=== PATIENT | female | born 1955 | race Caucasian/White ===

== ENCOUNTER 2016-12-08 02:45 | Inpatient (IN) | payer MEDICARE, OTHER ==
[~2016-12-08] VITALS: Ht 167.6 cm; Wt 82.1 kg
[~2016-12-08 02:45] MED LIST: BUSP15TA PO; DICL75TA PO; FLUO20CA16 PO; FOLI1TAB16 PO; HYDR-2679 PO; LORA1TAB PO; METF-620 PO; METO50TA2 PO; NITR0.3T SL; SIMV40TA3 PO; TRIA1CAP PO
[2016-12-08 03:13] LABS: BASO # 0.1 x10^3/uL (0.0-0.2); BASO % 1 % (0-3); EOS % 1 % (0-3); HEMATOCRIT 41.4 % (36.0-47.0); HEMOGLOBIN 13.4 g/dL (12.0-15.5); LYMPH # 3.4 x10^3/uL (1.0-4.8); LYMPH % 20 % (24-48); MEAN CORPUSCULAR HEMOGLOBIN 30 pg (25-35); MEAN CORPUSCULAR HGB CONC 32 g/dL (31-37); MEAN CORPUSCULAR VOLUME 92 fL (79-100); MONO % 6 % (0-9); NEUT % 72 % (31-73); PLATELET COUNT 371 x10^3/uL (140-400); RED BLOOD COUNT 4.49 x10^6/uL (3.50-5.40); RED CELL DISTRIBUTION WIDTH 14.5 % (11.5-14.5); WHITE BLOOD COUNT 16.6 x10^3/uL (4.0-11.0)
[2016-12-08 03:21] LABS: BILIRUBIN,URINE NEGATIVE (NEG); GLUCOSE,URINE NEGATIVE (NEG); NITRITE,URINE NEGATIVE (NEG); PROTEIN,URINE NEGATIVE (NEG-TRACE); UROBILINOGEN,URINE 0.2 mg/dL (0.2 mg/dL)
[2016-12-08 03:22] LABS: BACTERIA,URINE MODERATE /HPF (0-FEW); RBC,URINE OCC /HPF (0-2); SQUAMOUS EPITHELIAL CELL,UR MANY /LPF
[2016-12-08 03:27] LABS: CALCIUM 11.4 mg/dL (8.5-10.1); CREATININE 1.8 mg/dL (0.6-1.0); GFR 28.5; POTASSIUM 4.5 mmol/L (3.5-5.1)
[2016-12-08 03:31] LABS: ALBUMIN 4.2 g/dL (3.4-5.0); ALBUMIN/GLOBULIN RATIO 1.1 (1.0-1.7); TOTAL BILIRUBIN 0.2 mg/dL (0.2-1.0)
--- NOTE | 2016-12-08 03:57 | PHYS DOC ---
Past Medical History Past Medical History: Angina, Anxiety, Diabetes-Type II Additional Past Medical Histor: back pain, [place]IN[place] Past Surgical History: Cholecystectomy, Hysterectomy Alcohol Use: None Drug Use: None Adult General Chief Complaint Chief Complaint: ABDOMINAL PAIN HPI HPI Patient is a 61 year old female with history of CAD, anxiety presents with intermittent daily epigastric pain with nausea vomiting and episodes of watery stools for the past 3 days. Abdominal pain is described as sharp and radiates to back and worsened this evening. Patient has been vomiting stomach contents and is unable to keep fluids or food down. She reports watery diarrhea 2 days ago which improved with Pepto-Bismol. Pain is described as sharp rated moderate to severe and is worse with palpation and movement. Patient is unable to find position of comfort. Previous surgical history of cholecystectomy and hysterectomy. Patient eyes fever, chills, sweats, flank pain, urinary frequency and urgency. No fever chills or sweats. No other acute symptoms or complaints. Patient's accompanied at bedside by her spouse. Review of Systems Review of Systems Review symptoms as per history of present illness. All other review symptoms are negative. Current Medications Current Medications Current Medications Medications (Trade) Dose Ordered Sig/Adrianne Start Time Stop Time Status Last Admin Dose Admin Ceftriaxone Sodium 1 gm/ Sodium Chloride 50 ml @ 100 mls/hr Q24H 12/09/16 05:00 Ceftriaxone Sodium 50 ml @ 100 mls/hr 1X ONCE 12/08/16 04:30 12/08/16 04:59 DC 12/08/16 04:39 100 MLS/HR Famotidine (Pepcid) 20 mg QHS 12/08/16 21:00 Fentanyl Citrate (Fentanyl 2ml Vial) 50 mcg 1X ONCE 12/08/16 04:00 12/08/16 04:01 DC 12/08/16 03:38 50 MCG Morphine Sulfate 4 mg 1X ONCE 12/08/16 04:30 12/08/16 04:31 DC 12/08/16 04:26 4 MG Ondansetron HCl (Zofran) 4 mg PRN Q8HRS PRN 12/08/16 05:15 12/09/16 05:14 Sodium Chloride 1,000 ml @ 125 mls/hr Q8H 12/08/16 05:30 12/09/16 05:29 Allergies Allergies Allergies Coded Allergies Type Severity Reaction Last Updated Verified buprenorphine Allergy Intermediate Rash 10/09/13 Yes naproxen Allergy Intermediate RASH 09/26/13 Yes Physical Exam Physical Exam Constitutional: Anxious, moderate distress secondary to pain. [] HENT: Normocephalic, atraumatic, bilateral external ears normal, oropharynx moist, no oral exudates, nose normal. [] Eyes: PERRLA, EOMI, conjunctiva normal, no discharge. [] Neck: Normal range of motion, no tenderness, supple, no stridor. [] Cardiovascular: Regular rate and rhythm. [] Lungs & Thorax: Bilateral breath sounds clear to auscultation [] Abdomen: Bowel sounds normal, soft, umbilical pain, tenderness, no rebound rigidity or guarding. [] Skin: Warm, dry, no erythema, no rash. [] Back: No tenderness, no CVA tenderness. [] Extremities: No tenderness, no cyanosis, no clubbing, ROM intact, no edema. [] Neurologic: Alert and oriented X 3, normal motor function, normal sensory function, no focal deficits noted. [] Current Patient Data Vital Signs Vital Signs Date Time Temp Pulse Resp B/P (MAP) Pulse Ox O2 Delivery O2 Flow Rate FiO2 12/08/16 04:26 18 Room Air 12/08/16 02:52 98.1 70 179/85 (116) 98 98.1 Lab Values Laboratory Tests Test 12/08/16 02:59 12/08/16 03:00 12/08/16 03:29 Urine Collection Type Unknown Urine Color Yellow Urine Clarity Cloudy Urine pH 5.0 Urine Specific [place] 1.020 Urine Protein Negative mg/dL (NEG-TRACE) Urine Glucose (UA) Negative mg/dL (NEG) Urine Ketones (Stick) Negative mg/dL (NEG) Urine Blood Negative (NEG) Urine Nitrite Negative (NEG) Urine Bilirubin Negative (NEG) Urine Urobilinogen Dipstick 0.2 mg/dL (0.2 mg/dL) Urine Leukocyte Esterase Small (NEG) Urine RBC Occ /HPF (0-2) Urine WBC 11-20 /HPF (0-4) Urine Squamous Epithelial Cells Many /LPF Urine Bacteria Moderate /HPF (0-FEW) Urine Mucus Mod /LPF White Blood Count 16.6 x10^3/uL (4.0-11.0) H Red Blood Count 4.49 x10^6/uL (3.50-5.40) Hemoglobin 13.4 g/dL (12.0-15.5) Hematocrit 41.4 % (36.0-47.0) Mean Corpuscular Volume 92 fL (79-100) Mean Corpuscular Hemoglobin 30 pg (25-35) Mean Corpuscular Hemoglobin Concent 32 g/dL (31-37) Red Cell Distribution Width 14.5 % (11.5-14.5) Platelet Count 371 x10^3/uL (140-400) Neutrophils (%) (Auto) 72 % (31-73) Lymphocytes (%) (Auto) 20 % (24-48) L Monocytes (%) (Auto) 6 % (0-9) Eosinophils (%) (Auto) 1 % (0-3) Basophils (%) (Auto) 1 % (0-3) Neutrophils # (Auto) 12.0 x10^3uL (1.8-7.7) H Lymphocytes # (Auto) 3.4 x10^3/uL (1.0-4.8) Monocytes # (Auto) 1.0 x10^3/uL (0.0-1.1) Eosinophils # (Auto) 0.1 x10^3/uL (0.0-0.7) Basophils # (Auto) 0.1 x10^3/uL (0.0-0.2) Sodium Level 141 mmol/L (136-145) Potassium Level 4.5 mmol/L (3.5-5.1) Chloride Level 101 mmol/L (98-107) Carbon Dioxide Level 24 mmol/L (21-32) Anion Gap 16 (6-14) H Blood Urea Nitrogen 34 mg/dL (7-20) H Creatinine 1.8 mg/dL (0.6-1.0) H Estimated GFR (Cockcroft-Gault) 28.5 BUN/Creatinine Ratio 19 (6-20) Glucose Level 178 mg/dL (70-99) H Calcium Level 11.4 mg/dL (8.5-10.1) H Total Bilirubin 0.2 mg/dL (0.2-1.0) Aspartate Amino Transferase (AST) 50 U/L (15-37) H Alanine Aminotransferase (ALT) 80 U/L (14-59) H Alkaline Phosphatase 84 U/L (46-116) Troponin I Quantitative < 0.017 ng/mL (0.000-0.055) Total Protein 8.0 g/dL (6.4-8.2) Albumin 4.2 g/dL (3.4-5.0) Albumin/Globulin Ratio 1.1 (1.0-1.7) Lipase 462 U/L (73-393) H Glucose (Fingerstick) 155 mg/dL (70-99) H Laboratory Tests 12/08/16 03:00 Laboratory Tests 12/08/16 03:00 EKG EKG [EKG: Normal sinus rhythm, no acute ST-T wave changes.] Radiology/Procedures Radiology/Procedures [Chest x-ray: No acute cardiopulmonary disease per ED result. CT abdomen/pelvis: Bowel thickening involving the descending and distal small bowel loops.] Course & Med Decision Making Course & Med Decision Making Pertinent Labs and Imaging studies reviewed. (See chart for details) [Diffuse periumbilical abdominal pain, flank with intractable nausea and vomiting. UA +, hypercalcemia. IV fluids, pain medications as medication given. Dr. Moya to admit. ] Dragon Disclaimer Dragon Disclaimer This electronic medical record was generated, in whole or in part, using a voice recognition dictation system. Departure Departure Disposition: ADMITTED INPATIENT Admitting Physician: Lv Moya Condition: IMPROVED Referrals: MUNIR CUEVAS MD (PCP) GAURAV ANGEL DO Dec 08, 2016 03:57
[2016-12-08] MEDS ORDERED: FAMOTIDINE 20 MG/2 ML VIAL IVP ONE (04:00)
[2016-12-08] MEDS ORDERED: ONDANSETRON PF 4 MG/2 ML VIAL. IV ONE (04:00)
[2016-12-08] MEDS ORDERED: IV NORMAL SALINE 1000ML BAG 1,000 ML IV ONE ×2 (04:00→04:30)
[2016-12-08] MEDS ORDERED: fentaNYL PF VIAL 100 MCG/2 ML VIAL IV ONE (04:00)
--- NOTE | 2016-12-08 04:19 | RAD ---
EXAM: Abdomen and pelvis CT without intravenous contrast. HISTORY: 61-year-old female with right flank pain. TECHNIQUE: Computed tomographic images of the abdomen and pelvis were obtained without contrast. Multiplanar reformatting was performed. PQRS compliance statement: One or more of the following individualized dose reduction techniques were utilized for this examination: 1. Automated exposure control 2. Adjustment of the mA and/or kV according to patient size 3. Use of iterative reconstruction technique COMPARISON: None available. FINDINGS: The lung bases demonstrate no acute finding. Detailed evaluation of the intra-abdominal and pelvic organs and vascular structures is limited secondary to lack of IV contrast. Within these limitations, the liver, spleen, pancreas, adrenal glands and right kidney demonstrate no focal abnormality. The gallbladder is surgically absent. There is evidence of a duplicated left renal collecting system with 2 proximal ureters visualized. Several hypodense structures are seen within the left renal pelvis, which likely represent parapelvic cysts, hydronephrosis felt less likely. The GI tract demonstrates no dilated bowel loops to suggest obstruction. There is evidence of bowel wall thickening involving the ascending colon as well as distal small bowel loops within the pelvis and right abdomen. Otherwise, the distal colon is decompressed. Proximal small bowel loops appear within normal limits. The urinary bladder is grossly unremarkable. No intra-abdominal or pelvic free fluid, free air or significant lymphadenopathy is seen. 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 Overlying soft tissues and visualized osseous structures demonstrate no acute or suspicious finding. Degenerative changes are present at the L5-S1 level. There is mild anterolisthesis of L4 on L5. IMPRESSION: 1. Bowel wall thickening involving the ascending colon and distal small bowel loops. Possible etiologies include inflammatory bowel disease and enteritis. No evidence of obstruction. 2. Duplicated left renal collecting system, with probable parapelvic cysts present. Electronically signed by: Tania Kilgore MD (12/08/2016 4:16 AM) [id number]
[2016-12-08] MEDS ORDERED: MORPHINE SULFATE 4 MG/ML DISP.SYRIN. IV ONE (04:30)
[2016-12-08] MEDS ORDERED: ONDANSETRON PF 4 MG/2 ML VIAL. IV PRN (05:15)
--- NOTE | 2016-12-08 06:49 | EKG ---
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
[2016-12-08 07:00] VITALS: BP 165/66
[2016-12-08] MEDS ORDERED: MORPHINE SULFATE 4 MG/ML DISP.SYRIN. IV PRN ×2 (07:30→09:45)
--- NOTE | 2016-12-08 07:30 | RAD ---
Exam performed: One view chest. Indication: chest pain today Date of Service: 12/08/2016 5:06 AM Comparison: None available. Single AP upright portable view chest findings: Cardiomediastinal silhouette is within limits of normal. No acute infiltrates, effusion or pneumothorax is detected. The bony structures are normal. Impression: No acute cardiopulmonary process is detected.
[2016-12-08] MEDS: ONDANSETRON PF 4 MG/2 ML VIAL. IV PRN ×4 (07:43→20:54)
[2016-12-08] MEDS: MORPHINE SULFATE 4 MG/ML DISP.SYRIN. IV PRN ×7 (07:47→23:46)
[2016-12-08] MEDS: IV NORMAL SALINE 1000ML BAG 1,000 ML IV SCH ×4 (07:54→23:40)
[2016-12-08] MEDS ORDERED: LISI-338 PO (08:51)
[2016-12-08] MEDS ORDERED: GABA-585 PO (08:51)
[2016-12-08] MEDS ORDERED: EXEN2VIA SQ (08:51)
[2016-12-08] MEDS ORDERED: TRAM50TA PO (08:51)
[2016-12-08] MEDS ORDERED: GLIP5TAB10 PO (08:51)
[2016-12-08] MEDS ORDERED: traMADol 50 MG TABLET PO PRN ×2 (09:45)
[2016-12-08] MEDS ORDERED: ACETAMINOPHEN 325 MG TABLET. PO PRN (09:45)
[2016-12-08] MEDS ORDERED: DOCUSATE SODIUM 100 MG CAPSULE. PO PRN (09:45)
[2016-12-08] MEDS ORDERED: DEXTROSE 50% 25 GM / 50ML DISP.SYRIN. IV PRN (09:45)
[2016-12-08] MEDS ORDERED: hydrALAZINE 20 MG/ML VIAL. IVP PRN (09:45)
[2016-12-08] MEDS: FLUoxetine HCL 20 MG CAPSULE PO SCH ×2 (10:00→21:00)
[2016-12-08] MEDS: LORazepam 1 MG TABLET PO SCH ×3 (10:00→21:00)
[2016-12-08] MEDS: LISINOPRIL 5 MG TABLET. PO SCH (10:02)
[2016-12-08 11:00] VITALS: BP 147/57
[2016-12-08] MEDS: PROCHLORPERAZINE 10 MG/2 ML VIAL. IV PRN ×2 (11:19→16:50)
--- NOTE | 2016-12-08 11:28 | PDOC2 ---
GI CONSULT Reason For Consult: N/v, abd pain HPI: HPI: 61 y/o female admitted through the ER. Ill since 12/04, thought salmon for dinner tasted funny, then began vomiting and having diarrhea w/ diffuse abdominal pain radiating to right flank. Had a red stool once, attributed to drinking tomato juice. Tried Pepto, last stool and emesis yesterday. Just tried ice chips that "tore her up" (more pain). Labs significant for WBC 16.5, BUN 34, Cr 1.8, Ca 11.4, AST 50, ALT 80, lipase 462. UA c/w UTI. CT w/o contrast showed bowel wall thickening involving the ascending colon and distal small bowel loops. Started on Rocephin w/ clear liquid diet ordered, along w/ C Diff and stool culture. Occasional nocturnal reflux treated w/ Tums PRN. H/o PUD at age 11, last EGD ~ 8 years ago showed "scar tissue." Has been taking Advil regularly to "wean off " Tramadol. H/o hemorrhoids w/ occasional streaks of blood on the toilet tissue , last colonoscopy reportedly normal ~8 years ago. Fatty liver on previous US. S/p cholecystectomy. Denies pancreas issues. PMH: PMH: PUD, GERD, fatty liver, DM, HTN, HLD, tremors, anxiety, OA, neuropathy, cholecystectomy, cardiac cath, partial hysterectomy FH: Family History: No pertinent hx (deneis GI cancers, IBD) Social History: Smoke: <1 pack per day ALCOHOL: none Drugs: None ROS: GEN: Denies fevers, chills, sweats HEENT: Denies blurred vision, sore throat CV: Denies chest pain RESP: Denies shortness of air, cough GI: Per HPI : Denies hematuria, dysuria ENDO: Denies weight changes NEURO: Denies confusion, dizziness MSK: Denies weakness, joint pain/swelling SKIN: Denies jaundice, pruritus Vitals: Vitals: Vital Signs Date Time Temp Pulse Resp B/P (MAP) Pulse Ox O2 Delivery O2 Flow Rate FiO2 12/08/16 10:01 Room Air 12/08/16 07:00 97.7 66 20 165/66 (99) 97 97.7 Labs: Labs: Laboratory Tests Test 12/08/16 02:59 12/08/16 03:00 8/22/17 03:29 12/08/16 07:33 Urine Collection Type Unknown Urine Color Yellow Urine Clarity Cloudy Urine pH 5.0 Urine Specific [place] 1.020 Urine Protein Negative mg/dL (NEG-TRACE) Urine Glucose (UA) Negative mg/dL (NEG) Urine Ketones (Stick) Negative mg/dL (NEG) Urine Blood Negative (NEG) Urine Nitrite Negative (NEG) Urine Bilirubin Negative (NEG) Urine Urobilinogen Dipstick 0.2 mg/dL (0.2 mg/dL) Urine Leukocyte Esterase Small (NEG) Urine RBC Occ /HPF (0-2) Urine WBC 11-20 /HPF (0-4) Urine Squamous Epithelial Cells Many /LPF Urine Bacteria Moderate /HPF (0-FEW) Urine Mucus Mod /LPF White Blood Count 16.6 x10^3/uL (4.0-11.0) Red Blood Count 4.49 x10^6/uL (3.50-5.40) Hemoglobin 13.4 g/dL (12.0-15.5) Hematocrit 41.4 % (36.0-47.0) Mean Corpuscular Volume 92 fL (79-100) Mean Corpuscular Hemoglobin 30 pg (25-35) Mean Corpuscular Hemoglobin Concent 32 g/dL (31-37) Red Cell Distribution Width 14.5 % (11.5-14.5) Platelet Count 371 x10^3/uL (140-400) Neutrophils (%) (Auto) 72 % (31-73) Lymphocytes (%) (Auto) 20 % (24-48) Monocytes (%) (Auto) 6 % (0-9) Eosinophils (%) (Auto) 1 % (0-3) Basophils (%) (Auto) 1 % (0-3) Neutrophils # (Auto) 12.0 x10^3uL (1.8-7.7) Lymphocytes # (Auto) 3.4 x10^3/uL (1.0-4.8) Monocytes # (Auto) 1.0 x10^3/uL (0.0-1.1) Eosinophils # (Auto) 0.1 x10^3/uL (0.0-0.7) Basophils # (Auto) 0.1 x10^3/uL (0.0-0.2) Sodium Level 141 mmol/L (136-145) Potassium Level 4.5 mmol/L (3.5-5.1) Chloride Level 101 mmol/L (98-107) Carbon Dioxide Level 24 mmol/L (21-32) Anion Gap 16 (6-14) Blood Urea Nitrogen 34 mg/dL (7-20) Creatinine 1.8 mg/dL (0.6-1.0) Estimated GFR (Cockcroft-Gault) 28.5 BUN/Creatinine Ratio 19 (6-20) Glucose Level 178 mg/dL (70-99) Calcium Level 11.4 mg/dL (8.5-10.1) Total Bilirubin 0.2 mg/dL (0.2-1.0) Aspartate Amino Transf (AST/SGOT) 50 U/L (15-37) Alanine Aminotransferase (ALT/SGPT) 80 U/L (14-59) Alkaline Phosphatase 84 U/L (46-116) Troponin I Quantitative < 0.017 ng/mL (0.000-0.055) Total Protein 8.0 g/dL (6.4-8.2) Albumin 4.2 g/dL (3.4-5.0) Albumin/Globulin Ratio 1.1 (1.0-1.7) Lipase 462 U/L (73-393) Glucose (Fingerstick) 155 mg/dL (70-99) 156 mg/dL (70-99) Allergies: Coded Allergies: buprenorphine (Verified Allergy, Intermediate, Rash, 10/09/13) naproxen (Verified Allergy, Intermediate, RASH, 09/26/13) Medications: Current Medications Medications (Trade) Dose Ordered Sig/Adrianne Route PRN Reason Start Time Stop Time Status Last Admin Dose Admin Famotidine (Pepcid) 20 mg 1X ONCE IVP 12/08/16 04:00 12/08/16 04:01 DC 12/08/16 03:38 Fentanyl Citrate (Fentanyl 2ml Vial) 50 mcg 1X ONCE IV 12/08/16 04:00 12/08/16 04:01 DC 12/08/16 03:38 Ondansetron HCl (Zofran) 4 mg 1X ONCE IV 12/08/16 04:00 12/08/16 04:01 DC 12/08/16 03:37 Sodium Chloride 1,000 ml @ 1,000 mls/hr 1X ONCE IV 12/08/16 04:00 12/08/16 04:59 DC 12/08/16 03:38 Ceftriaxone Sodium 50 ml @ 100 mls/hr 1X ONCE IV 12/08/16 04:30 12/08/16 04:59 DC 12/08/16 04:39 Morphine Sulfate 4 mg 1X ONCE IV 12/08/16 04:30 12/08/16 04:31 DC 12/08/16 04:26 Sodium Chloride 1,000 ml @ 125 mls/hr Q8H IV 12/08/16 05:30 12/09/16 05:29 12/08/16 07:54 Ondansetron HCl (Zofran) 4 mg PRN Q4HRS PRN IV NAUSEA/VOMITING 12/08/16 07:20 12/09/16 07:19 12/08/16 07:43 Morphine Sulfate 4 mg PRN Q2HR PRN IV PAIN 12/08/16 07:30 12/08/16 10:01 Imaging: Imaging: CXR 12/08/16 Impression: No acute cardiopulmonary process is detected. CT A/P w/o contrast 12/08/16 IMPRESSION: 1. Bowel wall thickening involving the ascending colon and distal small bowel loops. Possible etiologies include inflammatory bowel disease and enteritis. No evidence of obstruction. 2. Duplicated left renal collecting system, with probable parapelvic cysts present. PE: GEN: NAD HEENT: Atraumatic, PERRL LUNGS: CTAB anteriorly HEART: RRR ABD: BS+, some distention but soft, diffusely tender to light palpation EXTREMITY: No edema SKIN: No rashes, no jaundice NEURO/PSYCH: A & O 3 A/P: A/P: Abd/flank pain, n/v diarrhea -onset 12/04, last emesis/stool yesterday -stool tests ordered UTI, leukocytosis, OSWALD, hypercalcemia -started on Rocephin, per primary Mildly elevated LFTs and lipase -h/o transaminitis on previous labs -normal pancreas and liver on CT -h/o fatty liver on previous US -s/p cholecystectomy Abnormal CT A/P -bowel wall thickening involving the ascending colon and distal small bowel loops Acid reflux, h/o PUD, NSAID use -takes Tums PRN for nocturnal reflux, last EGD ~8 years ago Occasional rectal bleeding, CRC screen -attributed to hemorrhoids -last colonoscopy ~8 years ago -- Possible enteritis. Supportive care, agree w/ trial of clears. Treat UTI, await stool tests. Would benefit from PPI trial, continue IV H2 sheri until taking PO well. Avoidance of NSAIDs would be ideal, particularly considering PUD history. Mild elevation in LFTs possible related to fatty liver. Trend these along w/ lipase. JOE BRIGGS Dec 08, 2016 11:28
[2016-12-08] MEDS: INSULIN ASPART 300 UNITS/3 ML INSULN.PEN SQ SCH ×2 (11:37→17:00)
--- NOTE | 2016-12-08 12:44 | PDOC1 ---
History and Physical Date of Admission Date of Admission 12/08/16 Identification/Chief Complaint Chief Complaint N/V, abd pain, diarrhea Problems: Source Source: Chart review, Patient History of Present Illness History of Present Illness HPI HPI Patient is a 61 year old female with history of CAD, anxiety, htn, dm2, came to ER for N/V, abd pain, diarrhea x3days. Pt said she had h/o gastric ulcer. She started to have above symptoms on Wednesday, vomiting wo blood or greenish liquid, + right upper abd pain, cramping, intermittent, radiating to right flank , 11/26. She also had 2 days of loose and watery diarrhea, some are bloody, and resolved on Wednesday after taking pepto bismol. denies eating wrong food, ate salad tho. subjective fever, chills, denies cough, sob. + frequent and urgent urination, no dysuria. CT showed possible enteritis Past Medical History Cardiovascular: HTN, Hyperlipidemia, Other CENTRAL NERVOUS SYSTEM: Periperal neuropathy, Other Psych: Anxiety Endocrine: Diabetes Past Surgical History Past Surgical History: Cholecystectomy Family History Family History: Coronary Artery Disease Social History Smoke: <1 pack per day ALCOHOL: none Drugs: None Current Problem List Problem List Problems Medical Problems: (1) Nausea & vomiting Status: Acute Current Medications Current Medications Current Medications Medications (Trade) Dose Ordered Sig/Adrianne Start Time Stop Time Status Last Admin Dose Admin Acetaminophen (Tylenol) 650 mg PRN Q6HRS PRN 12/08/16 09:45 Acetaminophen/ Hydrocodone Bitart (Lortab 7.5/325) 1 tab PRN Q6HRS PRN 12/08/16 09:45 Ceftriaxone Sodium 1 gm/ Sodium Chloride 50 ml @ 100 mls/hr Q24H 12/09/16 05:00 Ceftriaxone Sodium 50 ml @ 100 mls/hr 1X ONCE 12/08/16 04:30 12/08/16 04:59 DC 12/08/16 04:39 100 MLS/HR Dextrose (Dextrose 50%-Water Syringe) 12.5 gm PRN Q15MIN PRN 12/08/16 09:45 Docusate Sodium (Colace) 100 mg PRN DAILY PRN 12/08/16 09:45 Famotidine (Pepcid) 20 mg QHS 12/08/16 21:00 Fentanyl Citrate (Fentanyl 2ml Vial) 50 mcg 1X ONCE 12/08/16 04:00 12/08/16 04:01 DC 12/08/16 03:38 50 MCG Fluoxetine HCl (PROzac) 20 mg BID 12/08/16 10:00 Gabapentin (Neurontin) 100 mg TID 12/08/16 14:00 Heparin Sodium (Porcine) (Heparin Sq) 5,000 unit Q8HRS 12/08/16 14:00 Hydralazine HCl (Apresoline) 10 mg PRN Q4HRS PRN 12/08/16 09:45 Insulin Aspart (NovoLOG) 0-9 UNITS TIDWMEALS 12/08/16 12:00 Lisinopril (Prinivil) 5 mg DAILY 12/08/16 10:00 Lorazepam (Ativan) 0.25 mg PRN Q4HRS PRN 12/08/16 10:45 12/08/16 11:19 0.25 MG Metoprolol Tartrate (Lopressor) 50 mg DAILY 12/09/16 09:00 Morphine Sulfate 2 mg PRN Q2HR PRN 12/08/16 09:45 Ondansetron HCl (Zofran) 4 mg PRN Q6HRS PRN 12/08/16 09:45 Prochlorperazine Edisylate (Compazine) 10 mg PRN Q6HRS PRN 12/08/16 10:45 12/08/16 11:19 10 MG Simvastatin (Zocor) 40 mg HS 12/08/16 21:00 Sodium Chloride 1,000 ml @ 100 mls/hr Q10H 12/09/16 05:30 Tramadol HCl (Ultram) 50 mg PRN Q6HRS PRN 12/08/16 09:45 UNV Allergies Allergies Allergies Coded Allergies Type Severity Reaction Last Updated Verified buprenorphine Allergy Intermediate Rash 10/09/13 Yes naproxen Allergy Intermediate RASH 09/26/13 Yes ROS Review of System CONSTITUTIONAL: No fever or chills EYES: No recent changes SKIN: No rash or itching CARDIOVASCULAR: No chest pain, syncope, palpitations, or edema RESPIRATORY: No SOB or cough GASTROINTESTINAL: + nausea, vomiting or abdominal pain NEUROLOGICAL: No headaches or weakness ENDOCRINE: No cold or heat intolerance GENITOURINARY: No urgency or frequency of urination MUSCULOSKELETAL: No back pain or joint pain LYMPHATICS: No enlarged lymph nodes PSYCHIATRIC: No anxiety or depression Physical Exam Physical Exam GEN.: No apparent distress. Alert and oriented. HEENT: Head is normocephalic, atraumatic NECK: Supple. LUNGS: Clear to auscultation. HEART: RRR, S1, S2 present. Peripheral pulses intact ABDOMEN: Soft, Positive bowel sounds. RUQ moderate tenderness, no guarding or rebound EXTREMITIES: Without any cyanosis. NEUROLOGIC: Normal speech, normal tone PSYCHIATRIC: Normal affect, normal mood. SKIN: No ulcerations Vitals Vitals Vital Signs Date Time Temp Pulse Resp B/P (MAP) Pulse Ox O2 Delivery O2 Flow Rate FiO2 12/08/16 11:21 Room Air 12/08/16 11:00 98.1 64 20 147/57 (87) 94 98.1 Labs Labs Laboratory Tests Test 12/08/16 02:59 12/08/16 03:00 12/08/16 03:29 12/08/16 07:33 Urine Collection Type Unknown Urine Color Yellow Urine Clarity Cloudy Urine pH 5.0 Urine Specific Ramona 1.020 Urine Protein Negative mg/dL (NEG-TRACE) Urine Glucose (UA) Negative mg/dL (NEG) Urine Ketones (Stick) Negative mg/dL (NEG) Urine Blood Negative (NEG) Urine Nitrite Negative (NEG) Urine Bilirubin Negative (NEG) Urine Urobilinogen Dipstick 0.2 mg/dL (0.2 mg/dL) Urine Leukocyte Esterase Small (NEG) Urine RBC Occ /HPF (0-2) Urine WBC 11-20 /HPF (0-4) Urine Squamous Epithelial Cells Many /LPF Urine Bacteria Moderate /HPF (0-FEW) Urine Mucus Mod /LPF White Blood Count 16.6 x10^3/uL (4.0-11.0) Red Blood Count 4.49 x10^6/uL (3.50-5.40) Hemoglobin 13.4 g/dL (12.0-15.5) Hematocrit 41.4 % (36.0-47.0) Mean Corpuscular Volume 92 fL (79-100) Mean Corpuscular Hemoglobin 30 pg (25-35) Mean Corpuscular Hemoglobin Concent 32 g/dL (31-37) Red Cell Distribution Width 14.5 % (11.5-14.5) Platelet Count 371 x10^3/uL (140-400) Neutrophils (%) (Auto) 72 % (31-73) Lymphocytes (%) (Auto) 20 % (24-48) Monocytes (%) (Auto) 6 % (0-9) Eosinophils (%) (Auto) 1 % (0-3) Basophils (%) (Auto) 1 % (0-3) Neutrophils # (Auto) 12.0 x10^3uL (1.8-7.7) Lymphocytes # (Auto) 3.4 x10^3/uL (1.0-4.8) Monocytes # (Auto) 1.0 x10^3/uL (0.0-1.1) Eosinophils # (Auto) 0.1 x10^3/uL (0.0-0.7) Basophils # (Auto) 0.1 x10^3/uL (0.0-0.2) Sodium Level 141 mmol/L (136-145) Potassium Level 4.5 mmol/L (3.5-5.1) Chloride Level 101 mmol/L (98-107) Carbon Dioxide Level 24 mmol/L (21-32) Anion Gap 16 (6-14) Blood Urea Nitrogen 34 mg/dL (7-20) Creatinine 1.8 mg/dL (0.6-1.0) Estimated GFR (Cockcroft-Gault) 28.5 BUN/Creatinine Ratio 19 (6-20) Glucose Level 178 mg/dL (70-99) Calcium Level 11.4 mg/dL (8.5-10.1) Total Bilirubin 0.2 mg/dL (0.2-1.0) Aspartate Amino Transf (AST/SGOT) 50 U/L (15-37) Alanine Aminotransferase (ALT/SGPT) 80 U/L (14-59) Alkaline Phosphatase 84 U/L (46-116) Troponin I Quantitative < 0.017 ng/mL (0.000-0.055) Total Protein 8.0 g/dL (6.4-8.2) Albumin 4.2 g/dL (3.4-5.0) Albumin/Globulin Ratio 1.1 (1.0-1.7) Lipase 462 U/L (73-393) Glucose (Fingerstick) 155 mg/dL (70-99) 156 mg/dL (70-99) Test 8/22/17 11:29 Glucose (Fingerstick) 153 mg/dL (70-99) Laboratory Tests Test 12/08/16 02:59 12/08/16 03:00 12/08/16 03:29 12/08/16 07:33 Urine Collection Type Unknown Urine Color Yellow Urine Clarity Cloudy Urine pH 5.0 Urine Specific Ramona 1.020 Urine Protein Negative mg/dL (NEG-TRACE) Urine Glucose (UA) Negative mg/dL (NEG) Urine Ketones (Stick) Negative mg/dL (NEG) Urine Blood Negative (NEG) Urine Nitrite Negative (NEG) Urine Bilirubin Negative (NEG) Urine Urobilinogen Dipstick 0.2 mg/dL (0.2 mg/dL) Urine Leukocyte Esterase Small (NEG) Urine RBC Occ /HPF (0-2) Urine WBC 11-20 /HPF (0-4) Urine Squamous Epithelial Cells Many /LPF Urine Bacteria Moderate /HPF (0-FEW) Urine Mucus Mod /LPF White Blood Count 16.6 x10^3/uL (4.0-11.0) Red Blood Count 4.49 x10^6/uL (3.50-5.40) Hemoglobin 13.4 g/dL (12.0-15.5) Hematocrit 41.4 % (36.0-47.0) Mean Corpuscular Volume 92 fL (79-100) Mean Corpuscular Hemoglobin 30 pg (25-35) Mean Corpuscular Hemoglobin Concent 32 g/dL (31-37) Red Cell Distribution Width 14.5 % (11.5-14.5) Platelet Count 371 x10^3/uL (140-400) Neutrophils (%) (Auto) 72 % (31-73) Lymphocytes (%) (Auto) 20 % (24-48) Monocytes (%) (Auto) 6 % (0-9) Eosinophils (%) (Auto) 1 % (0-3) Basophils (%) (Auto) 1 % (0-3) Neutrophils # (Auto) 12.0 x10^3uL (1.8-7.7) Lymphocytes # (Auto) 3.4 x10^3/uL (1.0-4.8) Monocytes # (Auto) 1.0 x10^3/uL (0.0-1.1) Eosinophils # (Auto) 0.1 x10^3/uL (0.0-0.7) Basophils # (Auto) 0.1 x10^3/uL (0.0-0.2) Sodium Level 141 mmol/L (136-145) Potassium Level 4.5 mmol/L (3.5-5.1) Chloride Level 101 mmol/L (98-107) Carbon Dioxide Level 24 mmol/L (21-32) Anion Gap 16 (6-14) Blood Urea Nitrogen 34 mg/dL (7-20) Creatinine 1.8 mg/dL (0.6-1.0) Estimated GFR (Cockcroft-Gault) 28.5 BUN/Creatinine Ratio 19 (6-20) Glucose Level 178 mg/dL (70-99) Calcium Level 11.4 mg/dL (8.5-10.1) Total Bilirubin 0.2 mg/dL (0.2-1.0) Aspartate Amino Transf (AST/SGOT) 50 U/L (15-37) Alanine Aminotransferase (ALT/SGPT) 80 U/L (14-59) Alkaline Phosphatase 84 U/L (46-116) Troponin I Quantitative < 0.017 ng/mL (0.000-0.055) Total Protein 8.0 g/dL (6.4-8.2) Albumin 4.2 g/dL (3.4-5.0) Albumin/Globulin Ratio 1.1 (1.0-1.7) Lipase 462 U/L (73-393) Glucose (Fingerstick) 155 mg/dL (70-99) 156 mg/dL (70-99) Test 12/08/16 11:29 Glucose (Fingerstick) 153 mg/dL (70-99) VTE Prophylaxis Ordered VTE Prophylaxis Devices: Yes VTE Pharmacological Prophylaxi: Yes Assessment/Plan Assessment/Plan N/V, abd pain, diarrhea, 2/[address] showed possible enteritis SIRS wo sepsis OSWALD, dehydration, vasomotor mild elevated transaminitis, JOHNSON likely elevated lipase, mild , with n/v htn dm2 h/o CAD wo pci anxiety UTI tobaccoism hypercalcemia OA right hip and knee plan: gi consult ivf labs tmr ceftriaxone for now, fu ucx hold po HTN, dm meds dvt, gi ppx stool cx, cdiff check vitamin d, pth HARDY CHAN MD Dec 08, 2016 12:44
[2016-12-08] MEDS: HEPARIN PF for SUB-Q USE 5,000 UNIT/0.5 ML VIAL. SQ SCH ×2 (13:34→21:05)
[2016-12-08] MEDS: GABAPENTIN 100 MG CAPSULE. PO SCH ×2 (13:47→21:00)
[2016-12-08 19:00] VITALS: BP 138/65
[2016-12-08] MEDS: FAMOTIDINE 20 MG/2 ML VIAL IVP SCH (20:54)
[2016-12-08] MEDS: SIMVASTATIN 40 MG TABLET. PO SCH (21:00)
[2016-12-08 23:00] VITALS: BP 164/74
--- NOTE | 2016-12-09 01:11 | ACF ---
Admission Forms Criteria GASTROENTERITIS Clinical Indications for Admission to Inpatient Care ( [place]/check or initial the applicable condition/criteria) Admission is indicated for ANY ONE of the following (1)(2)(3)(4)(5)(6): I. Inpatient admission required[A] rather than observation care (Also use Gastroenteritis: Observation Care as appropriate) because of ANY ONE of the following(8)(9): a) Vomiting that is severe or persistent b) Dehydration that is severe or persistent c) Hemodynamic instability that is severe or persistent d) Signs of intestinal obstruction or peritonitis [B] e) Hemolytic uremic syndrome is diagnosed. f) Absent bowel sounds with complete ileus g) Parenteral nutrition regimen that must be implemented on inpatient basis h) Other condition, treatment or monitoring requiring inpatient admission [X] II. Suspected severe infection (e.g, presence of high fever, severe or bloody diarrhea)(7) III. Severe abdominal tenderness IV. Toxic megacolon Extended stay beyond goal length of stay may be needed for(4)(5)(23) a) Persistent vital sign changes, severe electrolyte imbalance, or ongoing fluid losses that require continued hospitalization (29) b) Other diagnosed cause for gastrointestinal symptoms (eg, intestinal obstruction,inflammatory bowel disease) that requires continued hospitalization c) Clostridium difficile infection(16)(17)(26)(27)(28) d) Hemolytic uremic syndrome (24)(25) e) Bacterial dysentery(7) f) Radiation gastroenteritis g) Endoscopy with lesion h) Clinically significant medical comorbidities that require inpatient care ( eg, acute renal failure) i) Older patients (65 years or older) j) Toxic megacolon The original [facility] content created by [employer] has been revised. The portions of the content which have been revised are identified through the use of italic text or in bold, and [facility] has neither reviewed nor approved the modified material. All other unmodified content is copyright [facility]. Please see references footnoted in the original [facility] edition 2017 Admission Criteria Met?: Yes DEISY CORTEZ Dec 09, 2016 01:11
[2016-12-09 03:00] VITALS: BP 133/69
[2016-12-09] MEDS: ONDANSETRON PF 4 MG/2 ML VIAL. IV PRN ×2 (03:30→09:20)
[2016-12-09] MEDS: MORPHINE SULFATE 4 MG/ML DISP.SYRIN. IV PRN ×5 (03:34→21:00)
[2016-12-09 05:56] LABS: BASO # 0.1 x10^3/uL (0.0-0.2); BASO % 1 % (0-3); EOS % 2 % (0-3); HEMATOCRIT 33.7 % (36.0-47.0); HEMOGLOBIN 11.4 g/dL (12.0-15.5); LYMPH % 37 % (24-48); MEAN CORPUSCULAR HEMOGLOBIN 30 pg (25-35); MEAN CORPUSCULAR HGB CONC 34 g/dL (31-37); MEAN CORPUSCULAR VOLUME 89 fL (79-100); MONO % 9 % (0-9); NEUT % 52 % (31-73); PLATELET COUNT 253 x10^3/uL (140-400); RED BLOOD COUNT 3.77 x10^6/uL (3.50-5.40); RED CELL DISTRIBUTION WIDTH 14.4 % (11.5-14.5); WHITE BLOOD COUNT 8.1 x10^3/uL (4.0-11.0)
[2016-12-09] MEDS: HEPARIN PF for SUB-Q USE 5,000 UNIT/0.5 ML VIAL. SQ SCH ×3 (06:16→21:00)
[2016-12-09 06:27] LABS: ALBUMIN 3.3 g/dL (3.4-5.0); CALCIUM 8.4 mg/dL (8.5-10.1); CREATININE 0.9 mg/dL (0.6-1.0); GFR 63.4; TOTAL BILIRUBIN 0.2 mg/dL (0.2-1.0); TOTAL PROTEIN 6.6 g/dL (6.4-8.2)
[2016-12-09 07:00] VITALS: BP 142/70
[2016-12-09] MEDS: LORazepam 1 MG TABLET PO SCH ×3 (09:00→20:55)
--- NOTE | 2016-12-09 09:51 | PDOC ---
Subjective: Subjective: Vomiting, abd pain to back. Anxious. Objective: Vital Signs: Vital Signs Date Time Temp Pulse Resp B/P (MAP) Pulse Ox O2 Delivery O2 Flow Rate FiO2 12/09/16 09:19 16 98 Room Air 12/09/16 07:00 97.9 82 142/70 (94) 97.9 Labs: Laboratory Tests Test 12/08/16 11:29 12/08/16 16:48 12/08/16 21:14 12/09/16 04:55 Glucose (Fingerstick) 153 mg/dL 153 mg/dL 192 mg/dL White Blood Count 8.1 x10^3/uL Red Blood Count 3.77 x10^6/uL Hemoglobin 11.4 g/dL Hematocrit 33.7 % Mean Corpuscular Volume 89 fL Mean Corpuscular Hemoglobin 30 pg Mean Corpuscular Hemoglobin Concent 34 g/dL Red Cell Distribution Width 14.4 % Platelet Count 253 x10^3/uL Neutrophils (%) (Auto) 52 % Lymphocytes (%) (Auto) 37 % Monocytes (%) (Auto) 9 % Eosinophils (%) (Auto) 2 % Basophils (%) (Auto) 1 % Neutrophils # (Auto) 4.2 x10^3uL Lymphocytes # (Auto) 3.0 x10^3/uL Monocytes # (Auto) 0.7 x10^3/uL Eosinophils # (Auto) 0.1 x10^3/uL Basophils # (Auto) 0.1 x10^3/uL Sodium Level 140 mmol/L Potassium Level 4.0 mmol/L Chloride Level 104 mmol/L Carbon Dioxide Level 25 mmol/L Anion Gap 11 Blood Urea Nitrogen 17 mg/dL Creatinine 0.9 mg/dL Estimated GFR (Cockcroft-Gault) 63.4 BUN/Creatinine Ratio 19 Glucose Level 142 mg/dL Calcium Level 8.4 mg/dL Total Bilirubin 0.2 mg/dL Aspartate Amino Transf (AST/SGOT) 58 U/L Alanine Aminotransferase (ALT/SGPT) 76 U/L Alkaline Phosphatase 62 U/L Total Protein 6.6 g/dL Albumin 3.3 g/dL Albumin/Globulin Ratio 1.0 Lipase 608 U/L Test 12/09/16 07:26 Glucose (Fingerstick) 174 mg/dL PE: GEN: NAD LUNGS: clear HEART: RRR ABD: epigastric tenderness NEURO/PSYCH: tearful A/P: Epigastric pain, vomiting, abnormal CT -stool tests ordered, bowel wall thickening involving ascending colon and distal SB loops -last EGD and colon ~8 years ago Elevated lipase, transaminitis -s/p luis f, normal panc and liver on CT -stool tests ordered/uncollected -h/o fatty liver Leukocytosis (resolved), hypercalcemia (resolved) -- Careful w/ PO intake w/ rising lipase and pain. Continue IV H2 sheri. Supportive care. JOE BRIGGS Dec 09, 2016 09:51
[2016-12-09] MEDS: INSULIN ASPART 300 UNITS/3 ML INSULN.PEN SQ SCH ×3 (10:02→18:11)
[2016-12-09] MEDS: IV NORMAL SALINE 1000ML BAG 1,000 ML IV SCH ×2 (10:42→21:00)
[2016-12-09 11:00] VITALS: BP 134/52
[2016-12-09 11:20] LABS: PTH INTACT 44 pg/mL (15-65)
--- NOTE | 2016-12-09 12:55 | PDOC ---
PROGRESS NOTES Chief Complaint Chief Complaint N/V, abd pain, diarrhea, 2/[address] showed enteritis SIRS wo sepsis OSWALD, dehydration, vasomotor mild elevated transaminitis, JOHNSON likely elevated lipase, mild , with n/v htn dm2 h/o CAD wo pci anxiety UTI tobaccoism hypercalcemia OA right hip and knee plan: gi consult, cont clear liquid diet ivf labs tmr ceftriaxone for now, fu ucx hold po HTN, dm meds dvt, gi ppx stool cx, cdiff check vitamin d, pth normal ativan iv prn History of Present Illness History of Present Illness no fever, chills, sob or chest pain cont nausea yesterday, N/V today, with clear liquid crying, saying nobody give her pain meds x2h in the am + abd pain, upper abd no BM lipase higher Vitals Vitals Vital Signs Date Time Temp Pulse Resp B/P (MAP) Pulse Ox O2 Delivery O2 Flow Rate FiO2 12/09/16 11:00 97.9 69 18 134/52 (79) 94 Room Air 97.9 Physical Exam General: Alert, Oriented X3, Cooperative Heart: Regular rate, Normal S1, Normal S2 Lungs: Clear Abdomen: Normal bowel sounds, Soft, Other (epigastric area + tenderness) Extremities: No clubbing, No cyanosis Skin: No rashes Labs LABS Laboratory Tests Test 12/08/16 16:48 12/08/16 21:14 12/09/16 04:55 12/09/16 07:26 Glucose (Fingerstick) 153 mg/dL (70-99) 192 mg/dL (70-99) 174 mg/dL (70-99) White Blood Count 8.1 x10^3/uL (4.0-11.0) Red Blood Count 3.77 x10^6/uL (3.50-5.40) Hemoglobin 11.4 g/dL (12.0-15.5) Hematocrit 33.7 % (36.0-47.0) Mean Corpuscular Volume 89 fL (79-100) Mean Corpuscular Hemoglobin 30 pg (25-35) Mean Corpuscular Hemoglobin Concent 34 g/dL (31-37) Red Cell Distribution Width 14.4 % (11.5-14.5) Platelet Count 253 x10^3/uL (140-400) Neutrophils (%) (Auto) 52 % (31-73) Lymphocytes (%) (Auto) 37 % (24-48) Monocytes (%) (Auto) 9 % (0-9) Eosinophils (%) (Auto) 2 % (0-3) Basophils (%) (Auto) 1 % (0-3) Neutrophils # (Auto) 4.2 x10^3uL (1.8-7.7) Lymphocytes # (Auto) 3.0 x10^3/uL (1.0-4.8) Monocytes # (Auto) 0.7 x10^3/uL (0.0-1.1) Eosinophils # (Auto) 0.1 x10^3/uL (0.0-0.7) Basophils # (Auto) 0.1 x10^3/uL (0.0-0.2) Sodium Level 140 mmol/L (136-145) Potassium Level 4.0 mmol/L (3.5-5.1) Chloride Level 104 mmol/L (98-107) Carbon Dioxide Level 25 mmol/L (21-32) Anion Gap 11 (6-14) Blood Urea Nitrogen 17 mg/dL (7-20) Creatinine 0.9 mg/dL (0.6-1.0) Estimated GFR (Non- 67 (>59) Estimated GFR (Cockcroft-Gault) 63.4 BUN/Creatinine Ratio 19 (6-20) Glucose Level 142 mg/dL (70-99) Calcium Level 8.4 mg/dL (8.5-10.1) Total Bilirubin 0.2 mg/dL (0.2-1.0) Aspartate Amino Transf (AST/SGOT) 58 U/L (15-37) Alanine Aminotransferase (ALT/SGPT) 76 U/L (14-59) Alkaline Phosphatase 62 U/L (46-116) Total Protein 6.6 g/dL (6.4-8.2) Albumin 3.3 g/dL (3.4-5.0) Albumin/Globulin Ratio 1.0 (1.0-1.7) Lipase 608 U/L (73-393) EGFR 77 (>59) PTH (Intact) Specimen Description Comment (.) Parathyroid Hormone (Intact) 44 pg/mL (15-65) Calcium (PTH Intact) 8.7 mg/dL (8.7-10.3) Creatinine (PTH Intact) 0.92 mg/dL (0.57-1.00) Phosphorus (PTH Intact) 2.6 mg/dL (2.5-4.5) Test 12/09/16 10:51 Glucose (Fingerstick) 161 mg/dL (70-99) Assessment and Plan Assessmemt and Plan Problems Medical Problems: (1) Nausea & vomiting Status: Acute Problems: Comment Review of Relevant I have reviewed the following items bernie (where applicable) has been applied. Labs Laboratory Tests Test 12/08/16 02:59 12/08/16 03:00 12/08/16 03:29 12/08/16 07:33 Urine Collection Type Unknown Urine Color Yellow Urine Clarity Cloudy Urine pH 5.0 Urine Specific [place] 1.020 Urine Protein Negative mg/dL (NEG-TRACE) Urine Glucose (UA) Negative mg/dL (NEG) Urine Ketones (Stick) Negative mg/dL (NEG) Urine Blood Negative (NEG) Urine Nitrite Negative (NEG) Urine Bilirubin Negative (NEG) Urine Urobilinogen Dipstick 0.2 mg/dL (0.2 mg/dL) Urine Leukocyte Esterase Small (NEG) Urine RBC Occ /HPF (0-2) Urine WBC 11-20 /HPF (0-4) Urine Squamous Epithelial Cells Many /LPF Urine Bacteria Moderate /HPF (0-FEW) Urine Mucus Mod /LPF White Blood Count 16.6 x10^3/uL (4.0-11.0) Red Blood Count 4.49 x10^6/uL (3.50-5.40) Hemoglobin 13.4 g/dL (12.0-15.5) Hematocrit 41.4 % (36.0-47.0) Mean Corpuscular Volume 92 fL (79-100) Mean Corpuscular Hemoglobin 30 pg (25-35) Mean Corpuscular Hemoglobin Concent 32 g/dL (31-37) Red Cell Distribution Width 14.5 % (11.5-14.5) Platelet Count 371 x10^3/uL (140-400) Neutrophils (%) (Auto) 72 % (31-73) Lymphocytes (%) (Auto) 20 % (24-48) Monocytes (%) (Auto) 6 % (0-9) Eosinophils (%) (Auto) 1 % (0-3) Basophils (%) (Auto) 1 % (0-3) Neutrophils # (Auto) 12.0 x10^3uL (1.8-7.7) Lymphocytes # (Auto) 3.4 x10^3/uL (1.0-4.8) Monocytes # (Auto) 1.0 x10^3/uL (0.0-1.1) Eosinophils # (Auto) 0.1 x10^3/uL (0.0-0.7) Basophils # (Auto) 0.1 x10^3/uL (0.0-0.2) Sodium Level 141 mmol/L (136-145) Potassium Level 4.5 mmol/L (3.5-5.1) Chloride Level 101 mmol/L (98-107) Carbon Dioxide Level 24 mmol/L (21-32) Anion Gap 16 (6-14) Blood Urea Nitrogen 34 mg/dL (7-20) Creatinine 1.8 mg/dL (0.6-1.0) Estimated GFR (Cockcroft-Gault) 28.5 BUN/Creatinine Ratio 19 (6-20) Glucose Level 178 mg/dL (70-99) Calcium Level 11.4 mg/dL (8.5-10.1) Total Bilirubin 0.2 mg/dL (0.2-1.0) Aspartate Amino Transf (AST/SGOT) 50 U/L (15-37) Alanine Aminotransferase (ALT/SGPT) 80 U/L (14-59) Alkaline Phosphatase 84 U/L (46-116) Troponin I Quantitative < 0.017 ng/mL (0.000-0.055) Total Protein 8.0 g/dL (6.4-8.2) Albumin 4.2 g/dL (3.4-5.0) Albumin/Globulin Ratio 1.1 (1.0-1.7) Lipase 462 U/L (73-393) Glucose (Fingerstick) 155 mg/dL (70-99) 156 mg/dL (70-99) Test 12/08/16 11:29 12/08/16 16:48 12/08/16 21:14 12/09/16 04:55 Glucose (Fingerstick) 153 mg/dL (70-99) 153 mg/dL (70-99) 192 mg/dL (70-99) White Blood Count 8.1 x10^3/uL (4.0-11.0) Red Blood Count 3.77 x10^6/uL (3.50-5.40) Hemoglobin 11.4 g/dL (12.0-15.5) Hematocrit 33.7 % (36.0-47.0) Mean Corpuscular Volume 89 fL (79-100) Mean Corpuscular Hemoglobin 30 pg (25-35) Mean Corpuscular Hemoglobin Concent 34 g/dL (31-37) Red Cell Distribution Width 14.4 % (11.5-14.5) Platelet Count 253 x10^3/uL (140-400) Neutrophils (%) (Auto) 52 % (31-73) Lymphocytes (%) (Auto) 37 % (24-48) Monocytes (%) (Auto) 9 % (0-9) Eosinophils (%) (Auto) 2 % (0-3) Basophils (%) (Auto) 1 % (0-3) Neutrophils # (Auto) 4.2 x10^3uL (1.8-7.7) Lymphocytes # (Auto) 3.0 x10^3/uL (1.0-4.8) Monocytes # (Auto) 0.7 x10^3/uL (0.0-1.1) Eosinophils # (Auto) 0.1 x10^3/uL (0.0-0.7) Basophils # (Auto) 0.1 x10^3/uL (0.0-0.2) Sodium Level 140 mmol/L (136-145) Potassium Level 4.0 mmol/L (3.5-5.1) Chloride Level 104 mmol/L (98-107) Carbon Dioxide Level 25 mmol/L (21-32) Anion Gap 11 (6-14) Blood Urea Nitrogen 17 mg/dL (7-20) Creatinine 0.9 mg/dL (0.6-1.0) Estimated GFR (Non- 67 (>59) Estimated GFR (Cockcroft-Gault) 63.4 BUN/Creatinine Ratio 19 (6-20) Glucose Level 142 mg/dL (70-99) Calcium Level 8.4 mg/dL (8.5-10.1) Total Bilirubin 0.2 mg/dL (0.2-1.0) Aspartate Amino Transf (AST/SGOT) 58 U/L (15-37) Alanine Aminotransferase (ALT/SGPT) 76 U/L (14-59) Alkaline Phosphatase 62 U/L (46-116) Total Protein 6.6 g/dL (6.4-8.2) Albumin 3.3 g/dL (3.4-5.0) Albumin/Globulin Ratio 1.0 (1.0-1.7) Lipase 608 U/L (73-393) EGFR 77 (>59) PTH (Intact) Specimen Description Comment (.) Parathyroid Hormone (Intact) 44 pg/mL (15-65) Calcium (PTH Intact) 8.7 mg/dL (8.7-10.3) Creatinine (PTH Intact) 0.92 mg/dL (0.57-1.00) Phosphorus (PTH Intact) 2.6 mg/dL (2.5-4.5) Test 12/09/16 07:26 12/09/16 10:51 Glucose (Fingerstick) 174 mg/dL (70-99) 161 mg/dL (70-99) Laboratory Tests Test 12/08/16 16:48 12/08/16 21:14 12/09/16 04:55 12/09/16 07:26 Glucose (Fingerstick) 153 mg/dL (70-99) 192 mg/dL (70-99) 174 mg/dL (70-99) White Blood Count 8.1 x10^3/uL (4.0-11.0) Red Blood Count 3.77 x10^6/uL (3.50-5.40) Hemoglobin 11.4 g/dL (12.0-15.5) Hematocrit 33.7 % (36.0-47.0) Mean Corpuscular Volume 89 fL (79-100) Mean Corpuscular Hemoglobin 30 pg (25-35) Mean Corpuscular Hemoglobin Concent 34 g/dL (31-37) Red Cell Distribution Width 14.4 % (11.5-14.5) Platelet Count 253 x10^3/uL (140-400) Neutrophils (%) (Auto) 52 % (31-73) Lymphocytes (%) (Auto) 37 % (24-48) Monocytes (%) (Auto) 9 % (0-9) Eosinophils (%) (Auto) 2 % (0-3) Basophils (%) (Auto) 1 % (0-3) Neutrophils # (Auto) 4.2 x10^3uL (1.8-7.7) Lymphocytes # (Auto) 3.0 x10^3/uL (1.0-4.8) Monocytes # (Auto) 0.7 x10^3/uL (0.0-1.1) Eosinophils # (Auto) 0.1 x10^3/uL (0.0-0.7) Basophils # (Auto) 0.1 x10^3/uL (0.0-0.2) Sodium Level 140 mmol/L (136-145) Potassium Level 4.0 mmol/L (3.5-5.1) Chloride Level 104 mmol/L (98-107) Carbon Dioxide Level 25 mmol/L (21-32) Anion Gap 11 (6-14) Blood Urea Nitrogen 17 mg/dL (7-20) Creatinine 0.9 mg/dL (0.6-1.0) Estimated GFR (Non- 67 (>59) Estimated GFR (Cockcroft-Gault) 63.4 BUN/Creatinine Ratio 19 (6-20) Glucose Level 142 mg/dL (70-99) Calcium Level 8.4 mg/dL (8.5-10.1) Total Bilirubin 0.2 mg/dL (0.2-1.0) Aspartate Amino Transf (AST/SGOT) 58 U/L (15-37) Alanine Aminotransferase (ALT/SGPT) 76 U/L (14-59) Alkaline Phosphatase 62 U/L (46-116) Total Protein 6.6 g/dL (6.4-8.2) Albumin 3.3 g/dL (3.4-5.0) Albumin/Globulin Ratio 1.0 (1.0-1.7) Lipase 608 U/L (73-393) EGFR 77 (>59) PTH (Intact) Specimen Description Comment (.) Parathyroid Hormone (Intact) 44 pg/mL (15-65) Calcium (PTH Intact) 8.7 mg/dL (8.7-10.3) Creatinine (PTH Intact) 0.92 mg/dL (0.57-1.00) Phosphorus (PTH Intact) 2.6 mg/dL (2.5-4.5) Test 12/09/16 10:51 Glucose (Fingerstick) 161 mg/dL (70-99) Microbiology 12/08/16 Blood Culture - Preliminary, Resulted NO GROWTH AFTER 1 DAY 12/08/16 Urine Culture - Preliminary, Resulted 12/08/16 Urine Culture Result 1 (RUBINA) - Preliminary, Resulted Medications Current Medications Famotidine (Pepcid) 20 mg 1X ONCE IVP Last administered on 12/08/16 03:38; Start 12/08/16 at 04:00; Stop 12/08/16 at 04:01; Status DC Fentanyl Citrate (Fentanyl 2ml Vial) 50 mcg 1X ONCE IV Last administered on 03:38; Start 12/08/16 at 04:00; Stop 12/08/16 at 04:01; Status DC Ondansetron HCl (Zofran) 4 mg 1X ONCE IV Last administered on 12/08/16 03:37 ; Start 12/08/16 at 04:00; Stop 12/08/16 at 04:01; Status DC Sodium Chloride 1,000 ml @ 1,000 mls/hr 1X ONCE IV Last administered on 03:38; Start 12/08/16 at 04:00; Stop 12/08/16 at 04:59; Status DC Ceftriaxone Sodium 1 gm/ Sodium Chloride 50 ml @ 100 mls/hr Q24H IV Last administered on 12/09/16 06:09; Start 12/09/16 at 05:00 Ceftriaxone Sodium 50 ml @ 100 mls/hr 1X ONCE IV Last administered on 04:39; Start 12/08/16 at 04:30; Stop 12/08/16 at 04:59; Status DC Sodium Chloride 1,000 ml @ 1,000 mls/hr 1X ONCE IV ; Start 12/08/16 at 04:30; Stop 12/08/16 at 05:29; Status DC Morphine Sulfate 4 mg 1X ONCE IV Last administered on 12/08/16 04:26; Start 12/08/16 at 04:30; Stop 12/08/16 at 04:31; Status DC Ondansetron HCl (Zofran) 4 mg PRN Q8HRS PRN IV NAUSEA/VOMITING; Start 12/08/16 at 05:15; Stop 12/08/16 at 07:22; Status DC Sodium Chloride 1,000 ml @ 125 mls/hr Q8H IV Last administered on 12/08/16 23 :40; Start 12/08/16 at 05:30; Stop 12/09/16 at 05:29; Status DC Famotidine (Pepcid) 20 mg QHS IVP Last administered on 12/08/16 20:54; Start 12/08/16 at 21:00 Ondansetron HCl (Zofran) 4 mg PRN Q4HRS PRN IV NAUSEA/VOMITING Last administered on 12/08/16 18:49; Start 12/08/16 at 07:20; Stop 12/08/16 at 19:35 ; Status DC Morphine Sulfate 2 mg PRN Q2HR PRN IV PAIN; Start 12/08/16 at 07:30; Stop 12/08 at 09:43; Status DC Morphine Sulfate 4 mg PRN Q2HR PRN IV PAIN Last administered on 12/09/16 09:19 ; Start 12/08/16 at 07:30 Fluoxetine HCl (PROzac) 20 mg BID PO ; Start 12/08/16 at 10:00 Gabapentin (Neurontin) 100 mg TID PO ; Start 12/08/16 at 14:00 Acetaminophen/ Hydrocodone Bitart (Lortab 7.5/325) 1 tab PRN Q6HRS PRN PO PAIN ; Start 12/08/16 at 09:45 Lisinopril (Prinivil) 5 mg DAILY PO ; Start 12/08/16 at 10:00 Lorazepam (Ativan) 1 mg TID PO ; Start 12/08/16 at 10:00 Metoprolol Tartrate (Lopressor) 50 mg DAILY PO ; Start 12/09/16 at 09:00 Simvastatin (Zocor) 40 mg HS PO ; Start 12/08/16 at 21:00 Tramadol HCl (Ultram) 50 mg PRN Q6HRS PRN PO PAIN MILD; Start 12/08/16 at 09:45 Acetaminophen (Tylenol) 650 mg PRN Q6HRS PRN PO FEVER; Start 12/08/16 at 09:45 Ondansetron HCl (Zofran) 4 mg PRN Q6HRS PRN IV NAUSEA/VOMITING Last administered on 12/09/16 09:20; Start 12/08/16 at 09:45 Morphine Sulfate 2 mg PRN Q2HR PRN IV PAIN; Start 12/08/16 at 09:45 Tramadol HCl (Ultram) 50 mg PRN Q6HRS PRN PO PAIN; Start 12/08/16 at 09:45; Status UNV Hydralazine HCl (Apresoline) 10 mg PRN Q4HRS PRN IVP ELEVATED BP, SEE COMMENTS ; Start 12/08/16 at 09:45 Docusate Sodium (Colace) 100 mg PRN DAILY PRN PO CONSTIPATION; Start 12/08/16 at 09:45 Heparin Sodium (Porcine) (Heparin Sq) 5,000 unit Q8HRS SQ Last administered on 12/09/16 06:16; Start 12/08/16 at 14:00 Insulin Aspart (NovoLOG) 0-9 UNITS TIDWMEALS SQ Last administered on 12/09/16 10:02; Start 12/08/16 at 12:00 Dextrose (Dextrose 50%-Water Syringe) 12.5 gm PRN Q15MIN PRN IV SEE COMMENTS; Start 12/08/16 at 09:45 Sodium Chloride 1,000 ml @ 100 mls/hr Q10H IV Last administered on 12/09/16 10:42; Start 12/09/16 at 05:30 Lorazepam (Ativan) 0.25 mg PRN Q4HRS PRN IV ANXIETY / AGITATION Last administered on 12/09/16 03:30; Start 12/08/16 at 10:45; Stop 12/09/16 at 09:48 ; Status DC Prochlorperazine Edisylate (Compazine) 10 mg PRN Q6HRS PRN IV NAUSEA/VOMITING Last administered on 12/08/16 16:50; Start 12/08/16 at 10:45 Lorazepam (Ativan) 4.1 mg 1X ONCE IV ; Start 12/09/16 at 09:45; Stop 12/09/16 at 09:52; Status DC Lorazepam (Ativan) 0.5 mg PRN Q4HRS PRN IV ANXIETY / AGITATION; Start 12/09/16 at 10:00 Lorazepam (Ativan) 0.5 mg DAILY08 IV Last administered on 12/09/16 09:59; Start 12/10/16 at 08:00 Active Scripts Active Reported Shanna (Exenatide Microspheres) 2 Mg Vial 2 Mg SQ WEEKLY Gabapentin 100 Mg Capsule Unknown Dose PO TID Lisinopril 5 Mg Tablet 1 Tab PO DAILY Glipizide 5 Mg Tablet 1 Tab PO BID Tramadol Hcl 50 Mg Tablet 1 Tab PO PRN Q6HRS Dyazide 37.5-25 Capsule (Triamterene/Hydrochlorothiazid) 1 Each Capsule 1 Cap PO DAILY Lortab 7.5-325 mg Tablet (Hydrocodone/Acetaminophen) 1 Each Tablet 1 Tab PO PRN Q6HRS PRN Nitrostat (Nitroglycerin) 0.3 Mg Tab.subl 0.3 Mg SL PRN Q5MIN PRN Metoprolol Tartrate 50 Mg Tablet 50 Mg PO DAILY Simvastatin 40 Mg Tablet 40 Mg PO HS Lorazepam 1 Mg Tablet 1 Mg PO TID Metformin Hcl 1,000 Mg Tablet 1,000 Mg PO BID Prozac (Fluoxetine Hcl) 20 Mg Capsule 20 Mg PO BID Vitals/I & O Vital Sign - Last 24 Hours 12/08/16 12/08/16 12/08/16 12/08/16 13:31 16:51 18:49 19:00 Temp 98.6 98.6 Pulse 62 Resp 18 B/P (MAP) 138/65 (89) Pulse Ox 92 O2 Delivery Room Air Room Air Room Air Room Air 12/08/16 12/08/16 12/08/16 12/08/16 20:00 20:54 23:00 23:46 Temp 99.5 99.5 Pulse 66 Resp 16 18 20 B/P (MAP) 164/74 (104) Pulse Ox 92 93 92 O2 Delivery Room Air Room Air Room Air Room Air 12/09/16 12/09/16 12/09/16 12/09/16 03:00 03:34 07:00 09:19 Temp 98.3 97.9 98.3 97.9 Pulse 76 82 Resp 18 16 18 16 B/P (MAP) 133/69 (90) 142/70 (94) Pulse Ox 95 92 96 98 O2 Delivery Room Air Room Air Room Air Room Air 12/09/16 12/09/16 09:49 11:00 Temp 97.9 97.9 Pulse 69 Resp 16 18 B/P (MAP) 134/52 (79) Pulse Ox 96 94 O2 Delivery Room Air Room Air Intake and Output 12/08/16 12/08/16 12/09/16 15:00 23:00 07:00 Intake Total 299 ml 659 ml 120 ml Balance 299 ml 659 ml 120 ml HARDY CHAN MD Dec 09, 2016 12:54
[2016-12-09] MEDS: PROCHLORPERAZINE 10 MG/2 ML VIAL. IV PRN (13:02)
[2016-12-09] MEDS: GABAPENTIN 100 MG CAPSULE. PO SCH ×3 (14:00→20:54)
[2016-12-09] MEDS: METOPROLOL TART IMMED RELEASE 50 MG TABLET. PO SCH (14:41)
[2016-12-09] MEDS: FLUoxetine HCL 20 MG CAPSULE PO SCH ×2 (14:41→20:54)
[2016-12-09] MEDS: HYDROcodone/APAP 7.5/325MG 1 TAB TABLET PO PRN (14:42)
[2016-12-09] MEDS: LISINOPRIL 5 MG TABLET. PO SCH (14:43)
[2016-12-09 15:00] VITALS: BP 175/68
[2016-12-09 15:25] LABS: HEP A IGM ABDY Negative (Negative)
[2016-12-09 19:00] VITALS: BP 129/55
[2016-12-09] MEDS: FAMOTIDINE 20 MG/2 ML VIAL IVP SCH (20:54)
[2016-12-09] MEDS: SIMVASTATIN 40 MG TABLET. PO SCH (20:55)
[2016-12-09 23:33] VITALS: BP 133/51
[2016-12-10 03:32] VITALS: BP 129/62
[2016-12-10] MEDS: IV NORMAL SALINE 1000ML BAG 1,000 ML IV SCH ×2 (05:41→21:22)
[2016-12-10] MEDS: HYDROcodone/APAP 7.5/325MG 1 TAB TABLET PO PRN ×3 (05:42→21:17)
[2016-12-10] MEDS: HEPARIN PF for SUB-Q USE 5,000 UNIT/0.5 ML VIAL. SQ SCH ×3 (05:47→21:21)
[2016-12-10 07:20] VITALS: BP 112/44
[2016-12-10] MEDS: INSULIN ASPART 300 UNITS/3 ML INSULN.PEN SQ SCH ×3 (08:00→16:56)
[2016-12-10] MEDS: LISINOPRIL 5 MG TABLET. PO SCH (08:57)
[2016-12-10] MEDS: FLUoxetine HCL 20 MG CAPSULE PO SCH ×2 (08:57→21:16)
[2016-12-10] MEDS: LORazepam 1 MG TABLET PO SCH ×3 (08:57→21:16)
[2016-12-10] MEDS: GABAPENTIN 100 MG CAPSULE. PO SCH ×3 (08:58→21:16)
[2016-12-10] MEDS: METOPROLOL TART IMMED RELEASE 50 MG TABLET. PO SCH (08:58)
[2016-12-10] MEDS: CHOLECALCIFEROL (VITAMIN D3) 1,000 UNIT TABLET PO SCH (09:03)
[2016-12-10 10:14] LABS: BASO # 0.1 x10^3/uL (0.0-0.2); BASO % 1 % (0-3); EOS % 2 % (0-3); HEMATOCRIT 32.5 % (36.0-47.0); HEMOGLOBIN 11.2 g/dL (12.0-15.5); LYMPH # 2.5 x10^3/uL (1.0-4.8); LYMPH % 30 % (24-48); MEAN CORPUSCULAR HEMOGLOBIN 31 pg (25-35); MEAN CORPUSCULAR HGB CONC 34 g/dL (31-37); MEAN CORPUSCULAR VOLUME 89 fL (79-100); MONO % 7 % (0-9); NEUT % 61 % (31-73); PLATELET COUNT 244 x10^3/uL (140-400); RED BLOOD COUNT 3.64 x10^6/uL (3.50-5.40); WHITE BLOOD COUNT 8.3 x10^3/uL (4.0-11.0)
[2016-12-10 10:42] VITALS: BP_SYST 110; BP_SYST 127; BP_DIAS 48; BP_DIAS 67
[2016-12-10 10:46] LABS: ALBUMIN/GLOBULIN RATIO 0.9 (1.0-1.7); CALCIUM 8.3 mg/dL (8.5-10.1); CREATININE 0.9 mg/dL (0.6-1.0); GFR 63.4; TOTAL BILIRUBIN 0.3 mg/dL (0.2-1.0); TOTAL PROTEIN 6.3 g/dL (6.4-8.2)
--- NOTE | 2016-12-10 12:40 | PDOC ---
PROGRESS NOTES Chief Complaint Chief Complaint N/V, abd pain, diarrhea, 2/[address] showed enteritis SIRS wo sepsis OSWALD, dehydration, vasomotor mild elevated transaminitis, JOHNSON likely elevated lipase, mild , with n/v htn dm2 h/o CAD wo pci anxiety UTI tobaccoism hypercalcemia OA right hip and knee vitD deficiency plan: gi consult,advance to full liquid ivf labs tmr ceftriaxone for now, fu ucx, dc abx tmr hold po HTN, dm meds dvt, gi ppx stool cx, cdiff add po vitamin d, pth normal ativan iv prn hope dc tmr History of Present Illness History of Present Illness no fever, chills, sob or chest pain N/V much better crying, saying nobody give her pain meds x2h in the am of 12/09. 12/10 better with less abd pain, upper abd no BM since admit lipase normal 12/10 Vitals Vitals Vital Signs Date Time Temp Pulse Resp B/P (MAP) Pulse Ox O2 Delivery O2 Flow Rate FiO2 12/10/16 11:42 94 Room Air 12/10/16 10:42 97.9 58 18 110/48 (68) 97.9 Physical Exam General: Alert, Oriented X3, Cooperative Heart: Regular rate, Normal S1, Normal S2 Lungs: Clear Abdomen: Normal bowel sounds, Soft, Other (epigastric area + tenderness) Extremities: No clubbing, No cyanosis Skin: No rashes Labs LABS Laboratory Tests Test 12/09/16 16:21 12/09/16 20:43 12/10/16 07:23 12/10/16 10:01 Glucose (Fingerstick) 163 mg/dL (70-99) 112 mg/dL (70-99) 149 mg/dL (70-99) White Blood Count 8.3 x10^3/uL (4.0-11.0) Red Blood Count 3.64 x10^6/uL (3.50-5.40) Hemoglobin 11.2 g/dL (12.0-15.5) Hematocrit 32.5 % (36.0-47.0) Mean Corpuscular Volume 89 fL (79-100) Mean Corpuscular Hemoglobin 31 pg (25-35) Mean Corpuscular Hemoglobin Concent 34 g/dL (31-37) Red Cell Distribution Width 14.0 % (11.5-14.5) Platelet Count 244 x10^3/uL (140-400) Neutrophils (%) (Auto) 61 % (31-73) Lymphocytes (%) (Auto) 30 % (24-48) Monocytes (%) (Auto) 7 % (0-9) Eosinophils (%) (Auto) 2 % (0-3) Basophils (%) (Auto) 1 % (0-3) Neutrophils # (Auto) 5.0 x10^3uL (1.8-7.7) Lymphocytes # (Auto) 2.5 x10^3/uL (1.0-4.8) Monocytes # (Auto) 0.5 x10^3/uL (0.0-1.1) Eosinophils # (Auto) 0.1 x10^3/uL (0.0-0.7) Basophils # (Auto) 0.1 x10^3/uL (0.0-0.2) Sodium Level 139 mmol/L (136-145) Potassium Level 4.0 mmol/L (3.5-5.1) Chloride Level 105 mmol/L (98-107) Carbon Dioxide Level 25 mmol/L (21-32) Anion Gap 9 (6-14) Blood Urea Nitrogen 12 mg/dL (7-20) Creatinine 0.9 mg/dL (0.6-1.0) Estimated GFR (Cockcroft-Gault) 63.4 BUN/Creatinine Ratio 13 (6-20) Glucose Level 141 mg/dL (70-99) Calcium Level 8.3 mg/dL (8.5-10.1) Total Bilirubin 0.3 mg/dL (0.2-1.0) Aspartate Amino Transf (AST/SGOT) 35 U/L (15-37) Alanine Aminotransferase (ALT/SGPT) 63 U/L (14-59) Alkaline Phosphatase 57 U/L (46-116) Total Protein 6.3 g/dL (6.4-8.2) Albumin 3.0 g/dL (3.4-5.0) Albumin/Globulin Ratio 0.9 (1.0-1.7) Lipase 241 U/L (73-393) Test 12/10/16 11:18 Glucose (Fingerstick) 122 mg/dL (70-99) Assessment and Plan Assessmemt and Plan Problems Medical Problems: (1) Nausea & vomiting Status: Acute Problems: Comment Review of Relevant I have reviewed the following items bernie (where applicable) has been applied. Labs Laboratory Tests Test 12/08/16 16:48 12/08/16 21:14 12/09/16 04:55 12/09/16 07:26 Glucose (Fingerstick) 153 mg/dL (70-99) 192 mg/dL (70-99) 174 mg/dL (70-99) White Blood Count 8.1 x10^3/uL (4.0-11.0) Red Blood Count 3.77 x10^6/uL (3.50-5.40) Hemoglobin 11.4 g/dL (12.0-15.5) Hematocrit 33.7 % (36.0-47.0) Mean Corpuscular Volume 89 fL (79-100) Mean Corpuscular Hemoglobin 30 pg (25-35) Mean Corpuscular Hemoglobin Concent 34 g/dL (31-37) Red Cell Distribution Width 14.4 % (11.5-14.5) Platelet Count 253 x10^3/uL (140-400) Neutrophils (%) (Auto) 52 % (31-73) Lymphocytes (%) (Auto) 37 % (24-48) Monocytes (%) (Auto) 9 % (0-9) Eosinophils (%) (Auto) 2 % (0-3) Basophils (%) (Auto) 1 % (0-3) Neutrophils # (Auto) 4.2 x10^3uL (1.8-7.7) Lymphocytes # (Auto) 3.0 x10^3/uL (1.0-4.8) Monocytes # (Auto) 0.7 x10^3/uL (0.0-1.1) Eosinophils # (Auto) 0.1 x10^3/uL (0.0-0.7) Basophils # (Auto) 0.1 x10^3/uL (0.0-0.2) Sodium Level 140 mmol/L (136-145) Potassium Level 4.0 mmol/L (3.5-5.1) Chloride Level 104 mmol/L (98-107) Carbon Dioxide Level 25 mmol/L (21-32) Anion Gap 11 (6-14) Blood Urea Nitrogen 17 mg/dL (7-20) Creatinine 0.9 mg/dL (0.6-1.0) Estimated GFR (Non- 67 (>59) Estimated GFR (Cockcroft-Gault) 63.4 BUN/Creatinine Ratio 19 (6-20) Glucose Level 142 mg/dL (70-99) Calcium Level 8.4 mg/dL (8.5-10.1) Total Bilirubin 0.2 mg/dL (0.2-1.0) Aspartate Amino Transf (AST/SGOT) 58 U/L (15-37) Alanine Aminotransferase (ALT/SGPT) 76 U/L (14-59) Alkaline Phosphatase 62 U/L (46-116) Total Protein 6.6 g/dL (6.4-8.2) Albumin 3.3 g/dL (3.4-5.0) Albumin/Globulin Ratio 1.0 (1.0-1.7) Lipase 608 U/L (73-393) EGFR 77 (>59) 25-Hydroxy Vitamin D Total 7.1 ng/mL (30.0-100.0) PTH (Intact) Specimen Description Comment (.) Parathyroid Hormone (Intact) 44 pg/mL (15-65) Calcium (PTH Intact) 8.7 mg/dL (8.7-10.3) Creatinine (PTH Intact) 0.92 mg/dL (0.57-1.00) Phosphorus (PTH Intact) 2.6 mg/dL (2.5-4.5) Hepatitis A IgM Antibody Negative (Negative) Hepatitis B Surface Antigen Negative (Negative) Hepatitis B Core IgM Antibody Negative (Negative) Hepatitis C Antibody <0.1 s/co ratio Test 12/09/16 10:51 12/09/16 16:21 12/09/16 20:43 12/10/16 07:23 Glucose (Fingerstick) 161 mg/dL (70-99) 163 mg/dL (70-99) 112 mg/dL (70-99) 149 mg/dL (70-99) Test 12/10/16 10:01 12/10/16 11:18 White Blood Count 8.3 x10^3/uL (4.0-11.0) Red Blood Count 3.64 x10^6/uL (3.50-5.40) Hemoglobin 11.2 g/dL (12.0-15.5) Hematocrit 32.5 % (36.0-47.0) Mean Corpuscular Volume 89 fL (79-100) Mean Corpuscular Hemoglobin 31 pg (25-35) Mean Corpuscular Hemoglobin Concent 34 g/dL (31-37) Red Cell Distribution Width 14.0 % (11.5-14.5) Platelet Count 244 x10^3/uL (140-400) Neutrophils (%) (Auto) 61 % (31-73) Lymphocytes (%) (Auto) 30 % (24-48) Monocytes (%) (Auto) 7 % (0-9) Eosinophils (%) (Auto) 2 % (0-3) Basophils (%) (Auto) 1 % (0-3) Neutrophils # (Auto) 5.0 x10^3uL (1.8-7.7) Lymphocytes # (Auto) 2.5 x10^3/uL (1.0-4.8) Monocytes # (Auto) 0.5 x10^3/uL (0.0-1.1) Eosinophils # (Auto) 0.1 x10^3/uL (0.0-0.7) Basophils # (Auto) 0.1 x10^3/uL (0.0-0.2) Sodium Level 139 mmol/L (136-145) Potassium Level 4.0 mmol/L (3.5-5.1) Chloride Level 105 mmol/L (98-107) Carbon Dioxide Level 25 mmol/L (21-32) Anion Gap 9 (6-14) Blood Urea Nitrogen 12 mg/dL (7-20) Creatinine 0.9 mg/dL (0.6-1.0) Estimated GFR (Cockcroft-Gault) 63.4 BUN/Creatinine Ratio 13 (6-20) Glucose Level 141 mg/dL (70-99) Calcium Level 8.3 mg/dL (8.5-10.1) Total Bilirubin 0.3 mg/dL (0.2-1.0) Aspartate Amino Transf (AST/SGOT) 35 U/L (15-37) Alanine Aminotransferase (ALT/SGPT) 63 U/L (14-59) Alkaline Phosphatase 57 U/L (46-116) Total Protein 6.3 g/dL (6.4-8.2) Albumin 3.0 g/dL (3.4-5.0) Albumin/Globulin Ratio 0.9 (1.0-1.7) Lipase 241 U/L (73-393) Glucose (Fingerstick) 122 mg/dL (70-99) Laboratory Tests Test 12/09/16 16:21 12/09/16 20:43 12/10/16 07:23 12/10/16 10:01 Glucose (Fingerstick) 163 mg/dL (70-99) 112 mg/dL (70-99) 149 mg/dL (70-99) White Blood Count 8.3 x10^3/uL (4.0-11.0) Red Blood Count 3.64 x10^6/uL (3.50-5.40) Hemoglobin 11.2 g/dL (12.0-15.5) Hematocrit 32.5 % (36.0-47.0) Mean Corpuscular Volume 89 fL (79-100) Mean Corpuscular Hemoglobin 31 pg (25-35) Mean Corpuscular Hemoglobin Concent 34 g/dL (31-37) Red Cell Distribution Width 14.0 % (11.5-14.5) Platelet Count 244 x10^3/uL (140-400) Neutrophils (%) (Auto) 61 % (31-73) Lymphocytes (%) (Auto) 30 % (24-48) Monocytes (%) (Auto) 7 % (0-9) Eosinophils (%) (Auto) 2 % (0-3) Basophils (%) (Auto) 1 % (0-3) Neutrophils # (Auto) 5.0 x10^3uL (1.8-7.7) Lymphocytes # (Auto) 2.5 x10^3/uL (1.0-4.8) Monocytes # (Auto) 0.5 x10^3/uL (0.0-1.1) Eosinophils # (Auto) 0.1 x10^3/uL (0.0-0.7) Basophils # (Auto) 0.1 x10^3/uL (0.0-0.2) Sodium Level 139 mmol/L (136-145) Potassium Level 4.0 mmol/L (3.5-5.1) Chloride Level 105 mmol/L (98-107) Carbon Dioxide Level 25 mmol/L (21-32) Anion Gap 9 (6-14) Blood Urea Nitrogen 12 mg/dL (7-20) Creatinine 0.9 mg/dL (0.6-1.0) Estimated GFR (Cockcroft-Gault) 63.4 BUN/Creatinine Ratio 13 (6-20) Glucose Level 141 mg/dL (70-99) Calcium Level 8.3 mg/dL (8.5-10.1) Total Bilirubin 0.3 mg/dL (0.2-1.0) Aspartate Amino Transf (AST/SGOT) 35 U/L (15-37) Alanine Aminotransferase (ALT/SGPT) 63 U/L (14-59) Alkaline Phosphatase 57 U/L (46-116) Total Protein 6.3 g/dL (6.4-8.2) Albumin 3.0 g/dL (3.4-5.0) Albumin/Globulin Ratio 0.9 (1.0-1.7) Lipase 241 U/L (73-393) Test 12/10/16 11:18 Glucose (Fingerstick) 122 mg/dL (70-99) Microbiology 12/08/16 Blood Culture - Preliminary, Resulted NO GROWTH AFTER 2 DAYS 12/08/16 Urine Culture - Final, Complete 12/08/16 Urine Culture Result 1 (RUBINA) - Final, Complete 12/08/16 Antimicrobic Susceptibility - Final, Complete Medications Current Medications Famotidine (Pepcid) 20 mg 1X ONCE IVP Last administered on 12/08/16 03:38; Start 12/08/16 at 04:00; Stop 12/08/16 at 04:01; Status DC Fentanyl Citrate (Fentanyl 2ml Vial) 50 mcg 1X ONCE IV Last administered on 03:38; Start 12/08/16 at 04:00; Stop 12/08/16 at 04:01; Status DC Ondansetron HCl (Zofran) 4 mg 1X ONCE IV Last administered on 12/08/16 03:37 ; Start 12/08/16 at 04:00; Stop 12/08/16 at 04:01; Status DC Sodium Chloride 1,000 ml @ 1,000 mls/hr 1X ONCE IV Last administered on 03:38; Start 12/08/16 at 04:00; Stop 12/08/16 at 04:59; Status DC Ceftriaxone Sodium 1 gm/ Sodium Chloride 50 ml @ 100 mls/hr Q24H IV Last administered on 12/10/16 05:41; Start 12/09/16 at 05:00 Ceftriaxone Sodium 50 ml @ 100 mls/hr 1X ONCE IV Last administered on 04:39; Start 12/08/16 at 04:30; Stop 12/08/16 at 04:59; Status DC Sodium Chloride 1,000 ml @ 1,000 mls/hr 1X ONCE IV ; Start 12/08/16 at 04:30; Stop 12/08/16 at 05:29; Status DC Morphine Sulfate 4 mg 1X ONCE IV Last administered on 12/08/16 04:26; Start 12/08/16 at 04:30; Stop 12/08/16 at 04:31; Status DC Ondansetron HCl (Zofran) 4 mg PRN Q8HRS PRN IV NAUSEA/VOMITING; Start 12/08/16 at 05:15; Stop 12/08/16 at 07:22; Status DC Sodium Chloride 1,000 ml @ 125 mls/hr Q8H IV Last administered on 12/08/16 23 :40; Start 12/08/16 at 05:30; Stop 12/09/16 at 05:29; Status DC Famotidine (Pepcid) 20 mg QHS IVP Last administered on 12/09/16 20:54; Start 12/08/16 at 21:00; Stop 12/10/16 at 09:12; Status DC Ondansetron HCl (Zofran) 4 mg PRN Q4HRS PRN IV NAUSEA/VOMITING Last administered on 12/08/16 18:49; Start 12/08/16 at 07:20; Stop 12/08/16 at 19:35 ; Status DC Morphine Sulfate 2 mg PRN Q2HR PRN IV PAIN; Start 12/08/16 at 07:30; Stop 12/08 at 09:43; Status DC Morphine Sulfate 4 mg PRN Q2HR PRN IV PAIN Last administered on 12/09/16 21:00 ; Start 12/08/16 at 07:30 Fluoxetine HCl (PROzac) 20 mg BID PO Last administered on 12/10/16 08:57; Start 12/08/16 at 10:00 Gabapentin (Neurontin) 100 mg TID PO Last administered on 12/10/16 08:58; Start 12/08/16 at 14:00 Acetaminophen/ Hydrocodone Bitart (Lortab 7.5/325) 1 tab PRN Q6HRS PRN PO PAIN Last administered on 12/10/16 05:42; Start 12/08/16 at 09:45 Lisinopril (Prinivil) 5 mg DAILY PO Last administered on 12/10/16 08:57; Start 12/08/16 at 10:00 Lorazepam (Ativan) 1 mg TID PO Last administered on 12/10/16 08:57; Start at 10:00 Metoprolol Tartrate (Lopressor) 50 mg DAILY PO Last administered on 12/10/16 08:58; Start 12/09/16 at 09:00 Simvastatin (Zocor) 40 mg HS PO Last administered on 12/09/16 20:55; Start at 21:00 Tramadol HCl (Ultram) 50 mg PRN Q6HRS PRN PO PAIN MILD Last administered on 11:42; Start 12/08/16 at 09:45 Acetaminophen (Tylenol) 650 mg PRN Q6HRS PRN PO FEVER; Start 12/08/16 at 09:45 Ondansetron HCl (Zofran) 4 mg PRN Q6HRS PRN IV NAUSEA/VOMITING Last administered on 12/09/16 09:20; Start 12/08/16 at 09:45 Morphine Sulfate 2 mg PRN Q2HR PRN IV PAIN; Start 12/08/16 at 09:45 Tramadol HCl (Ultram) 50 mg PRN Q6HRS PRN PO PAIN; Start 12/08/16 at 09:45; Status UNV Hydralazine HCl (Apresoline) 10 mg PRN Q4HRS PRN IVP ELEVATED BP, SEE COMMENTS ; Start 12/08/16 at 09:45 Docusate Sodium (Colace) 100 mg PRN DAILY PRN PO CONSTIPATION; Start 12/08/16 at 09:45 Heparin Sodium (Porcine) (Heparin Sq) 5,000 unit Q8HRS SQ Last administered on 12/10/16 05:47; Start 12/08/16 at 14:00 Insulin Aspart (NovoLOG) 0-9 UNITS TIDWMEALS SQ Last administered on 12/10/16 11:53; Start 12/08/16 at 12:00 Dextrose (Dextrose 50%-Water Syringe) 12.5 gm PRN Q15MIN PRN IV SEE COMMENTS; Start 12/08/16 at 09:45 Sodium Chloride 1,000 ml @ 100 mls/hr Q10H IV Last administered on 12/10/16 05:41; Start 12/09/16 at 05:30 Lorazepam (Ativan) 0.25 mg PRN Q4HRS PRN IV ANXIETY / AGITATION Last administered on 12/09/16 03:30; Start 12/08/16 at 10:45; Stop 12/09/16 at 09:48 ; Status DC Prochlorperazine Edisylate (Compazine) 10 mg PRN Q6HRS PRN IV NAUSEA/VOMITING Last administered on 12/09/16 13:02; Start 12/08/16 at 10:45 Lorazepam (Ativan) 4.1 mg 1X ONCE IV ; Start 12/09/16 at 09:45; Stop 12/09/16 at 09:52; Status DC Lorazepam (Ativan) 0.5 mg PRN Q4HRS PRN IV ANXIETY / AGITATION Last administered on 12/09/16 20:54; Start 12/09/16 at 10:00 Lorazepam (Ativan) 0.5 mg DAILY08 IV Last administered on 12/09/16 09:59; Start 12/10/16 at 08:00; Stop 12/10/16 at 08:00; Status DC Vitamin D (Vitamin D3) 1,000 unit DAILY PO Last administered on 12/10/16 09:03 ; Start 12/10/16 at 09:00 Active Scripts Active Reported Bydureon (Exenatide Microspheres) 2 Mg Vial 2 Mg SQ WEEKLY Gabapentin 100 Mg Capsule Unknown Dose PO TID Lisinopril 5 Mg Tablet 1 Tab PO DAILY Glipizide 5 Mg Tablet 1 Tab PO BID Tramadol Hcl 50 Mg Tablet 1 Tab PO PRN Q6HRS Dyazide 37.5-25 Capsule (Triamterene/Hydrochlorothiazid) 1 Each Capsule 1 Cap PO DAILY Lortab 7.5-325 mg Tablet (Hydrocodone/Acetaminophen) 1 Each Tablet 1 Tab PO PRN Q6HRS PRN Nitrostat (Nitroglycerin) 0.3 Mg Tab.subl 0.3 Mg SL PRN Q5MIN PRN Metoprolol Tartrate 50 Mg Tablet 50 Mg PO DAILY Simvastatin 40 Mg Tablet 40 Mg PO HS Lorazepam 1 Mg Tablet 1 Mg PO TID Metformin Hcl 1,000 Mg Tablet 1,000 Mg PO BID Prozac (Fluoxetine Hcl) 20 Mg Capsule 20 Mg PO BID Vitals/I & O Vital Sign - Last 24 Hours 12/09/16 12/09/16 12/09/16 12/09/16 13:01 14:41 14:42 14:43 Pulse 69 69 Resp 16 12 B/P (MAP) 134/52 134/52 Pulse Ox 96 96 O2 Delivery Room Air Room Air 12/09/16 12/09/16 12/09/16 12/09/16 15:00 18:20 19:00 20:00 Temp 97.5 99.1 97.5 99.1 Pulse 81 61 Resp 20 12 18 B/P (MAP) 175/68 (103) 129/55 (79) Pulse Ox 95 95 93 O2 Delivery Room Air Room Air Room Air Room Air 12/09/16 12/09/16 12/09/16 12/10/16 21:00 21:30 23:33 03:32 Temp 98.1 98.1 98.1 98.1 Pulse 63 64 Resp 16 16 18 18 B/P (MAP) 133/51 (78) 129/62 (84) Pulse Ox 93 93 93 94 O2 Delivery Room Air Room Air Room Air Room Air 12/10/16 12/10/16 12/10/16 12/10/16 05:42 06:42 07:20 08:10 Temp 98.6 98.6 Pulse 63 Resp 16 16 17 B/P (MAP) 112/44 (66) Pulse Ox 94 94 92 O2 Delivery Room Air Room Air Room Air Room Air 12/10/16 12/10/16 12/10/16 12/10/16 08:57 08:58 10:42 11:42 Temp 97.9 97.9 Pulse 63 63 58 Resp 18 B/P (MAP) 112/44 112/44 110/48 (68) Pulse Ox 94 94 O2 Delivery Room Air Room Air Intake and Output 12/09/16 12/09/16 12/10/16 14:59 22:59 06:59 Intake Total 1250 ml Balance 1250 ml HARDY CHAN MD Dec 10, 2016 12:40
[2016-12-10] MEDS: MORPHINE SULFATE 4 MG/ML DISP.SYRIN. IV PRN (13:39)
--- NOTE | 2016-12-10 14:00 | PDOC ---
Subjective: Subjective: Crying. Doesn't feel well. Now lower abd pain, nausea. Had BM. Back pain. Objective: Vital Signs: Vital Signs Date Time Temp Pulse Resp B/P (MAP) Pulse Ox O2 Delivery O2 Flow Rate FiO2 12/10/16 13:45 94 Room Air 12/10/16 10:42 97.9 58 18 110/48 (68) 97.9 Labs: Laboratory Tests Test 12/09/16 16:21 12/09/16 20:43 12/10/16 07:23 12/10/16 10:01 Glucose (Fingerstick) 163 mg/dL 112 mg/dL 149 mg/dL White Blood Count 8.3 x10^3/uL Red Blood Count 3.64 x10^6/uL Hemoglobin 11.2 g/dL Hematocrit 32.5 % Mean Corpuscular Volume 89 fL Mean Corpuscular Hemoglobin 31 pg Mean Corpuscular Hemoglobin Concent 34 g/dL Red Cell Distribution Width 14.0 % Platelet Count 244 x10^3/uL Neutrophils (%) (Auto) 61 % Lymphocytes (%) (Auto) 30 % Monocytes (%) (Auto) 7 % Eosinophils (%) (Auto) 2 % Basophils (%) (Auto) 1 % Neutrophils # (Auto) 5.0 x10^3uL Lymphocytes # (Auto) 2.5 x10^3/uL Monocytes # (Auto) 0.5 x10^3/uL Eosinophils # (Auto) 0.1 x10^3/uL Basophils # (Auto) 0.1 x10^3/uL Sodium Level 139 mmol/L Potassium Level 4.0 mmol/L Chloride Level 105 mmol/L Carbon Dioxide Level 25 mmol/L Anion Gap 9 Blood Urea Nitrogen 12 mg/dL Creatinine 0.9 mg/dL Estimated GFR (Cockcroft-Gault) 63.4 BUN/Creatinine Ratio 13 Glucose Level 141 mg/dL Calcium Level 8.3 mg/dL Total Bilirubin 0.3 mg/dL Aspartate Amino Transf (AST/SGOT) 35 U/L Alanine Aminotransferase (ALT/SGPT) 63 U/L Alkaline Phosphatase 57 U/L Total Protein 6.3 g/dL Albumin 3.0 g/dL Albumin/Globulin Ratio 0.9 Lipase 241 U/L Test 12/10/16 11:18 Glucose (Fingerstick) 122 mg/dL PE: GEN: NAD LUNGS: clear HEART: RRR ABD: RLQ to right flank discomfort, BS+ NEURO/PSYCH: A & O 3, tearful A/P: Epigastric pain, vomiting, abnormal CT -stool tests ordered, bowel wall thickening involving ascending colon and distal SB loops -last EGD and colon ~8 years ago Elevated lipase (resolved), transaminitis (improved) -s/p luis f, normal panc and liver on CT -stool tests ordered -h/o fatty liver Leukocytosis (resolved), hypercalcemia (resolved) -- ADAT, otherwise continue same for now GI-portillo. JOE BRIGGS Dec 10, 2016 14:00
[2016-12-10 14:49] VITALS: BP 113/52
[2016-12-10 19:00] VITALS: BP_SYST 103; BP_SYST 99; BP_DIAS 42; BP_DIAS 45
[2016-12-10] MEDS: SIMVASTATIN 40 MG TABLET. PO SCH (21:16)
[2016-12-10 23:00] VITALS: BP 103/49
[2016-12-11 02:51] VITALS: BP 107/46
[2016-12-11 04:59] LABS: BASO # 0.1 x10^3/uL (0.0-0.2); BASO % 1 % (0-3); EOS % 2 % (0-3); HEMATOCRIT 32.3 % (36.0-47.0); HEMOGLOBIN 10.7 g/dL (12.0-15.5); LYMPH # 2.7 x10^3/uL (1.0-4.8); LYMPH % 41 % (24-48); MEAN CORPUSCULAR HEMOGLOBIN 31 pg (25-35); MEAN CORPUSCULAR HGB CONC 33 g/dL (31-37); MEAN CORPUSCULAR VOLUME 92 fL (79-100); MONO % 8 % (0-9); NEUT % 48 % (31-73); PLATELET COUNT 217 x10^3/uL (140-400); RED BLOOD COUNT 3.52 x10^6/uL (3.50-5.40); RED CELL DISTRIBUTION WIDTH 14.6 % (11.5-14.5); WHITE BLOOD COUNT 6.6 x10^3/uL (4.0-11.0)
[2016-12-11 05:11] LABS: CALCIUM 8.5 mg/dL (8.5-10.1); CREATININE 0.9 mg/dL (0.6-1.0); GFR 63.4; POTASSIUM 3.9 mmol/L (3.5-5.1)
[2016-12-11] MEDS: HEPARIN PF for SUB-Q USE 5,000 UNIT/0.5 ML VIAL. SQ SCH (06:14)
[2016-12-11] MEDS: IV NORMAL SALINE 1000ML BAG 1,000 ML IV SCH (06:18)
[2016-12-11 07:15] VITALS: BP 112/52
[2016-12-11] MEDS: LORazepam 1 MG TABLET PO SCH (08:30)
[2016-12-11] MEDS: FLUoxetine HCL 20 MG CAPSULE PO SCH (08:30)
[2016-12-11] MEDS: LISINOPRIL 5 MG TABLET. PO SCH (08:30)
[2016-12-11] MEDS: CHOLECALCIFEROL (VITAMIN D3) 1,000 UNIT TABLET PO SCH (08:30)
[2016-12-11] MEDS: GABAPENTIN 100 MG CAPSULE. PO SCH (08:30)
[2016-12-11] MEDS: METOPROLOL TART IMMED RELEASE 50 MG TABLET. PO SCH (08:30)
[2016-12-11] MEDS: INSULIN ASPART 300 UNITS/3 ML INSULN.PEN SQ SCH ×2 (08:38→12:44)
[2016-12-11] MEDS ORDERED: HYDR-2762 PO (09:29)
[2016-12-11] MEDS ORDERED: CHOL10002 PO (09:29)
[2016-12-11] MEDS ORDERED: FAMO20TA5 PO (09:29)
--- NOTE | 2016-12-11 10:18 | PDOC ---
Subjective: Subjective: Feeling much better, tolerating PO, abd pain improved, stooling normally. Anxious to get home, misses her cats, showed me pictures. Objective: Objective: Per RN - pt started asking for chicken fingers last night. Vital Signs: Vital Signs Date Time Temp Pulse Resp B/P (MAP) Pulse Ox O2 Delivery O2 Flow Rate FiO2 12/11/16 08:30 63 112/52 12/11/16 07:15 97.8 18 96 Room Air 97.8 Labs: Laboratory Tests Test 12/10/16 11:18 12/10/16 16:44 12/10/16 20:56 12/11/16 07:26 Glucose (Fingerstick) 122 mg/dL (70-99) 109 mg/dL (70-99) 110 mg/dL (70-99) 156 mg/dL (70-99) PE: GEN: NAD LUNGS: CTAB HEART: RRR ABD: NABS, S/ND/NT NEURO/PSYCH: A & O 3, calm today A/P: Epigastric pain, vomiting, diarrhea - resolved -CT: bowel wall thickening involving ascending colon and distal SB loops, C Diff neg, culture pending -last EGD and colon ~8 years ago Elevated lipase (resolved), transaminitis (improved), hypercalcemia (resolved), leukocytosis (resolved) -s/p luis f, normal panc and liver on CT -h/o fatty liver -- Improved, stable for release from GI. JOE BRIGGS Dec 11, 2016 10:18
[2016-12-11 11:13] VITALS: BP 111/55
--- NOTE | 2016-12-11 12:46 | PDOC3 ---
Discharge Summary [facility] Date of Admission: Dec 08, 2016 Discharge Date: Dec 11, 2016 Admitting Diagnosis N/V, abd pain, diarrhea, 2/[address] showed enteritis SIRS wo sepsis OSWALD, dehydration, vasomotor mild elevated transaminitis, JOHNSON likely elevated lipase, mild , with n/v htn dm2 h/o CAD wo pci anxiety UTI tobaccoism hypercalcemia OA right hip and knee vitD deficiency Problems: Final Diagnosis CONSULTS gi Brief Hospital Course Patient is a 61 year old female with history of CAD, anxiety, htn, dm2, came to ER for N/V, abd pain, diarrhea x3days. Pt said she had h/o gastric ulcer. She started to have above symptoms on Wednesday, vomiting wo blood or greenish liquid, + right upper abd pain, cramping, intermittent, radiating to right flank , 11/26. She also had 2 days of loose and watery diarrhea, some are bloody, and resolved on Wednesday after taking pepto bismol. denies eating wrong food, ate salad tho. subjective fever, chills, denies cough, sob. + frequent and urgent urination, no dysuria. CT showed possible enteritis cdiff neg. pt has 1 time BM, no diarrhea , yesterday. N/V better, still upper abd pain, better. OSWALD, hIGH Talha all resolved. on abx x3ds for UTI dc home with protonix. dc time 35min General: Alert, Oriented X3, Cooperative Heart: Regular rate, Normal S1, Normal S2 Lungs: Clear Abdomen: Normal bowel sounds, Soft, Other (epigastric area + tenderness) Extremities: No clubbing, No cyanosis Skin: No rashes Patient History: FH: renal failure 32 MOTHER FHx: diabetes mellitus 31 MOTHER Unknown Problems: Disposition home CONDITION AT DISCHARGE: Improved Diet regular Scheduled Cholecalciferol (Vitamin D3) (Vitamin D), 1,000 UNIT PO DAILY Exenatide Microspheres (Bydureon), 2 MG SQ WEEKLY, (Reported) Famotidine (Famotidine), 20 MG PO QHS Fluoxetine Hcl (Prozac), 20 MG PO BID, (Reported) Gabapentin (Gabapentin), Unknown Dose PO TID, (Reported) Glipizide (Glipizide), 1 TAB PO BID, (Reported) Lisinopril (Lisinopril), 1 TAB PO DAILY, (Reported) Lorazepam (Lorazepam), 1 MG PO TID, (Reported) Metformin Hcl (Metformin Hcl), 1,000 MG PO BID, (Reported) Metoprolol Tartrate (Metoprolol Tartrate), 50 MG PO DAILY, (Reported) Simvastatin (Simvastatin), 40 MG PO HS, (Reported) Tramadol Hcl (Tramadol Hcl), 1 TAB PO PRN Q6HRS, (Reported) Scheduled PRN Hydrocodone Bit/Acetaminophen (Hydrocodone-Apap 7.5-325 ), 1 TAB PO PRN Q6HRS PRN for PAIN Nitroglycerin (Nitrostat), 0.3 MG SL PRN Q5MIN PRN for CHEST PAIN, (Reported) Discontinued Medications Folic Acid (Folic Acid), 1 MG PO DAILY, (Reported) Hydrocodone/Acetaminophen (Lortab 7.5-325 mg Tablet), 1 TAB PO PRN Q6HRS PRN for PAIN, (Reported) Triamterene/Hydrochlorothiazid (Dyazide 37.5-25 Capsule), 1 CAP PO DAILY, ( Reported) Follow Up pcp in 2 weeks HARDY CHAN MD Dec 11, 2016 12:46
[2016-12-11] MEDS ORDERED: FAMOTIDINE 20 MG TABLET. PO SCH (21:00)
== END 2016-12-11 13:55 | disposition home or self-care (01) | DRG 682 ==
LOC: ER 02:45 → 2 SOUTH 05:00 → 4 NORTH 06:41
PROVIDERS: ADMIT Internal Medicine; ATTEND Internal Medicine
DX: N17.0 Acute kidney failure with tubular necrosis (principal); K85.90 Acute pancreatitis without necrosis or infection, unspecified; E11.42 Type 2 diabetes mellitus with diabetic polyneuropathy; R65.10 Systemic inflammatory response syndrome (SIRS) of non-infectious origin without acute organ dysfunction; E83.52 Hypercalcemia; E86.0 Dehydration; A09 Infectious gastroenteritis and colitis, unspecified; N39.0 Urinary tract infection, site not specified; E78.5 Hyperlipidemia, unspecified; F17.210 Nicotine dependence, cigarettes, uncomplicated; F41.9 Anxiety disorder, unspecified; I10 Essential (primary) hypertension; I25.10 Atherosclerotic heart disease of native coronary artery without angina pectoris; K21.9 Gastro-esophageal reflux disease without esophagitis; R74.0 Nonspecific elevation of levels of transaminase and lactic acid dehydrogenase [LDH]; M17.11 Unilateral primary osteoarthritis, right knee; K58.0 Irritable bowel syndrome with diarrhea; M16.11 Unilateral primary osteoarthritis, right hip; Z79.1 Long term (current) use of non-steroidal anti-inflammatories (NSAID); Z82.49 Family history of ischemic heart disease and other diseases of the circulatory system; Z87.11 Personal history of peptic ulcer disease; Z83.3 Family history of diabetes mellitus; Z90.49 Acquired absence of other specified parts of digestive tract; Z79.4 Long term (current) use of insulin; Z79.84 Long term (current) use of oral hypoglycemic drugs; Z90.710 Acquired absence of both cervix and uterus; Z88.6 Allergy status to analgesic agent; Z88.8 Allergy status to other drugs, medicaments and biological substances
CPT/HCPCS: 36415; 71010; 74176; 80048; 80053; 80074; 81001; 82306; 82962; 83690; 83970; 84484; 85025; 87040; 87045; 87086; 87186; 87324; 93005; 96361; 96365; 96366; 96375; J0690; J0696; J0780; J1815; J2060; J2270; J2405; J3010; J7030; S0028; 99285-25

== ENCOUNTER 2018-07-16 04:56 | Emergency (ER) | payer MEDICARE ==
[~2018-07-16] VITALS: Ht 170.2 cm; Wt 81.6 kg
[~2018-07-16 04:56] MED LIST changes: +CHOL10002 PO; +EXEN2VIA SQ; +FAMO20TA5 PO; +GABA-585 PO; +GLIP5TAB10 PO; +HYDR-2765 PO; +LISI-338 PO; -METF-620 PO; +METF10007 PO; -METO50TA2 PO; +METO50TA6 PO; +Pantoprazole PO; +TRAM50TA PO
[2018-07-16] MEDS ORDERED: IV NORMAL SALINE 1000ML BAG 1,000 ML IV ONE ×2 (05:30→07:15)
[2018-07-16] MEDS ORDERED: ONDANSETRON PF 4 MG/2 ML VIAL. IV ONE (05:30)
[2018-07-16] MEDS ORDERED: FAMOTIDINE 20 MG/2 ML VIAL IVP ONE (05:30)
--- NOTE | 2018-07-16 05:44 | PHYS DOC ---
Past Medical History Past Medical History: Angina, Anxiety, Diabetes-Type II, High Cholesterol Additional Past Medical Histor: back pain, PARKINSON (JORGE BROWN DO) Past Surgical History: Cholecystectomy, Hysterectomy (JORGE BROWN DO) Alcohol Use: None Drug Use: None (JORGE BROWN DO) Adult General Chief Complaint Chief Complaint: NAUSEA/VOMITING/DIARRHA HPI HPI 63-year-old female presents with report of diffuse abdominal pain with associated nausea, vomiting, and diarrhea. Patient also reports some associated cough and subjective fever/chills. Patient reports she has had these symptoms for the last 3-4 days. Denies known sick contacts. Denies trauma. Denies rash. Denies dysuria or hematuria. (JORGE BROWN DO) Review of Systems Review of Systems Constitutional: Reports subjective fever and chills [] Eyes: Denies change in visual acuity, redness, or eye pain [] HENT: Reports nasal congestion; denies sore throat [] Respiratory: Reports cough; denies shortness of breath [] Cardiovascular: Denies chest pain or palpitations GI: Reports abdominal pain, nausea, vomiting, and diarrhea [] : Denies dysuria or hematuria [] Musculoskeletal: Denies back pain or joint pain [] Integument: Denies rash or skin lesions [] Neurologic: Denies headache, focal weakness or sensory changes [] Complete systems were reviewed and found to be within normal limits, except as documented in this note. (JORGE BROWN DO) Current Medications Current Medications Current Medications Medications (Trade) Dose Ordered Sig/Adrianne Start Time Stop Time Status Last Admin Dose Admin Acetaminophen/ Hydrocodone Bitart (Lortab 5/325) 1 tab 1X ONCE 07/16/18 08:15 07/16/18 08:16 DC 07/16/18 08:17 1 TAB Famotidine (Pepcid Vial) 20 mg 1X ONCE 07/16/18 05:30 07/16/18 05:31 DC 07/16/18 05:38 20 MG Fentanyl Citrate (Fentanyl 2ml Vial) 50 mcg 1X ONCE 07/16/18 06:00 07/16/18 06:01 DC 07/16/18 05:38 50 MCG Info (CONTRAST GIVEN -- Rx MONITORING) 1 each PRN DAILY PRN 07/16/18 06:15 07/18/18 06:14 Iohexol (Omnipaque 300 Mg/ml) 75 ml 1X ONCE 07/16/18 06:30 07/16/18 06:31 DC 07/16/18 06:17 75 ML Ondansetron HCl (Zofran) 4 mg 1X ONCE 07/16/18 05:30 07/16/18 05:31 DC 07/16/18 05:38 4 MG Sodium Chloride 1,000 ml @ 1,000 mls/hr 1X ONCE 07/16/18 07:15 07/16/18 08:14 DC 07/16/18 07:15 1,000 MLS[facility]HR [facility] Allergies Allergies Allergies Coded Allergies Type Severity Reaction Last Updated Verified atorvastatin Allergy Intermediate Rash 04/07/18 Yes buprenorphine Allergy Intermediate Rash 10/09/13 Yes cyclobenzaprine Allergy Intermediate Rash 10/21/17 Yes naproxen Allergy Intermediate RASH 09/26/13 Yes ([facility] Physical Exam Physical Exam Constitutional: Well developed, well nourished, uncomfortable, non-toxic appearance. [] HENT: Normocephalic, atraumatic, oropharynx moist, nasal congestion noted, edentulous Eyes: Conjunctiva normal, no discharge. [] Neck: Normal range of motion, no tenderness, supple, no meningismus Cardiovascular: Heart rate regular rhythm, no murmur [] Lungs & Thorax: Bilateral equal breath sounds, diminished at bases, no wheezing appreciated Abdomen: Soft, mild periumbilical tenderness and RLQ pain; voluntary guarding noted Skin: Warm, dry, no erythema, no rash. [] Back: No tenderness, no CVA tenderness. [] Extremities: No tenderness, ROM intact, no edema. [] Neurologic: Alert and oriented X 3, normal motor function, normal sensory function, no focal deficits noted. [] Psychologic: Affect normal, judgement normal, mood normal. [] (BROWN,JORGE Swanson DO) Current Patient Data Vital Signs Vital Signs Date Time Temp Pulse Resp B/P (MAP) Pulse Ox O2 Delivery O2 Flow Rate FiO2 07/16/18 05:38 18 96 Room Air 07/16/18 05:08 99.9 89 156/94 (114) 99.9 ([facility]) Lab Values Laboratory Tests Test 07/16/18 05:21 07/16/18 05:25 07/16/18 05:35 07/16/18 07:10 Influenza Type A Antigen Negative (NEGATIVE) Influenza Type B Antigen Negative (NEGATIVE) Prothrombin Time 12.8 SEC (11.7-14.0) Prothrombin Time INR 1.0 (0.8-1.1) PTT 30 SEC (24-38) Sodium Level 136 mmol/L (136-145) Potassium Level 3.9 mmol/L (3.5-5.1) Chloride Level 98 mmol/L (98-107) Carbon Dioxide Level 24 mmol/L (21-32) Anion Gap 14 (6-14) Blood Urea Nitrogen 14 mg/dL (7-20) Creatinine 0.9 mg/dL (0.6-1.0) Estimated GFR (Cockcroft-Gault) 63.0 BUN/Creatinine Ratio 16 (6-20) Glucose Level 193 mg/dL (70-99) H Calcium Level 9.1 mg/dL (8.5-10.1) Magnesium Level 1.4 mg/dL (1.8-2.4) L Total Bilirubin 0.4 mg/dL (0.2-1.0) Aspartate Amino Transferase (AST) 29 U/L (15-37) Alanine Aminotransferase (ALT) 51 U/L (14-59) Alkaline Phosphatase 76 U/L (46-116) Total Protein 7.4 g/dL (6.4-8.2) Albumin 3.4 g/dL (3.4-5.0) Albumin/Globulin Ratio 0.9 (1.0-1.7) L Lipase 154 U/L (73-393) White Blood Count 7.5 x10^3/uL (4.0-11.0) Red Blood Count 4.11 x10^6/uL (3.50-5.40) Hemoglobin 12.0 g/dL (12.0-15.5) Hematocrit 36.9 % (36.0-47.0) Mean Corpuscular Volume 90 fL (79-100) Mean Corpuscular Hemoglobin 29 pg (25-35) Mean Corpuscular Hemoglobin Concent 33 g/dL (31-37) Red Cell Distribution Width 15.1 % (11.5-14.5) H Platelet Count 356 x10^3/uL (140-400) Neutrophils (%) (Auto) 62 % (31-73) Lymphocytes (%) (Auto) 28 % (24-48) Monocytes (%) (Auto) 8 % (0-9) Eosinophils (%) (Auto) 1 % (0-3) Basophils (%) (Auto) 1 % (0-3) Neutrophils # (Auto) 4.6 x10^3uL (1.8-7.7) Lymphocytes # (Auto) 2.1 x10^3/uL (1.0-4.8) Monocytes # (Auto) 0.6 x10^3/uL (0.0-1.1) Eosinophils # (Auto) 0.1 x10^3/uL (0.0-0.7) Basophils # (Auto) 0.1 x10^3/uL (0.0-0.2) Lactic Acid Level 2.6 mmol/L (0.4-2.0) H Urine Collection Type Unknown Urine Color Yellow Urine Clarity Clear Urine pH 5.0 Urine Specific [place] >=1.030 Urine Protein Negative mg/dL (NEG-TRACE) Urine Glucose (UA) 250 mg/dL (NEG) Urine Ketones (Stick) Trace mg/dL (NEG) Urine Blood Negative (NEG) Urine Nitrite Negative (NEG) Urine Bilirubin Negative (NEG) Urine Urobilinogen Dipstick 0.2 mg/dL (0.2 mg/dL) Urine Leukocyte Esterase Negative (NEG) Urine RBC 0 /HPF (0-2) Urine WBC 0 /HPF (0-4) Urine Squamous Epithelial Cells Few /LPF Urine Bacteria 0 /HPF (0-FEW) Test 07/16/18 08:45 Lactic Acid Level 1.2 mmol/L (0.4-2.0) Laboratory Tests 07/16/18 05:35 Laboratory Tests 07/16/18 05:25 (PASCUAL ROYAL DO) EKG EKG [] (JORGE BROWN DO) Radiology/Procedures Radiology/Procedures [] (JORGE BROWN DO) Course & Med Decision Making Course & Med Decision Making Patient presents with report of abdominal pain with associated nausea/vomiting/ diarrhea. Patient also reporting some cough and nasal congestion with subjective fever. Afebrile upon arrival. Voluntary guarding noted on palpation of abdomen. Symptomatic treatment provided. IV fluid hydration given. Labs obtained and pending. CT chest/abdomen/pelvis also pending. Sign out given to Dr. Royal for further evaluation and final disposition. Discussed current findings and plan with patient, who acknowledges understanding and agreement. (JORGE BROWN DO) Course & Med Decision Making Dr. Royal's note Received patient at 6 AM, agree with previous H&P. Patient was transported to and from CT without any complications CT scan of the chest, abdomen and pelvis with contrast 07/16/2018 CLINICAL HISTORY: Cough with chest and abdominal pain. Nausea, vomiting and diarrhea. TECHNIQUE: After the intravenous administration of 75 cc of Omnipaque 300, contiguous, 5 mm axial sections were obtained through the chest, abdomen and pelvis. One or more of the following individualized dose reduction techniques were utilized for this study: 1. Automated exposure control. 2. Adjustment of the mA and/or kV according to patient size. 3. Use of iterative reconstruction technique. FINDINGS: Comparison study is dated 10/16/2017. Atherosclerotic calcification of the thoracic aorta and its branches is seen. The thoracic aorta is tortuous but tapers normally. The heart is normal in size. Minimal dependent subsegmental atelectasis is seen involving both lungs. No area of consolidation is seen. No pneumothorax or pleural effusion is noted. A 1.4 cm nodule is seen involving the left breast which could represent a fibroadenoma. It is not well evaluated on this study. The liver parenchyma has a decreased attenuation consistent with fatty infiltration. The spleen, pancreas, adrenal glands and right kidney are within normal limits. Small parapelvic cysts are seen involving the left kidney. Atherosclerotic calcification of the abdominal aorta is seen. The abdominal aorta tapers normally. Surgical clips are seen within the gallbladder fossa cystectomy. No free fluid or free air is seen within the abdomen. There is no evidence of bowel obstruction. The appendix is not visualized. No inflammatory changes are seen surrounding the cecum. Images through the pelvis demonstrate the urinary bladder distended with urine. Moderate amount stool seen involving the rectum and sigmoid colon. No free fluid is seen. Degenerative changes are seen involving the thoracic and throughout the lumbar spine. IMPRESSION: No acute abnormality is seen. Patient was given additional IV fluids and had a repeat of her lactate level which improved to the normal range. Patient was feeling much better. Patient was discharged in improved condition without evidence of influenza. No evidence of intractable nausea or vomiting (PASCUAL ROYAL DO) Dragon Disclaimer Dragon Disclaimer This electronic medical record was generated, in whole or in part, using a voice recognition dictation system. (JORGE BROWN DO) Departure Departure Impression: Primary Impression: Nausea vomiting and diarrhea Additional Impressions: Abdominal pain URI (upper respiratory infection) Referrals: MUNIR CUEVAS MD (PCP) Patient Instructions: Abdominal Pain, Nausea and Vomiting Additional Instructions: Drink plenty of fluids, frequent small sips. No fatty foods, no milk, and no pepper for the next 48 hours. For the next 48 hours eat a diet rich in carbohydrates with foods such as bananas, rice, applesauce, and toast. Follow- up with your regular doctor in 2 days. He do not have a regular doctor list of local clinics will be provided for you. Return to the ER if unable to tolerate liquids or any other concerns. Scripts Ondansetron Hcl (ZOFRAN) 4 Mg Tablet 4 MG PO PRN TID PRN for NAUSEA/VOMITING, #15 nausea/vomiting Prov: PASCUAL ROYAL DO 07/16/18 Hyoscyamine Sulfate (LEVSIN) 0.125 Mg Tablet 0.125 MG PO QID, #30 TAB Prov: PASCUAL ROYAL DO 07/16/18 Problem Qualifiers Additional Impressions: Abdominal pain Abdominal location: periumbilical Qualified Codes: R10.33 - Periumbilical pain URI (upper respiratory infection) URI type: unspecified URI Qualified Codes: J06.9 - Acute upper respiratory infection, unspecified JORGE BROWN DO Jul 16, 2018 05:44 PASCUAL ROYAL DO Jul 16, 2018 09:21
[2018-07-16 05:55] LABS: INFLUENZA A PATIENT NEGATIVE (NEGATIVE); INFLUENZA B PATIENT NEGATIVE (NEGATIVE)
[2018-07-16 05:56] LABS: BASO # 0.1 x10^3/uL (0.0-0.2); BASO % 1 % (0-3); EOS # 0.1 x10^3/uL (0.0-0.7); EOS % 1 % (0-3); HEMATOCRIT 36.9 % (36.0-47.0); LYMPH # 2.1 x10^3/uL (1.0-4.8); LYMPH % 28 % (24-48); MEAN CORPUSCULAR HEMOGLOBIN 29 pg (25-35); MEAN CORPUSCULAR HGB CONC 33 g/dL (31-37); MEAN CORPUSCULAR VOLUME 90 fL (79-100); MONO # 0.6 x10^3/uL (0.0-1.1); MONO % 8 % (0-9); NEUT # 4.6 x10^3uL (1.8-7.7); NEUT % 62 % (31-73); PLATELET COUNT 356 x10^3/uL (140-400); RED BLOOD COUNT 4.11 x10^6/uL (3.50-5.40); RED CELL DISTRIBUTION WIDTH 15.1 % (11.5-14.5); WHITE BLOOD COUNT 7.5 x10^3/uL (4.0-11.0)
[2018-07-16 05:57] LABS: CALCIUM 9.1 mg/dL (8.5-10.1); CREATININE 0.9 mg/dL (0.6-1.0); POTASSIUM 3.9 mmol/L (3.5-5.1)
[2018-07-16] MEDS ORDERED: fentaNYL PF VIAL 100 MCG/2 ML VIAL IV ONE (06:00)
[2018-07-16 06:12] LABS: ALBUMIN 3.4 g/dL (3.4-5.0); ALBUMIN/GLOBULIN RATIO 0.9 (1.0-1.7); MAGNESIUM 1.4 mg/dL (1.8-2.4); TOTAL BILIRUBIN 0.4 mg/dL (0.2-1.0); TOTAL PROTEIN 7.4 g/dL (6.4-8.2)
[2018-07-16] MEDS ORDERED: CONTRAST GIVEN. MC PRN (06:15)
[2018-07-16] MEDS ORDERED: IOHEXOL 300 MG/ML 100ML VIAL. IV ONE (06:30)
--- NOTE | 2018-07-16 06:47 | RAD ---
CT scan of the chest, abdomen and pelvis with contrast 07/16/2018 CLINICAL HISTORY: Cough with chest and abdominal pain. Nausea, vomiting and diarrhea. TECHNIQUE: After the intravenous administration of 75 cc of Omnipaque 300, contiguous, 5 mm axial sections were obtained through the chest, abdomen and pelvis. One or more of the following individualized dose reduction techniques were utilized for this study: 1. Automated exposure control. 2. Adjustment of the mA and/or kV according to patient size. 3. Use of iterative reconstruction technique. FINDINGS: Comparison study is dated 10/16/2017. Atherosclerotic calcification of the thoracic aorta and its branches is seen. The thoracic aorta is tortuous but tapers normally. The heart is normal in size. Minimal dependent subsegmental atelectasis is seen involving both lungs. No area of consolidation is seen. No pneumothorax or pleural effusion is noted. A 1.4 cm nodule is seen involving the left breast which could represent a fibroadenoma. It is not well evaluated on this study. The liver parenchyma has a decreased attenuation consistent with fatty infiltration. The spleen, pancreas, adrenal glands and right kidney are within normal limits. Small parapelvic cysts are seen involving the left kidney. Atherosclerotic calcification of the abdominal aorta is seen. The abdominal aorta tapers normally. Surgical clips are seen within the gallbladder fossa cystectomy. No free fluid or free air is seen within the abdomen. There is no evidence of bowel obstruction. The appendix is not visualized. No inflammatory changes are seen surrounding the cecum. Images through the pelvis demonstrate the urinary bladder distended with urine. Moderate amount stool seen involving the rectum and sigmoid colon. No free fluid is seen. Degenerative changes are seen involving the thoracic and throughout the lumbar spine. IMPRESSION: No acute abnormality is seen. Electronically signed by: Harrison Hatfield MD (07/16/2018 6:42 AM) [facility]
[2018-07-16 06:58] LABS: PROTHROMBIN TIME PATIENT 12.8 SEC (11.7-14.0)
[2018-07-16 07:23] LABS: BILIRUBIN,URINE NEGATIVE (NEG); CLARITY,URINE CLEAR; COLOR,URINE YELLOW; NITRITE,URINE NEGATIVE (NEG); PROTEIN,URINE NEGATIVE (NEG-TRACE); UROBILINOGEN,URINE 0.2 mg/dL (0.2 mg/dL)
[2018-07-16 07:53] LABS: BACTERIA,URINE 0 /HPF (0-FEW); RBC,URINE 0 /HPF (0-2); SQUAMOUS EPITHELIAL CELL,UR FEW /LPF; WBC,URINE 0 /HPF (0-4)
[2018-07-16] MEDS ORDERED: HYDROcodone/APAP 5/325MG 1 TAB TABLET PO ONE (08:15)
[2018-07-16 08:30] VITALS: BP 132/55
[2018-07-16] MEDS ORDERED: ONDA4TAB7 PO (09:21)
[2018-07-16] MEDS ORDERED: HYOS0.1264 PO (09:21)
== END 2018-07-16 09:47 | disposition home or self-care (01) ==
LOC: ER 04:56
DX: R11.2 Nausea with vomiting, unspecified (principal); R19.7 Diarrhea, unspecified; R10.84 Generalized abdominal pain; J06.9 Acute upper respiratory infection, unspecified; E11.9 Type 2 diabetes mellitus without complications; E78.00 Pure hypercholesterolemia, unspecified; G20 Parkinson's disease; Z90.49 Acquired absence of other specified parts of digestive tract; Z90.710 Acquired absence of both cervix and uterus; Z88.5 Allergy status to narcotic agent; Z88.8 Allergy status to other drugs, medicaments and biological substances
CPT/HCPCS: 36415; 71260; 74177; 80053; 81001; 83605; 83690; 83735; 85025; 85610; 85730; 87804; 96361; 96374; 96375; 99284; J2405; J3010; J3490; J7030; Q9967

== ENCOUNTER 2018-08-10 21:36 | Inpatient (IN) | payer MEDICARE ==
[~2018-08-10] VITALS: Ht 167.6 cm; Wt 79.4 kg
[~2018-08-10 21:36] MED LIST changes: +HYOS0.1264 PO; +ONDA4TAB7 PO
--- NOTE | 2018-08-10 22:23 | PHYS DOC ---
Past Medical History Past Medical History: Angina, Anxiety, Diabetes-Type II, High Cholesterol Additional Past Medical Histor: back pain, PARKINSON (GUME CRAVEN) Past Surgical History: Cholecystectomy, Hysterectomy (GUME CRAVEN) Alcohol Use: None Drug Use: None (GUME CRAVEN) Adult General Chief Complaint Chief Complaint: ALTERED MENTAL STATUS HPI HPI Patient is a 63 year old F who arrives to [facility] by private vehicle brought in by her brother. Pt reports 3 days of N/V/D and that she has been feeling disoriented. Her brother noticed her confusion starting yesterday and feels it is worse today. Pt does report a headache and L sided abd pain. She has had a prior cholecystectomy and prior hysterectomy. (GUME CRAVEN) Review of Systems Review of Systems Constitutional: Denies fever or chills Respiratory: Denies cough or shortness of breath Cardiovascular: Denies chest pain GI: Reports abdominal pain, vomiting, diarrhea and nausea. Musculoskeletal: Denies back pain or joint pain Integument: Denies rash or skin lesions Neurologic: Reports headache and mild confusion. All other systems were reviewed and found to be within normal limits, except as documented in this note. (GUME CRAVEN) Current Medications Current Medications Current Medications Medications (Trade) Dose Ordered Sig/Adrianne Start Time Stop Time Status Last Admin Dose Admin Ondansetron HCl (Zofran) 4 mg 1X ONCE 08/10/18 22:30 08/10/18 22:31 DC 08/10/18 23:25 4 MG Sodium Chloride 1,000 ml @ 1,000 mls/hr 1X ONCE 08/10/18 22:30 08/10/18 23:29 DC 08/10/18 23:25 1,000 MLS/HR (JORGE BROWN DO) Allergies Allergies Allergies Coded Allergies Type Severity Reaction Last Updated Verified atorvastatin Allergy Intermediate Rash 04/07/18 Yes buprenorphine Allergy Intermediate Rash 10/09/13 Yes cyclobenzaprine Allergy Intermediate Rash 10/21/17 Yes naproxen Allergy Intermediate RASH 09/26/13 Yes (JORGE BROWN DO) Physical Exam Physical Exam Constitutional: Well developed, well nourished, no acute distress, non-toxic appearance. Neck: Normal range of motion, no tenderness, supple, no stridor. Cardiovascular:Heart rate regular rhythm, no murmur Lungs & Thorax: Bilateral breath sounds clear to auscultation Abdomen: Bowel sounds normal, soft, Tenderness over LUQ and LLQ. Skin: Warm, dry, no erythema, no rash. Back: No tenderness, no CVA tenderness. Extremities: No tenderness, no cyanosis, no clubbing, ROM intact, no edema. Neurologic: Alert and oriented X 3, normal motor function, normal sensory function, no focal deficits noted. No obvious confusion noted on exam. Psychologic: Affect normal, judgement normal, mood normal. (GUME CRAVEN) Current Patient Data Vital Signs Vital Signs Date Time Temp Pulse Resp B/P (MAP) Pulse Ox O2 Delivery O2 Flow Rate FiO2 08/10/18 23:26 18 96 Room Air 08/10/18 23:23 80 08/10/18 22:06 97.7 151/64 (93) 97.7 (JORGE BROWN DO) Lab Values Laboratory Tests Test 08/10/18 22:25 White Blood Count 9.0 x10^3/uL (4.0-11.0) Red Blood Count 4.69 x10^6/uL (3.50-5.40) Hemoglobin 13.9 g/dL (12.0-15.5) Hematocrit 41.8 % (36.0-47.0) Mean Corpuscular Volume 89 fL (79-100) Mean Corpuscular Hemoglobin 30 pg (25-35) Mean Corpuscular Hemoglobin Concent 33 g/dL (31-37) Red Cell Distribution Width 14.7 % (11.5-14.5) H Platelet Count 369 x10^3/uL (140-400) Neutrophils (%) (Auto) 57 % (31-73) Lymphocytes (%) (Auto) 30 % (24-48) Monocytes (%) (Auto) 11 % (0-9) H Eosinophils (%) (Auto) 1 % (0-3) Basophils (%) (Auto) 1 % (0-3) Neutrophils # (Auto) 5.2 x10^3uL (1.8-7.7) Lymphocytes # (Auto) 2.7 x10^3/uL (1.0-4.8) Monocytes # (Auto) 1.0 x10^3/uL (0.0-1.1) Eosinophils # (Auto) 0.1 x10^3/uL (0.0-0.7) Basophils # (Auto) 0.1 x10^3/uL (0.0-0.2) Sodium Level 137 mmol/L (136-145) Potassium Level 3.5 mmol/L (3.5-5.1) Chloride Level 98 mmol/L (98-107) Carbon Dioxide Level 20 mmol/L (21-32) L Anion Gap 19 (6-14) H Blood Urea Nitrogen 40 mg/dL (7-20) H Creatinine 3.8 mg/dL (0.6-1.0) H Estimated GFR (Cockcroft-Gault) 12.0 BUN/Creatinine Ratio 11 (6-20) Glucose Level 164 mg/dL (70-99) H Calcium Level 10.0 mg/dL (8.5-10.1) Magnesium Level 1.8 mg/dL (1.8-2.4) Total Bilirubin 0.4 mg/dL (0.2-1.0) Aspartate Amino Transferase (AST) 43 U/L (15-37) H Alanine Aminotransferase (ALT) 58 U/L (14-59) Alkaline Phosphatase 71 U/L (46-116) Troponin I Quantitative < 0.017 ng/mL (0.000-0.055) Total Protein 8.4 g/dL (6.4-8.2) H Albumin 4.3 g/dL (3.4-5.0) Albumin/Globulin Ratio 1.0 (1.0-1.7) Lipase 252 U/L (73-393) Laboratory Tests 08/10/18 22:25 Laboratory Tests 08/10/18 22:25 (JORGE BROWN DO) Lab Values Laboratory Tests Test 08/10/18 22:25 White Blood Count 9.0 x10^3/uL (4.0-11.0) Red Blood Count 4.69 x10^6/uL (3.50-5.40) Hemoglobin 13.9 g/dL (12.0-15.5) Hematocrit 41.8 % (36.0-47.0) Mean Corpuscular Volume 89 fL (79-100) Mean Corpuscular Hemoglobin 30 pg (25-35) Mean Corpuscular Hemoglobin Concent 33 g/dL (31-37) Red Cell Distribution Width 14.7 % (11.5-14.5) H Platelet Count 369 x10^3/uL (140-400) Neutrophils (%) (Auto) 57 % (31-73) Lymphocytes (%) (Auto) 30 % (24-48) Monocytes (%) (Auto) 11 % (0-9) H Eosinophils (%) (Auto) 1 % (0-3) Basophils (%) (Auto) 1 % (0-3) Neutrophils # (Auto) 5.2 x10^3uL (1.8-7.7) Lymphocytes # (Auto) 2.7 x10^3/uL (1.0-4.8) Monocytes # (Auto) 1.0 x10^3/uL (0.0-1.1) Eosinophils # (Auto) 0.1 x10^3/uL (0.0-0.7) Basophils # (Auto) 0.1 x10^3/uL (0.0-0.2) Sodium Level 137 mmol/L (136-145) Potassium Level 3.5 mmol/L (3.5-5.1) Chloride Level 98 mmol/L (98-107) Carbon Dioxide Level 20 mmol/L (21-32) L Anion Gap 19 (6-14) H Blood Urea Nitrogen 40 mg/dL (7-20) H Creatinine 3.8 mg/dL (0.6-1.0) H Estimated GFR (Cockcroft-Gault) 12.0 BUN/Creatinine Ratio 11 (6-20) Glucose Level 164 mg/dL (70-99) H Calcium Level 10.0 mg/dL (8.5-10.1) Magnesium Level 1.8 mg/dL (1.8-2.4) Total Bilirubin 0.4 mg/dL (0.2-1.0) Aspartate Amino Transferase (AST) 43 U/L (15-37) H Alanine Aminotransferase (ALT) 58 U/L (14-59) Alkaline Phosphatase 71 U/L (46-116) Troponin I Quantitative < 0.017 ng/mL (0.000-0.055) Total Protein 8.4 g/dL (6.4-8.2) H Albumin 4.3 g/dL (3.4-5.0) Albumin/Globulin Ratio 1.0 (1.0-1.7) Lipase 252 U/L (73-393) Laboratory Tests 08/10/18 22:25 Laboratory Tests 08/10/18 22:25 (GUME CRAVEN) EKG EKG NSR, 88bpm, prolonged QT at 488, no STEMI (GUME CRAVEN) Radiology/Procedures Radiology/Procedures CT head: neg for acute finding CT Abd/pelvis: done without contrast due to renal function: neg for acute finding. (GUME CRAVEN) Course & Med Decision Making Course & Med Decision Making Pertinent Labs and Imaging studies reviewed. (See chart for details) Pt with significant renal insufficiency with prior Bun/Cr normal. Pt reports N/V/D for 3 days so suspect from dehydration. She has also not been able to urinate while in ER but reports urinating at home prior to arrival. Will admit to hydrate and test urine. She does not seem confused during ER visit, but will continue to evaluate. (GUME CRAVEN) Dragon Disclaimer Dragon Disclaimer This electronic medical record was generated, in whole or in part, using a voice recognition dictation system. (GUME CRAVEN) Departure Departure Impression: Primary Impression: Nausea vomiting and diarrhea Additional Impressions: Abdominal pain Dehydration Acute renal insufficiency Disposition: ADMITTED INPATIENT Admitting Physician: Other ([place]) (JORGE BROWN DO) Condition: STABLE Referrals: MUNIR CUEVAS MD (PCP) Attending Signature Attending Signature I have reviewed the PA/PUTTY REMOVER's note and plan of care. I was available for consultation as needed during the patient's visit in the emergency department. I agree with the clinical impression, plan, and disposition. (JORGE BROWN DO) Problem Qualifiers GUME CRAVEN Aug 10, 2018 22:23 JORGE BORWN DO Aug 11, 2018 05:46
[2018-08-10] MEDS ORDERED: IV NORMAL SALINE 1000ML BAG 1,000 ML IV ONE ×2 (22:30→23:30)
[2018-08-10] MEDS ORDERED: ONDANSETRON PF 4 MG/2 ML VIAL. IV ONE (22:30)
[2018-08-10 22:35] LABS: BASO # 0.1 x10^3/uL (0.0-0.2); BASO % 1 % (0-3); EOS # 0.1 x10^3/uL (0.0-0.7); EOS % 1 % (0-3); HEMATOCRIT 41.8 % (36.0-47.0); HEMOGLOBIN 13.9 g/dL (12.0-15.5); LYMPH # 2.7 x10^3/uL (1.0-4.8); LYMPH % 30 % (24-48); MEAN CORPUSCULAR HEMOGLOBIN 30 pg (25-35); MEAN CORPUSCULAR HGB CONC 33 g/dL (31-37); MEAN CORPUSCULAR VOLUME 89 fL (79-100); MONO % 11 % (0-9); NEUT # 5.2 x10^3uL (1.8-7.7); NEUT % 57 % (31-73); PLATELET COUNT 369 x10^3/uL (140-400); RED BLOOD COUNT 4.69 x10^6/uL (3.50-5.40); RED CELL DISTRIBUTION WIDTH 14.7 % (11.5-14.5)
[2018-08-10 22:43] LABS: CREATININE 3.8 mg/dL (0.6-1.0); POTASSIUM 3.5 mmol/L (3.5-5.1)
[2018-08-10 22:49] LABS: ALBUMIN 4.3 g/dL (3.4-5.0); MAGNESIUM 1.8 mg/dL (1.8-2.4); TOTAL BILIRUBIN 0.4 mg/dL (0.2-1.0); TOTAL PROTEIN 8.4 g/dL (6.4-8.2)
--- NOTE | 2018-08-10 23:09 | RAD ---
CT Head W/O Contrast: History: confusion, headache, no prior Comparison: none Axial images were obtained without contrast. The gregorio and white matter appears normal and symmetrical for the patients age. There is no mass effect, extraaxial fluid collections or hydrocephalus. There is no gross bleed. There is no focal loss of gregorio-white matter distinction to suggest acute ischemia, i.e. stroke. Impression: No acute findings. RS Compliance Statement: One or more of the following individualized dose reduction techniques were utilized for this examination: 1. Automated exposure control 2. Adjustment of the mA and/or kV according to patient size 3. Use of iterative reconstruction technique Electronically signed by: Kendall Sarabia III, MD (08/10/2018 11:07 PM) [facility]
--- NOTE | 2018-08-10 23:16 | RAD ---
Abdominal and Pelvis CT, Without Contrast: History: 3 days of nausea vomiting and diarrhea. Comparison: None. Procedure: Axial images are obtained of the abdomen and pelvis, without IV or oral contrast. CT Abdomen without Contrast: Findings: Evaluation of solid organs is limited without contrast. Evaluation of stomach and bowel is limited without oral contrast. Liver: Normal. Spleen: Normal. Pancreas: Normal. Adrenal Glands: Normal. Kidneys: There is small parapelvic cysts bilaterally. There is no free air or free fluid. There is no lymphadenopathy. There has been prior cholecystectomy. Impression: Please see CT Pelvis without Contrast. End Impression. CT Pelvis without Contrast: Findings: The urinary bladder appears normal. There is no free fluid. There is no lymphadenopathy. There is no pericolonic inflammation identified. The appendix is not well seen. Impression: No evidence of urolithiasis or obstructive uropathy. End impression PQRS Compliance Statement: One or more of the following individualized dose reduction techniques were utilized for this examination: 1. Automated exposure control 2. Adjustment of the mA and/or kV according to patient size 3. Use of iterative reconstruction technique Electronically signed by: Kendall Sarabia III, MD (08/10/2018 11:13 PM) [facility]
[2018-08-10] MEDS ORDERED: ONDANSETRON PF 4 MG/2 ML VIAL. IV PRN (23:30)
[2018-08-10] MEDS ORDERED: MORPHINE SULFATE 4 MG/ML VIAL. IV ONE (23:30)
[2018-08-11] VITALS (7 sets, daily range): BP systolic 107–138; BP diastolic 51–71
[2018-08-11] MEDS ORDERED: SIMV80TA17 PO (02:23)
[2018-08-11] MEDS: MORPHINE SULFATE 2 MG/ML VIAL. IV PRN ×7 (02:30→22:45)
--- NOTE | 2018-08-11 06:50 | EKG ---
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
[2018-08-11] MEDS ORDERED: METOCLOPRAMIDE HCL 10 MG/2 ML VIAL. IV ONE (08:00)
[2018-08-11] MEDS ORDERED: DEXTROSE 50% 25 GM / 50ML DISP.SYRIN. IV PRN (09:00)
[2018-08-11] MEDS ORDERED: GABAPENTIN 100 MG CAPSULE. PO SCH (09:00)
[2018-08-11] MEDS: METOPROLOL TART IMMED RELEASE 50 MG TABLET. PO SCH (09:30)
[2018-08-11] MEDS ORDERED: NITROGLYCERIN SUBLINGUAL 0.4 MG BOTTLE OF 25. SL PRN (09:30)
[2018-08-11] MEDS: LORazepam 1 MG TABLET PO SCH ×3 (09:30→20:40)
[2018-08-11] MEDS: glipiZIDE 5 MG TABLET PO SCH (09:30)
[2018-08-11] MEDS: IV NORMAL SALINE 1000ML BAG 1,000 ML IV SCH ×2 (10:07→19:35)
[2018-08-11] MEDS: FLUoxetine HCL 20 MG CAPSULE PO SCH ×2 (10:10→20:40)
[2018-08-11] MEDS: PANTOPRAZOLE 40 MG TABLET.DR. PO SCH (10:10)
--- NOTE | 2018-08-11 10:12 | RAD ---
Bilateral renal ultrasound without comparison for acute renal failure. TECHNIQUE AND FINDINGS: Real-time grayscale and color Doppler evaluation of the kidneys and urinary bladder is performed. The right kidney measures 9.9 x 3.6 x 4.9 cm and the left measures 10.6 x 3.7 x 5.5 cm. There is no hydronephrosis or perinephric fluid involving either kidney. At the inferior pole of the left kidney is a simple 1.2 cm cyst. No other parenchymal abnormalities are seen. The urinary bladder is fluid distended and grossly unremarkable. Ureteral jets are not identified. IMPRESSION: 1. 1.2 cm simple left renal cyst. 2. No other sonographically discernible abnormality of the kidneys or urinary bladder. Electronically signed by: Jackson Alfredo MD (08/11/2018 10:09 AM) [id number]
[2018-08-11 10:36] LABS: BILIRUBIN,URINE NEGATIVE (NEG); CLARITY,URINE CLEAR; COLOR,URINE YELLOW; NITRITE,URINE NEGATIVE (NEG); PROTEIN,URINE NEGATIVE (NEG-TRACE); UROBILINOGEN,URINE 0.2 mg/dL (0.2 mg/dL)
--- NOTE | 2018-08-11 10:57 | PDOC1 ---
History and Physical Date of Admission Date of Admission DATE: 08/11/18 TIME: 10:51 Source Source: Chart review, Patient History of Present Illness History of Present Illness Yola is a 63 year old F admit for f N/V/D and new confusion. Her brother in the ER said she was below her baseline, this AM, she is oriented 3/4, some good recall brought in a car by family, patient complains of three days of diarrhea, and some abd pain some po intake, Pt does report a headache and L sided abd pain. pain 5/10 and worse with palpation, some guarding Past Medical History Cardiovascular: HTN, Hyperlipidemia, Other CENTRAL NERVOUS SYSTEM: Periperal neuropathy, Other Psych: Anxiety Musculoskeletal: Osteoarthritis Endocrine: Diabetes Past Surgical History Past Surgical History: Cholecystectomy, Hysterectomy Family History Family History: Coronary Artery Disease Social History Smoke: No (RARE) ALCOHOL: none Drugs: None Current Problem List Problem List Problems Medical Problems: (1) Abdominal pain Status: Acute (2) Acute renal insufficiency Status: Acute (3) Dehydration Status: Acute (4) Nausea vomiting and diarrhea Status: Acute Current Medications Current Medications Current Medications Ondansetron HCl (Zofran) 4 mg 1X ONCE IV Last administered on 08/10/18at 23:25; Start 08/10/18 at 22:30; Stop 08/10/18 at 22:31; Status DC Sodium Chloride 1,000 ml @ 1,000 mls/hr 1X ONCE IV Last administered on 08/10/18at 23:25; Start 08/10/18 at 22:30; Stop 08/10/18 at 23:29; Status DC Sodium Chloride 1,000 ml @ 1,000 mls/hr 1X ONCE IV Last administered on 08/10/18at 23:25; Start 08/10/18 at 23:30; Stop 08/11/18 at 00:29; Status DC Morphine Sulfate (Morphine Sulfate) 4 mg 1X ONCE IV Last administered on 08/10/18at 23:26; Start 08/10/18 at 23:30; Stop 08/10/18 at 23:31; Status DC Ondansetron HCl (Zofran) 4 mg PRN Q8HRS PRN IV NAUSEA/VOMITING 1ST CHOICE Last administered on 08/11/18at 04:40; Start 08/10/18 at 23:30; Stop 08/11/18 at 07:58; Status DC Morphine Sulfate (Morphine Sulfate) 2 mg PRN Q2HR PRN IV SEVERE PAIN Last administered on 08/11/18at 10:15; Start 08/10/18 at 23:30; Stop 08/11/18 at 23:29 Ondansetron HCl (Zofran) 8 mg PRN Q8HRS PRN IV NAUSEA/VOMITING 1ST CHOICE; Start 08/11/18 at 08:00 Metoclopramide HCl (Reglan Vial) 10 mg 1X ONCE IV Last administered on 08/11/18at 08:09; Start 08/11/18 at 08:00; Stop 08/11/18 at 08:01; Status DC Fluoxetine HCl (PROzac) 20 mg BID PO Last administered on 08/11/18at 10:10; Start 08/11/18 at 09:00 Gabapentin (Neurontin) 300 mg TID PO ; Start 08/11/18 at 09:00; Status Cancel Glipizide (Glucotrol) 2.5 mg DAILY PO ; Start 08/11/18 at 09:30 Acetaminophen/ Hydrocodone Bitart (Lortab 7.5/325) 1 tab PRN Q6HRS PRN PO MODERATE PAIN; Start 08/11/18 at 09:00 Lorazepam (Ativan) 1 mg TID PO ; Start 08/11/18 at 09:30 Metoprolol Tartrate (Lopressor) 50 mg DAILY PO ; Start 08/11/18 at 09:30 Nitroglycerin (Nitrostat) 0.4 mg PRN Q5MIN PRN SL CHEST PAIN; Start 08/11/18 at 09:30 Pantoprazole Sodium (Protonix) 40 mg DAILYAC PO Last administered on 08/11/18at 10:10; Start 08/11/18 at 11:30 Insulin Human Lispro (HumaLOG) 0-7 UNITS TIDWMEALS SQ ; Start 08/11/18 at 12:00 Dextrose (Dextrose 50%-Water Syringe) 12.5 gm PRN Q15MIN PRN IV SEE COMMENTS; Start 08/11/18 at 09:00 Sodium Chloride 1,000 ml @ 100 mls/hr Q10H IV Last administered on 08/11/18at 10:07; Start 08/11/18 at 09:00 Gabapentin (Neurontin) 300 mg TID PO ; Start 08/11/18 at 09:30 Active Scripts Active [Pantoprazole] 40 MG Tablet.dr 40 Mg PO DAILYAC 15 Days Hydrocodone-Apap 7.5-325 (Hydrocodone Bit/Acetaminophen) 1 Each Tablet 1 Tab PO PRN Q6HRS PRN Vitamin D (Cholecalciferol (Vitamin D3)) 1,000 Unit Tablet 1,000 Unit PO DAILY 30 Days Reported Simvastatin 80 Mg Tablet 1 Tab PO QHS Bydureon (Exenatide Microspheres) 2 Mg Vial 2 Mg SQ WEEKLY Gabapentin (Gabapentin) 100 Mg Capsule 300 Mg PO TID Lisinopril 5 Mg Tablet 1 Tab PO DAILY Glipizide 5 Mg Tablet 1 Tab PO BID Tramadol Hcl 50 Mg Tablet 1 Tab PO PRN Q6HRS Nitrostat (Nitroglycerin) 0.3 Mg Tab.subl 0.3 Mg SL PRN Q5MIN PRN Metoprolol Tartrate 50 Mg Tablet 50 Mg PO DAILY Lorazepam 1 Mg Tablet 1 Mg PO TID Metformin Hcl 1,000 Mg Tablet 1,000 Mg PO BID Prozac (Fluoxetine Hcl) 20 Mg Capsule 20 Mg PO BID Allergies Allergies: Coded Allergies: atorvastatin (Verified Allergy, Intermediate, Rash, 04/07/18) buprenorphine (Verified Allergy, Intermediate, Rash, 10/09/13) cyclobenzaprine (Verified Allergy, Intermediate, Rash, 10/21/17) naproxen (Verified Allergy, Intermediate, RASH, 09/26/13) ROS General: YES: Chills, Fatigue, Malaise PSYCHOLOGICAL ROS: YES: Concentration difficultie, Disorientation, Sleep disturbances Eyes: No Blurry vision, No Decreased vision, No Double vision, No Dry eyes, No Excessive tearing, No Eye Pain, No Itchy Eyes, No Loss of vision, No Photophobia, No Scotomata, No Uses contacts, No Uses glasses, No Other HEENT: No: Heacaches, Visual Changes, Hearing change, Nasal congestion, Nasal discharge, Oral lesions, Sinus pain, Sore Throat, Epistaxis, Sneezing, Snoring, Tinnitus, Vertigo, Vocal changes, Other Respiratory: No: Cough, Hemoptysis, Orthopnea, Pleuritic Pain, Shortness of breath, SOB with excertion, Sputum Changes, Stridor, Tachypnea, Wheezing, Other Cardiovascular: No Chest Pain, No Palpitations, No Orthopnea, No Paroxysmal Noc. Dyspnea, No Edema, No Lt Headedness, No Other Gastrointestinal: Yes Nausea, Yes Vomiting, Yes Abdominal Pain, Yes Diarrhea Genitourinary: YES Pain, YES Flank Pain; No Dysuria, No Frequency, No Incontinence, No Hematuria, No Retention, No Discharge, No Urgency, No Other, No , No , No , No , No , No , No Musculoskeletal: Yes Joint Pain; No Gait Disturbance, No Joint Stiffness, No Joint Swelling, No Muscle Pain, No Muscular Weakness, No Pain In:, No Swelling In:, No Other Neurological: No Behavorial Changes, No Bowel/Bladder ControlChng, No Confusion, No Dizziness, No Gait Disturbance, No Headaches, No Impaired Coord/balance, No Memory Loss, No Numbness/Tingling, No Seizures, No Speech Problems, No Tremors, No Visual Changes, No Weakness, No Other Skin: No Dry Skin, No Eczema, No Hair Changes, No Lumps, No Mole Changes, No Mottling, No Nail Changes, No Pruritus, No Rash, No Skin Lesion Changes, No Other, No Acne Physical Exam General: Alert, Oriented X3, No acute distress Abdomen: Normal bowel sounds (tender left lower, near sigmoid, not much pain near bladder), Soft Rectal Exam: not examined Extremities: No edema, Normal pulses Skin: No rashes Neuro: Normal tone, Cranial nerves 3-12 NL Vitals Vitals Vital Signs Date Time Temp Pulse Resp B/P (MAP) Pulse Ox O2 Delivery O2 Flow Rate FiO2 08/11/18 10:15 90 Room Air 08/11/18 09:30 78 117/57 08/11/18 07:30 98.6 18 98.6 Labs Labs Laboratory Tests Test 08/10/18 22:25 08/11/18 01:10 White Blood Count 9.0 x10^3/uL (4.0-11.0) Red Blood Count 4.69 x10^6/uL (3.50-5.40) Hemoglobin 13.9 g/dL (12.0-15.5) Hematocrit 41.8 % (36.0-47.0) Mean Corpuscular Volume 89 fL (79-100) Mean Corpuscular Hemoglobin 30 pg (25-35) Mean Corpuscular Hemoglobin Concent 33 g/dL (31-37) Red Cell Distribution Width 14.7 % (11.5-14.5) Platelet Count 369 x10^3/uL (140-400) Neutrophils (%) (Auto) 57 % (31-73) Lymphocytes (%) (Auto) 30 % (24-48) Monocytes (%) (Auto) 11 % (0-9) Eosinophils (%) (Auto) 1 % (0-3) Basophils (%) (Auto) 1 % (0-3) Neutrophils # (Auto) 5.2 x10^3uL (1.8-7.7) Lymphocytes # (Auto) 2.7 x10^3/uL (1.0-4.8) Monocytes # (Auto) 1.0 x10^3/uL (0.0-1.1) Eosinophils # (Auto) 0.1 x10^3/uL (0.0-0.7) Basophils # (Auto) 0.1 x10^3/uL (0.0-0.2) Sodium Level 137 mmol/L (136-145) Potassium Level 3.5 mmol/L (3.5-5.1) Chloride Level 98 mmol/L (98-107) Carbon Dioxide Level 20 mmol/L (21-32) Anion Gap 19 (6-14) Blood Urea Nitrogen 40 mg/dL (7-20) Creatinine 3.8 mg/dL (0.6-1.0) Estimated GFR (Cockcroft-Gault) 12.0 BUN/Creatinine Ratio 11 (6-20) Glucose Level 164 mg/dL (70-99) Calcium Level 10.0 mg/dL (8.5-10.1) Magnesium Level 1.8 mg/dL (1.8-2.4) Total Bilirubin 0.4 mg/dL (0.2-1.0) Aspartate Amino Transf (AST/SGOT) 43 U/L (15-37) Alanine Aminotransferase (ALT/SGPT) 58 U/L (14-59) Alkaline Phosphatase 71 U/L (46-116) Troponin I Quantitative < 0.017 ng/mL (0.000-0.055) Total Protein 8.4 g/dL (6.4-8.2) Albumin 4.3 g/dL (3.4-5.0) Albumin/Globulin Ratio 1.0 (1.0-1.7) Lipase 252 U/L (73-393) Lactic Acid Level 1.0 mmol/L (0.4-2.0) Ammonia 20 mcmol/L (11-34) Laboratory Tests Test 08/10/18 22:25 08/11/18 01:10 White Blood Count 9.0 x10^3/uL (4.0-11.0) Red Blood Count 4.69 x10^6/uL (3.50-5.40) Hemoglobin 13.9 g/dL (12.0-15.5) Hematocrit 41.8 % (36.0-47.0) Mean Corpuscular Volume 89 fL (79-100) Mean Corpuscular Hemoglobin 30 pg (25-35) Mean Corpuscular Hemoglobin Concent 33 g/dL (31-37) Red Cell Distribution Width 14.7 % (11.5-14.5) Platelet Count 369 x10^3/uL (140-400) Neutrophils (%) (Auto) 57 % (31-73) Lymphocytes (%) (Auto) 30 % (24-48) Monocytes (%) (Auto) 11 % (0-9) Eosinophils (%) (Auto) 1 % (0-3) Basophils (%) (Auto) 1 % (0-3) Neutrophils # (Auto) 5.2 x10^3uL (1.8-7.7) Lymphocytes # (Auto) 2.7 x10^3/uL (1.0-4.8) Monocytes # (Auto) 1.0 x10^3/uL (0.0-1.1) Eosinophils # (Auto) 0.1 x10^3/uL (0.0-0.7) Basophils # (Auto) 0.1 x10^3/uL (0.0-0.2) Sodium Level 137 mmol/L (136-145) Potassium Level 3.5 mmol/L (3.5-5.1) Chloride Level 98 mmol/L (98-107) Carbon Dioxide Level 20 mmol/L (21-32) Anion Gap 19 (6-14) Blood Urea Nitrogen 40 mg/dL (7-20) Creatinine 3.8 mg/dL (0.6-1.0) Estimated GFR (Cockcroft-Gault) 12.0 BUN/Creatinine Ratio 11 (6-20) Glucose Level 164 mg/dL (70-99) Calcium Level 10.0 mg/dL (8.5-10.1) Magnesium Level 1.8 mg/dL (1.8-2.4) Total Bilirubin 0.4 mg/dL (0.2-1.0) Aspartate Amino Transf (AST/SGOT) 43 U/L (15-37) Alanine Aminotransferase (ALT/SGPT) 58 U/L (14-59) Alkaline Phosphatase 71 U/L (46-116) Troponin I Quantitative < 0.017 ng/mL (0.000-0.055) Total Protein 8.4 g/dL (6.4-8.2) Albumin 4.3 g/dL (3.4-5.0) Albumin/Globulin Ratio 1.0 (1.0-1.7) Lipase 252 U/L (73-393) Lactic Acid Level 1.0 mmol/L (0.4-2.0) Ammonia 20 mcmol/L (11-34) VTE Prophylaxis Ordered VTE Prophylaxis Devices: No VTE Pharmacological Prophylaxi: Yes Assessment/Plan Assessment/Plan nausea and vomiting and diarrhea, acute viral enteritis acute renal failure, poss vasomotor, but BUN is more in line with ATN, workup, foul urine, scant amt of urine, sent UA, consult renal, check renal US, no obs seen on CT metabolic encephalopathy form above, also probable UTI, sample pending dm2 htn lipids admit CHIDI OCHOA MD Aug 11, 2018 10:57
[2018-08-11 11:01] LABS: BACTERIA,URINE FEW /HPF (0-FEW); RBC,URINE 0 /HPF (0-2); SQUAMOUS EPITHELIAL CELL,UR MANY /LPF; WBC,URINE 0 /HPF (0-4)
[2018-08-11] MEDS: INSULIN LISPRO 300 UNITS/3 ML INSULN.PEN. SQ SCH ×2 (12:00→17:00)
--- NOTE | 2018-08-11 12:22 | PDOC2 ---
CONSULT Date of Consult Date of Consult DATE: 08/11/18 TIME: 12:14 Reason for Consult Reason for Consult: OSWALD Referring Physician Referring Physician: GABRIELA Identification/Chief Complaint Chief Complaint N/V/D Source Source: Chart review, Patient History of Present Illness Reason for Visit: THIS IS A 63 YR OLD WITH N/V/D FOR LAST SEVERAL DAYS. MOST C/W HER GASTROENTERITIS AND MOST LIKELY VIRAL. NO BLOOD IN HER STOOL NOTED. SHE IS NOTED TO HAVE A CR OF 3.8 AND HAS NOTED A DECREASE IN HER UO. STATES THAT HER BG HAS BEEN LABILE WELL. LONG HX OF DM II AND HTN BUT NO CKD HX NOTED. HAS BEEN TAKING SOME ADVIL DAILY FOR ACHES AND PAIN AND THIS SHE HAS DONE FOR MANY YEARS. NO OTHER HX NOTED. NO HX OF ANY KIDNEY OR BLADDER SURGERIES, NEPHROLITHIASIS, HEMATURIA DYSURIA OR FREQUENCY NOTED. IMAGING NEG EXCEPT FOR LEFT BENIGN RENAL CYST Past Medical History Cardiovascular: HTN, Hyperlipidemia, Other CENTRAL NERVOUS SYSTEM: Periperal neuropathy, Other Hepatobiliary: No pertinent hx Psych: Anxiety Musculoskeletal: Osteoarthritis Infectious disease: No pertinent hx ENT: No pertinent hx Renal/: No pertinent hx Endocrine: Diabetes Past Surgical History Past Surgical History: Cholecystectomy, Hysterectomy Family History Family History: Coronary Artery Disease Social History No (RARE) ALCOHOL: none Drugs: None Lives: Roommate Current Problem List Problem List Problems Medical Problems: (1) Abdominal pain Status: Acute (2) Acute renal insufficiency Status: Acute (3) Dehydration Status: Acute (4) Nausea vomiting and diarrhea Status: Acute Current Medications Current Medications Current Medications Ondansetron HCl (Zofran) 4 mg 1X ONCE IV Last administered on 08/10/18at 23:25; Start 08/10/18 at 22:30; Stop 08/10/18 at 22:31; Status DC Sodium Chloride 1,000 ml @ 1,000 mls/hr 1X ONCE IV Last administered on 08/10/18at 23:25; Start 08/10/18 at 22:30; Stop 08/10/18 at 23:29; Status DC Sodium Chloride 1,000 ml @ 1,000 mls/hr 1X ONCE IV Last administered on 08/10/18at 23:25; Start 08/10/18 at 23:30; Stop 08/11/18 at 00:29; Status DC Morphine Sulfate (Morphine Sulfate) 4 mg 1X ONCE IV Last administered on 08/10/18at 23:26; Start 08/10/18 at 23:30; Stop 08/10/18 at 23:31; Status DC Ondansetron HCl (Zofran) 4 mg PRN Q8HRS PRN IV NAUSEA/VOMITING 1ST CHOICE Last administered on 08/11/18at 04:40; Start 08/10/18 at 23:30; Stop 08/11/18 at 07:58; Status DC Morphine Sulfate (Morphine Sulfate) 2 mg PRN Q2HR PRN IV SEVERE PAIN Last adm inistered on 08/11/18at 10:15; Start 08/10/18 at 23:30; Stop 08/11/18 at 23:29 Ondansetron HCl (Zofran) 8 mg PRN Q8HRS PRN IV NAUSEA/VOMITING 1ST CHOICE; Start 08/11/18 at 08:00 Metoclopramide HCl (Reglan Vial) 10 mg 1X ONCE IV Last administered on at 08:09; Start 08/11/18 at 08:00; Stop 08/11/18 at 08:01; Status DC Fluoxetine HCl (PROzac) 20 mg BID PO Last administered on 08/11/18at 10:10; Start 08/11/18 at 09:00 Gabapentin (Neurontin) 300 mg TID PO ; Start 08/11/18 at 09:00; Status Cancel Glipizide (Glucotrol) 2.5 mg DAILY PO ; Start 08/11/18 at 09:30 Acetaminophen/ Hydrocodone Bitart (Lortab 7.5/325) 1 tab PRN Q6HRS PRN PO MODERATE PAIN; Start 08/11/18 at 09:00 Lorazepam (Ativan) 1 mg TID PO ; Start 08/11/18 at 09:30 Metoprolol Tartrate (Lopressor) 50 mg DAILY PO ; Start 08/11/18 at 09:30 Nitroglycerin (Nitrostat) 0.4 mg PRN Q5MIN PRN SL CHEST PAIN; Start 08/11/18 at 09:30 Pantoprazole Sodium (Protonix) 40 mg DAILYAC PO Last administered on 08/11/18at 10:10; Start 08/11/18 at 11:30 Insulin Human Lispro (HumaLOG) 0-7 UNITS TIDWMEALS SQ ; Start 08/11/18 at 12:00 Dextrose (Dextrose 50%-Water Syringe) 12.5 gm PRN Q15MIN PRN IV SEE COMMENTS; Start 08/11/18 at 09:00 Sodium Chloride 1,000 ml @ 100 mls/hr Q10H IV Last administered on 08/11/18at 10:07; Start 08/11/18 at 09:00 Gabapentin (Neurontin) 300 mg TID PO ; Start 08/11/18 at 09:30 Active Scripts Active [Pantoprazole] 40 MG Tablet.dr 40 Mg PO DAILYAC 15 Days Hydrocodone-Apap 7.5-325 (Hydrocodone Bit/Acetaminophen) 1 Each Tablet 1 Tab PO PRN Q6HRS PRN Vitamin D (Cholecalciferol (Vitamin D3)) 1,000 Unit Tablet 1,000 Unit PO DAILY 30 Days Reported Simvastatin 80 Mg Tablet 1 Tab PO QHS Bydureon (Exenatide Microspheres) 2 Mg Vial 2 Mg SQ WEEKLY Gabapentin (Gabapentin) 100 Mg Capsule 300 Mg PO TID Lisinopril 5 Mg Tablet 1 Tab PO DAILY Glipizide 5 Mg Tablet 1 Tab PO BID Tramadol Hcl 50 Mg Tablet 1 Tab PO PRN Q6HRS Nitrostat (Nitroglycerin) 0.3 Mg Tab.subl 0.3 Mg SL PRN Q5MIN PRN Metoprolol Tartrate 50 Mg Tablet 50 Mg PO DAILY Lorazepam 1 Mg Tablet 1 Mg PO TID Metformin Hcl 1,000 Mg Tablet 1,000 Mg PO BID Prozac (Fluoxetine Hcl) 20 Mg Capsule 20 Mg PO BID Allergies Allergies: Coded Allergies: atorvastatin (Verified Allergy, Intermediate, Rash, 04/07/18) buprenorphine (Verified Allergy, Intermediate, Rash, 10/09/13) cyclobenzaprine (Verified Allergy, Intermediate, Rash, 10/21/17) naproxen (Verified Allergy, Intermediate, RASH, 09/26/13) ROS General: YES: Fatigue, Malaise Eyes: Yes Decreased vision HEENT: YES: [place] ALLERGY AND IMMUNOLOGY: YES: Seasonal Allergies Respiratory: YES: Cough Cardiovascular: yes Lt Headedness Gastrointestinal: Yes Nausea, Yes Vomiting, Yes Diarrhea Genitourinary: YES Other (DECREASED UO) Musculoskeletal: Yes Muscular Weakness Neurological: Yes Weakness Skin: Yes Dry Skin Physical Exam General: Alert, Oriented X3, Cooperative, No acute distress HEENT: Atraumatic, PERRLA Lungs: Clear to auscultation Heart: Regular rate, Normal S1, Normal S2 Abdomen: Normal bowel sounds, Soft, No tenderness Extremities: No clubbing Skin: No breakdown Neuro: Normal speech, Sensation intact Psych/Mental Status: Mood NL MUSCULOSKELETAL: No joint tenderness, No deformity, No swelling Vitals VITALS Vital Signs Date Time Temp Pulse Resp B/P (MAP) Pulse Ox O2 Delivery O2 Flow Rate FiO2 08/11/18 11:30 98.1 77 18 113/56 (75) 92 Room Air 98.1 Labs Labs Laboratory Tests Test 08/10/18 22:25 08/11/18 01:10 08/11/18 10:20 08/11/18 11:37 White Blood Count 9.0 x10^3/uL (4.0-11.0) Red Blood Count 4.69 x10^6/uL (3.50-5.40) Hemoglobin 13.9 g/dL (12.0-15.5) Hematocrit 41.8 % (36.0-47.0) Mean Corpuscular Volume 89 fL (79-100) Mean Corpuscular Hemoglobin 30 pg (25-35) Mean Corpuscular Hemoglobin Concent 33 g/dL (31-37) Red Cell Distribution Width 14.7 % (11.5-14.5) Platelet Count 369 x10^3/uL (140-400) Neutrophils (%) (Auto) 57 % (31-73) Lymphocytes (%) (Auto) 30 % (24-48) Monocytes (%) (Auto) 11 % (0-9) Eosinophils (%) (Auto) 1 % (0-3) Basophils (%) (Auto) 1 % (0-3) Neutrophils # (Auto) 5.2 x10^3uL (1.8-7.7) Lymphocytes # (Auto) 2.7 x10^3/uL (1.0-4.8) Monocytes # (Auto) 1.0 x10^3/uL (0.0-1.1) Eosinophils # (Auto) 0.1 x10^3/uL (0.0-0.7) Basophils # (Auto) 0.1 x10^3/uL (0.0-0.2) Sodium Level 137 mmol/L (136-145) Potassium Level 3.5 mmol/L (3.5-5.1) Chloride Level 98 mmol/L (98-107) Carbon Dioxide Level 20 mmol/L (21-32) Anion Gap 19 (6-14) Blood Urea Nitrogen 40 mg/dL (7-20) Creatinine 3.8 mg/dL (0.6-1.0) Estimated GFR (Cockcroft-Gault) 12.0 BUN/Creatinine Ratio 11 (6-20) Glucose Level 164 mg/dL (70-99) Calcium Level 10.0 mg/dL (8.5-10.1) Magnesium Level 1.8 mg/dL (1.8-2.4) Total Bilirubin 0.4 mg/dL (0.2-1.0) Aspartate Amino Transf (AST/SGOT) 43 U/L (15-37) Alanine Aminotransferase (ALT/SGPT) 58 U/L (14-59) Alkaline Phosphatase 71 U/L (46-116) Troponin I Quantitative < 0.017 ng/mL (0.000-0.055) Total Protein 8.4 g/dL (6.4-8.2) Albumin 4.3 g/dL (3.4-5.0) Albumin/Globulin Ratio 1.0 (1.0-1.7) Lipase 252 U/L (73-393) Lactic Acid Level 1.0 mmol/L (0.4-2.0) Ammonia 20 mcmol/L (11-34) Urine Collection Type Unknown Urine Color Yellow Urine Clarity Clear Urine pH 5.0 Urine Specific [place] 1.015 Urine Protein Negative mg/dL (NEG-TRACE) Urine Glucose (UA) Negative mg/dL (NEG) Urine Ketones (Stick) Negative mg/dL (NEG) Urine Blood Negative (NEG) Urine Nitrite Negative (NEG) Urine Bilirubin Negative (NEG) Urine Urobilinogen Dipstick 0.2 mg/dL (0.2 mg/dL) Urine Leukocyte Esterase Negative (NEG) Urine RBC 0 /HPF (0-2) Urine WBC 0 /HPF (0-4) Urine Squamous Epithelial Cells Many /LPF Urine Bacteria Few /HPF (0-FEW) Glucose (Fingerstick) 135 mg/dL (70-99) Laboratory Tests Test 08/10/18 22:25 08/11/18 01:10 08/11/18 10:08/11/18 11:37 White Blood Count 9.0 x10^3/uL (4.0-11.0) Red Blood Count 4.69 x10^6/uL (3.50-5.40) Hemoglobin 13.9 g/dL (12.0-15.5) Hematocrit 41.8 % (36.0-47.0) Mean Corpuscular Volume 89 fL (79-100) Mean Corpuscular Hemoglobin 30 pg (25-35) Mean Corpuscular Hemoglobin Concent 33 g/dL (31-37) Red Cell Distribution Width 14.7 % (11.5-14.5) Platelet Count 369 x10^3/uL (140-400) Neutrophils (%) (Auto) 57 % (31-73) Lymphocytes (%) (Auto) 30 % (24-48) Monocytes (%) (Auto) 11 % (0-9) Eosinophils (%) (Auto) 1 % (0-3) Basophils (%) (Auto) 1 % (0-3) Neutrophils # (Auto) 5.2 x10^3uL (1.8-7.7) Lymphocytes # (Auto) 2.7 x10^3/uL (1.0-4.8) Monocytes # (Auto) 1.0 x10^3/uL (0.0-1.1) Eosinophils # (Auto) 0.1 x10^3/uL (0.0-0.7) Basophils # (Auto) 0.1 x10^3/uL (0.0-0.2) Sodium Level 137 mmol/L (136-145) Potassium Level 3.5 mmol/L (3.5-5.1) Chloride Level 98 mmol/L (98-107) Carbon Dioxide Level 20 mmol/L (21-32) Anion Gap 19 (6-14) Blood Urea Nitrogen 40 mg/dL (7-20) Creatinine 3.8 mg/dL (0.6-1.0) Estimated GFR (Cockcroft-Gault) 12.0 BUN/Creatinine Ratio 11 (6-20) Glucose Level 164 mg/dL (70-99) Calcium Level 10.0 mg/dL (8.5-10.1) Magnesium Level 1.8 mg/dL (1.8-2.4) Total Bilirubin 0.4 mg/dL (0.2-1.0) Aspartate Amino Transf (AST/SGOT) 43 U/L (15-37) Alanine Aminotransferase (ALT/SGPT) 58 U/L (14-59) Alkaline Phosphatase 71 U/L (46-116) Troponin I Quantitative < 0.017 ng/mL (0.000-0.055) Total Protein 8.4 g/dL (6.4-8.2) Albumin 4.3 g/dL (3.4-5.0) Albumin/Globulin Ratio 1.0 (1.0-1.7) Lipase 252 U/L (73-393) Lactic Acid Level 1.0 mmol/L (0.4-2.0) Ammonia 20 mcmol/L (11-34) Urine Collection Type Unknown Urine Color Yellow Urine Clarity Clear Urine pH 5.0 Urine Specific [place] 1.015 Urine Protein Negative mg/dL (NEG-TRACE) Urine Glucose (UA) Negative mg/dL (NEG) Urine Ketones (Stick) Negative mg/dL (NEG) Urine Blood Negative (NEG) Urine Nitrite Negative (NEG) Urine Bilirubin Negative (NEG) Urine Urobilinogen Dipstick 0.2 mg/dL (0.2 mg/dL) Urine Leukocyte Esterase Negative (NEG) Urine RBC 0 /HPF (0-2) Urine WBC 0 /HPF (0-4) Urine Squamous Epithelial Cells Many /LPF Urine Bacteria Few /HPF (0-FEW) Glucose (Fingerstick) 135 mg/dL (70-99) Images Images Abdominal and Pelvis CT, Without Contrast: History: 3 days of nausea vomiting and diarrhea. Comparison: None. Procedure: Axial images are obtained of the abdomen and pelvis, without IV or oral contrast. CT Abdomen without Contrast: Findings: Evaluation of solid organs is limited without contrast. Evaluation of stomach and bowel is limited without oral contrast. Liver: Normal. Spleen: Normal. Pancreas: Normal. Adrenal Glands: Normal. Kidneys: There is small parapelvic cysts bilaterally. There is no free air or free fluid. There is no lymphadenopathy. There has been prior cholecystectomy. Impression: Please see CT Pelvis without Contrast. End Impression. CT Pelvis without Contrast: Findings: The urinary bladder appears normal. There is no free fluid. There is no lymphadenopathy. There is no pericolonic inflammation identified. The appendix is not well seen. Impression: No evidence of urolithiasis or obstructive uropathy. Assessment/Plan Assessment/Plan IMP OSWALD WITH CR OF 3.8 AND NO CKD DEHYDRATION GASTROENTERITIS DM II HTN BENIGN LEFT RENAL CYST PLAN HYDRATION HOLD LISINOPRIL HOLD METFORMIN URINE LYTES LABS IN AM WILL FOLLOW SURESH DOMINGUEZ MD Aug 11, 2018 12:22
[2018-08-11] MEDS: GABAPENTIN 300 MG CAPSULE. PO SCH ×2 (14:00→20:41)
[2018-08-11] MEDS: ONDANSETRON PF 4 MG/2 ML VIAL. IV PRN (15:07)
[2018-08-11 22:08] LABS: UR POTASSIUM 13.5 mmol/L (Not Estab.)
[2018-08-12] MEDS: ONDANSETRON PF 4 MG/2 ML VIAL. IV PRN (01:22)
[2018-08-12] MEDS: HYDROcodone/APAP 7.5/325MG 1 TAB TABLET PO PRN ×3 (01:27→20:35)
[2018-08-12 03:30] VITALS: BP 137/67
[2018-08-12] MEDS: IV NORMAL SALINE 1000ML BAG 1,000 ML IV SCH ×2 (05:30→15:00)
[2018-08-12 07:00] VITALS: BP 123/42
[2018-08-12] MEDS: PANTOPRAZOLE 40 MG TABLET.DR. PO SCH (07:52)
[2018-08-12] MEDS: INSULIN LISPRO 300 UNITS/3 ML INSULN.PEN. SQ SCH ×3 (08:00→17:00)
[2018-08-12] MEDS: glipiZIDE 5 MG TABLET PO SCH (08:46)
[2018-08-12 08:51] LABS: BASO # 0.1 x10^3/uL (0.0-0.2); BASO % 1 % (0-3); EOS # 0.1 x10^3/uL (0.0-0.7); EOS % 2 % (0-3); HEMOGLOBIN 10.8 g/dL (12.0-15.5); LYMPH # 2.5 x10^3/uL (1.0-4.8); LYMPH % 42 % (24-48); MEAN CORPUSCULAR HEMOGLOBIN 30 pg (25-35); MEAN CORPUSCULAR HGB CONC 33 g/dL (31-37); MEAN CORPUSCULAR VOLUME 91 fL (79-100); MONO # 0.5 x10^3/uL (0.0-1.1); MONO % 8 % (0-9); NEUT # 2.8 x10^3uL (1.8-7.7); NEUT % 47 % (31-73); PLATELET COUNT 275 x10^3/uL (140-400); RED BLOOD COUNT 3.65 x10^6/uL (3.50-5.40); RED CELL DISTRIBUTION WIDTH 14.6 % (11.5-14.5)
[2018-08-12] MEDS: METOPROLOL TART IMMED RELEASE 50 MG TABLET. PO SCH (08:53)
[2018-08-12] MEDS: LORazepam 1 MG TABLET PO SCH ×3 (09:00→20:34)
[2018-08-12 09:11] LABS: ALBUMIN 3.1 g/dL (3.4-5.0); CALCIUM 8.1 mg/dL (8.5-10.1); CREATININE 1.1 mg/dL (0.6-1.0); POTASSIUM 3.6 mmol/L (3.5-5.1); TOTAL BILIRUBIN 0.4 mg/dL (0.2-1.0); TOTAL PROTEIN 6.3 g/dL (6.4-8.2)
[2018-08-12] MEDS: GABAPENTIN 300 MG CAPSULE. PO SCH ×3 (09:51→20:34)
[2018-08-12] MEDS: FLUoxetine HCL 20 MG CAPSULE PO SCH ×2 (09:51→20:34)
--- NOTE | 2018-08-12 10:00 | NUR ---
SW following pt for anticipated dc needs. Chart reviewed. Pt lives at home with significant other. Nephrology consulted. No dc recommendation/SW needs noted at this time.
[2018-08-12 11:00] VITALS: BP 125/50
--- NOTE | 2018-08-12 11:36 | PDOC ---
Renal-Progress Notes Subjective Notes Notes FEELING BETTER History of Present Illness Hx of present illness IMPROVED Vitals Vitals Vital Signs Date Time Temp Pulse Resp B/P (MAP) Pulse Ox O2 Delivery O2 Flow Rate FiO2 08/12/18 09:53 92 Room Air 08/12/18 08:53 79 123/42 08/12/18 07:00 99.0 18 99.0 Weight Weight [ ] I.O. Intake and Output Intake and Output 08/12/18 07:00 Intake Total 1350 ml Output Total 600 ml Balance 750 ml Intake Oral 350 ml IV Total 1000 ml Output Urine Total 600 ml # Voids 3 Labs Labs Laboratory Tests Test 08/11/18 11:37 08/11/18 17:04 08/11/18 20:07 08/12/18 07:30 Glucose (Fingerstick) 135 mg/dL (70-99) 123 mg/dL (70-99) 124 mg/dL (70-99) White Blood Count 6.0 x10^3/uL (4.0-11.0) Red Blood Count 3.65 x10^6/uL (3.50-5.40) Hemoglobin 10.8 g/dL (12.0-15.5) Hematocrit 33.0 % (36.0-47.0) Mean Corpuscular Volume 91 fL (79-100) Mean Corpuscular Hemoglobin 30 pg (25-35) Mean Corpuscular Hemoglobin Concent 33 g/dL (31-37) Red Cell Distribution Width 14.6 % (11.5-14.5) Platelet Count 275 x10^3/uL (140-400) Neutrophils (%) (Auto) 47 % (31-73) Lymphocytes (%) (Auto) 42 % (24-48) Monocytes (%) (Auto) 8 % (0-9) Eosinophils (%) (Auto) 2 % (0-3) Basophils (%) (Auto) 1 % (0-3) Neutrophils # (Auto) 2.8 x10^3uL (1.8-7.7) Lymphocytes # (Auto) 2.5 x10^3/uL (1.0-4.8) Monocytes # (Auto) 0.5 x10^3/uL (0.0-1.1) Eosinophils # (Auto) 0.1 x10^3/uL (0.0-0.7) Basophils # (Auto) 0.1 x10^3/uL (0.0-0.2) Sodium Level 138 mmol/L (136-145) Potassium Level 3.6 mmol/L (3.5-5.1) Chloride Level 104 mmol/L (98-107) Carbon Dioxide Level 22 mmol/L (21-32) Anion Gap 12 (6-14) Blood Urea Nitrogen 25 mg/dL (7-20) Creatinine 1.1 mg/dL (0.6-1.0) Estimated GFR (Cockcroft-Gault) 50.0 BUN/Creatinine Ratio 23 (6-20) Glucose Level 128 mg/dL (70-99) Calcium Level 8.1 mg/dL (8.5-10.1) Total Bilirubin 0.4 mg/dL (0.2-1.0) Aspartate Amino Transf (AST/SGOT) 40 U/L (15-37) Alanine Aminotransferase (ALT/SGPT) 50 U/L (14-59) Alkaline Phosphatase 50 U/L (46-116) Total Protein 6.3 g/dL (6.4-8.2) Albumin 3.1 g/dL (3.4-5.0) Albumin/Globulin Ratio 1.0 (1.0-1.7) Test 08/12/18 07:48 Glucose (Fingerstick) 125 mg/dL (70-99) Review of Systems Constitutional: yes: alert, oriented Ears/Nose/Throat: Yes: no symptom reported Eyes: Yes: no symptom reported Pulmonary: Yes no symptom reported Cardiovascular: Yes no symptom reported Gastrointestional: Yes: no symptom reported Genitourinary: Yes: no symptom reported Musculoskeletal: Yes: no symptom reported Skin: Yes no symptom reported Psychiatric/Neurological: Yes: no symptom reported Endocrine: Yes: no symptom reported Hematologic/Lymphatic: Yes: no symptom reported Physical Exam General Appearance: no apparent distress Skin: warm Respiratory: decreased breath sounds Abdomen: soft, bowel sounds present Genitourinary: bladder flat Extremities: pulses present Neurology: alert, oriented Musculoskeletal: Osteoarthritis Assessment Assessment Assessment/Plan IMP OSWALD RESOLVED DEHYDRATION GASTROENTERITIS DM II HTN BENIGN LEFT RENAL CYST PLAN RENAL FXN RESOLVED WILL SIGN OFF SURESH DOMINGUEZ MD Aug 12, 2018 11:36
--- NOTE | 2018-08-12 13:09 | PDOC ---
PROGRESS NOTES Chief Complaint Chief Complaint nausea and vomiting and diarrhea, acute viral enteritis acute renal failure, vasomotor with ATN, metabolic encephalopathy form above, suspect hypoglycemic event on admit due to glyburide and Acute renal failure dm2 htn lipids History of Present Illness History of Present Illness fatigued, but feels better no diarrhea poor po intake Vitals Vitals Vital Signs Date Time Temp Pulse Resp B/P (MAP) Pulse Ox O2 Delivery O2 Flow Rate FiO2 08/12/18 11:00 98.1 75 18 125/50 (75) 95 Room Air 98.1 Physical Exam General: Alert, Oriented X3, Cooperative, No acute distress Heart: Regular rate, Normal S1, Normal S2 Lungs: Clear Abdomen: Normal bowel sounds, Soft, No tenderness Extremities: No clubbing Skin: No breakdown Labs LABS Laboratory Tests Test 08/11/18 17:04 08/11/18 20:07 08/12/18 07:30 08/12/18 07:48 Glucose (Fingerstick) 123 mg/dL (70-99) 124 mg/dL (70-99) 125 mg/dL (70-99) White Blood Count 6.0 x10^3/uL (4.0-11.0) Red Blood Count 3.65 x10^6/uL (3.50-5.40) Hemoglobin 10.8 g/dL (12.0-15.5) Hematocrit 33.0 % (36.0-47.0) Mean Corpuscular Volume 91 fL (79-100) Mean Corpuscular Hemoglobin 30 pg (25-35) Mean Corpuscular Hemoglobin Concent 33 g/dL (31-37) Red Cell Distribution Width 14.6 % (11.5-14.5) Platelet Count 275 x10^3/uL (140-400) Neutrophils (%) (Auto) 47 % (31-73) Lymphocytes (%) (Auto) 42 % (24-48) Monocytes (%) (Auto) 8 % (0-9) Eosinophils (%) (Auto) 2 % (0-3) Basophils (%) (Auto) 1 % (0-3) Neutrophils # (Auto) 2.8 x10^3uL (1.8-7.7) Lymphocytes # (Auto) 2.5 x10^3/uL (1.0-4.8) Monocytes # (Auto) 0.5 x10^3/uL (0.0-1.1) Eosinophils # (Auto) 0.1 x10^3/uL (0.0-0.7) Basophils # (Auto) 0.1 x10^3/uL (0.0-0.2) Sodium Level 138 mmol/L (136-145) Potassium Level 3.6 mmol/L (3.5-5.1) Chloride Level 104 mmol/L (98-107) Carbon Dioxide Level 22 mmol/L (21-32) Anion Gap 12 (6-14) Blood Urea Nitrogen 25 mg/dL (7-20) Creatinine 1.1 mg/dL (0.6-1.0) Estimated GFR (Cockcroft-Gault) 50.0 BUN/Creatinine Ratio 23 (6-20) Glucose Level 128 mg/dL (70-99) Calcium Level 8.1 mg/dL (8.5-10.1) Total Bilirubin 0.4 mg/dL (0.2-1.0) Aspartate Amino Transf (AST/SGOT) 40 U/L (15-37) Alanine Aminotransferase (ALT/SGPT) 50 U/L (14-59) Alkaline Phosphatase 50 U/L (46-116) Total Protein 6.3 g/dL (6.4-8.2) Albumin 3.1 g/dL (3.4-5.0) Albumin/Globulin Ratio 1.0 (1.0-1.7) Test 08/12/18 12:09 Glucose (Fingerstick) 117 mg/dL (70-99) Assessment and Plan Assessmemt and Plan Problems Medical Problems: (1) Abdominal pain Status: Acute (2) Acute renal insufficiency Status: Acute (3) Dehydration Status: Acute (4) Nausea vomiting and diarrhea Status: Acute Comment Review of Relevant I have reviewed the following items bernie (where applicable) has been applied. Labs Laboratory Tests Test 08/10/18 22:25 08/11/18 01:10 08/11/18 10:20 08/11/18 11:37 White Blood Count 9.0 x10^3/uL (4.0-11.0) Red Blood Count 4.69 x10^6/uL (3.50-5.40) Hemoglobin 13.9 g/dL (12.0-15.5) Hematocrit 41.8 % (36.0-47.0) Mean Corpuscular Volume 89 fL (79-100) Mean Corpuscular Hemoglobin 30 pg (25-35) Mean Corpuscular Hemoglobin Concent 33 g/dL (31-37) Red Cell Distribution Width 14.7 % (11.5-14.5) Platelet Count 369 x10^3/uL (140-400) Neutrophils (%) (Auto) 57 % (31-73) Lymphocytes (%) (Auto) 30 % (24-48) Monocytes (%) (Auto) 11 % (0-9) Eosinophils (%) (Auto) 1 % (0-3) Basophils (%) (Auto) 1 % (0-3) Neutrophils # (Auto) 5.2 x10^3uL (1.8-7.7) Lymphocytes # (Auto) 2.7 x10^3/uL (1.0-4.8) Monocytes # (Auto) 1.0 x10^3/uL (0.0-1.1) Eosinophils # (Auto) 0.1 x10^3/uL (0.0-0.7) Basophils # (Auto) 0.1 x10^3/uL (0.0-0.2) Sodium Level 137 mmol/L (136-145) Potassium Level 3.5 mmol/L (3.5-5.1) Chloride Level 98 mmol/L (98-107) Carbon Dioxide Level 20 mmol/L (21-32) Anion Gap 19 (6-14) Blood Urea Nitrogen 40 mg/dL (7-20) Creatinine 3.8 mg/dL (0.6-1.0) Estimated GFR (Cockcroft-Gault) 12.0 BUN/Creatinine Ratio 11 (6-20) Glucose Level 164 mg/dL (70-99) Calcium Level 10.0 mg/dL (8.5-10.1) Magnesium Level 1.8 mg/dL (1.8-2.4) Total Bilirubin 0.4 mg/dL (0.2-1.0) Aspartate Amino Transf (AST/SGOT) 43 U/L (15-37) Alanine Aminotransferase (ALT/SGPT) 58 U/L (14-59) Alkaline Phosphatase 71 U/L (46-116) Troponin I Quantitative < 0.017 ng/mL (0.000-0.055) Total Protein 8.4 g/dL (6.4-8.2) Albumin 4.3 g/dL (3.4-5.0) Albumin/Globulin Ratio 1.0 (1.0-1.7) Lipase 252 U/L (73-393) Lactic Acid Level 1.0 mmol/L (0.4-2.0) Ammonia 20 mcmol/L (11-34) Urine Collection Type Unknown Urine Color Yellow Urine Clarity Clear Urine pH 5.0 Urine Specific Natalia 1.015 Urine Protein Negative mg/dL (NEG-TRACE) Urine Glucose (UA) Negative mg/dL (NEG) Urine Ketones (Stick) Negative mg/dL (NEG) Urine Blood Negative (NEG) Urine Nitrite Negative (NEG) Urine Bilirubin Negative (NEG) Urine Urobilinogen Dipstick 0.2 mg/dL (0.2 mg/dL) Urine Leukocyte Esterase Negative (NEG) Urine RBC 0 /HPF (0-2) Urine WBC 0 /HPF (0-4) Urine Squamous Epithelial Cells Many /LPF Urine Bacteria Few /HPF (0-FEW) Urine Sodium 128 mmol/L (Not Estab.) Urine Potassium 13.5 mmol/L (Not Estab.) Urine Chloride 116 mmol/L (Not Estab.) Glucose (Fingerstick) 135 mg/dL (70-99) Test 08/11/18 17:04 08/11/18 20:07 08/12/18 07:30 08/12/18 07:48 Glucose (Fingerstick) 123 mg/dL (70-99) 124 mg/dL (70-99) 125 mg/dL (70-99) White Blood Count 6.0 x10^3/uL (4.0-11.0) Red Blood Count 3.65 x10^6/uL (3.50-5.40) Hemoglobin 10.8 g/dL (12.0-15.5) Hematocrit 33.0 % (36.0-47.0) Mean Corpuscular Volume 91 fL (79-100) Mean Corpuscular Hemoglobin 30 pg (25-35) Mean Corpuscular Hemoglobin Concent 33 g/dL (31-37) Red Cell Distribution Width 14.6 % (11.5-14.5) Platelet Count 275 x10^3/uL (140-400) Neutrophils (%) (Auto) 47 % (31-73) Lymphocytes (%) (Auto) 42 % (24-48) Monocytes (%) (Auto) 8 % (0-9) Eosinophils (%) (Auto) 2 % (0-3) Basophils (%) (Auto) 1 % (0-3) Neutrophils # (Auto) 2.8 x10^3uL (1.8-7.7) Lymphocytes # (Auto) 2.5 x10^3/uL (1.0-4.8) Monocytes # (Auto) 0.5 x10^3/uL (0.0-1.1) Eosinophils # (Auto) 0.1 x10^3/uL (0.0-0.7) Basophils # (Auto) 0.1 x10^3/uL (0.0-0.2) Sodium Level 138 mmol/L (136-145) Potassium Level 3.6 mmol/L (3.5-5.1) Chloride Level 104 mmol/L (98-107) Carbon Dioxide Level 22 mmol/L (21-32) Anion Gap 12 (6-14) Blood Urea Nitrogen 25 mg/dL (7-20) Creatinine 1.1 mg/dL (0.6-1.0) Estimated GFR (Cockcroft-Gault) 50.0 BUN/Creatinine Ratio 23 (6-20) Glucose Level 128 mg/dL (70-99) Calcium Level 8.1 mg/dL (8.5-10.1) Total Bilirubin 0.4 mg/dL (0.2-1.0) Aspartate Amino Transf (AST/SGOT) 40 U/L (15-37) Alanine Aminotransferase (ALT/SGPT) 50 U/L (14-59) Alkaline Phosphatase 50 U/L (46-116) Total Protein 6.3 g/dL (6.4-8.2) Albumin 3.1 g/dL (3.4-5.0) Albumin/Globulin Ratio 1.0 (1.0-1.7) Test 08/12/18 12:09 Glucose (Fingerstick) 117 mg/dL (70-99) Laboratory Tests Test 08/11/18 17:04 08/11/18 20:07 08/12/18 07:30 08/12/18 07:48 Glucose (Fingerstick) 123 mg/dL (70-99) 124 mg/dL (70-99) 125 mg/dL (70-99) White Blood Count 6.0 x10^3/uL (4.0-11.0) Red Blood Count 3.65 x10^6/uL (3.50-5.40) Hemoglobin 10.8 g/dL (12.0-15.5) Hematocrit 33.0 % (36.0-47.0) Mean Corpuscular Volume 91 fL (79-100) Mean Corpuscular Hemoglobin 30 pg (25-35) Mean Corpuscular Hemoglobin Concent 33 g/dL (31-37) Red Cell Distribution Width 14.6 % (11.5-14.5) Platelet Count 275 x10^3/uL (140-400) Neutrophils (%) (Auto) 47 % (31-73) Lymphocytes (%) (Auto) 42 % (24-48) Monocytes (%) (Auto) 8 % (0-9) Eosinophils (%) (Auto) 2 % (0-3) Basophils (%) (Auto) 1 % (0-3) Neutrophils # (Auto) 2.8 x10^3uL (1.8-7.7) Lymphocytes # (Auto) 2.5 x10^3/uL (1.0-4.8) Monocytes # (Auto) 0.5 x10^3/uL (0.0-1.1) Eosinophils # (Auto) 0.1 x10^3/uL (0.0-0.7) Basophils # (Auto) 0.1 x10^3/uL (0.0-0.2) Sodium Level 138 mmol/L (136-145) Potassium Level 3.6 mmol/L (3.5-5.1) Chloride Level 104 mmol/L (98-107) Carbon Dioxide Level 22 mmol/L (21-32) Anion Gap 12 (6-14) Blood Urea Nitrogen 25 mg/dL (7-20) Creatinine 1.1 mg/dL (0.6-1.0) Estimated GFR (Cockcroft-Gault) 50.0 BUN/Creatinine Ratio 23 (6-20) Glucose Level 128 mg/dL (70-99) Calcium Level 8.1 mg/dL (8.5-10.1) Total Bilirubin 0.4 mg/dL (0.2-1.0) Aspartate Amino Transf (AST/SGOT) 40 U/L (15-37) Alanine Aminotransferase (ALT/SGPT) 50 U/L (14-59) Alkaline Phosphatase 50 U/L (46-116) Total Protein 6.3 g/dL (6.4-8.2) Albumin 3.1 g/dL (3.4-5.0) Albumin/Globulin Ratio 1.0 (1.0-1.7) Test 08/12/18 12:09 Glucose (Fingerstick) 117 mg/dL (70-99) Medications Current Medications Ondansetron HCl (Zofran) 4 mg 1X ONCE IV Last administered on 08/10/18 23:25; Start 08/10/18 at 22:30; Stop 08/10/18 at 22:31; Status DC Sodium Chloride 1,000 ml @ 1,000 mls/hr 1X ONCE IV Last administered on 08/10/18at 23:25; Start 08/10/18 at 22:30; Stop 08/10/18 at 23:29; Status DC Sodium Chloride 1,000 ml @ 1,000 mls/hr 1X ONCE IV Last administered on 08/10/18at 23:25; Start 08/10/18 at 23:30; Stop 08/11/18 at 00:29; Status DC Morphine Sulfate (Morphine Sulfate) 4 mg 1X ONCE IV Last administered on 08/10/18 23:26; Start 08/10/18 at 23:30; Stop 08/10/18 at 23:31; Status DC Ondansetron HCl (Zofran) 4 mg PRN Q8HRS PRN IV NAUSEA/VOMITING 1ST CHOICE Last administered on 08/11/18at 04:40; Start 08/10/18 at 23:30; Stop 08/11/18 at 07:58; Status DC Morphine Sulfate (Morphine Sulfate) 2 mg PRN Q2HR PRN IV SEVERE PAIN Last administered on 08/11/18at 22:45; Start 08/10/18 at 23:30; Stop 08/11/18 at 23:29; Status DC Ondansetron HCl (Zofran) 8 mg PRN Q8HRS PRN IV NAUSEA/VOMITING 1ST CHOICE Last administered on 08/12/18at 01:22; Start 08/11/18 at 08:00 Metoclopramide HCl (Reglan Vial) 10 mg 1X ONCE IV Last administered on 08/11/18at 08:09; Start 08/11/18 at 08:00; Stop 08/11/18 at 08:01; Status DC Fluoxetine HCl (PROzac) 20 mg BID PO Last administered on 08/12/18at 09:51; Start 08/11/18 at 09:00 Gabapentin (Neurontin) 300 mg TID PO ; Start 08/11/18 at 09:00; Status Cancel Glipizide (Glucotrol) 2.5 mg DAILY PO ; Start 08/11/18 at 09:30 Acetaminophen/ Hydrocodone Bitart (Lortab 7.5/325) 1 tab PRN Q6HRS PRN PO MODERATE PAIN Last administered on 08/12/18at 07:53; Start 08/11/18 at 09:00 Lorazepam (Ativan) 1 mg TID PO Last administered on 08/11/18at 20:40; Start 08/11/18 at 09:30 Metoprolol Tartrate (Lopressor) 50 mg DAILY PO ; Start 08/11/18 at 09:30 Nitroglycerin (Nitrostat) 0.4 mg PRN Q5MIN PRN SL CHEST PAIN; Start 08/11/18 at 09:30 Pantoprazole Sodium (Protonix) 40 mg DAILYAC PO Last administered on 08/12/18at 07:52; Start 08/11/18 at 11:30 Insulin Human Lispro (HumaLOG) 0-7 UNITS TIDWMEALS SQ ; Start 08/11/18 at 12:00 Dextrose (Dextrose 50%-Water Syringe) 12.5 gm PRN Q15MIN PRN IV SEE COMMENTS; Start 08/11/18 at 09:00 Sodium Chloride 1,000 ml @ 100 mls/hr Q10H IV Last administered on 08/12/18at 05:30; Start 08/11/18 at 09:00 Gabapentin (Neurontin) 300 mg TID PO Last administered on 08/12/18at 09:51; Start 08/11/18 at 09:30 Active Scripts Active [Pantoprazole] 40 MG Tablet.dr 40 Mg PO DAILYAC 15 Days Hydrocodone-Apap 7.5-325 (Hydrocodone Bit/Acetaminophen) 1 Each Tablet 1 Tab PO PRN Q6HRS PRN Vitamin D (Cholecalciferol (Vitamin D3)) 1,000 Unit Tablet 1,000 Unit PO DAILY 30 Days Reported Simvastatin 80 Mg Tablet 1 Tab PO QHS Bydureon (Exenatide Microspheres) 2 Mg Vial 2 Mg SQ WEEKLY Gabapentin (Gabapentin) 100 Mg Capsule 300 Mg PO TID Lisinopril 5 Mg Tablet 1 Tab PO DAILY Glipizide 5 Mg Tablet 1 Tab PO BID Tramadol Hcl 50 Mg Tablet 1 Tab PO PRN Q6HRS Nitrostat (Nitroglycerin) 0.3 Mg Tab.subl 0.3 Mg SL PRN Q5MIN PRN Metoprolol Tartrate 50 Mg Tablet 50 Mg PO DAILY Lorazepam 1 Mg Tablet 1 Mg PO TID Metformin Hcl 1,000 Mg Tablet 1,000 Mg PO BID Prozac (Fluoxetine Hcl) 20 Mg Capsule 20 Mg PO BID Vitals/I & O Vital Sign - Last 24 Hours 08/11/18 08/11/18 08/11/18 08/11/18 15:07 15:30 19:34 19:40 Temp 98.2 98.7 98.2 98.7 Pulse 74 78 Resp 18 18 18 B/P (MAP) 107/51 (69) 121/52 (75) Pulse Ox 92 94 94 95 O2 Delivery Room Air Room Air Room Air Room Air 08/11/18 08/11/18 08/11/18 08/11/18 20:00 20:04 22:45 23:38 Temp 97.8 97.8 Pulse 78 Resp 20 20 18 B/P (MAP) 138/71 (93) Pulse Ox 95 95 92 O2 Delivery Room Air Room Air Room Air Room Air 08/12/18 08/12/18 08/12/18 08/12/18 01:27 02:27 03:30 07:00 Temp 98.3 99.0 98.3 99.0 Pulse 75 79 Resp 20 18 18 18 B/P (MAP) 137/67 (90) 123/42 (69) Pulse Ox 92 92 95 O2 Delivery Room Air Room Air Room Air 08/12/18 08/12/18 08/12/18 08/12/18 07:53 08:00 08:53 09:53 Pulse 79 B/P (MAP) 123/42 Pulse Ox 92 92 O2 Delivery Room Air Room Air Room Air 08/12/18 11:00 Temp 98.1 98.1 Pulse 75 Resp 18 B/P (MAP) 125/50 (75) Pulse Ox 95 O2 Delivery Room Air Intake and Output 08/11/18 08/11/18 08/12/18 14:59 22:59 06:59 Intake Total 200 ml 1100 ml 50 ml Output Total 600 ml Balance 200 ml 1100 ml -550 ml CHIDI OCHOA MD Aug 12, 2018 13:09
[2018-08-12 15:00] VITALS: BP 134/54
[2018-08-12 19:47] VITALS: BP 153/89
[2018-08-12 23:22] VITALS: BP 119/54
[2018-08-13] MEDS: IV NORMAL SALINE 1000ML BAG 1,000 ML IV SCH ×3 (01:00→14:58)
[2018-08-13 03:43] VITALS: BP 156/77
[2018-08-13 07:40] VITALS: BP 147/67
[2018-08-13] MEDS: INSULIN LISPRO 300 UNITS/3 ML INSULN.PEN. SQ SCH ×3 (08:00→17:00)
[2018-08-13] MEDS: PANTOPRAZOLE 40 MG TABLET.DR. PO SCH (08:50)
[2018-08-13] MEDS: GABAPENTIN 300 MG CAPSULE. PO SCH ×3 (08:50→20:04)
[2018-08-13] MEDS: LORazepam 1 MG TABLET PO SCH ×3 (08:50→20:04)
[2018-08-13] MEDS: FLUoxetine HCL 20 MG CAPSULE PO SCH ×2 (08:50→20:04)
[2018-08-13] MEDS: glipiZIDE 5 MG TABLET PO SCH (08:51)
[2018-08-13] MEDS: METOPROLOL TART IMMED RELEASE 50 MG TABLET. PO SCH (08:52)
[2018-08-13 10:59] VITALS: BP 138/67
--- NOTE | 2018-08-13 11:13 | PDOC ---
PROGRESS NOTES Chief Complaint Chief Complaint nausea and vomiting and diarrhea, acute viral enteritis acute renal failure, vasomotor with ATN, metabolic encephalopathy form above, suspect hypoglycemic event on admit due to glyburide and Acute renal failure dm2 htn lipids History of Present Illness History of Present Illness fatigued, but feels better no diarrhea poor po intake Vitals Vitals Vital Signs Date Time Temp Pulse Resp B/P (MAP) Pulse Ox O2 Delivery O2 Flow Rate FiO2 08/13/18 10:59 98.3 89 17 138/67 (90) 95 Room Air 98.3 Physical Exam General: Alert, Oriented X3, Cooperative, No acute distress Heart: Regular rate, Normal S1, Normal S2 Lungs: Clear Abdomen: Normal bowel sounds, Soft, No tenderness Extremities: No clubbing, No cyanosis, Normal pulses Skin: No breakdown Labs LABS Liver: Normal. Spleen: Normal. Pancreas: Normal. Adrenal Glands: Normal. Kidneys: There is small parapelvic cysts bilaterally. There is no free air or free fluid. There is no lymphadenopathy. There has been prior cholecystectomy. Impression: Please see CT Pelvis without Contrast. End Impression. CT Pelvis without Contrast: Findings: The urinary bladder appears normal. There is no free fluid. There is no lymphadenopathy. There is no pericolonic inflammation identified. The appendix is not well seen. Impression: No evidence of urolithiasis or obstructive uropathy. End impression PQRS Compliance Statement: One or more of the following individualized dose reduction techniques were utilized for this examination: 1. Automated exposure control 2. Adjustment of the mA and/or kV according to patient size 3. Use of iterative reconstruction technique Electronically signed by: Kendall Sarabia III, MD (08/10/2018 11:13 PM) [facility] Laboratory Tests Test 08/12/18 12:09 08/12/18 17:04 08/12/18 20:00 08/13/18 04:50 Glucose (Fingerstick) 117 mg/dL (70-99) 119 mg/dL (70-99) 151 mg/dL (70-99) Thyroid Stimulating Hormone (TSH) 0.269 uIU/mL (0.358-3.74) Test 08/13/18 07:08 Glucose (Fingerstick) 114 mg/dL (70-99) Assessment and Plan Assessmemt and Plan Problems Medical Problems: (1) Abdominal pain Status: Acute (2) Acute renal insufficiency Status: Acute (3) Dehydration Status: Acute (4) Nausea vomiting and diarrhea Status: Acute Comment Review of Relevant I have reviewed the following items bernie (where applicable) has been applied. Labs Laboratory Tests Test 08/11/18 11:37 08/11/18 17:04 08/11/18 20:07 08/12/18 07:30 Glucose (Fingerstick) 135 mg/dL (70-99) 123 mg/dL (70-99) 124 mg/dL (70-99) White Blood Count 6.0 x10^3/uL (4.0-11.0) Red Blood Count 3.65 x10^6/uL (3.50-5.40) Hemoglobin 10.8 g/dL (12.0-15.5) Hematocrit 33.0 % (36.0-47.0) Mean Corpuscular Volume 91 fL (79-100) Mean Corpuscular Hemoglobin 30 pg (25-35) Mean Corpuscular Hemoglobin Concent 33 g/dL (31-37) Red Cell Distribution Width 14.6 % (11.5-14.5) Platelet Count 275 x10^3/uL (140-400) Neutrophils (%) (Auto) 47 % (31-73) Lymphocytes (%) (Auto) 42 % (24-48) Monocytes (%) (Auto) 8 % (0-9) Eosinophils (%) (Auto) 2 % (0-3) Basophils (%) (Auto) 1 % (0-3) Neutrophils # (Auto) 2.8 x10^3uL (1.8-7.7) Lymphocytes # (Auto) 2.5 x10^3/uL (1.0-4.8) Monocytes # (Auto) 0.5 x10^3/uL (0.0-1.1) Eosinophils # (Auto) 0.1 x10^3/uL (0.0-0.7) Basophils # (Auto) 0.1 x10^3/uL (0.0-0.2) Sodium Level 138 mmol/L (136-145) Potassium Level 3.6 mmol/L (3.5-5.1) Chloride Level 104 mmol/L (98-107) Carbon Dioxide Level 22 mmol/L (21-32) Anion Gap 12 (6-14) Blood Urea Nitrogen 25 mg/dL (7-20) Creatinine 1.1 mg/dL (0.6-1.0) Estimated GFR (Cockcroft-Gault) 50.0 BUN/Creatinine Ratio 23 (6-20) Glucose Level 128 mg/dL (70-99) Calcium Level 8.1 mg/dL (8.5-10.1) Total Bilirubin 0.4 mg/dL (0.2-1.0) Aspartate Amino Transf (AST/SGOT) 40 U/L (15-37) Alanine Aminotransferase (ALT/SGPT) 50 U/L (14-59) Alkaline Phosphatase 50 U/L (46-116) Total Protein 6.3 g/dL (6.4-8.2) Albumin 3.1 g/dL (3.4-5.0) Albumin/Globulin Ratio 1.0 (1.0-1.7) Test 08/12/18 07:48 08/12/18 12:09 08/12/18 17:04 08/12/18 20:00 Glucose (Fingerstick) 125 mg/dL (70-99) 117 mg/dL (70-99) 119 mg/dL (70-99) 151 mg/dL (70-99) Test 08/13/18 04:50 08/13/18 07:08 Thyroid Stimulating Hormone (TSH) 0.269 uIU/mL (0.358-3.74) Glucose (Fingerstick) 114 mg/dL (70-99) Laboratory Tests Test 08/12/18 12:09 08/12/18 17:04 08/12/18 20:00 08/13/18 04:50 Glucose (Fingerstick) 117 mg/dL (70-99) 119 mg/dL (70-99) 151 mg/dL (70-99) Thyroid Stimulating Hormone (TSH) 0.269 uIU/mL (0.358-3.74) Test 08/13/18 07:08 Glucose (Fingerstick) 114 mg/dL (70-99) Medications Current Medications Ondansetron HCl (Zofran) 4 mg 1X ONCE IV Last administered on 08/10/18at 23:25; Start 08/10/18 at 22:30; Stop 08/10/18 at 22:31; Status DC Sodium Chloride 1,000 ml @ 1,000 mls/hr 1X ONCE IV Last administered on 08/10/18 23:25; Start 08/10/18 at 22:30; Stop 08/10/18 at 23:29; Status DC Sodium Chloride 1,000 ml @ 1,000 mls/hr 1X ONCE IV Last administered on 08/10/18 23:25; Start 08/10/18 at 23:30; Stop 08/11/18 at 00:29; Status DC Morphine Sulfate (Morphine Sulfate) 4 mg 1X ONCE IV Last administered on 08/10/18at 23:26; Start 08/10/18 at 23:30; Stop 08/10/18 at 23:31; Status DC Ondansetron HCl (Zofran) 4 mg PRN Q8HRS PRN IV NAUSEA/VOMITING 1ST CHOICE Last administered on 08/11/18 04:40; Start 08/10/18 at 23:30; Stop 08/11/18 at 07:58; Status DC Morphine Sulfate (Morphine Sulfate) 2 mg PRN Q2HR PRN IV SEVERE PAIN Last administered on 08/11/18 22:45; Start 08/10/18 at 23:30; Stop 08/11/18 at 2 3:29; Status DC Ondansetron HCl (Zofran) 8 mg PRN Q8HRS PRN IV NAUSEA/VOMITING 1ST CHOICE Last administered on 08/12/18 01:22; Start 08/11/18 at 08:00 Metoclopramide HCl (Reglan Vial) 10 mg 1X ONCE IV Last administered on 08/11/18 08:09; Start 08/11/18 at 08:00; Stop 08/11/18 at 08:01; Status DC Fluoxetine HCl (PROzac) 20 mg BID PO Last administered on 08/13/18at 08:50; Sta rt 08/11/18 at 09:00 Gabapentin (Neurontin) 300 mg TID PO ; Start 08/11/18 at 09:00; Status Cancel Glipizide (Glucotrol) 2.5 mg DAILY PO Last administered on 08/13/18 08:51; Start 08/11/18 at 09:30 Acetaminophen/ Hydrocodone Bitart (Lortab 7.5/325) 1 tab PRN Q6HRS PRN PO MODERATE PAIN Last administered on 08/12/18 20:35; Start 08/11/18 at 09:00 Lorazepam (Ativan) 1 mg TID PO Last administered on 08/13/18 08:50; Start 08/11/18 at 09:30 Metoprolol Tartrate (Lopressor) 50 mg DAILY PO Last administered on 08/13/18 08:52; Start 08/11/18 at 09:30 Nitroglycerin (Nitrostat) 0.4 mg PRN Q5MIN PRN SL CHEST PAIN; Start 08/11/18 at 09:30 Pantoprazole Sodium (Protonix) 40 mg DAILYAC PO Last administered on 08/13/18 08:50; Start 08/11/18 at 11:30 Insulin Human Lispro (HumaLOG) 0-7 UNITS TIDWMEALS SQ ; Start 08/11/18 at 12:00 Dextrose (Dextrose 50%-Water Syringe) 12.5 gm PRN Q15MIN PRN IV SEE COMMENTS; Start 08/11/18 at 09:00 Sodium Chloride 1,000 ml @ 100 mls/hr Q10H IV Last administered on 08/13/18at 03:35; Start 08/11/18 at 09:00 Gabapentin (Neurontin) 300 mg TID PO Last administered on 08/13/18 08:50; Start 08/11/18 at 09:30 Active Scripts Active [Pantoprazole] 40 MG Tablet.dr 40 Mg PO DAILYAC 15 Days Hydrocodone-Apap 7.5-325 (Hydrocodone Bit/Acetaminophen) 1 Each Tablet 1 Tab PO PRN Q6HRS PRN Vitamin D (Cholecalciferol (Vitamin D3)) 1,000 Unit Tablet 1,000 Unit PO DAILY 30 Days Reported Simvastatin 80 Mg Tablet 1 Tab PO QHS Bydureon (Exenatide Microspheres) 2 Mg Vial 2 Mg SQ WEEKLY Gabapentin (Gabapentin) 100 Mg Capsule 300 Mg PO TID Lisinopril 5 Mg Tablet 1 Tab PO DAILY Glipizide 5 Mg Tablet 1 Tab PO BID Tramadol Hcl 50 Mg Tablet 1 Tab PO PRN Q6HRS Nitrostat (Nitroglycerin) 0.3 Mg Tab.subl 0.3 Mg SL PRN Q5MIN PRN Metoprolol Tartrate 50 Mg Tablet 50 Mg PO DAILY Lorazepam 1 Mg Tablet 1 Mg PO TID Metformin Hcl 1,000 Mg Tablet 1,000 Mg PO BID Prozac (Fluoxetine Hcl) 20 Mg Capsule 20 Mg PO BID Vitals/I & O Vital Sign - Last 24 Hours 08/12/18 08/12/18 08/12/18 08/12/18 15:00 19:47 20:00 20:35 Temp 98.4 97.7 98.4 97.7 Pulse 73 92 Resp 18 18 18 B/P (MAP) 134/54 (80) 153/89 (110) Pulse Ox 95 94 94 O2 Delivery Room Air Room Air Room Air Room Air 08/12/18 08/12/18 08/13/18 08/13/18 21:35 23:22 03:43 07:40 Temp 98.3 98.1 98.6 98.3 98.1 98.6 Pulse 78 76 93 Resp 18 18 18 16 B/P (MAP) 119/54 (75) 156/77 (103) 147/67 (93) Pulse Ox 94 93 93 94 O2 Delivery Room Air Room Air Room Air Room Air 08/13/18 08/13/18 08:52 10:59 Temp 98.3 98.3 Pulse 93 89 Resp 17 B/P (MAP) 147/67 138/67 (90) Pulse Ox 95 O2 Delivery Room Air Intake and Output 08/12/18 08/12/18 08/13/18 14:59 22:59 06:59 Intake Total 100 ml 150 ml 300 ml Balance 100 ml 150 ml 300 ml KYLAH LIAO MD Aug 13, 2018 11:13
[2018-08-13 15:27] VITALS: BP 126/57
[2018-08-13 19:35] VITALS: BP 143/63
[2018-08-13 22:21] VITALS: BP 125/62
[2018-08-13 23:06] LABS: HEMOGLOBIN A1C 6.5 % (4.8-5.6)
[2018-08-14] VITALS (19 sets, daily range): BP systolic 119–154; BP diastolic 55–79
[2018-08-14] MEDS: HALOPERIDOL LACTATE 5 MG/ML VIAL. IM PRN (04:48)
[2018-08-14] MEDS ORDERED: fentaNYL PF VIAL 100 MCG/2 ML VIAL IV ONE (05:30)
[2018-08-14] MEDS ORDERED: OLANZapine IM 10 MG VIAL. IM ONE (05:30)
[2018-08-14] MEDS ORDERED: ZIPRASIDONE IM 20 MG VIAL. IM ONE (05:30)
[2018-08-14] MEDS ORDERED: ZIPRASIDONE IM 20 MG VIAL. IM PRN (05:30)
--- NOTE | 2018-08-14 05:55 | NUR ---
Patient got out of bed confused at 2339. Patient was questioning where she was and stated that her daughter was just in the room and helped her to the restroom when it was the aid Shanique that had helped her to the bedside commode. When this nurse tried to explain this to the pt and reorient her to the fact that she was in the hospital, the pt became verbally aggressive and threatening to hit this nurse if did not get out of her way. This nurse stepped aside and activated a Code Tony at 2354 on 08/13/18. Once code activated nurse court assistant came into room and pt proceeded to push her to get to security who had also come and was entering the room. Pt was restrained by staff and security, nurse went to [facility] for new orders. Dr. Moya answered page and gave orders for IV and IM Ativan, restraints and 1:1 sitter. Orders were implemented and pt continued to be combative and verbally aggressive. Pt started to bang head against bed railings while in restraints, staff padded bed rails and administered more medication, decreased stimulation and allowed pt to rest with 1:1 sitter in room. After four hours of pt continuously still being verbally aggressive and making remarks such as she had been speaking to the devil and that the staff was going to , Dr. Moya was paged to come see the pt and give new orders. Dr. Moya arrived to the unit at 0500 and new medication regiment was started. Patient is now relaxing, stable and comfortable in bed, being monitored by 1:1 sitter and nursing staff. This nurse tried to contact pt brother Tucker to make aware of the condition changes of the pt and got no response. Will continue to monitor pt and trying to contact family.
[2018-08-14] MEDS: IV NORMAL SALINE 1000ML BAG 1,000 ML IV SCH ×2 (07:00→16:53)
[2018-08-14] MEDS: PANTOPRAZOLE 40 MG TABLET.DR. PO SCH (07:30)
[2018-08-14] MEDS: INSULIN LISPRO 300 UNITS/3 ML INSULN.PEN. SQ SCH ×3 (08:00→16:53)
[2018-08-14] MEDS: GABAPENTIN 300 MG CAPSULE. PO SCH ×3 (08:46→21:00)
[2018-08-14] MEDS: FLUoxetine HCL 20 MG CAPSULE PO SCH ×2 (09:00→21:00)
[2018-08-14] MEDS: METOPROLOL TART IMMED RELEASE 50 MG TABLET. PO SCH (09:00)
[2018-08-14] MEDS: LORazepam 1 MG TABLET PO SCH ×3 (09:00→21:00)
[2018-08-14] MEDS: glipiZIDE 5 MG TABLET PO SCH (09:00)
--- NOTE | 2018-08-14 11:17 | NUR ---
Pt has 1:1 sitter at bedside and had an episode of incontinence and needed to be changed. The other NA went in to assist in changing patient, patient then grabbed NA's collar on her shirt and was pulling her down on the bed, and attempted to swing her fist towards the NA. Patient was stopped before doing this, and almost immediately went back to sleep. Pt changed, and linen changed. Will continue to monitor.
[2018-08-14 12:34] LABS: BASO # 0.1 x10^3/uL (0.0-0.2); BASO % 1 % (0-3); EOS # 0.1 x10^3/uL (0.0-0.7); EOS % 2 % (0-3); HEMOGLOBIN 11.3 g/dL (12.0-15.5); LYMPH # 2.8 x10^3/uL (1.0-4.8); LYMPH % 43 % (24-48); MEAN CORPUSCULAR HEMOGLOBIN 29 pg (25-35); MEAN CORPUSCULAR HGB CONC 32 g/dL (31-37); MEAN CORPUSCULAR VOLUME 91 fL (79-100); MONO # 0.6 x10^3/uL (0.0-1.1); MONO % 9 % (0-9); NEUT % 45 % (31-73); PLATELET COUNT 255 x10^3/uL (140-400); RED BLOOD COUNT 3.86 x10^6/uL (3.50-5.40); RED CELL DISTRIBUTION WIDTH 14.3 % (11.5-14.5); WHITE BLOOD COUNT 6.6 x10^3/uL (4.0-11.0)
[2018-08-14 12:58] LABS: ALBUMIN 3.2 g/dL (3.4-5.0); CALCIUM 8.7 mg/dL (8.5-10.1); CREATININE 0.9 mg/dL (0.6-1.0); POTASSIUM 3.4 mmol/L (3.5-5.1); TOTAL BILIRUBIN 0.4 mg/dL (0.2-1.0); TOTAL PROTEIN 6.3 g/dL (6.4-8.2)
--- NOTE | 2018-08-14 13:40 | PDOC ---
PROGRESS NOTES Chief Complaint Chief Complaint nausea and vomiting and diarrhea, acute viral enteritis acute renal failure, vasomotor with ATN, metabolic encephalopathy form above, suspect hypoglycemic event on admit due to glyburide and Acute renal failure dm2 htn lipids History of Present Illness History of Present Illness combative last night, req. restraints Geodon given for ReferralMD, now very fatigued, sleepign hard diarrhea has stopped Vitals Vitals Vital Signs Date Time Temp Pulse Resp B/P (MAP) Pulse Ox O2 Delivery O2 Flow Rate FiO2 08/14/18 11:08 98.9 68 18 126/78 (94) 95 Room Air 98.9 Physical Exam General: Alert, Oriented X3, Cooperative, No acute distress Heart: Regular rate, Normal S1, Normal S2 Lungs: Clear Abdomen: Normal bowel sounds, Soft, No tenderness Extremities: No clubbing, No cyanosis, Normal pulses Skin: No breakdown Labs LABS Laboratory Tests Test 08/13/18 16:55 08/13/18 21:20 08/14/18 12:20 Glucose (Fingerstick) 139 mg/dL (70-99) 111 mg/dL (70-99) White Blood Count 6.6 x10^3/uL (4.0-11.0) Red Blood Count 3.86 x10^6/uL (3.50-5.40) Hemoglobin 11.3 g/dL (12.0-15.5) Hematocrit 35.0 % (36.0-47.0) Mean Corpuscular Volume 91 fL (79-100) Mean Corpuscular Hemoglobin 29 pg (25-35) Mean Corpuscular Hemoglobin Concent 32 g/dL (31-37) Red Cell Distribution Width 14.3 % (11.5-14.5) Platelet Count 255 x10^3/uL (140-400) Neutrophils (%) (Auto) 45 % (31-73) Lymphocytes (%) (Auto) 43 % (24-48) Monocytes (%) (Auto) 9 % (0-9) Eosinophils (%) (Auto) 2 % (0-3) Basophils (%) (Auto) 1 % (0-3) Neutrophils # (Auto) 3.0 x10^3uL (1.8-7.7) Lymphocytes # (Auto) 2.8 x10^3/uL (1.0-4.8) Monocytes # (Auto) 0.6 x10^3/uL (0.0-1.1) Eosinophils # (Auto) 0.1 x10^3/uL (0.0-0.7) Basophils # (Auto) 0.1 x10^3/uL (0.0-0.2) Sodium Level 142 mmol/L (136-145) Potassium Level 3.4 mmol/L (3.5-5.1) Chloride Level 107 mmol/L (98-107) Carbon Dioxide Level 23 mmol/L (21-32) Anion Gap 12 (6-14) Blood Urea Nitrogen 12 mg/dL (7-20) Creatinine 0.9 mg/dL (0.6-1.0) Estimated GFR (Cockcroft-Gault) 63.0 BUN/Creatinine Ratio 13 (6-20) Glucose Level 107 mg/dL (70-99) Calcium Level 8.7 mg/dL (8.5-10.1) Total Bilirubin 0.4 mg/dL (0.2-1.0) Aspartate Amino Transf (AST/SGOT) 33 U/L (15-37) Alanine Aminotransferase (ALT/SGPT) 36 U/L (14-59) Alkaline Phosphatase 56 U/L (46-116) Total Protein 6.3 g/dL (6.4-8.2) Albumin 3.2 g/dL (3.4-5.0) Albumin/Globulin Ratio 1.0 (1.0-1.7) Assessment and Plan Assessmemt and Plan Problems Medical Problems: (1) Abdominal pain Status: Acute (2) Acute renal insufficiency Status: Acute (3) Dehydration Status: Acute (4) Nausea vomiting and diarrhea Status: Acute Comment Review of Relevant I have reviewed the following items bernie (where applicable) has been applied. Labs Laboratory Tests Test 08/12/18 17:04 08/12/18 20:00 08/13/18 04:50 08/13/18 07:08 Glucose (Fingerstick) 119 mg/dL (70-99) 151 mg/dL (70-99) 114 mg/dL (70-99) Hemoglobin A1c 6.5 % (4.8-5.6) Thyroid Stimulating Hormone (TSH) 0.269 uIU/mL (0.358-3.74) Test 08/13/18 11:24 08/13/18 16:55 08/13/18 21:20 08/14/18 12:20 Glucose (Fingerstick) 114 mg/dL (70-99) 139 mg/dL (70-99) 111 mg/dL (70-99) White Blood Count 6.6 x10^3/uL (4.0-11.0) Red Blood Count 3.86 x10^6/uL (3.50-5.40) Hemoglobin 11.3 g/dL (12.0-15.5) Hematocrit 35.0 % (36.0-47.0) Mean Corpuscular Volume 91 fL (79-100) Mean Corpuscular Hemoglobin 29 pg (25-35) Mean Corpuscular Hemoglobin Concent 32 g/dL (31-37) Red Cell Distribution Width 14.3 % (11.5-14.5) Platelet Count 255 x10^3/uL (140-400) Neutrophils (%) (Auto) 45 % (31-73) Lymphocytes (%) (Auto) 43 % (24-48) Monocytes (%) (Auto) 9 % (0-9) Eosinophils (%) (Auto) 2 % (0-3) Basophils (%) (Auto) 1 % (0-3) Neutrophils # (Auto) 3.0 x10^3uL (1.8-7.7) Lymphocytes # (Auto) 2.8 x10^3/uL (1.0-4.8) Monocytes # (Auto) 0.6 x10^3/uL (0.0-1.1) Eosinophils # (Auto) 0.1 x10^3/uL (0.0-0.7) Basophils # (Auto) 0.1 x10^3/uL (0.0-0.2) Sodium Level 142 mmol/L (136-145) Potassium Level 3.4 mmol/L (3.5-5.1) Chloride Level 107 mmol/L (98-107) Carbon Dioxide Level 23 mmol/L (21-32) Anion Gap 12 (6-14) Blood Urea Nitrogen 12 mg/dL (7-20) Creatinine 0.9 mg/dL (0.6-1.0) Estimated GFR (Cockcroft-Gault) 63.0 BUN/Creatinine Ratio 13 (6-20) Glucose Level 107 mg/dL (70-99) Calcium Level 8.7 mg/dL (8.5-10.1) Total Bilirubin 0.4 mg/dL (0.2-1.0) Aspartate Amino Transf (AST/SGOT) 33 U/L (15-37) Alanine Aminotransferase (ALT/SGPT) 36 U/L (14-59) Alkaline Phosphatase 56 U/L (46-116) Total Protein 6.3 g/dL (6.4-8.2) Albumin 3.2 g/dL (3.4-5.0) Albumin/Globulin Ratio 1.0 (1.0-1.7) Laboratory Tests Test 08/13/18 16:55 08/13/18 21:20 08/14/18 12:20 Glucose (Fingerstick) 139 mg/dL (70-99) 111 mg/dL (70-99) White Blood Count 6.6 x10^3/uL (4.0-11.0) Red Blood Count 3.86 x10^6/uL (3.50-5.40) Hemoglobin 11.3 g/dL (12.0-15.5) Hematocrit 35.0 % (36.0-47.0) Mean Corpuscular Volume 91 fL (79-100) Mean Corpuscular Hemoglobin 29 pg (25-35) Mean Corpuscular Hemoglobin Concent 32 g/dL (31-37) Red Cell Distribution Width 14.3 % (11.5-14.5) Platelet Count 255 x10^3/uL (140-400) Neutrophils (%) (Auto) 45 % (31-73) Lymphocytes (%) (Auto) 43 % (24-48) Monocytes (%) (Auto) 9 % (0-9) Eosinophils (%) (Auto) 2 % (0-3) Basophils (%) (Auto) 1 % (0-3) Neutrophils # (Auto) 3.0 x10^3uL (1.8-7.7) Lymphocytes # (Auto) 2.8 x10^3/uL (1.0-4.8) Monocytes # (Auto) 0.6 x10^3/uL (0.0-1.1) Eosinophils # (Auto) 0.1 x10^3/uL (0.0-0.7) Basophils # (Auto) 0.1 x10^3/uL (0.0-0.2) Sodium Level 142 mmol/L (136-145) Potassium Level 3.4 mmol/L (3.5-5.1) Chloride Level 107 mmol/L (98-107) Carbon Dioxide Level 23 mmol/L (21-32) Anion Gap 12 (6-14) Blood Urea Nitrogen 12 mg/dL (7-20) Creatinine 0.9 mg/dL (0.6-1.0) Estimated GFR (Cockcroft-Gault) 63.0 BUN/Creatinine Ratio 13 (6-20) Glucose Level 107 mg/dL (70-99) Calcium Level 8.7 mg/dL (8.5-10.1) Total Bilirubin 0.4 mg/dL (0.2-1.0) Aspartate Amino Transf (AST/SGOT) 33 U/L (15-37) Alanine Aminotransferase (ALT/SGPT) 36 U/L (14-59) Alkaline Phosphatase 56 U/L (46-116) Total Protein 6.3 g/dL (6.4-8.2) Albumin 3.2 g/dL (3.4-5.0) Albumin/Globulin Ratio 1.0 (1.0-1.7) Medications Current Medications Ondansetron HCl (Zofran) 4 mg 1X ONCE IV Last administered on 08/10/18at 23:25; Start 08/10/18 at 22:30; Stop 08/10/18 at 22:31; Status DC Sodium Chloride 1,000 ml @ 1,000 mls/hr 1X ONCE IV Last administered on 08/10/18at 23:25; Start 08/10/18 at 22:30; Stop 08/10/18 at 23:29; Status DC Sodium Chloride 1,000 ml @ 1,000 mls/hr 1X ONCE IV Last administered on 08/10/18at 23:25; Start 08/10/18 at 23:30; Stop 08/11/18 at 00:29; Status DC Morphine Sulfate (Morphine Sulfate) 4 mg 1X ONCE IV Last administered on 08/10/18at 23:26; Start 08/10/18 at 23:30; Stop 08/10/18 at 23:31; Status DC Ondansetron HCl (Zofran) 4 mg PRN Q8HRS PRN IV NAUSEA/VOMITING 1ST CHOICE Last administered on 08/11/18 04:40; Start 08/10/18 at 23:30; Stop 08/11/18 at 07:58; Status DC Morphine Sulfate (Morphine Sulfate) 2 mg PRN Q2HR PRN IV SEVERE PAIN Last administered on 08/11/18 22:45; Start 08/10/18 at 23:30; Stop 08/11/18 at 23:29; Status DC Ondansetron HCl (Zofran) 8 mg PRN Q8HRS PRN IV NAUSEA/VOMITING 1ST CHOICE Last administered on 08/12/18 01:22; Start 08/11/18 at 08:00 Metoclopramide HCl (Reglan Vial) 10 mg 1X ONCE IV Last administered on 08/11/18 08:09; Start 08/11/18 at 08:00; Stop 08/11/18 at 08:01; Status DC Fluoxetine HCl (PROzac) 20 mg BID PO Last administered on 08/13/18 20:04; Start 08/11/18 at 09:00 Gabapentin (Neurontin) 300 mg TID PO ; Start 08/11/18 at 09:00; Status Cancel Glipizide (Glucotrol) 2.5 mg DAILY PO Last administered on 08/13/18 08:51; Start 08/11/18 at 09:30 Acetaminophen/ Hydrocodone Bitart (Lortab 7.5/325) 1 tab PRN Q6HRS PRN PO MODERATE PAIN Last administered on 08/12/18 20:35; Start 08/11/18 at 09:00 Lorazepam (Ativan) 1 mg TID PO Last administered on 08/13/18 20:04; Start 08/11/18 at 09:30 Metoprolol Tartrate (Lopressor) 50 mg DAILY PO Last administered on 08/13/18 08:52; Start 08/11/18 at 09:30 Nitroglycerin (Nitrostat) 0.4 mg PRN Q5MIN PRN SL CHEST PAIN; Start 08/11/18 at 09:30 Pantoprazole Sodium (Protonix) 40 mg DAILYAC PO Last administered on 08/13/18 08:50; Start 08/11/18 at 11:30 Insulin Human Lispro (HumaLOG) 0-7 UNITS TIDWMEALS SQ ; Start 08/11/18 at 12:00 Dextrose (Dextrose 50%-Water Syringe) 12.5 gm PRN Q15MIN PRN IV SEE COMMENTS; Start 08/11/18 at 09:00 Sodium Chloride 1,000 ml @ 100 mls/hr Q10H IV Last administered on 08/13/18at 14:58; Start 08/11/18 at 09:00 Gabapentin (Neurontin) 300 mg TID PO Last administered on 08/13/18at 20:04; Start 08/11/18 at 09:30 Lorazepam (Ativan) 2 mg PRN Q6HRS PRN IM/IV MODERATE ANXIETY / AGITATION Last administered on 08/14/18 00:53; Start 08/14/18 at 00:45 Lorazepam (Ativan) 1 mg PRN Q6HRS PRN IM/IV MILD ANXIETY / AGITATION Last administered on 08/14/18at 04:01; Start 08/14/18 at 00:45 Haloperidol Lactate (Haldol Inj) 5 mg PRN Q6HRS PRN IM agitation Last administered on 08/14/18at 04:48; Start 08/14/18 at 04:45 Lorazepam (Ativan) 4 mg PRN Q6HRS PRN IM SEVERE ANXIETY / AGITATION; Start 08/14/18 at 04:45 Olanzapine (ZyPREXA IM) 10 mg 1X ONCE IM Last administered on 08/14/18at 05:08; Start 08/14/18 at 05:30; Stop 08/14/18 at 05:31; Status DC Fentanyl Citrate (Fentanyl 2ml Vial) 75 mcg 1X ONCE IV Last administered on 08/14/18at 05:26; Start 08/14/18 at 05:30; Stop 08/14/18 at 05:31; Status DC Ziprasidone (Geodon Im) 20 mg 1X PRN PRN IM AGITATION Last administered on 08/14/18at 05:39; Start 08/14/18 at 05:30; Stop 08/15/18 at 05:29 Ziprasidone (Geodon Im) 10 mg 1X ONCE IM ; Start 08/14/18 at 05:30; Stop 08/14/18 at 05:31; Status UNV Active Scripts Active [Pantoprazole] 40 MG Tablet.dr 40 Mg PO DAILYAC 15 Days Hydrocodone-Apap 7.5-325 (Hydrocodone Bit/Acetaminophen) 1 Each Tablet 1 Tab PO PRN Q6HRS PRN Vitamin D (Cholecalciferol (Vitamin D3)) 1,000 Unit Tablet 1,000 Unit PO DAILY 30 Days Reported Simvastatin 80 Mg Tablet 1 Tab PO QHS Bydureon (Exenatide Microspheres) 2 Mg Vial 2 Mg SQ WEEKLY Gabapentin (Gabapentin) 100 Mg Capsule 300 Mg PO TID Lisinopril 5 Mg Tablet 1 Tab PO DAILY Glipizide 5 Mg Tablet 1 Tab PO BID Tramadol Hcl 50 Mg Tablet 1 Tab PO PRN Q6HRS Nitrostat (Nitroglycerin) 0.3 Mg Tab.subl 0.3 Mg SL PRN Q5MIN PRN Metoprolol Tartrate 50 Mg Tablet 50 Mg PO DAILY Lorazepam 1 Mg Tablet 1 Mg PO TID Metformin Hcl 1,000 Mg Tablet 1,000 Mg PO BID Prozac (Fluoxetine Hcl) 20 Mg Capsule 20 Mg PO BID Vitals/I & O Vital Sign - Last 24 Hours 08/13/18 08/13/18 08/13/18 08/13/18 15:27 19:35 20:00 22:21 Temp 98.3 97.6 98.9 98.3 97.6 98.9 Pulse 82 69 70 Resp 18 19 B/P (MAP) 126/57 (80) 143/63 (89) 125/62 (83) Pulse Ox 94 91 92 O2 Delivery Room Air Room Air Room Air Room Air 08/14/18 08/14/18 08/14/18 08/14/18 00:15 00:30 00:45 01:00 Pulse 83 77 77 78 Resp 22 20 20 19 B/P (MAP) 154/75 (101) 145/74 (97) 148/73 (98) 146/71 (96) Pulse Ox 96 95 95 96 O2 Delivery Room Air Room Air Room Air Room Air 08/14/18 08/14/18 08/14/18 08/14/18 01:15 01:30 01:45 02:00 Pulse 79 84 80 81 Resp 18 18 16 17 B/P (MAP) 141/79 (99) 144/71 (95) 141/69 (93) 140/59 (86) O2 Delivery Room Air Room Air Room Air Room Air 4/08/14/18 08/14/18 08/14/18 02:15 02:30 02:45 03:00 Temp 98.5 98.5 Pulse 83 79 71 80 Resp 18 17 17 17 B/P (MAP) 132/62 (85) 139/66 (90) 119/58 (78) 138/71 (93) Pulse Ox 94 O2 Delivery Room Air Room Air Room Air Room Air 08/14/18 08/14/18 08/14/18 08/14/18 03:15 03:30 05:26 07:52 Pulse 81 80 82 Resp 18 18 18 B/P (MAP) 144/55 (84) 144/60 (88) 135/60 (85) Pulse Ox 95 O2 Delivery Room Air Room Air Room Air Room Air 08/14/18 08/14/18 08:00 11:08 Temp 98.9 98.9 Pulse 68 Resp 18 B/P (MAP) 126/78 (94) Pulse Ox 95 O2 Delivery Room Air Room Air Intake and Output 08/13/18 08/13/18 08/14/18 15:00 23:00 07:00 Intake Total 200 ml 120 ml Output Total 300 ml Balance 200 ml -300 ml 120 ml CHIDI OCHOA MD Aug 14, 2018 13:40
--- NOTE | 2018-08-14 13:46 | RAD ---
CT HEAD WO CONTRAST History: Mental status change, confusion Comparison: August 10, 2018 Technique: Noncontrast CT imaging was performed of the head. Exposure: One or more of the following individualized dose reduction techniques were utilized for this examination: 1. Automated exposure control 2. Adjustment of the mA and/or kV according to patient size 3. Use of iterative reconstruction technique. Findings: No acute extra-axial or parenchymal hemorrhage is identified. There is no significant intra-axial mass effect, midline shift, or extra-axial fluid collection. The gregorio-white differentiation of the major vascular territories is preserved. The ventricles, sulci, and cisterns are within normal limits in size and configuration. The mastoid air cells and the visualized paranasal sinuses are aerated. No acute calvarial abnormality is identified. Impression: 1. No acute intracranial abnormality is identified. Electronically signed by: Jorden Estrada MD (08/14/2018 1:42 PM) [facility]
--- NOTE | 2018-08-14 15:55 | PDOC2 ---
CONSULT Date of Consult Date of Consult DATE: 08/14/18 TIME: 15:55 Reason for Consult Reason for Consult: AMS Identification/Chief Complaint Chief Complaint nausea or vomiting diarrhea History of Present Illness Reason for Visit: This patient is 63-year-old woman who presented with complaints of nausea or vomiting diarrhea. Patient was brought with complaints of diarrhea for the last few days with some abdominal discomfort. Patient was having some abdominal pain. Past Medical History Cardiovascular: HTN, Hyperlipidemia, Other CENTRAL NERVOUS SYSTEM: Periperal neuropathy, Other Hepatobiliary: No pertinent hx Psych: Anxiety Musculoskeletal: Osteoarthritis Infectious disease: No pertinent hx ENT: No pertinent hx Renal/: No pertinent hx Endocrine: Diabetes Past Surgical History Past Surgical History: Cholecystectomy, Hysterectomy Family History Family History: Coronary Artery Disease Social History No (RARE) ALCOHOL: none Drugs: None Lives: Roommate Current Problem List Problem List Problems Medical Problems: (1) Abdominal pain Status: Acute (2) Acute renal insufficiency Status: Acute (3) Dehydration Status: Acute (4) Nausea vomiting and diarrhea Status: Acute Current Medications Current Medications Current Medications Ondansetron HCl (Zofran) 4 mg 1X ONCE IV Last administered on 08/10/18at 23:25; Start 08/10/18 at 22:30; Stop 08/10/18 at 22:31; Status DC Sodium Chloride 1,000 ml @ 1,000 mls/hr 1X ONCE IV Last administered on 08/10/18at 23:25; Start 08/10/18 at 22:30; Stop 08/10/18 at 23:29; Status DC Sodium Chloride 1,000 ml @ 1,000 mls/hr 1X ONCE IV Last administered on 08/10/18at 23:25; Start 08/10/18 at 23:30; Stop 08/11/18 at 00:29; Status DC Morphine Sulfate (Morphine Sulfate) 4 mg 1X ONCE IV Last administered on at 23:26; Start 08/10/18 at 23:30; Stop 08/10/18 at 23:31; Status DC Ondansetron HCl (Zofran) 4 mg PRN Q8HRS PRN IV NAUSEA/VOMITING 1ST CHOICE Last administered on 08/11/18at 04:40; Start 08/10/18 at 23:30; Stop 08/11/18 at 07:58; Status DC Morphine Sulfate (Morphine Sulfate) 2 mg PRN Q2HR PRN IV SEVERE PAIN Last administered on 08/11/18 22:45; Start 08/10/18 at 23:30; Stop 08/11/18 at 23:29; Status DC Ondansetron HCl (Zofran) 8 mg PRN Q8HRS PRN IV NAUSEA/VOMITING 1ST CHOICE Last administered on 08/12/18 01:22; Start 08/11/18 at 08:00 Metoclopramide HCl (Reglan Vial) 10 mg 1X ONCE IV Last administered on 08/11/18 08:09; Start 08/11/18 at 08:00; Stop 08/11/18 at 08:01; Status DC Fluoxetine HCl (PROzac) 20 mg BID PO Last administered on 08/13/18 20:04; Start 08/11/18 at 09:00 Gabapentin (Neurontin) 300 mg TID PO ; Start 08/11/18 at 09:00; Status Cancel Glipizide (Glucotrol) 2.5 mg DAILY PO Last administered on 08/13/18 08:51; Start 08/11/18 at 09:30 Acetaminophen/ Hydrocodone Bitart (Lortab 7.5/325) 1 tab PRN Q6HRS PRN PO MODERATE PAIN Last administered on 08/12/18 20:35; Start 08/11/18 at 09:00 Lorazepam (Ativan) 1 mg TID PO Last administered on 08/13/18 20:04; Start 08/11/18 at 09:30 Metoprolol Tartrate (Lopressor) 50 mg DAILY PO Last administered on 08/13/18at 08:52; Start 08/11/18 at 09:30 Nitroglycerin (Nitrostat) 0.4 mg PRN Q5MIN PRN SL CHEST PAIN; Start 08/11/18 at 09:30 Pantoprazole Sodium (Protonix) 40 mg DAILYAC PO Last administered on 08/13/18at 08:50; Start 08/11/18 at 11:30 Insulin Human Lispro (HumaLOG) 0-7 UNITS TIDWMEALS SQ ; Start 08/11/18 at 12:00 Dextrose (Dextrose 50%-Water Syringe) 12.5 gm PRN Q15MIN PRN IV SEE COMMENTS; Start 08/11/18 at 09:00 Sodium Chloride 1,000 ml @ 100 mls/hr Q10H IV Last administered on 08/13/18 14:58; Start 08/11/18 at 09:00 Gabapentin (Neurontin) 300 mg TID PO Last administered on 08/13/18 20:04; Start 08/11/18 at 09:30 Lorazepam (Ativan) 2 mg PRN Q6HRS PRN IM/IV MODERATE ANXIETY / AGITATION Last administered on 08/14/18 00:53; Start 08/14/18 at 00:45 Lorazepam (Ativan) 1 mg PRN Q6HRS PRN IM/IV MILD ANXIETY / AGITATION Last administered on 08/14/18 04:01; Start 08/14/18 at 00:45 Haloperidol Lactate (Haldol Inj) 5 mg PRN Q6HRS PRN IM agitation Last administered on 08/14/18 04:48; Start 08/14/18 at 04:45 Lorazepam (Ativan) 4 mg PRN Q6HRS PRN IM SEVERE ANXIETY / AGITATION; Start 08/14/18 at 04:45 Olanzapine (ZyPREXA IM) 10 mg 1X ONCE IM Last administered on 08/14/18at 05:08; Start 08/14/18 at 05:30; Stop 08/14/18 at 05:31; Status DC Fentanyl Citrate (Fentanyl 2ml Vial) 75 mcg 1X ONCE IV Last administered on 08/14/18at 05:26; Start 08/14/18 at 05:30; Stop 08/14/18 at 05:31; Status DC Ziprasidone (Geodon Im) 20 mg 1X PRN PRN IM AGITATION Last administered on 08/14/18at 05:39; Start 08/14/18 at 05:30; Stop 08/15/18 at 05:29 Ziprasidone (Geodon Im) 10 mg 1X ONCE IM ; Start 08/14/18 at 05:30; Stop 08/14/18 at 05:31; Status UNV Active Scripts Active [Pantoprazole] 40 MG Tablet.dr 40 Mg PO DAILYAC 15 Days Hydrocodone-Apap 7.5-325 (Hydrocodone Bit/Acetaminophen) 1 Each Tablet 1 Tab PO PRN Q6HRS PRN Vitamin D (Cholecalciferol (Vitamin D3)) 1,000 Unit Tablet 1,000 Unit PO DAILY 30 Days Reported Simvastatin 80 Mg Tablet 1 Tab PO QHS Bydureon (Exenatide Microspheres) 2 Mg Vial 2 Mg SQ WEEKLY Gabapentin (Gabapentin) 100 Mg Capsule 300 Mg PO TID Lisinopril 5 Mg Tablet 1 Tab PO DAILY Glipizide 5 Mg Tablet 1 Tab PO BID Tramadol Hcl 50 Mg Tablet 1 Tab PO PRN Q6HRS Nitrostat (Nitroglycerin) 0.3 Mg Tab.subl 0.3 Mg SL PRN Q5MIN PRN Metoprolol Tartrate 50 Mg Tablet 50 Mg PO DAILY Lorazepam 1 Mg Tablet 1 Mg PO TID Metformin Hcl 1,000 Mg Tablet 1,000 Mg PO BID Prozac (Fluoxetine Hcl) 20 Mg Capsule 20 Mg PO BID Allergies Allergies: Coded Allergies: atorvastatin (Verified Allergy, Intermediate, Rash, 04/07/18) buprenorphine (Verified Allergy, Intermediate, Rash, 10/09/13) cyclobenzaprine (Verified Allergy, Intermediate, Rash, 10/21/17) naproxen (Verified Allergy, Intermediate, RASH, 09/26/13) Physical Exam Physical Exam General no acute distress. HEENT: Normocephalic and atraumatic. NECK: Supple without bruit No meningeal signs. Respiratory: Clear to auscultation bilaterally Heart: Regular rate and rhythm, S1S2 normal NEUROLOGIC: Mental status sleepy able to follow Simple commands Cranial nerve equally reactive pupils, and intact extraocular movements. No facial asymmetry. Palate elevates and tongue protrudes in midline. Reflexes are 1-2 with flexor plantar responses. Coordination not able Strength able to move all exts to pain stimuli. Sensory exam move all exts to pain stimuli. Gait in bed. Vitals VITALS Vital Signs Date Time Temp Pulse Resp B/P (MAP) Pulse Ox O2 Delivery O2 Flow Rate FiO2 08/14/18 15:00 70 18 135/77 (96) 90 Room Air 08/14/18 11:08 98.9 98.9 Labs Labs Laboratory Tests Test 08/12/18 17:04 08/12/18 20:00 08/13/18 04:50 08/13/18 07:08 Glucose (Fingerstick) 119 mg/dL (70-99) 151 mg/dL (70-99) 114 mg/dL (70-99) Hemoglobin A1c 6.5 % (4.8-5.6) Thyroid Stimulating Hormone (TSH) 0.269 uIU/mL (0.358-3.74) Test 08/13/18 11:24 08/13/18 16:55 08/13/18 21:20 08/14/18 12:20 Glucose (Fingerstick) 114 mg/dL (70-99) 139 mg/dL (70-99) 111 mg/dL (70-99) White Blood Count 6.6 x10^3/uL (4.0-11.0) Red Blood Count 3.86 x10^6/uL (3.50-5.40) Hemoglobin 11.3 g/dL (12.0-15.5) Hematocrit 35.0 % (36.0-47.0) Mean Corpuscular Volume 91 fL (79-100) Mean Corpuscular Hemoglobin 29 pg (25-35) Mean Corpuscular Hemoglobin Concent 32 g/dL (31-37) Red Cell Distribution Width 14.3 % (11.5-14.5) Platelet Count 255 x10^3/uL (140-400) Neutrophils (%) (Auto) 45 % (31-73) Lymphocytes (%) (Auto) 43 % (24-48) Monocytes (%) (Auto) 9 % (0-9) Eosinophils (%) (Auto) 2 % (0-3) Basophils (%) (Auto) 1 % (0-3) Neutrophils # (Auto) 3.0 x10^3uL (1.8-7.7) Lymphocytes # (Auto) 2.8 x10^3/uL (1.0-4.8) Monocytes # (Auto) 0.6 x10^3/uL (0.0-1.1) Eosinophils # (Auto) 0.1 x10^3/uL (0.0-0.7) Basophils # (Auto) 0.1 x10^3/uL (0.0-0.2) Sodium Level 142 mmol/L (136-145) Potassium Level 3.4 mmol/L (3.5-5.1) Chloride Level 107 mmol/L (98-107) Carbon Dioxide Level 23 mmol/L (21-32) Anion Gap 12 (6-14) Blood Urea Nitrogen 12 mg/dL (7-20) Creatinine 0.9 mg/dL (0.6-1.0) Estimated GFR (Cockcroft-Gault) 63.0 BUN/Creatinine Ratio 13 (6-20) Glucose Level 107 mg/dL (70-99) Calcium Level 8.7 mg/dL (8.5-10.1) Total Bilirubin 0.4 mg/dL (0.2-1.0) Aspartate Amino Transf (AST/SGOT) 33 U/L (15-37) Alanine Aminotransferase (ALT/SGPT) 36 U/L (14-59) Alkaline Phosphatase 56 U/L (46-116) Total Protein 6.3 g/dL (6.4-8.2) Albumin 3.2 g/dL (3.4-5.0) Albumin/Globulin Ratio 1.0 (1.0-1.7) Laboratory Tests Test 08/13/18 16:55 08/13/18 21:20 08/14/18 12:20 Glucose (Fingerstick) 139 mg/dL (70-99) 111 mg/dL (70-99) White Blood Count 6.6 x10^3/uL (4.0-11.0) Red Blood Count 3.86 x10^6/uL (3.50-5.40) Hemoglobin 11.3 g/dL (12.0-15.5) Hematocrit 35.0 % (36.0-47.0) Mean Corpuscular Volume 91 fL (79-100) Mean Corpuscular Hemoglobin 29 pg (25-35) Mean Corpuscular Hemoglobin Concent 32 g/dL (31-37) Red Cell Distribution Width 14.3 % (11.5-14.5) Platelet Count 255 x10^3/uL (140-400) Neutrophils (%) (Auto) 45 % (31-73) Lymphocytes (%) (Auto) 43 % (24-48) Monocytes (%) (Auto) 9 % (0-9) Eosinophils (%) (Auto) 2 % (0-3) Basophils (%) (Auto) 1 % (0-3) Neutrophils # (Auto) 3.0 x10^3uL (1.8-7.7) Lymphocytes # (Auto) 2.8 x10^3/uL (1.0-4.8) Monocytes # (Auto) 0.6 x10^3/uL (0.0-1.1) Eosinophils # (Auto) 0.1 x10^3/uL (0.0-0.7) Basophils # (Auto) 0.1 x10^3/uL (0.0-0.2) Sodium Level 142 mmol/L (136-145) Potassium Level 3.4 mmol/L (3.5-5.1) Chloride Level 107 mmol/L (98-107) Carbon Dioxide Level 23 mmol/L (21-32) Anion Gap 12 (6-14) Blood Urea Nitrogen 12 mg/dL (7-20) Creatinine 0.9 mg/dL (0.6-1.0) Estimated GFR (Cockcroft-Gault) 63.0 BUN/Creatinine Ratio 13 (6-20) Glucose Level 107 mg/dL (70-99) Calcium Level 8.7 mg/dL (8.5-10.1) Total Bilirubin 0.4 mg/dL (0.2-1.0) Aspartate Amino Transf (AST/SGOT) 33 U/L (15-37) Alanine Aminotransferase (ALT/SGPT) 36 U/L (14-59) Alkaline Phosphatase 56 U/L (46-116) Total Protein 6.3 g/dL (6.4-8.2) Albumin 3.2 g/dL (3.4-5.0) Albumin/Globulin Ratio 1.0 (1.0-1.7) Assessment/Plan Assessment/Plan This patient is 63-year-old woman who presented with complaints of nausea or vomiting diarrhea. Patient was brought with complaints of diarrhea for the last few days with some abdominal discomfort. Patient was having some abdominal pain. 63-year-old woman with past medical history of multiple medical problems history of diabetes anxiety hypertension hyperlipidemia peripheral neuropathy presented with complaints of diarrhea, encephalopathy , check for infectious or metabolic etiology. Patient is currently being treated for acute renal failure, and hypoglycemic event on presentation. We will treat and monitor. Hypertension continue treat and monitor Patient had a CT scan done on the brain which was n egative for any acute intracranial etiology negative for any acute hemorrhage mass. Changes noted for chronic small vessel ischemic disease. Will get MRI of brain to evaluate for any acute etiology. Continue medical management DARCY MARRERO MD Aug 14, 2018 15:55
[2018-08-14 22:19] LABS: BILIRUBIN,URINE SMALL (NEG); CLARITY,URINE CLEAR; COLOR,URINE YELLOW; NITRITE,URINE NEGATIVE (NEG); PROTEIN,URINE NEGATIVE (NEG-TRACE)
[2018-08-14 22:24] LABS: BACTERIA,URINE MANY /HPF (0-FEW); SQUAMOUS EPITHELIAL CELL,UR FEW /LPF
[2018-08-14 22:25] LABS: RBC,URINE 0 /HPF (0-2); WBC,URINE OCC /HPF (0-4)
[2018-08-15] MEDS: HYDROcodone/APAP 7.5/325MG 1 TAB TABLET PO PRN ×3 (01:03→19:21)
[2018-08-15] MEDS: IV NORMAL SALINE 1000ML BAG 1,000 ML IV SCH ×2 (01:05→12:10)
--- NOTE | 2018-08-15 01:53 | PN ---
DATE: 08/14/2018 CHIEF COMPLAINT: Severe metabolic encephalopathy with combativeness. HISTORY OF PRESENT ILLNESS: The patient is a pleasant middle-aged female who is being cared for by one of our fine nurses, Tania Godoy. Tania called me earlier this evening, explained, the patient was combative. I gave an order for IM Ativan and IM Haldol, that did not seem to work, so I came on up to see the patient with Tania and her team. Upon my arrival, the patient is cursing, but she has calmed down now. I ordered 10 mg IM shot of Zyprexa. She is currently in 4-point restraints, so we hope to discontinue those here in just a few minutes. If the Zyprexa does not work, we are going to try little IV or IM fentanyl and then we will need to repeat the above if that does not help until she is chemically restrained for her safety. PHYSICAL EXAMINATION: HEART: Heart tones were normal. LUNGS: Clear. ABDOMEN: Soft. EXTREMITIES: No edema. PSYCHIATRIC: She is combative, but she is coming down. 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 ____ stable, going to be using alternating drugs of Ativan, Haldol, Zyprexa, and fentanyl and we may be adding Geodon if we need to. FLY CARSON DO DR: MARY/jovany JOB#: [id number] / [id number]
[2018-08-15 03:00] VITALS: BP 130/82
[2018-08-15 05:27] LABS: BASO # 0.1 x10^3/uL (0.0-0.2); BASO % 1 % (0-3); EOS # 0.1 x10^3/uL (0.0-0.7); EOS % 2 % (0-3); HEMOGLOBIN 10.9 g/dL (12.0-15.5); LYMPH # 2.5 x10^3/uL (1.0-4.8); LYMPH % 39 % (24-48); MEAN CORPUSCULAR HEMOGLOBIN 30 pg (25-35); MEAN CORPUSCULAR HGB CONC 33 g/dL (31-37); MEAN CORPUSCULAR VOLUME 90 fL (79-100); MONO # 0.5 x10^3/uL (0.0-1.1); MONO % 8 % (0-9); NEUT # 3.2 x10^3uL (1.8-7.7); NEUT % 50 % (31-73); PLATELET COUNT 260 x10^3/uL (140-400); RED BLOOD COUNT 3.66 x10^6/uL (3.50-5.40); RED CELL DISTRIBUTION WIDTH 14.7 % (11.5-14.5); WHITE BLOOD COUNT 6.4 x10^3/uL (4.0-11.0)
[2018-08-15 05:57] LABS: CALCIUM 8.3 mg/dL (8.5-10.1); CREATININE 0.9 mg/dL (0.6-1.0); POTASSIUM 3.2 mmol/L (3.5-5.1); TOTAL BILIRUBIN 0.4 mg/dL (0.2-1.0)
[2018-08-15 07:00] VITALS: BP 141/69
[2018-08-15] MEDS: PANTOPRAZOLE 40 MG TABLET.DR. PO SCH (07:30)
[2018-08-15] MEDS: INSULIN LISPRO 300 UNITS/3 ML INSULN.PEN. SQ SCH ×3 (08:00→17:00)
[2018-08-15] MEDS: METOPROLOL TART IMMED RELEASE 50 MG TABLET. PO SCH (09:00)
[2018-08-15] MEDS: LORazepam 1 MG TABLET PO SCH ×4 (09:00→19:20)
[2018-08-15] MEDS: FLUoxetine HCL 20 MG CAPSULE PO SCH ×3 (09:00→19:20)
[2018-08-15] MEDS: glipiZIDE 5 MG TABLET PO SCH (09:00)
[2018-08-15] MEDS: GABAPENTIN 300 MG CAPSULE. PO SCH ×4 (09:00→19:20)
[2018-08-15 10:54] VITALS: BP 136/72
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
[2018-08-15] MEDS: cefTRIAXone IV Push 1 GM VIAL. IVP SCH (12:10)
--- NOTE | 2018-08-15 12:16 | NUR ---
JAGDISH consulted for [facility] psych evaluation. Chart reviewed and DW RN. Pt is currently 1:1 observation due to behaviors. RN also reported pt is being treated with abx for UTI. Spoke with pt's brother, Tucker, phone: [phone] who reported pt lives with a significant other at home and significant other is currently undergoing chemo/radiation tx. Tucker reported pt is not safe to return home due to her current mental state. He stated, pt 'was fine at home and normal'. Discussed about geripsych and SNU. Tucker stated pt does not have DPOA at this time and JAGDISH informed him pt will have to voluntary sign herself in or needs DPOA for geripsych. Other than this barrier, pt seems appropriate for geripsych evaluation. JAGDISH faxed referral to [facility]. Pt's brother agreeable with SW screening pt for SNU in various facilities as well. JAGDISH faxed SNU referral to , [facility], [facility], [facility], [facility] and [facility]. Pt acceptance and admission pending. After discussing with RN, JAGDISH also phoned the PAT team for assessment and evaluation for involuntary placement. JAGDISH will continue to follow.
--- NOTE | 2018-08-15 13:22 | NUR ---
pt appears to be paranoid this a.m. is refusing to eat and drink as she thinks we are poisoning her. pt was agreeable to taking several of her a.m. medications for pain and anxiety, as well as an IV antibiotic. pt also agreeable to having MRI done.
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
[2018-08-15 15:00] VITALS: BP 146/71
--- NOTE | 2018-08-15 16:59 | PDOC ---
PROGRESS NOTES Chief Complaint Chief Complaint nausea and vomiting and diarrhea, acute viral enteritis acute renal failure, vasomotor with ATN, metabolic encephalopathy form above, suspect hypoglycemic event on admit due to glyburide and Acute renal failure dm2 htn lipids History of Present Illness History of Present Illness has been combative, is much more calm today, still confused try to treat UTI, barely changed, discussed with family, neuro consult following, MRI head, consider other, diarrhea has stopped Vitals Vitals Vital Signs Date Time Temp Pulse Resp B/P (MAP) Pulse Ox O2 Delivery O2 Flow Rate FiO2 08/15/18 15:00 98.9 72 16 146/71 (96) Room Air 98.9 08/15/18 13:07 93 Physical Exam General: Alert, Oriented X3, Cooperative, No acute distress Heart: Regular rate, Normal S1, Normal S2 Lungs: Clear Abdomen: Normal bowel sounds, Soft, No tenderness Extremities: No clubbing, No cyanosis, Normal pulses Skin: No breakdown Labs LABS Laboratory Tests Test 08/14/18 22:00 08/15/18 04:10 08/15/18 16:07 Urine Collection Type Unknown Urine Color Yellow Urine Clarity Clear Urine pH 5.0 Urine Specific [place] 1.015 Urine Protein Negative mg/dL (NEG-TRACE) Urine Glucose (UA) Negative mg/dL (NEG) Urine Ketones (Stick) 15 mg/dL (NEG) Urine Blood Negative (NEG) Urine Nitrite Negative (NEG) Urine Bilirubin Small (NEG) Urine Urobilinogen Dipstick 1.0 mg/dL (0.2 mg/dL) Urine Leukocyte Esterase Negative (NEG) Urine RBC 0 /HPF (0-2) Urine WBC Occ /HPF (0-4) Urine Squamous Epithelial Cells Few /LPF Urine Bacteria Many /HPF (0-FEW) White Blood Count 6.4 x10^3/uL (4.0-11.0) Red Blood Count 3.66 x10^6/uL (3.50-5.40) Hemoglobin 10.9 g/dL (12.0-15.5) Hematocrit 33.0 % (36.0-47.0) Mean Corpuscular Volume 90 fL (79-100) Mean Corpuscular Hemoglobin 30 pg (25-35) Mean Corpuscular Hemoglobin Concent 33 g/dL (31-37) Red Cell Distribution Width 14.7 % (11.5-14.5) Platelet Count 260 x10^3/uL (140-400) Neutrophils (%) (Auto) 50 % (31-73) Lymphocytes (%) (Auto) 39 % (24-48) Monocytes (%) (Auto) 8 % (0-9) Eosinophils (%) (Auto) 2 % (0-3) Basophils (%) (Auto) 1 % (0-3) Neutrophils # (Auto) 3.2 x10^3uL (1.8-7.7) Lymphocytes # (Auto) 2.5 x10^3/uL (1.0-4.8) Monocytes # (Auto) 0.5 x10^3/uL (0.0-1.1) Eosinophils # (Auto) 0.1 x10^3/uL (0.0-0.7) Basophils # (Auto) 0.1 x10^3/uL (0.0-0.2) Sodium Level 146 mmol/L (136-145) Potassium Level 3.2 mmol/L (3.5-5.1) Chloride Level 110 mmol/L (98-107) Carbon Dioxide Level 24 mmol/L (21-32) Anion Gap 12 (6-14) Blood Urea Nitrogen 12 mg/dL (7-20) Creatinine 0.9 mg/dL (0.6-1.0) Estimated GFR (Cockcroft-Gault) 63.0 BUN/Creatinine Ratio 13 (6-20) Glucose Level 91 mg/dL (70-99) Calcium Level 8.3 mg/dL (8.5-10.1) Total Bilirubin 0.4 mg/dL (0.2-1.0) Aspartate Amino Transf (AST/SGOT) 33 U/L (15-37) Alanine Aminotransferase (ALT/SGPT) 39 U/L (14-59) Alkaline Phosphatase 56 U/L (46-116) Total Protein 6.0 g/dL (6.4-8.2) Albumin 3.0 g/dL (3.4-5.0) Albumin/Globulin Ratio 1.0 (1.0-1.7) Vitamin B12 Level 816 pg/mL (247-911) Glucose (Fingerstick) 132 mg/dL (70-99) Assessment and Plan Assessmemt and Plan Problems Medical Problems: (1) Abdominal pain Status: Acute (2) Acute renal insufficiency Status: Acute (3) Dehydration Status: Acute (4) Nausea vomiting and diarrhea Status: Acute Comment Review of Relevant I have reviewed the following items bernie (where applicable) has been applied. Labs Laboratory Tests Test 08/13/18 21:20 08/14/18 12:20 08/14/18 16:09 08/14/18 22:00 Glucose (Fingerstick) 111 mg/dL (70-99) 100 mg/dL (70-99) White Blood Count 6.6 x10^3/uL (4.0-11.0) Red Blood Count 3.86 x10^6/uL (3.50-5.40) Hemoglobin 11.3 g/dL (12.0-15.5) Hematocrit 35.0 % (36.0-47.0) Mean Corpuscular Volume 91 fL (79-100) Mean Corpuscular Hemoglobin 29 pg (25-35) Mean Corpuscular Hemoglobin Concent 32 g/dL (31-37) Red Cell Distribution Width 14.3 % (11.5-14.5) Platelet Count 255 x10^3/uL (140-400) Neutrophils (%) (Auto) 45 % (31-73) Lymphocytes (%) (Auto) 43 % (24-48) Monocytes (%) (Auto) 9 % (0-9) Eosinophils (%) (Auto) 2 % (0-3) Basophils (%) (Auto) 1 % (0-3) Neutrophils # (Auto) 3.0 x10^3uL (1.8-7.7) Lymphocytes # (Auto) 2.8 x10^3/uL (1.0-4.8) Monocytes # (Auto) 0.6 x10^3/uL (0.0-1.1) Eosinophils # (Auto) 0.1 x10^3/uL (0.0-0.7) Basophils # (Auto) 0.1 x10^3/uL (0.0-0.2) Sodium Level 142 mmol/L (136-145) Potassium Level 3.4 mmol/L (3.5-5.1) Chloride Level 107 mmol/L (98-107) Carbon Dioxide Level 23 mmol/L (21-32) Anion Gap 12 (6-14) Blood Urea Nitrogen 12 mg/dL (7-20) Creatinine 0.9 mg/dL (0.6-1.0) Estimated GFR (Cockcroft-Gault) 63.0 BUN/Creatinine Ratio 13 (6-20) Glucose Level 107 mg/dL (70-99) Calcium Level 8.7 mg/dL (8.5-10.1) Total Bilirubin 0.4 mg/dL (0.2-1.0) Aspartate Amino Transf (AST/SGOT) 33 U/L (15-37) Alanine Aminotransferase (ALT/SGPT) 36 U/L (14-59) Alkaline Phosphatase 56 U/L (46-116) Total Protein 6.3 g/dL (6.4-8.2) Albumin 3.2 g/dL (3.4-5.0) Albumin/Globulin Ratio 1.0 (1.0-1.7) Urine Collection Type Unknown Urine Color Yellow Urine Clarity Clear Urine pH 5.0 Urine Specific [place] 1.015 Urine Protein Negative mg/dL (NEG-TRACE) Urine Glucose (UA) Negative mg/dL (NEG) Urine Ketones (Stick) 15 mg/dL (NEG) Urine Blood Negative (NEG) Urine Nitrite Negative (NEG) Urine Bilirubin Small (NEG) Urine Urobilinogen Dipstick 1.0 mg/dL (0.2 mg/dL) Urine Leukocyte Esterase Negative (NEG) Urine RBC 0 /HPF (0-2) Urine WBC Occ /HPF (0-4) Urine Squamous Epithelial Cells Few /LPF Urine Bacteria Many /HPF (0-FEW) Test 08/15/18 04:10 08/15/18 16:07 White Blood Count 6.4 x10^3/uL (4.0-11.0) Red Blood Count 3.66 x10^6/uL (3.50-5.40) Hemoglobin 10.9 g/dL (12.0-15.5) Hematocrit 33.0 % (36.0-47.0) Mean Corpuscular Volume 90 fL (79-100) Mean Corpuscular Hemoglobin 30 pg (25-35) Mean Corpuscular Hemoglobin Concent 33 g/dL (31-37) Red Cell Distribution Width 14.7 % (11.5-14.5) Platelet Count 260 x10^3/uL (140-400) Neutrophils (%) (Auto) 50 % (31-73) Lymphocytes (%) (Auto) 39 % (24-48) Monocytes (%) (Auto) 8 % (0-9) Eosinophils (%) (Auto) 2 % (0-3) Basophils (%) (Auto) 1 % (0-3) Neutrophils # (Auto) 3.2 x10^3uL (1.8-7.7) Lymphocytes # (Auto) 2.5 x10^3/uL (1.0-4.8) Monocytes # (Auto) 0.5 x10^3/uL (0.0-1.1) Eosinophils # (Auto) 0.1 x10^3/uL (0.0-0.7) Basophils # (Auto) 0.1 x10^3/uL (0.0-0.2) Sodium Level 146 mmol/L (136-145) Potassium Level 3.2 mmol/L (3.5-5.1) Chloride Level 110 mmol/L (98-107) Carbon Dioxide Level 24 mmol/L (21-32) Anion Gap 12 (6-14) Blood Urea Nitrogen 12 mg/dL (7-20) Creatinine 0.9 mg/dL (0.6-1.0) Estimated GFR (Cockcroft-Gault) 63.0 BUN/Creatinine Ratio 13 (6-20) Glucose Level 91 mg/dL (70-99) Calcium Level 8.3 mg/dL (8.5-10.1) Total Bilirubin 0.4 mg/dL (0.2-1.0) Aspartate Amino Transf (AST/SGOT) 33 U/L (15-37) Alanine Aminotransferase (ALT/SGPT) 39 U/L (14-59) Alkaline Phosphatase 56 U/L (46-116) Total Protein 6.0 g/dL (6.4-8.2) Albumin 3.0 g/dL (3.4-5.0) Albumin/Globulin Ratio 1.0 (1.0-1.7) Vitamin B12 Level 816 pg/mL (247-911) Glucose (Fingerstick) 132 mg/dL (70-99) Laboratory Tests Test 08/14/18 22:00 08/15/18 04:10 08/15/18 16:07 Urine Collection Type Unknown Urine Color Yellow Urine Clarity Clear Urine pH 5.0 Urine Specific [place] 1.015 Urine Protein Negative mg/dL (NEG-TRACE) Urine Glucose (UA) Negative mg/dL (NEG) Urine Ketones (Stick) 15 mg/dL (NEG) Urine Blood Negative (NEG) Urine Nitrite Negative (NEG) Urine Bilirubin Small (NEG) Urine Urobilinogen Dipstick 1.0 mg/dL (0.2 mg/dL) Urine Leukocyte Esterase Negative (NEG) Urine RBC 0 /HPF (0-2) Urine WBC Occ /HPF (0-4) Urine Squamous Epithelial Cells Few /LPF Urine Bacteria Many /HPF (0-FEW) White Blood Count 6.4 x10^3/uL (4.0-11.0) Red Blood Count 3.66 x10^6/uL (3.50-5.40) Hemoglobin 10.9 g/dL (12.0-15.5) Hematocrit 33.0 % (36.0-47.0) Mean Corpuscular Volume 90 fL (79-100) Mean Corpuscular Hemoglobin 30 pg (25-35) Mean Corpuscular Hemoglobin Concent 33 g/dL (31-37) Red Cell Distribution Width 14.7 % (11.5-14.5) Platelet Count 260 x10^3/uL (140-400) Neutrophils (%) (Auto) 50 % (31-73) Lymphocytes (%) (Auto) 39 % (24-48) Monocytes (%) (Auto) 8 % (0-9) Eosinophils (%) (Auto) 2 % (0-3) Basophils (%) (Auto) 1 % (0-3) Neutrophils # (Auto) 3.2 x10^3uL (1.8-7.7) Lymphocytes # (Auto) 2.5 x10^3/uL (1.0-4.8) Monocytes # (Auto) 0.5 x10^3/uL (0.0-1.1) Eosinophils # (Auto) 0.1 x10^3/uL (0.0-0.7) Basophils # (Auto) 0.1 x10^3/uL (0.0-0.2) Sodium Level 146 mmol/L (136-145) Potassium Level 3.2 mmol/L (3.5-5.1) Chloride Level 110 mmol/L (98-107) Carbon Dioxide Level 24 mmol/L (21-32) Anion Gap 12 (6-14) Blood Urea Nitrogen 12 mg/dL (7-20) Creatinine 0.9 mg/dL (0.6-1.0) Estimated GFR (Cockcroft-Gault) 63.0 BUN/Creatinine Ratio 13 (6-20) Glucose Level 91 mg/dL (70-99) Calcium Level 8.3 mg/dL (8.5-10.1) Total Bilirubin 0.4 mg/dL (0.2-1.0) Aspartate Amino Transf (AST/SGOT) 33 U/L (15-37) Alanine Aminotransferase (ALT/SGPT) 39 U/L (14-59) Alkaline Phosphatase 56 U/L (46-116) Total Protein 6.0 g/dL (6.4-8.2) Albumin 3.0 g/dL (3.4-5.0) Albumin/Globulin Ratio 1.0 (1.0-1.7) Vitamin B12 Level 816 pg/mL (247-911) Glucose (Fingerstick) 132 mg/dL (70-99) Medications Current Medications Ondansetron HCl (Zofran) 4 mg 1X ONCE IV Last administered on 08/10/18at 23:25; Start 08/10/18 at 22:30; Stop 08/10/18 at 22:31; Status DC Sodium Chloride 1,000 ml @ 1,000 mls/hr 1X ONCE IV Last administered on 08/10/18at 23:25; Start 08/10/18 at 22:30; Stop 08/10/18 at 23:29; Status DC Sodium Chloride 1,000 ml @ 1,000 mls/hr 1X ONCE IV Last administered on 08/10/18at 23:25; Start 08/10/18 at 23:30; Stop 08/11/18 at 00:29; Status DC Morphine Sulfate (Morphine Sulfate) 4 mg 1X ONCE IV Last administered on 08/10/18at 23:26; Start 08/10/18 at 23:30; Stop 08/10/18 at 23:31; Status DC Ondansetron HCl (Zofran) 4 mg PRN Q8HRS PRN IV NAUSEA/VOMITING 1ST CHOICE Last administered on 08/11/18at 04:40; Start 08/10/18 at 23:30; Stop 08/11/18 at 07:58; Status DC Morphine Sulfate (Morphine Sulfate) 2 mg PRN Q2HR PRN IV SEVERE PAIN Last administered on 08/11/18 22:45; Start 08/10/18 at 23:30; Stop 08/11/18 at 23:29; Status DC Ondansetron HCl (Zofran) 8 mg PRN Q8HRS PRN IV NAUSEA/VOMITING 1ST CHOICE Last administered on 08/12/18 01:22; Start 08/11/18 at 08:00 Metoclopramide HCl (Reglan Vial) 10 mg 1X ONCE IV Last administered on 08/11/18 08:09; Start 08/11/18 at 08:00; Stop 08/11/18 at 08:01; Status DC Fluoxetine HCl (PROzac) 20 mg BID PO Last administered on 08/15/18 13:06; Start 08/11/18 at 09:00 Gabapentin (Neurontin) 300 mg TID PO ; Start 08/11/18 at 09:00; Status Cancel Glipizide (Glucotrol) 2.5 mg DAILY PO Last administered on 08/13/18 08:51; Start 08/11/18 at 09:30 Acetaminophen/ Hydrocodone Bitart (Lortab 7.5/325) 1 tab PRN Q6HRS PRN PO MODERATE PAIN Last administered on 08/15/18 13:07; Start 08/11/18 at 09:00 Lorazepam (Ativan) 1 mg TID PO Last administered on 08/15/18 13:07; Start 08/11/18 at 09:30 Metoprolol Tartrate (Lopressor) 50 mg DAILY PO Last administered on 08/13/18 08:52; Start 08/11/18 at 09:30 Nitroglycerin (Nitrostat) 0.4 mg PRN Q5MIN PRN SL CHEST PAIN; Start 08/11/18 at 09:30 Pantoprazole Sodium (Protonix) 40 mg DAILYAC PO Last administered on 08/13/18 08:50; Start 08/11/18 at 11:30 Insulin Human Lispro (HumaLOG) 0-7 UNITS TIDWMEALS SQ ; Start 08/11/18 at 12:00 Dextrose (Dextrose 50%-Water Syringe) 12.5 gm PRN Q15MIN PRN IV SEE COMMENTS; Start 08/11/18 at 09:00 Sodium Chloride 1,000 ml @ 100 mls/hr Q10H IV Last administered on 08/15/18 12:10; Start 08/11/18 at 09:00 Gabapentin (Neurontin) 300 mg TID PO Last administered on 08/15/18 13:07; Start 08/11/18 at 09:30 Lorazepam (Ativan) 2 mg PRN Q6HRS PRN IM/IV MODERATE ANXIETY / AGITATION Last administered on 08/15/18 14:35; Start 08/14/18 at 00:45 Lorazepam (Ativan) 1 mg PRN Q6HRS PRN IM/IV MILD ANXIETY / AGITATION Last administered on 08/14/18 04:01; Start 08/14/18 at 00:45 Haloperidol Lactate (Haldol Inj) 5 mg PRN Q6HRS PRN IM agitation Last administered on 08/14/18 04:48; Start 08/14/18 at 04:45 Lorazepam (Ativan) 4 mg PRN Q6HRS PRN IM SEVERE ANXIETY / AGITATION Last administered on 08/15/18 16:02; Start 08/14/18 at 04:45 Olanzapine (ZyPREXA IM) 10 mg 1X ONCE IM Last administered on 08/14/18 05:08; Start 08/14/18 at 05:30; Stop 08/14/18 at 05:31; Status DC Fentanyl Citrate (Fentanyl 2ml Vial) 75 mcg 1X ONCE IV Last administered on 08/14/18 05:26; Start 08/14/18 at 05:30; Stop 08/14/18 at 05:31; Status DC Ziprasidone (Geodon Im) 20 mg 1X PRN PRN IM AGITATION Last administered on 08/14/18 05:39; Start 08/14/18 at 05:30; Stop 08/15/18 at 05:29; Status DC Ziprasidone (Geodon Im) 10 mg 1X ONCE IM ; Start 08/14/18 at 05:30; Stop 08/14/18 at 05:31; Status UNV Ceftriaxone Sodium (Rocephin) 1 gm Q24H IVP Last administered on 08/15/18at 12:10; Start 08/15/18 at 10:30 Active Scripts Active [Pantoprazole] 40 MG Tablet.dr 40 Mg PO DAILYAC 15 Days Hydrocodone-Apap 7.5-325 (Hydrocodone Bit/Acetaminophen) 1 Each Tablet 1 Tab PO PRN Q6HRS PRN Vitamin D (Cholecalciferol (Vitamin D3)) 1,000 Unit Tablet 1,000 Unit PO DAILY 30 Days Reported Simvastatin 80 Mg Tablet 1 Tab PO QHS Bydureon (Exenatide Microspheres) 2 Mg Vial 2 Mg SQ WEEKLY Gabapentin (Gabapentin) 100 Mg Capsule 300 Mg PO TID Lisinopril 5 Mg Tablet 1 Tab PO DAILY Glipizide 5 Mg Tablet 1 Tab PO BID Tramadol Hcl 50 Mg Tablet 1 Tab PO PRN Q6HRS Nitrostat (Nitroglycerin) 0.3 Mg Tab.subl 0.3 Mg SL PRN Q5MIN PRN Metoprolol Tartrate 50 Mg Tablet 50 Mg PO DAILY Lorazepam 1 Mg Tablet 1 Mg PO TID Metformin Hcl 1,000 Mg Tablet 1,000 Mg PO BID Prozac (Fluoxetine Hcl) 20 Mg Capsule 20 Mg PO BID Vitals/I & O Vital Sign - Last 24 Hours 08/14/18 08/14/18 08/14/18 08/15/18 18:59 20:00 22:45 01:03 Temp 98.4 98.2 98.4 98.2 Pulse 93 72 Resp 18 19 B/P (MAP) 136/71 (92) 128/76 (93) Pulse Ox 93 97 O2 Delivery Room Air Room Air Room Air Room Air 08/15/18 08/15/18 08/15/18 08/15/18 03:00 07:00 08:00 10:54 Temp 98.2 98.6 98.2 98.6 Pulse 71 71 63 Resp 17 12 12 B/P (MAP) 130/82 (98) 141/69 (93) 136/72 (93) Pulse Ox 97 93 93 O2 Delivery Room Air Room Air Room Air Room Air 08/15/18 08/15/18 08/15/18 13:07 14:07 15:00 Temp 98.9 98.9 Pulse 72 Resp 16 B/P (MAP) 146/71 (96) Pulse Ox 93 O2 Delivery Room Air Room Air Room Air Intake and Output 08/14/18 08/14/18 08/15/18 15:00 23:00 07:00 Output Total 600 ml 600 ml Balance -600 ml -600 ml CHIDI OCHOA MD Aug 15, 2018 16:59
[2018-08-15 19:27] VITALS: BP 142/66
--- NOTE | 2018-08-15 20:14 | NUR ---
Patient refusing HS blood sugar check- repeatedly asking for books, becoming agitated- stating "I promise i'll be good tonight if you get me some books." Checking with staff to see if books can be found/provided to pt.
--- NOTE | 2018-08-15 20:26 | NUR ---
Patient stating she is getting "antsy" and feeling agitated. Asking for "medications". Informed patient that she only has PRN haldol available as she is requesting "more ativan." Will admn. Haldol d/t agitation level.
[2018-08-15] MEDS: HALOPERIDOL LACTATE 5 MG/ML VIAL. IM PRN (20:31)
[2018-08-15 23:09] VITALS: BP 136/69
[2018-08-16] MEDS: IV NORMAL SALINE 1000ML BAG 1,000 ML IV SCH ×3 (00:06→21:19)
[2018-08-16 03:15] VITALS: BP 141/67
[2018-08-16 07:00] VITALS: BP 160/83
[2018-08-16] MEDS: INSULIN LISPRO 300 UNITS/3 ML INSULN.PEN. SQ SCH ×3 (08:00→17:00)
[2018-08-16] MEDS: METOPROLOL TART IMMED RELEASE 50 MG TABLET. PO SCH (09:00)
[2018-08-16] MEDS: glipiZIDE 5 MG TABLET PO SCH (09:00)
[2018-08-16] MEDS: LORazepam 1 MG TABLET PO SCH ×3 (10:22→21:22)
[2018-08-16] MEDS: PANTOPRAZOLE 40 MG TABLET.DR. PO SCH (10:23)
[2018-08-16] MEDS: FLUoxetine HCL 20 MG CAPSULE PO SCH ×2 (10:23→21:22)
[2018-08-16] MEDS: GABAPENTIN 300 MG CAPSULE. PO SCH ×3 (10:23→21:22)
[2018-08-16] MEDS: cefTRIAXone IV Push 1 GM VIAL. IVP SCH (10:29)
--- NOTE | 2018-08-16 10:36 | NUR ---
GLIPIZIDE HELD, REFUSES FINGERSTICK BLOOD SUGAR
[2018-08-16] MEDS: HYDROcodone/APAP 7.5/325MG 1 TAB TABLET PO PRN ×2 (10:52→18:27)
[2018-08-16 11:00] VITALS: BP 149/76
--- NOTE | 2018-08-16 12:00 | NUR ---
Sliding scale insulin held, refuses fingersticks
--- NOTE | 2018-08-16 12:36 | PDOC ---
PROGRESS NOTES Chief Complaint Chief Complaint nausea and vomiting and diarrhea, acute viral enteritis acute renal failure, vasomotor with ATN, metabolic encephalopathy form above, suspect hypoglycemic event on admit due to glyburide and Acute renal failure dm2 htn lipids History of Present Illness History of Present Illness has been combative, will try to limit sedation meds stop the 1:1, plan to SNU as able try to treat UTI, barely changed, discussed with family, neuro consult following, MRI head, consider other, diarrhea has stopped Vitals Vitals Vital Signs Date Time Temp Pulse Resp B/P (MAP) Pulse Ox O2 Delivery O2 Flow Rate FiO2 08/16/18 11:00 67 16 149/76 (100) 91 Room Air 08/16/18 07:00 98.2 98.2 Physical Exam General: Alert, Oriented X3, Cooperative, No acute distress Heart: Regular rate, Normal S1, Normal S2 Lungs: Clear Abdomen: Normal bowel sounds, Soft, No tenderness Extremities: No clubbing, No cyanosis, Normal pulses Skin: No breakdown Labs LABS Laboratory Tests Test 08/15/18 16:07 Glucose (Fingerstick) 132 mg/dL (70-99) Assessment and Plan Assessmemt and Plan Problems Medical Problems: (1) Abdominal pain Status: Acute (2) Acute renal insufficiency Status: Acute (3) Dehydration Status: Acute (4) Nausea vomiting and diarrhea Status: Acute Comment Review of Relevant I have reviewed the following items bernie (where applicable) has been applied. Labs Laboratory Tests Test 08/14/18 16:09 08/14/18 22:00 08/15/18 04:10 08/15/18 16:07 Glucose (Fingerstick) 100 mg/dL (70-99) 132 mg/dL (70-99) Urine Collection Type Unknown Urine Color Yellow Urine Clarity Clear Urine pH 5.0 Urine Specific [place] 1.015 Urine Protein Negative mg/dL (NEG-TRACE) Urine Glucose (UA) Negative mg/dL (NEG) Urine Ketones (Stick) 15 mg/dL (NEG) Urine Blood Negative (NEG) Urine Nitrite Negative (NEG) Urine Bilirubin Small (NEG) Urine Urobilinogen Dipstick 1.0 mg/dL (0.2 mg/dL) Urine Leukocyte Esterase Negative (NEG) Urine RBC 0 /HPF (0-2) Urine WBC Occ /HPF (0-4) Urine Squamous Epithelial Cells Few /LPF Urine Bacteria Many /HPF (0-FEW) White Blood Count 6.4 x10^3/uL (4.0-11.0) Red Blood Count 3.66 x10^6/uL (3.50-5.40) Hemoglobin 10.9 g/dL (12.0-15.5) Hematocrit 33.0 % (36.0-47.0) Mean Corpuscular Volume 90 fL (79-100) Mean Corpuscular Hemoglobin 30 pg (25-35) Mean Corpuscular Hemoglobin Concent 33 g/dL (31-37) Red Cell Distribution Width 14.7 % (11.5-14.5) Platelet Count 260 x10^3/uL (140-400) Neutrophils (%) (Auto) 50 % (31-73) Lymphocytes (%) (Auto) 39 % (24-48) Monocytes (%) (Auto) 8 % (0-9) Eosinophils (%) (Auto) 2 % (0-3) Basophils (%) (Auto) 1 % (0-3) Neutrophils # (Auto) 3.2 x10^3uL (1.8-7.7) Lymphocytes # (Auto) 2.5 x10^3/uL (1.0-4.8) Monocytes # (Auto) 0.5 x10^3/uL (0.0-1.1) Eosinophils # (Auto) 0.1 x10^3/uL (0.0-0.7) Basophils # (Auto) 0.1 x10^3/uL (0.0-0.2) Sodium Level 146 mmol/L (136-145) Potassium Level 3.2 mmol/L (3.5-5.1) Chloride Level 110 mmol/L (98-107) Carbon Dioxide Level 24 mmol/L (21-32) Anion Gap 12 (6-14) Blood Urea Nitrogen 12 mg/dL (7-20) Creatinine 0.9 mg/dL (0.6-1.0) Estimated GFR (Cockcroft-Gault) 63.0 BUN/Creatinine Ratio 13 (6-20) Glucose Level 91 mg/dL (70-99) Calcium Level 8.3 mg/dL (8.5-10.1) Total Bilirubin 0.4 mg/dL (0.2-1.0) Aspartate Amino Transf (AST/SGOT) 33 U/L (15-37) Alanine Aminotransferase (ALT/SGPT) 39 U/L (14-59) Alkaline Phosphatase 56 U/L (46-116) Total Protein 6.0 g/dL (6.4-8.2) Albumin 3.0 g/dL (3.4-5.0) Albumin/Globulin Ratio 1.0 (1.0-1.7) Vitamin B12 Level 816 pg/mL (247-911) Laboratory Tests Test 08/15/18 16:07 Glucose (Fingerstick) 132 mg/dL (70-99) Medications Current Medications Ondansetron HCl (Zofran) 4 mg 1X ONCE IV Last administered on 08/10/18 23:25; Start 08/10/18 at 22:30; Stop 08/10/18 at 22:31; Status DC Sodium Chloride 1,000 ml @ 1,000 mls/hr 1X ONCE IV Last administered on 08/10/18at 23:25; Start 08/10/18 at 22:30; Stop 08/10/18 at 23:29; Status DC Sodium Chloride 1,000 ml @ 1,000 mls/hr 1X ONCE IV Last administered on 08/10/18at 23:25; Start 08/10/18 at 23:30; Stop 08/11/18 at 00:29; Status DC Morphine Sulfate (Morphine Sulfate) 4 mg 1X ONCE IV Last administered on 08/10/18 23:26; Start 08/10/18 at 23:30; Stop 08/10/18 at 23:31; Status DC Ondansetron HCl (Zofran) 4 mg PRN Q8HRS PRN IV NAUSEA/VOMITING 1ST CHOICE Last administered on 08/11/18at 04:40; Start 08/10/18 at 23:30; Stop 08/11/18 at 07:58; Status DC Morphine Sulfate (Morphine Sulfate) 2 mg PRN Q2HR PRN IV SEVERE PAIN Last administered on 08/11/18at 22:45; Start 08/10/18 at 23:30; Stop 08/11/18 at 23:29; Status DC Ondansetron HCl (Zofran) 8 mg PRN Q8HRS PRN IV NAUSEA/VOMITING 1ST CHOICE Last administered on 08/12/18at 01:22; Start 08/11/18 at 08:00 Metoclopramide HCl (Reglan Vial) 10 mg 1X ONCE IV Last administered on 08/11/18 08:09; Start 08/11/18 at 08:00; Stop 08/11/18 at 08:01; Status DC Fluoxetine HCl (PROzac) 20 mg BID PO Last administered on 08/16/18 10:23; Start 08/11/18 at 09:00 Gabapentin (Neurontin) 300 mg TID PO ; Start 08/11/18 at 09:00; Status Cancel Glipizide (Glucotrol) 2.5 mg DAILY PO Last administered on 08/13/18 08:51; Start 08/11/18 at 09:30 Acetaminophen/ Hydrocodone Bitart (Lortab 7.5/325) 1 tab PRN Q6HRS PRN PO MODERATE PAIN Last administered on 08/15/18 19:21; Start 08/11/18 at 09:00 Lorazepam (Ativan) 1 mg TID PO Last administered on 08/16/18 10:22; Start 08/11/18 at 09:30 Metoprolol Tartrate (Lopressor) 50 mg DAILY PO Last administered on 08/16/18 09:00; Start 08/11/18 at 09:30 Nitroglycerin (Nitrostat) 0.4 mg PRN Q5MIN PRN SL CHEST PAIN; Start 08/11/18 at 09:30 Pantoprazole Sodium (Protonix) 40 mg DAILYAC PO Last administered on 08/16/18 10:23; Start 08/11/18 at 11:30 Insulin Human Lispro (HumaLOG) 0-7 UNITS TIDWMEALS SQ ; Start 08/11/18 at 12:00 Dextrose (Dextrose 50%-Water Syringe) 12.5 gm PRN Q15MIN PRN IV SEE COMMENTS; Start 08/11/18 at 09:00 Sodium Chloride 1,000 ml @ 100 mls/hr Q10H IV Last administered on 08/16/18 09:00; Start 08/11/18 at 09:00 Gabapentin (Neurontin) 300 mg TID PO Last administered on 08/16/18 10:23; Start 08/11/18 at 09:30 Lorazepam (Ativan) 2 mg PRN Q6HRS PRN IM/IV MODERATE ANXIETY / AGITATION Last administered on 08/15/18 19:21; Start 08/14/18 at 00:45 Lorazepam (Ativan) 1 mg PRN Q6HRS PRN IM/IV MILD ANXIETY / AGITATION Last administered on 08/14/18 04:01; Start 08/14/18 at 00:45 Haloperidol Lactate (Haldol Inj) 5 mg PRN Q6HRS PRN IM agitation Last administered on 08/15/18 20:31; Start 08/14/18 at 04:45 Lorazepam (Ativan) 4 mg PRN Q6HRS PRN IM SEVERE ANXIETY / AGITATION Last administered on 08/15/18 16:02; Start 08/14/18 at 04:45 Olanzapine (ZyPREXA IM) 10 mg 1X ONCE IM Last administered on 08/14/18 05:08; Start 08/14/18 at 05:30; Stop 08/14/18 at 05:31; Status DC Fentanyl Citrate (Fentanyl 2ml Vial) 75 mcg 1X ONCE IV Last administered on 08/14/18at 05:26; Start 08/14/18 at 05:30; Stop 08/14/18 at 05:31; Status DC Ziprasidone (Geodon Im) 20 mg 1X PRN PRN IM AGITATION Last administered on 08/14/18 05:39; Start 08/14/18 at 05:30; Stop 08/15/18 at 05:29; Status DC Ziprasidone (Geodon Im) 10 mg 1X ONCE IM ; Start 08/14/18 at 05:30; Stop 08/14/18 at 05:31; Status UNV Ceftriaxone Sodium (Rocephin) 1 gm Q24H IVP Last administered on 08/16/18at 10:29; Start 08/15/18 at 10:30 Active Scripts Active [Pantoprazole] 40 MG Tablet.dr 40 Mg PO DAILYAC 15 Days Hydrocodone-Apap 7.5-325 (Hydrocodone Bit/Acetaminophen) 1 Each Tablet 1 Tab PO PRN Q6HRS PRN Vitamin D (Cholecalciferol (Vitamin D3)) 1,000 Unit Tablet 1,000 Unit PO DAILY 30 Days Reported Simvastatin 80 Mg Tablet 1 Tab PO QHS Bydureon (Exenatide Microspheres) 2 Mg Vial 2 Mg SQ WEEKLY Gabapentin (Gabapentin) 100 Mg Capsule 300 Mg PO TID Lisinopril 5 Mg Tablet 1 Tab PO DAILY Glipizide 5 Mg Tablet 1 Tab PO BID Tramadol Hcl 50 Mg Tablet 1 Tab PO PRN Q6HRS Nitrostat (Nitroglycerin) 0.3 Mg Tab.subl 0.3 Mg SL PRN Q5MIN PRN Metoprolol Tartrate 50 Mg Tablet 50 Mg PO DAILY Lorazepam 1 Mg Tablet 1 Mg PO TID Metformin Hcl 1,000 Mg Tablet 1,000 Mg PO BID Prozac (Fluoxetine Hcl) 20 Mg Capsule 20 Mg PO BID Vitals/I & O Vital Sign - Last 24 Hours 08/15/18 08/15/18 08/15/18 08/15/18 13:07 15:00 19:21 19:27 Temp 98.9 98.6 98.9 98.6 Pulse 72 67 Resp 16 14 B/P (MAP) 146/71 (96) 142/66 (91) Pulse Ox 93 92 O2 Delivery Room Air Room Air Room Air Room Air 08/15/18 08/15/18 08/15/18 08/16/18 20:25 20:48 23:09 03:15 Temp 98.2 98.9 98.2 98.9 Pulse 72 62 Resp 16 14 B/P (MAP) 136/69 (91) 141/67 (91) Pulse Ox 97 93 O2 Delivery Room Air Room Air Room Air Room Air 08/16/18 08/16/18 08/16/18 07:00 09:00 11:00 Temp 98.2 98.2 Pulse 67 67 67 Resp 14 16 B/P (MAP) 160/83 (108) 160/83 149/76 (100) Pulse Ox 91 91 O2 Delivery Room Air Room Air Intake and Output 08/15/18 08/15/18 08/16/18 15:00 23:00 07:00 Intake Total 390 ml 0 ml Output Total 600 ml 476 ml 700 ml Balance -600 ml -86 ml -700 ml CHIDI OCHOA MD Aug 16, 2018 12:36
--- NOTE | 2018-08-16 12:40 | PDOC ---
PROGRESS NOTES Assessment Problems Medical Problems: (1) Abdominal pain Status: Acute (2) Acute renal insufficiency Status: Acute (3) Dehydration Status: Acute (4) Nausea vomiting and diarrhea Status: Acute Metabolic encephalopathy due to hypoglycemia in probably some hypoxia as well Status-post sedation last night for combativeness for which she required 4-point restraints. She has seen Dr. Dawson in the past for peripheral neuropathy and essential tremor. Low TSH, treatment per internal medicine Plan Await MRI Hold on EEG or other studies Note plans for geriatric psychiatry Subjective She denies pain Objective Vital Signs Date Time Temp Pulse Resp B/P (MAP) Pulse Ox O2 Delivery O2 Flow Rate FiO2 08/16/18 11:00 67 16 149/76 (100) 91 Room Air 08/16/18 07:00 98.2 98.2 Intake and Output 08/16/18 06:59 Intake Total 390 ml Output Total 1776 ml Balance -1386 ml Intake Oral 390 ml Output Urine Total 1775 ml Stool Total 1 ml # Voids 3 # Bowel Movements 1 PHYSICAL EXAM Alert, knows name of hospital, name of president, not date, not as combative, still has 1:1 nurse PERRL. EOMI. CN: no focal findings. Muscle tone: normal. Muscle strength: moves all extremities DTR: 1+ Plantar reflex: flexor Gait: not examined in bed. Sensory exam: no abnormal findings. Cerebellar: not cooperative Review of Relevant I have reviewed the following items bernie (where applicable) has been applied. Labs Laboratory Tests Test 08/14/18 16:09 08/14/18 22:00 08/15/18 04:10 08/15/18 16:07 Glucose (Fingerstick) 100 mg/dL (70-99) 132 mg/dL (70-99) Urine Collection Type Unknown Urine Color Yellow Urine Clarity Clear Urine pH 5.0 Urine Specific Seibert 1.015 Urine Protein Negative mg/dL (NEG-TRACE) Urine Glucose (UA) Negative mg/dL (NEG) Urine Ketones (Stick) 15 mg/dL (NEG) Urine Blood Negative (NEG) Urine Nitrite Negative (NEG) Urine Bilirubin Small (NEG) Urine Urobilinogen Dipstick 1.0 mg/dL (0.2 mg/dL) Urine Leukocyte Esterase Negative (NEG) Urine RBC 0 /HPF (0-2) Urine WBC Occ /HPF (0-4) Urine Squamous Epithelial Cells Few /LPF Urine Bacteria Many /HPF (0-FEW) White Blood Count 6.4 x10^3/uL (4.0-11.0) Red Blood Count 3.66 x10^6/uL (3.50-5.40) Hemoglobin 10.9 g/dL (12.0-15.5) Hematocrit 33.0 % (36.0-47.0) Mean Corpuscular Volume 90 fL (79-100) Mean Corpuscular Hemoglobin 30 pg (25-35) Mean Corpuscular Hemoglobin Concent 33 g/dL (31-37) Red Cell Distribution Width 14.7 % (11.5-14.5) Platelet Count 260 x10^3/uL (140-400) Neutrophils (%) (Auto) 50 % (31-73) Lymphocytes (%) (Auto) 39 % (24-48) Monocytes (%) (Auto) 8 % (0-9) Eosinophils (%) (Auto) 2 % (0-3) Basophils (%) (Auto) 1 % (0-3) Neutrophils # (Auto) 3.2 x10^3uL (1.8-7.7) Lymphocytes # (Auto) 2.5 x10^3/uL (1.0-4.8) Monocytes # (Auto) 0.5 x10^3/uL (0.0-1.1) Eosinophils # (Auto) 0.1 x10^3/uL (0.0-0.7) Basophils # (Auto) 0.1 x10^3/uL (0.0-0.2) Sodium Level 146 mmol/L (136-145) Potassium Level 3.2 mmol/L (3.5-5.1) Chloride Level 110 mmol/L (98-107) Carbon Dioxide Level 24 mmol/L (21-32) Anion Gap 12 (6-14) Blood Urea Nitrogen 12 mg/dL (7-20) Creatinine 0.9 mg/dL (0.6-1.0) Estimated GFR (Cockcroft-Gault) 63.0 BUN/Creatinine Ratio 13 (6-20) Glucose Level 91 mg/dL (70-99) Calcium Level 8.3 mg/dL (8.5-10.1) Total Bilirubin 0.4 mg/dL (0.2-1.0) Aspartate Amino Transf (AST/SGOT) 33 U/L (15-37) Alanine Aminotransferase (ALT/SGPT) 39 U/L (14-59) Alkaline Phosphatase 56 U/L (46-116) Total Protein 6.0 g/dL (6.4-8.2) Albumin 3.0 g/dL (3.4-5.0) Albumin/Globulin Ratio 1.0 (1.0-1.7) Vitamin B12 Level 816 pg/mL (247-911) Laboratory Tests Test 08/15/18 16:07 Glucose (Fingerstick) 132 mg/dL (70-99) Medications Current Medications Ondansetron HCl (Zofran) 4 mg 1X ONCE IV Last administered on 08/10/18 23:25; Start 08/10/18 at 22:30; Stop 08/10/18 at 22:31; Status DC Sodium Chloride 1,000 ml @ 1,000 mls/hr 1X ONCE IV Last administered on 08/10/18 23:25; Start 08/10/18 at 22:30; Stop 08/10/18 at 23:29; Status DC Sodium Chloride 1,000 ml @ 1,000 mls/hr 1X ONCE IV Last administered on 08/10/18 23:25; Start 08/10/18 at 23:30; Stop 08/11/18 at 00:29; Status DC Morphine Sulfate (Morphine Sulfate) 4 mg 1X ONCE IV Last administered on 08/10/18 23:26; Start 08/10/18 at 23:30; Stop 08/10/18 at 23:31; Status DC Ondansetron HCl (Zofran) 4 mg PRN Q8HRS PRN IV NAUSEA/VOMITING 1ST CHOICE Last administered on 08/11/18 04:40; Start 08/10/18 at 23:30; Stop 08/11/18 at 07:58; Status DC Morphine Sulfate (Morphine Sulfate) 2 mg PRN Q2HR PRN IV SEVERE PAIN Last admin istered on 08/11/18 22:45; Start 08/10/18 at 23:30; Stop 08/11/18 at 23:29; Status DC Ondansetron HCl (Zofran) 8 mg PRN Q8HRS PRN IV NAUSEA/VOMITING 1ST CHOICE Last administered on 08/12/18 01:22; Start 08/11/18 at 08:00 Metoclopramide HCl (Reglan Vial) 10 mg 1X ONCE IV Last administered on 08/11/18 08:09; Start 08/11/18 at 08:00; Stop 08/11/18 at 08:01; Status DC Fluoxetine HCl (PROzac) 20 mg BID PO Last administered on 08/16/18 10:23; Start 08/11/18 at 09:00 Gabapentin (Neurontin) 300 mg TID PO ; Start 08/11/18 at 09:00; Status Cancel Glipizide (Glucotrol) 2.5 mg DAILY PO Last administered on 08/13/18 08:51; Start 08/11/18 at 09:30 Acetaminophen/ Hydrocodone Bitart (Lortab 7.5/325) 1 tab PRN Q6HRS PRN PO MODERATE PAIN Last administered on 08/15/18 19:21; Start 08/11/18 at 09:00 Lorazepam (Ativan) 1 mg TID PO Last administered on 08/16/18 10:22; Start 08/11/18 at 09:30 Metoprolol Tartrate (Lopressor) 50 mg DAILY PO Last administered on 08/16/18 09:00; Start 08/11/18 at 09:30 Nitroglycerin (Nitrostat) 0.4 mg PRN Q5MIN PRN SL CHEST PAIN; Start 08/11/18 at 09:30 Pantoprazole Sodium (Protonix) 40 mg DAILYAC PO Last administered on 08/16/18 10:23; Start 08/11/18 at 11:30 Insulin Human Lispro (HumaLOG) 0-7 UNITS TIDWMEALS SQ ; Start 08/11/18 at 12:00 Dextrose (Dextrose 50%-Water Syringe) 12.5 gm PRN Q15MIN PRN IV SEE COMMENTS; Start 08/11/18 at 09:00 Sodium Chloride 1,000 ml @ 100 mls/hr Q10H IV Last administered on 08/16/18 09:00; Start 08/11/18 at 09:00 Gabapentin (Neurontin) 300 mg TID PO Last administered on 08/16/18 10:23; Start 08/11/18 at 09:30 Lorazepam (Ativan) 2 mg PRN Q6HRS PRN IM/IV MODERATE ANXIETY / AGITATION Last administered on 08/15/18 19:21; Start 08/14/18 at 00:45 Lorazepam (Ativan) 1 mg PRN Q6HRS PRN IM/IV MILD ANXIETY / AGITATION Last administered on 08/14/18 04:01; Start 08/14/18 at 00:45 Haloperidol Lactate (Haldol Inj) 5 mg PRN Q6HRS PRN IM agitation Last administered on 08/15/18 20:31; Start 08/14/18 at 04:45 Lorazepam (Ativan) 4 mg PRN Q6HRS PRN IM SEVERE ANXIETY / AGITATION Last administered on 08/15/18 16:02; Start 08/14/18 at 04:45 Olanzapine (ZyPREXA IM) 10 mg 1X ONCE IM Last administered on 08/14/18 05:08; Start 08/14/18 at 05:30; Stop 08/14/18 at 05:31; Status DC Fentanyl Citrate (Fentanyl 2ml Vial) 75 mcg 1X ONCE IV Last administered on 08/14/18 05:26; Start 08/14/18 at 05:30; Stop 08/14/18 at 05:31; Status DC Ziprasidone (Geodon Im) 20 mg 1X PRN PRN IM AGITATION Last administered on 08/14/18 05:39; Start 08/14/18 at 05:30; Stop 08/15/18 at 05:29; Status DC Ziprasidone (Geodon Im) 10 mg 1X ONCE IM ; Start 08/14/18 at 05:30; Stop 08/14/18 at 05:31; Status UNV Ceftriaxone Sodium (Rocephin) 1 gm Q24H IVP Last administered on 08/16/18at 10:29; Start 08/15/18 at 10:30 Active Scripts Active [Pantoprazole] 40 MG Tablet.dr 40 Mg PO DAILYAC 15 Days Hydrocodone-Apap 7.5-325 (Hydrocodone Bit/Acetaminophen) 1 Each Tablet 1 Tab PO PRN Q6HRS PRN Vitamin D (Cholecalciferol (Vitamin D3)) 1,000 Unit Tablet 1,000 Unit PO DAILY 30 Days Reported Simvastatin 80 Mg Tablet 1 Tab PO QHS Bydureon (Exenatide Microspheres) 2 Mg Vial 2 Mg SQ WEEKLY Gabapentin (Gabapentin) 100 Mg Capsule 300 Mg PO TID Lisinopril 5 Mg Tablet 1 Tab PO DAILY Glipizide 5 Mg Tablet 1 Tab PO BID Tramadol Hcl 50 Mg Tablet 1 Tab PO PRN Q6HRS Nitrostat (Nitroglycerin) 0.3 Mg Tab.subl 0.3 Mg SL PRN Q5MIN PRN Metoprolol Tartrate 50 Mg Tablet 50 Mg PO DAILY Lorazepam 1 Mg Tablet 1 Mg PO TID Metformin Hcl 1,000 Mg Tablet 1,000 Mg PO BID Prozac (Fluoxetine Hcl) 20 Mg Capsule 20 Mg PO BID Vitals/I & O Vital Sign - Last 24 Hours 08/15/18 08/15/18 08/15/18 08/15/18 13:07 15:00 19:21 19:27 Temp 98.9 98.6 98.9 98.6 Pulse 72 67 Resp 16 14 B/P (MAP) 146/71 (96) 142/66 (91) Pulse Ox 93 92 O2 Delivery Room Air Room Air Room Air Room Air 08/15/18 08/15/18 08/15/18 08/16/18 20:25 20:48 23:09 03:15 Temp 98.2 98.9 98.2 98.9 Pulse 72 62 Resp 16 14 B/P (MAP) 136/69 (91) 141/67 (91) Pulse Ox 97 93 O2 Delivery Room Air Room Air Room Air Room Air 08/16/18 08/16/18 08/16/18 07:00 09:00 11:00 Temp 98.2 98.2 Pulse 67 67 67 Resp 14 16 B/P (MAP) 160/83 (108) 160/83 149/76 (100) Pulse Ox 91 91 O2 Delivery Room Air Room Air Intake and Output 08/15/18 08/15/18 08/16/18 14:59 22:59 06:59 Intake Total 390 ml 0 ml Output Total 600 ml 476 ml 700 ml Balance -600 ml -86 ml -700 ml REY JOHANSEN MD Aug 16, 2018 12:40
--- NOTE | 2018-08-16 15:10 | NUR ---
SW following pt. Pt is does not qualify for involuntary placement as she denies HI and SI. Also does not qualify for [facility] as there is no DPOA and pt is not able sign. [facility] has accepted pt will need to be off of 1:1 for 24 hours. Pt seems agreeable with plan at this time.
--- NOTE | 2018-08-16 17:19 | RAD ---
MRI Brain without contrast History: Altered mental status, encephalopathy Technique: Multiplanar, multisequential noncontrast MR imaging was performed of the brain. Comparison: None Findings: There is no evidence of recent infarct or cytotoxic edema. Ventricular size is within normal limits. There is mild supratentorial involutional change somewhat greater of the parietal lobes. There is very mild T2 and FLAIR hyperintense signal abnormality of the supratentorial periventricular white matter.There is no significant midline shift, intraaxial mass effect, or focal abnormal extra-axial fluid collection. There is no significant hemosiderin deposition of the brain parenchyma. There is preservation of the major intracranial flow-voids at the skull base other than nonvisualization of the right vertebral artery flow-void which may be aplastic. The mastoid air cells are aerated. The cerebellar tonsils are normal in location. There is no significant abnormality of the pineal gland or pituitary gland. Paranasal sinuses are overall aerated. There is preserved marrow signal of the clivus. There is some deviation of the nasal septum to the left. Impression: 1. There is no evidence of recent infarct or intracranial mass effect. There is very mild T2 and FLAIR hyperintense signal of the supratentorial parenchyma, could be due to chronic microvascular ischemic disease. There is mild supratentorial involutional change greater of parietal lobes. Electronically signed by: Jorden Estrada MD (08/16/2018 4:22 PM) [id number]
--- NOTE | 2018-08-16 17:42 | NUR ---
Refuses fingerstick blood sugar, unable to administer insulin
[2018-08-16 19:00] VITALS: BP 156/78
[2018-08-16] MEDS: LACTOBACILLUS RHAMNOSUS GG 1 CAPSULE. PO SCH (21:22)
[2018-08-16 23:00] VITALS: BP 135/65
[2018-08-17] MEDS: HYDROcodone/APAP 7.5/325MG 1 TAB TABLET PO PRN (00:58)
[2018-08-17 03:00] VITALS: BP 132/62
[2018-08-17] MEDS: IV NORMAL SALINE 1000ML BAG 1,000 ML IV SCH ×2 (05:12→17:49)
[2018-08-17 07:00] VITALS: BP 147/79
[2018-08-17] MEDS: INSULIN LISPRO 300 UNITS/3 ML INSULN.PEN. SQ SCH ×3 (07:39→17:00)
[2018-08-17] MEDS: LORazepam 1 MG TABLET PO SCH ×3 (08:39→21:38)
[2018-08-17] MEDS: glipiZIDE 5 MG TABLET PO SCH (08:39)
[2018-08-17] MEDS: cefTRIAXone IV Push 1 GM VIAL. IVP SCH (08:39)
[2018-08-17] MEDS: PANTOPRAZOLE 40 MG TABLET.DR. PO SCH (08:40)
[2018-08-17] MEDS: GABAPENTIN 300 MG CAPSULE. PO SCH ×3 (08:40→21:38)
[2018-08-17] MEDS: FLUoxetine HCL 20 MG CAPSULE PO SCH ×2 (08:40→21:38)
[2018-08-17] MEDS: METOPROLOL TART IMMED RELEASE 50 MG TABLET. PO SCH (08:40)
[2018-08-17] MEDS: LACTOBACILLUS RHAMNOSUS GG 1 CAPSULE. PO SCH ×2 (08:40→21:38)
--- NOTE | 2018-08-17 10:10 | NUR ---
SW following pt. Discussed with RN and 1:1 will be discontinued now. Discharge plan is to [place] tomorrow.
--- NOTE | 2018-08-17 10:49 | PDOC ---
PROGRESS NOTES Chief Complaint Chief Complaint Nausea Vommiting Diarrhea MS History of Present Illness History of Present Illness Pt seen and examined. She is more alert but still has 1:1 DW RN Vitals Vitals Vital Signs Date Time Temp Pulse Resp B/P (MAP) Pulse Ox O2 Delivery O2 Flow Rate FiO2 08/17/18 08:40 65 147/79 08/17/18 07:00 98.2 18 93 Room Air 98.2 Physical Exam General: Alert, Oriented X3, Cooperative, No acute distress Heart: Regular rate, Normal S1, Normal S2 Lungs: Clear Abdomen: Normal bowel sounds, Soft, No tenderness Extremities: No clubbing, No cyanosis, Normal pulses Skin: No breakdown, No significant lesion Labs LABS Laboratory Tests Test 08/16/18 20:32 08/17/18 07:33 Glucose (Fingerstick) 97 mg/dL (70-99) 94 mg/dL (70-99) Review of Systems Review of Systems CO hunger CO weakness Assessment and Plan Assessmemt and Plan Problems Medical Problems: (1) Abdominal pain Status: Acute (2) Acute renal insufficiency Status: Acute (3) Dehydration Status: Acute (4) Nausea vomiting and diarrhea Status: Acute Assessment Nausea, vomitting, diarrhea, SEvere metabolic encephalopathy HTN, Hyperlipidemia, Other Periperal neuropathy, Other Anxiety Osteoarthritis Diabetes Plan 1:1 observation IV fluids NS 75mL/H Home meds PT/OT Labs DVT PPx Discharge Dispo: Pending Comment Review of Relevant I have reviewed the following items bernie (where applicable) has been applied. Labs Laboratory Tests Test 08/15/18 16:07 08/16/18 20:32 08/17/18 07:33 Glucose (Fingerstick) 132 mg/dL (70-99) 97 mg/dL (70-99) 94 mg/dL (70-99) Laboratory Tests Test 08/16/18 20:32 08/17/18 07:33 Glucose (Fingerstick) 97 mg/dL (70-99) 94 mg/dL (70-99) Medications Current Medications Ondansetron HCl (Zofran) 4 mg 1X ONCE IV Last administered on 08/10/18at 23:25; Start 08/10/18 at 22:30; Stop 08/10/18 at 22:31; Status DC Sodium Chloride 1,000 ml @ 1,000 mls/hr 1X ONCE IV Last administered on 08/10/18 23:25; Start 08/10/18 at 22:30; Stop 08/10/18 at 23:29; Status DC Sodium Chloride 1,000 ml @ 1,000 mls/hr 1X ONCE IV Last administered on 08/10/18 23:25; Start 08/10/18 at 23:30; Stop 08/11/18 at 00:29; Status DC Morphine Sulfate (Morphine Sulfate) 4 mg 1X ONCE IV Last administered on 08/10/18 23:26; Start 08/10/18 at 23:30; Stop 08/10/18 at 23:31; Status DC Ondansetron HCl (Zofran) 4 mg PRN Q8HRS PRN IV NAUSEA/VOMITING 1ST CHOICE Last administered on 08/11/18 04:40; Start 08/10/18 at 23:30; Stop 08/11/18 at 07:58; Status DC Morphine Sulfate (Morphine Sulfate) 2 mg PRN Q2HR PRN IV SEVERE PAIN Last administered on 08/11/18 22:45; Start 08/10/18 at 23:30; Stop 08/11/18 at 23:29; Status DC Ondansetron HCl (Zofran) 8 mg PRN Q8HRS PRN IV NAUSEA/VOMITING 1ST CHOICE Last administered on 08/12/18 01:22; Start 08/11/18 at 08:00 Metoclopramide HCl (Reglan Vial) 10 mg 1X ONCE IV Last administered on 08/11/18 08:09; Start 08/11/18 at 08:00; Stop 08/11/18 at 08:01; Status DC Fluoxetine HCl (PROzac) 20 mg BID PO Last administered on 08/17/18 08:40; Start 08/11/18 at 09:00 Gabapentin (Neurontin) 300 mg TID PO ; Start 08/11/18 at 09:00; Status Cancel Glipizide (Glucotrol) 2.5 mg DAILY PO Last administered on 08/17/18 08:39; Start 08/11/18 at 09:30 Acetaminophen/ Hydrocodone Bitart (Lortab 7.5/325) 1 tab PRN Q6HRS PRN PO MODERATE PAIN Last administered on 08/17/18 00:58; Start 08/11/18 at 09:00 Lorazepam (Ativan) 1 mg TID PO Last administered on 08/17/18 08:39; Start 08/11/18 at 09:30 Metoprolol Tartrate (Lopressor) 50 mg DAILY PO Last administered on 08/17/18 08:40; Start 08/11/18 at 09:30 Nitroglycerin (Nitrostat) 0.4 mg PRN Q5MIN PRN SL CHEST PAIN; Start 08/11/18 at 09:30 Pantoprazole Sodium (Protonix) 40 mg DAILYAC PO Last administered on 08/17/18 08:40; Start 08/11/18 at 11:30 Insulin Human Lispro (HumaLOG) 0-7 UNITS TIDWMEALS SQ ; Start 08/11/18 at 12:00 Dextrose (Dextrose 50%-Water Syringe) 12.5 gm PRN Q15MIN PRN IV SEE COMMENTS; Start 08/11/18 at 09:00 Sodium Chloride 1,000 ml @ 100 mls/hr Q10H IV Last administered on 08/17/18at 05:12; Start 08/11/18 at 09:00 Gabapentin (Neurontin) 300 mg TID PO Last administered on 08/17/18 08:40; Start 08/11/18 at 09:30 Lorazepam (Ativan) 2 mg PRN Q6HRS PRN IM/IV MODERATE ANXIETY / AGITATION Last administered on 08/17/18 05:23; Start 08/14/18 at 00:45 Lorazepam (Ativan) 1 mg PRN Q6HRS PRN IM/IV MILD ANXIETY / AGITATION Last administered on 08/14/18at 04:01; Start 08/14/18 at 00:45 Haloperidol Lactate (Haldol Inj) 5 mg PRN Q6HRS PRN IM agitation Last administered on 08/15/18at 20:31; Start 08/14/18 at 04:45 Lorazepam (Ativan) 4 mg PRN Q6HRS PRN IM SEVERE ANXIETY / AGITATION Last administered on 08/17/18 05:21; Start 08/14/18 at 04:45 Olanzapine (ZyPREXA IM) 10 mg 1X ONCE IM Last administered on 08/14/18 05:08; Start 08/14/18 at 05:30; Stop 08/14/18 at 05:31; Status DC Fentanyl Citrate (Fentanyl 2ml Vial) 75 mcg 1X ONCE IV Last administered on 08/14/18at 05:26; Start 08/14/18 at 05:30; Stop 08/14/18 at 05:31; Status DC Ziprasidone (Geodon Im) 20 mg 1X PRN PRN IM AGITATION Last administered on 08/14/18at 05:39; Start 08/14/18 at 05:30; Stop 08/15/18 at 05:29; Status DC Ziprasidone (Geodon Im) 10 mg 1X ONCE IM ; Start 08/14/18 at 05:30; Stop 08/14/18 at 05:31; Status UNV Ceftriaxone Sodium (Rocephin) 1 gm Q24H IVP Last administered on 08/17/18at 08:39; Start 08/15/18 at 10:30 Lactobacillus Rhamnosus (Culturelle) 1 cap BID PO Last administered on 08/17/18at 08:40; Start 08/16/18 at 21:00 Active Scripts Active [Pantoprazole] 40 MG Tablet.dr 40 Mg PO DAILYAC 15 Days Hydrocodone-Apap 7.5-325 (Hydrocodone Bit/Acetaminophen) 1 Each Tablet 1 Tab PO PRN Q6HRS PRN Vitamin D (Cholecalciferol (Vitamin D3)) 1,000 Unit Tablet 1,000 Unit PO DAILY 30 Days Reported Simvastatin 80 Mg Tablet 1 Tab PO QHS Bydureon (Exenatide Microspheres) 2 Mg Vial 2 Mg SQ WEEKLY Gabapentin (Gabapentin) 100 Mg Capsule 300 Mg PO TID Lisinopril 5 Mg Tablet 1 Tab PO DAILY Glipizide 5 Mg Tablet 1 Tab PO BID Tramadol Hcl 50 Mg Tablet 1 Tab PO PRN Q6HRS Nitrostat (Nitroglycerin) 0.3 Mg Tab.subl 0.3 Mg SL PRN Q5MIN PRN Metoprolol Tartrate 50 Mg Tablet 50 Mg PO DAILY Lorazepam 1 Mg Tablet 1 Mg PO TID Metformin Hcl 1,000 Mg Tablet 1,000 Mg PO BID Prozac (Fluoxetine Hcl) 20 Mg Capsule 20 Mg PO BID Vitals/I & O Vital Sign - Last 24 Hours 08/16/18 08/16/18 08/16/18 08/16/18 10:52 11:00 18:27 19:00 Temp 98.3 98.3 Pulse 67 66 Resp 16 18 B/P (MAP) 149/76 (100) 156/78 (104) Pulse Ox 91 93 O2 Delivery Room Air Room Air Room Air Room Air 08/16/18 08/16/18 08/17/18 08/17/18 20:00 23:00 00:58 01:58 Temp 97.5 97.5 Pulse 70 Resp 18 B/P (MAP) 135/65 (88) Pulse Ox 93 93 93 O2 Delivery Room Air Room Air Room Air Room Air 08/17/18 08/17/18 08/17/18 03:00 07:00 08:40 Temp 98.5 98.2 98.5 98.2 Pulse 70 65 65 Resp 18 18 B/P (MAP) 132/62 (85) 147/79 (101) 147/79 Pulse Ox 93 93 O2 Delivery Room Air Room Air Intake and Output 08/16/18 08/16/18 08/17/18 15:00 23:00 07:00 Intake Total 540 ml Output Total 500 ml 200 ml Balance -500 ml -200 ml 540 ml FLY CARSON III DO August 17, 2018 10:49
[2018-08-17 11:00] VITALS: BP 140/56
--- NOTE | 2018-08-17 12:16 | PDOC ---
PROGRESS NOTES Assessment Problems Medical Problems: (1) Abdominal pain Status: Acute (2) Acute renal insufficiency Status: Acute (3) Dehydration Status: Acute (4) Nausea vomiting and diarrhea Status: Acute Metabolic encephalopathy due to hypoglycemia in probably some hypoxia as well. Brain MRI negative She is much better today, possible contribution from exacerbation of post traumatic stress disorder She has seen Dr. Dawson in the past for peripheral neuropathy and essential tremor. Low TSH, treatment per internal medicine Plan She is much better, suggest discharged to home. No additional neurological studies needed. Follow-up with neurology as needed. Objective Vital Signs Date Time Temp Pulse Resp B/P (MAP) Pulse Ox O2 Delivery O2 Flow Rate FiO2 08/17/18 11:00 98.0 63 18 140/56 (84) 95 Room Air 98.0 Intake and Output 08/17/18 06:59 Intake Total 540 ml Output Total 700 ml Balance -160 ml Intake Oral 540 ml Output Urine Total 700 ml # Voids 7 PHYSICAL EXAM Alert. Oriented to time, place and person. PERRL. EOMI. CN: no focal findings. Muscle tone: normal. Muscle strength: 5/5 DTR: 1+ Plantar reflex: flexor Gait: normal. Sensory exam: no abnormal findings. No cerebellar signs elicited. Review of Relevant I have reviewed the following items bernie (where applicable) has been applied. Labs Laboratory Tests Test 08/15/18 16:07 08/16/18 20:32 08/17/18 07:33 08/17/18 11:15 Glucose (Fingerstick) 132 mg/dL (70-99) 97 mg/dL (70-99) 94 mg/dL (70-99) 100 mg/dL (70-99) Laboratory Tests Test 08/16/18 20:32 08/17/18 07:33 08/17/18 11:15 Glucose (Fingerstick) 97 mg/dL (70-99) 94 mg/dL (70-99) 100 mg/dL (70-99) Medications Current Medications Ondansetron HCl (Zofran) 4 mg 1X ONCE IV Last administered on 08/10/18at 23:25; Start 08/10/18 at 22:30; Stop 08/10/18 at 22:31; Status DC Sodium Chloride 1,000 ml @ 1,000 mls/hr 1X ONCE IV Last administered on 08/10/18at 23:25; Start 08/10/18 at 22:30; Stop 08/10/18 at 23:29; Status DC Sodium Chloride 1,000 ml @ 1,000 mls/hr 1X ONCE IV Last administered on 08/10/18 23:25; Start 08/10/18 at 23:30; Stop 08/11/18 at 00:29; Status DC Morphine Sulfate (Morphine Sulfate) 4 mg 1X ONCE IV Last administered on 08/10/18at 23:26; Start 08/10/18 at 23:30; Stop 08/10/18 at 23:31; Status DC Ondansetron HCl (Zofran) 4 mg PRN Q8HRS PRN IV NAUSEA/VOMITING 1ST CHOICE Last administered on 08/11/18 04:40; Start 08/10/18 at 23:30; Stop 08/11/18 at 07:58; Status DC Morphine Sulfate (Morphine Sulfate) 2 mg PRN Q2HR PRN IV SEVERE PAIN Last administered on 08/11/18 22:45; Start 08/10/18 at 23:30; Stop 08/11/18 at 23:29; Status DC Ondansetron HCl (Zofran) 8 mg PRN Q8HRS PRN IV NAUSEA/VOMITING 1ST CHOICE Last administered on 08/12/18at 01:22; Start 08/11/18 at 08:00 Metoclopramide HCl (Reglan Vial) 10 mg 1X ONCE IV Last administered on 08/11/18 08:09; Start 08/11/18 at 08:00; Stop 08/11/18 at 08:01; Status DC Fluoxetine HCl (PROzac) 20 mg BID PO Last administered on 08/17/18 08:40; Start 08/11/18 at 09:00 Gabapentin (Neurontin) 300 mg TID PO ; Start 08/11/18 at 09:00; Status Cancel Glipizide (Glucotrol) 2.5 mg DAILY PO Last administered on 08/17/18at 08:39; Start 08/11/18 at 09:30 Acetaminophen/ Hydrocodone Bitart (Lortab 7.5/325) 1 tab PRN Q6HRS PRN PO MODERATE PAIN Last administered on 08/17/18 00:58; Start 08/11/18 at 09:00 Lorazepam (Ativan) 1 mg TID PO Last administered on 08/17/18 08:39; Start 08/11/18 at 09:30 Metoprolol Tartrate (Lopressor) 50 mg DAILY PO Last administered on 08/17/18 08:40; Start 08/11/18 at 09:30 Nitroglycerin (Nitrostat) 0.4 mg PRN Q5MIN PRN SL CHEST PAIN; Start 08/11/18 at 09:30 Pantoprazole Sodium (Protonix) 40 mg DAILYAC PO Last administered on 08/17/18 08:40; Start 08/11/18 at 11:30 Insulin Human Lispro (HumaLOG) 0-7 UNITS TIDWMEALS SQ ; Start 08/11/18 at 12:00 Dextrose (Dextrose 50%-Water Syringe) 12.5 gm PRN Q15MIN PRN IV SEE COMMENTS; Start 08/11/18 at 09:00 Sodium Chloride 1,000 ml @ 100 mls/hr Q10H IV Last administered on 08/17/18 05:12; Start 08/11/18 at 09:00 Gabapentin (Neurontin) 300 mg TID PO Last administered on 08/17/18 08:40; Start 08/11/18 at 09:30 Lorazepam (Ativan) 2 mg PRN Q6HRS PRN IM/IV MODERATE ANXIETY / AGITATION Last administered on 08/17/18 05:23; Start 08/14/18 at 00:45 Lorazepam (Ativan) 1 mg PRN Q6HRS PRN IM/IV MILD ANXIETY / AGITATION Last administered on 08/14/18 04:01; Start 08/14/18 at 00:45 Haloperidol Lactate (Haldol Inj) 5 mg PRN Q6HRS PRN IM agitation Last administered on 08/15/18 20:31; Start 08/14/18 at 04:45 Lorazepam (Ativan) 4 mg PRN Q6HRS PRN IM SEVERE ANXIETY / AGITATION Last administered on 08/17/18 05:21; Start 08/14/18 at 04:45 Olanzapine (ZyPREXA IM) 10 mg 1X ONCE IM Last administered on 08/14/18 05:08; Start 08/14/18 at 05:30; Stop 08/14/18 at 05:31; Status DC Fentanyl Citrate (Fentanyl 2ml Vial) 75 mcg 1X ONCE IV Last administered on 08/14/18at 05:26; Start 08/14/18 at 05:30; Stop 08/14/18 at 05:31; Status DC Ziprasidone (Geodon Im) 20 mg 1X PRN PRN IM AGITATION Last administered on 08/14/18at 05:39; Start 08/14/18 at 05:30; Stop 08/15/18 at 05:29; Status DC Ziprasidone (Geodon Im) 10 mg 1X ONCE IM ; Start 08/14/18 at 05:30; Stop 08/14/18 at 05:31; Status UNV Ceftriaxone Sodium (Rocephin) 1 gm Q24H IVP Last administered on 08/17/18at 08:39; Start 08/15/18 at 10:30 Lactobacillus Rhamnosus (Culturelle) 1 cap BID PO Last administered on 08/17/18at 08:40; Start 08/16/18 at 21:00 Active Scripts Active [Pantoprazole] 40 MG Tablet.dr 40 Mg PO DAILYAC 15 Days Hydrocodone-Apap 7.5-325 (Hydrocodone Bit/Acetaminophen) 1 Each Tablet 1 Tab PO PRN Q6HRS PRN Vitamin D (Cholecalciferol (Vitamin D3)) 1,000 Unit Tablet 1,000 Unit PO DAILY 30 Days Reported Simvastatin 80 Mg Tablet 1 Tab PO QHS Bydureon (Exenatide Microspheres) 2 Mg Vial 2 Mg SQ WEEKLY Gabapentin (Gabapentin) 100 Mg Capsule 300 Mg PO TID Lisinopril 5 Mg Tablet 1 Tab PO DAILY Glipizide 5 Mg Tablet 1 Tab PO BID Tramadol Hcl 50 Mg Tablet 1 Tab PO PRN Q6HRS Nitrostat (Nitroglycerin) 0.3 Mg Tab.subl 0.3 Mg SL PRN Q5MIN PRN Metoprolol Tartrate 50 Mg Tablet 50 Mg PO DAILY Lorazepam 1 Mg Tablet 1 Mg PO TID Metformin Hcl 1,000 Mg Tablet 1,000 Mg PO BID Prozac (Fluoxetine Hcl) 20 Mg Capsule 20 Mg PO BID Vitals/I & O Vital Sign - Last 24 Hours 08/16/18 08/16/18 08/16/18 08/16/18 18:27 19:00 20:00 23:00 Temp 98.3 97.5 98.3 97.5 Pulse 66 70 Resp 18 18 B/P (MAP) 156/78 (104) 135/65 (88) Pulse Ox 93 93 O2 Delivery Room Air Room Air Room Air Room Air 08/17/18 08/17/18 08/17/18 08/17/18 00:58 01:58 03:00 07:00 Temp 98.5 98.2 98.5 98.2 Pulse 70 65 Resp 18 18 B/P (MAP) 132/62 (85) 147/79 (101) Pulse Ox 93 93 93 93 O2 Delivery Room Air Room Air Room Air Room Air 08/17/18 08/17/18 08:40 11:00 Temp 98.0 98.0 Pulse 65 63 Resp 18 B/P (MAP) 147/79 140/56 (84) Pulse Ox 95 O2 Delivery Room Air Intake and Output 08/16/18 08/16/18 08/17/18 14:59 22:59 06:59 Intake Total 540 ml Output Total 500 ml 200 ml Balance -500 ml -200 ml 540 ml Images MRI Brain without contrast History: Altered mental status, encephalopathy Technique: Multiplanar, multisequential noncontrast MR imaging was performed of the brain. Comparison: None Findings: There is no evidence of recent infarct or cytotoxic edema. Ventricular size is within normal limits. There is mild supratentorial involutional change somewhat greater of the parietal lobes. There is very mild T2 and FLAIR hyperintense signal abnormality of the supratentorial periventricular white matter.There is no significant midline shift, intraaxial mass effect, or focal abnormal extra-axial fluid collection. There is no significant hemosiderin deposition of the brain parenchyma. There is preservation of the major intracranial flow-voids at the skull base other than nonvisualization of the right vertebral artery flow-void which may be aplastic. The mastoid air cells are aerated. The cerebellar tonsils are normal in location. There is no significant abnormality of the pineal gland or pituitary gland. Paranasal sinuses are overall aerated. There is preserved marrow signal of the clivus. There is some deviation of the nasal septum to the left. Impression: 1. There is no evidence of recent infarct or intracranial mass effect. There is very mild T2 and FLAIR hyperintense signal of the supratentorial parenchyma, could be due to chronic microvascular ischemic disease. There is mild supratentorial involutional change greater of parietal lobes. REY JOHANSEN MD August 17, 2018 12:16
[2018-08-17 15:00] VITALS: BP 133/51
[2018-08-17 19:00] VITALS: BP 147/61
[2018-08-17 23:00] VITALS: BP 159/60
[2018-08-18] MEDS: IV NORMAL SALINE 1000ML BAG 1,000 ML IV SCH ×3 (01:00→20:53)
[2018-08-18 03:00] VITALS: BP 146/69
[2018-08-18] MEDS: HYDROcodone/APAP 7.5/325MG 1 TAB TABLET PO PRN (03:09)
[2018-08-18 07:15] VITALS: BP 146/65
[2018-08-18] MEDS: PANTOPRAZOLE 40 MG TABLET.DR. PO SCH (07:30)
[2018-08-18 07:50] LABS: CALCIUM 8.5 mg/dL (8.5-10.1); CREATININE 0.9 mg/dL (0.6-1.0)
[2018-08-18 07:55] LABS: POTASSIUM 2.7 mmol/L (3.5-5.1)
[2018-08-18] MEDS: INSULIN LISPRO 300 UNITS/3 ML INSULN.PEN. SQ SCH ×3 (08:00→17:00)
[2018-08-18 08:01] LABS: BASO # 0.1 x10^3/uL (0.0-0.2); BASO % 1 % (0-3); EOS # 0.1 x10^3/uL (0.0-0.7); EOS % 2 % (0-3); HEMATOCRIT 32.6 % (36.0-47.0); LYMPH # 2.7 x10^3/uL (1.0-4.8); LYMPH % 41 % (24-48); MEAN CORPUSCULAR HEMOGLOBIN 30 pg (25-35); MEAN CORPUSCULAR HGB CONC 34 g/dL (31-37); MEAN CORPUSCULAR VOLUME 90 fL (79-100); MONO # 0.6 x10^3/uL (0.0-1.1); MONO % 9 % (0-9); NEUT # 3.1 x10^3uL (1.8-7.7); NEUT % 47 % (31-73); PLATELET COUNT 238 x10^3/uL (140-400); RED BLOOD COUNT 3.64 x10^6/uL (3.50-5.40); RED CELL DISTRIBUTION WIDTH 14.9 % (11.5-14.5); WHITE BLOOD COUNT 6.6 x10^3/uL (4.0-11.0)
--- NOTE | 2018-08-18 08:05 | NUR ---
Text page sent to Dr. Moya [id number], regarding code gregorio status and critical K+ 2.7.
[2018-08-18] MEDS: HALOPERIDOL LACTATE 5 MG/ML VIAL. IM PRN (08:10)
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
--- NOTE | 2018-08-18 08:16 | NUR ---
Per Dr. Moya, was ok to give IV PRN ativan early. Ok to leave IV out and tele off. To order 40 K+ PO if patient will take it.
[2018-08-18] MEDS: glipiZIDE 5 MG TABLET PO SCH (09:00)
[2018-08-18] MEDS: LACTOBACILLUS RHAMNOSUS GG 1 CAPSULE. PO SCH (09:00)
[2018-08-18] MEDS: METOPROLOL TART IMMED RELEASE 50 MG TABLET. PO SCH (09:00)
[2018-08-18] MEDS: GABAPENTIN 300 MG CAPSULE. PO SCH ×2 (09:00→14:00)
[2018-08-18] MEDS: FLUoxetine HCL 20 MG CAPSULE PO SCH (09:00)
[2018-08-18] MEDS: LORazepam 1 MG TABLET PO SCH ×2 (09:00→14:00)
--- NOTE | 2018-08-18 09:58 | PDOC ---
PROGRESS NOTES Chief Complaint Chief Complaint Nausea Vommiting Diarrhea MS change History of Present Illness History of Present Illness Pt seen and examined. She became combative this morning and had to be sedated agian. She has 1:1 monitoring DW RN DW Brother Vitals Vitals Vital Signs Date Time Temp Pulse Resp B/P (MAP) Pulse Ox O2 Delivery O2 Flow Rate FiO2 08/18/18 07:15 98.1 59 20 146/65 (92) Room Air 98.1 08/18/18 03:00 96 Physical Exam General: No acute distress, Other (currently under sedation) Heart: Regular rate, Normal S1, Normal S2 Lungs: Clear Abdomen: Normal bowel sounds, Soft, No tenderness Extremities: No clubbing, No cyanosis, Normal pulses Skin: No breakdown, No significant lesion Labs LABS Laboratory Tests Test 08/17/18 11:15 08/17/18 17:20 08/17/18 20:53 08/18/18 07:00 Glucose (Fingerstick) 100 mg/dL (70-99) 143 mg/dL (70-99) 139 mg/dL (70-99) White Blood Count 6.6 x10^3/uL (4.0-11.0) Red Blood Count 3.64 x10^6/uL (3.50-5.40) Hemoglobin 11.0 g/dL (12.0-15.5) Hematocrit 32.6 % (36.0-47.0) Mean Corpuscular Volume 90 fL (79-100) Mean Corpuscular Hemoglobin 30 pg (25-35) Mean Corpuscular Hemoglobin Concent 34 g/dL (31-37) Red Cell Distribution Width 14.9 % (11.5-14.5) Platelet Count 238 x10^3/uL (140-400) Neutrophils (%) (Auto) 47 % (31-73) Lymphocytes (%) (Auto) 41 % (24-48) Monocytes (%) (Auto) 9 % (0-9) Eosinophils (%) (Auto) 2 % (0-3) Basophils (%) (Auto) 1 % (0-3) Neutrophils # (Auto) 3.1 x10^3uL (1.8-7.7) Lymphocytes # (Auto) 2.7 x10^3/uL (1.0-4.8) Monocytes # (Auto) 0.6 x10^3/uL (0.0-1.1) Eosinophils # (Auto) 0.1 x10^3/uL (0.0-0.7) Basophils # (Auto) 0.1 x10^3/uL (0.0-0.2) Sodium Level 143 mmol/L (136-145) Potassium Level 2.7 mmol/L (3.5-5.1) Chloride Level 107 mmol/L (98-107) Carbon Dioxide Level 26 mmol/L (21-32) Anion Gap 10 (6-14) Blood Urea Nitrogen 8 mg/dL (7-20) Creatinine 0.9 mg/dL (0.6-1.0) Estimated GFR (Cockcroft-Gault) 63.0 Glucose Level 99 mg/dL (70-99) Calcium Level 8.5 mg/dL (8.5-10.1) Test 08/18/18 07:11 Glucose (Fingerstick) 92 mg/dL (70-99) Review of Systems Review of Systems ROS unobtainable to to pt needing to be sedated due to metabolic encephalopathy w/ organic aggressive behavior Assessment and Plan Assessmemt and Plan Problems Medical Problems: (1) Abdominal pain Status: Acute (2) Acute renal insufficiency Status: Acute (3) Dehydration Status: Acute (4) Nausea vomiting and diarrhea Status: Acute Assessment: Metabolic Encephalopathy w/ Organic Aggressive Behavior Nausea Vommiting Diarrhea MS change Plan: Continue IV Ceftriaxone Q24 Continue IV NS 100 mLs/hr Q10H Home meds DVT PPx 1:1 observation PT/OT Labs Discharge Dispo: Pending Comment Review of Relevant I have reviewed the following items bernie (where applicable) has been applied. Labs Laboratory Tests Test 08/16/18 20:32 08/17/18 07:33 08/17/18 11:15 08/17/18 17:20 Glucose (Fingerstick) 97 mg/dL (70-99) 94 mg/dL (70-99) 100 mg/dL (70-99) 143 mg/dL (70-99) Test 08/17/18 20:53 08/18/18 07:00 08/18/18 07:11 Glucose (Fingerstick) 139 mg/dL (70-99) 92 mg/dL (70-99) White Blood Count 6.6 x10^3/uL (4.0-11.0) Red Blood Count 3.64 x10^6/uL (3.50-5.40) Hemoglobin 11.0 g/dL (12.0-15.5) Hematocrit 32.6 % (36.0-47.0) Mean Corpuscular Volume 90 fL (79-100) Mean Corpuscular Hemoglobin 30 pg (25-35) Mean Corpuscular Hemoglobin Concent 34 g/dL (31-37) Red Cell Distribution Width 14.9 % (11.5-14.5) Platelet Count 238 x10^3/uL (140-400) Neutrophils (%) (Auto) 47 % (31-73) Lymphocytes (%) (Auto) 41 % (24-48) Monocytes (%) (Auto) 9 % (0-9) Eosinophils (%) (Auto) 2 % (0-3) Basophils (%) (Auto) 1 % (0-3) Neutrophils # (Auto) 3.1 x10^3uL (1.8-7.7) Lymphocytes # (Auto) 2.7 x10^3/uL (1.0-4.8) Monocytes # (Auto) 0.6 x10^3/uL (0.0-1.1) Eosinophils # (Auto) 0.1 x10^3/uL (0.0-0.7) Basophils # (Auto) 0.1 x10^3/uL (0.0-0.2) Sodium Level 143 mmol/L (136-145) Potassium Level 2.7 mmol/L (3.5-5.1) Chloride Level 107 mmol/L (98-107) Carbon Dioxide Level 26 mmol/L (21-32) Anion Gap 10 (6-14) Blood Urea Nitrogen 8 mg/dL (7-20) Creatinine 0.9 mg/dL (0.6-1.0) Estimated GFR (Cockcroft-Gault) 63.0 Glucose Level 99 mg/dL (70-99) Calcium Level 8.5 mg/dL (8.5-10.1) Laboratory Tests Test 08/17/18 11:15 08/17/18 17:20 08/17/18 20:53 08/18/18 07:00 Glucose (Fingerstick) 100 mg/dL (70-99) 143 mg/dL (70-99) 139 mg/dL (70-99) White Blood Count 6.6 x10^3/uL (4.0-11.0) Red Blood Count 3.64 x10^6/uL (3.50-5.40) Hemoglobin 11.0 g/dL (12.0-15.5) Hematocrit 32.6 % (36.0-47.0) Mean Corpuscular Volume 90 fL (79-100) Mean Corpuscular Hemoglobin 30 pg (25-35) Mean Corpuscular Hemoglobin Concent 34 g/dL (31-37) Red Cell Distribution Width 14.9 % (11.5-14.5) Platelet Count 238 x10^3/uL (140-400) Neutrophils (%) (Auto) 47 % (31-73) Lymphocytes (%) (Auto) 41 % (24-48) Monocytes (%) (Auto) 9 % (0-9) Eosinophils (%) (Auto) 2 % (0-3) Basophils (%) (Auto) 1 % (0-3) Neutrophils # (Auto) 3.1 x10^3uL (1.8-7.7) Lymphocytes # (Auto) 2.7 x10^3/uL (1.0-4.8) Monocytes # (Auto) 0.6 x10^3/uL (0.0-1.1) Eosinophils # (Auto) 0.1 x10^3/uL (0.0-0.7) Basophils # (Auto) 0.1 x10^3/uL (0.0-0.2) Sodium Level 143 mmol/L (136-145) Potassium Level 2.7 mmol/L (3.5-5.1) Chloride Level 107 mmol/L (98-107) Carbon Dioxide Level 26 mmol/L (21-32) Anion Gap 10 (6-14) Blood Urea Nitrogen 8 mg/dL (7-20) Creatinine 0.9 mg/dL (0.6-1.0) Estimated GFR (Cockcroft-Gault) 63.0 Glucose Level 99 mg/dL (70-99) Calcium Level 8.5 mg/dL (8.5-10.1) Test 08/18/18 07:11 Glucose (Fingerstick) 92 mg/dL (70-99) Medications Current Medications Ondansetron HCl (Zofran) 4 mg 1X ONCE IV Last administered on 08/10/18 23:25; Start 08/10/18 at 22:30; Stop 08/10/18 at 22:31; Status DC Sodium Chloride 1,000 ml @ 1,000 mls/hr 1X ONCE IV Last administered on 08/10/18at 23:25; Start 08/10/18 at 22:30; Stop 08/10/18 at 23:29; Status DC Sodium Chloride 1,000 ml @ 1,000 mls/hr 1X ONCE IV Last administered on 08/10/18 23:25; Start 08/10/18 at 23:30; Stop 08/11/18 at 00:29; Status DC Morphine Sulfate (Morphine Sulfate) 4 mg 1X ONCE IV Last administered on 08/10/18 23:26; Start 08/10/18 at 23:30; Stop 08/10/18 at 23:31; Status DC Ondansetron HCl (Zofran) 4 mg PRN Q8HRS PRN IV NAUSEA/VOMITING 1ST CHOICE Last administered on 08/11/18at 04:40; Start 08/10/18 at 23:30; Stop 08/11/18 at 07:58; Status DC Morphine Sulfate (Morphine Sulfate) 2 mg PRN Q2HR PRN IV SEVERE PAIN Last administered on 08/11/18at 22:45; Start 08/10/18 at 23:30; Stop 08/11/18 at 23:29; Status DC Ondansetron HCl (Zofran) 8 mg PRN Q8HRS PRN IV NAUSEA/VOMITING 1ST CHOICE Last administered on 08/12/18at 01:22; Start 08/11/18 at 08:00 Metoclopramide HCl (Reglan Vial) 10 mg 1X ONCE IV Last administered on 08/11/18at 08:09; Start 08/11/18 at 08:00; Stop 08/11/18 at 08:01; Status DC Fluoxetine HCl (PROzac) 20 mg BID PO Last administered on 08/17/18at 21:38; Start 08/11/18 at 09:00 Gabapentin (Neurontin) 300 mg TID PO ; Start 08/11/18 at 09:00; Status Cancel Glipizide (Glucotrol) 2.5 mg DAILY PO Last administered on 08/17/18 08:39; Start 08/11/18 at 09:30 Acetaminophen/ Hydrocodone Bitart (Lortab 7.5/325) 1 tab PRN Q6HRS PRN PO MODERATE PAIN Last administered on 08/18/18 03:09; Start 08/11/18 at 09:00 Lorazepam (Ativan) 1 mg TID PO Last administered on 08/17/18 21:38; Start 08/11/18 at 09:30 Metoprolol Tartrate (Lopressor) 50 mg DAILY PO Last administered on 08/17/18 0 8:40; Start 08/11/18 at 09:30 Nitroglycerin (Nitrostat) 0.4 mg PRN Q5MIN PRN SL CHEST PAIN; Start 08/11/18 at 09:30 Pantoprazole Sodium (Protonix) 40 mg DAILYAC PO Last administered on 08/17/18 08:40; Start 08/11/18 at 11:30 Insulin Human Lispro (HumaLOG) 0-7 UNITS TIDWMEALS SQ ; Start 08/11/18 at 12:00 Dextrose (Dextrose 50%-Water Syringe) 12.5 gm PRN Q15MIN PRN IV SEE COMMENTS; Start 08/11/18 at 09:00 Sodium Chloride 1,000 ml @ 100 mls/hr Q10H IV Last administered on 08/17/18 17:49; Start 08/11/18 at 09:00 Gabapentin (Neurontin) 300 mg TID PO Last administered on 08/17/18 21:38; Start 08/11/18 at 09:30 Lorazepam (Ativan) 2 mg PRN Q6HRS PRN IM/IV MODERATE ANXIETY / AGITATION Last administered on 08/17/18 05:23; Start 08/14/18 at 00:45 Lorazepam (Ativan) 1 mg PRN Q6HRS PRN IM/IV MILD ANXIETY / AGITATION Last administered on 08/14/18 04:01; Start 08/14/18 at 00:45 Haloperidol Lactate (Haldol Inj) 5 mg PRN Q6HRS PRN IM agitation Last administered on 08/18/18 08:10; Start 08/14/18 at 04:45 Lorazepam (Ativan) 4 mg PRN Q6HRS PRN IM SEVERE ANXIETY / AGITATION Last administered on 08/18/18at 07:50; Start 08/14/18 at 04:45 Olanzapine (ZyPREXA IM) 10 mg 1X ONCE IM Last administered on 08/14/18at 05:08; Start 08/14/18 at 05:30; Stop 08/14/18 at 05:31; Status DC Fentanyl Citrate (Fentanyl 2ml Vial) 75 mcg 1X ONCE IV Last administered on 08/14/18at 05:26; Start 08/14/18 at 05:30; Stop 08/14/18 at 05:31; Status DC Ziprasidone (Geodon Im) 20 mg 1X PRN PRN IM AGITATION Last administered on 08/14/18at 05:39; Start 08/14/18 at 05:30; Stop 08/15/18 at 05:29; Status DC Ziprasidone (Geodon Im) 10 mg 1X ONCE IM ; Start 08/14/18 at 05:30; Stop 08/14/18 at 05:31; Status UNV Ceftriaxone Sodium (Rocephin) 1 gm Q24H IVP Last administered on 08/17/18at 08:39; Start 08/15/18 at 10:30 Lactobacillus Rhamnosus (Culturelle) 1 cap BID PO Last administered on 08/17/18at 21:38; Start 08/16/18 at 21:00 Active Scripts Active [Pantoprazole] 40 MG Tablet.dr 40 Mg PO DAILYAC 15 Days Hydrocodone-Apap 7.5-325 (Hydrocodone Bit/Acetaminophen) 1 Each Tablet 1 Tab PO PRN Q6HRS PRN Vitamin D (Cholecalciferol (Vitamin D3)) 1,000 Unit Tablet 1,000 Unit PO DAILY 30 Days Reported Simvastatin 80 Mg Tablet 1 Tab PO QHS Bydureon (Exenatide Microspheres) 2 Mg Vial 2 Mg SQ WEEKLY Gabapentin (Gabapentin) 100 Mg Capsule 300 Mg PO TID Lisinopril 5 Mg Tablet 1 Tab PO DAILY Glipizide 5 Mg Tablet 1 Tab PO BID Tramadol Hcl 50 Mg Tablet 1 Tab PO PRN Q6HRS Nitrostat (Nitroglycerin) 0.3 Mg Tab.subl 0.3 Mg SL PRN Q5MIN PRN Metoprolol Tartrate 50 Mg Tablet 50 Mg PO DAILY Lorazepam 1 Mg Tablet 1 Mg PO TID Metformin Hcl 1,000 Mg Tablet 1,000 Mg PO BID Prozac (Fluoxetine Hcl) 20 Mg Capsule 20 Mg PO BID Vitals/I & O Vital Sign - Last 24 Hours 08/17/18 08/17/18 08/17/18 08/17/18 11:00 15:00 19:00 20:05 Temp 98.0 98.3 98.6 98.0 98.3 98.6 Pulse 63 67 63 Resp 18 B/P (MAP) 140/56 (84) 133/51 (78) 147/61 (89) Pulse Ox 95 92 95 O2 Delivery Room Air Room Air Room Air Room Air 08/17/18 08/18/18 08/18/18 08/18/18 23:00 03:00 03:09 07:15 Temp 98.7 98.1 98.1 98.7 98.1 98.1 Pulse 65 64 59 Resp 18 18 20 B/P (MAP) 159/60 (93) 146/69 (94) 146/65 (92) Pulse Ox 96 96 O2 Delivery Room Air Room Air Room Air Room Air Intake and Output 08/17/18 08/17/18 08/18/18 14:59 22:59 06:59 Intake Total 400 ml 500 ml Output Total 350 ml Balance -350 ml 400 ml 500 ml FLY CARSON III DO August 18, 2018 09:58
[2018-08-18 11:12] VITALS: BP 151/72
[2018-08-18] MEDS: POTASSIUM CHLORIDE 10MEQ 100 ML IV SCH ×4 (13:15→20:53)
[2018-08-18] MEDS: cefTRIAXone IV Push 1 GM VIAL. IVP SCH (13:21)
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
[2018-08-18 15:10] VITALS: BP 147/64
[2018-08-18 19:00] VITALS: BP 126/70
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
[2018-08-18 23:00] VITALS: BP 129/75
[2018-08-19] MEDS: POTASSIUM CHLORIDE 10MEQ 100 ML IV SCH (00:09)
[2018-08-19] MEDS: LORazepam 1 MG TABLET PO SCH ×2 (00:29→08:31)
[2018-08-19] MEDS: GABAPENTIN 300 MG CAPSULE. PO SCH ×2 (00:30→08:31)
[2018-08-19] MEDS: HYDROcodone/APAP 7.5/325MG 1 TAB TABLET PO PRN (00:30)
[2018-08-19] MEDS: LACTOBACILLUS RHAMNOSUS GG 1 CAPSULE. PO SCH ×2 (00:30→08:31)
[2018-08-19] MEDS: FLUoxetine HCL 20 MG CAPSULE PO SCH ×2 (00:30→08:31)
[2018-08-19 03:00] VITALS: BP 120/56
[2018-08-19 05:12] LABS: BASO # 0.1 x10^3/uL (0.0-0.2); BASO % 1 % (0-3); EOS # 0.1 x10^3/uL (0.0-0.7); EOS % 2 % (0-3); HEMATOCRIT 31.5 % (36.0-47.0); HEMOGLOBIN 10.7 g/dL (12.0-15.5); LYMPH # 2.3 x10^3/uL (1.0-4.8); LYMPH % 35 % (24-48); MEAN CORPUSCULAR HEMOGLOBIN 30 pg (25-35); MEAN CORPUSCULAR HGB CONC 34 g/dL (31-37); MEAN CORPUSCULAR VOLUME 90 fL (79-100); MONO # 0.7 x10^3/uL (0.0-1.1); MONO % 10 % (0-9); NEUT # 3.4 x10^3uL (1.8-7.7); NEUT % 52 % (31-73); PLATELET COUNT 248 x10^3/uL (140-400); RED BLOOD COUNT 3.51 x10^6/uL (3.50-5.40); RED CELL DISTRIBUTION WIDTH 14.9 % (11.5-14.5); WHITE BLOOD COUNT 6.6 x10^3/uL (4.0-11.0)
[2018-08-19 05:26] LABS: CALCIUM 7.9 mg/dL (8.5-10.1); GFR 55.8; POTASSIUM 3.5 mmol/L (3.5-5.1)
[2018-08-19 07:00] VITALS: BP 135/58
[2018-08-19] MEDS: PANTOPRAZOLE 40 MG TABLET.DR. PO SCH (07:20)
[2018-08-19] MEDS: IV NORMAL SALINE 1000ML BAG 1,000 ML IV SCH (07:20)
[2018-08-19] MEDS: INSULIN LISPRO 300 UNITS/3 ML INSULN.PEN. SQ SCH (07:24)
[2018-08-19] MEDS: glipiZIDE 5 MG TABLET PO SCH (08:31)
[2018-08-19] MEDS: METOPROLOL TART IMMED RELEASE 50 MG TABLET. PO SCH (08:32)
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
--- NOTE | 2018-08-19 09:28 | SNU/HH DC ---
DISCHARGE ORDERS DISCHARGE INFORMATION: FINAL DIAGNOSIS Problems Medical Problems: (1) Abdominal pain Status: Acute (2) Acute renal insufficiency Status: Acute (3) Dehydration Status: Acute (4) Nausea vomiting and diarrhea Status: Acute CONDITION ON DISCHARGE: Stable CODE STATUS: Code Status: Full NURSING HOME: SNF STAY <30 DAYS: Yes HOSPICE: HOSPICE: No HOSPICE EVAL & TREAT: No LTAC: ADMIT TO LTAC: No POST DISCHARGE ORDERS: ACTIVITY ORDERS: Activity as tolerated WEIGHT BEARING STATUS: As tolerated DIET AFTER DISCHARGE: ADA CHECKS AFTER DISCHARGE: CHECKS AFTER DISCHARGE: Check blood press - daily, Check blood sugar, ac/hs, Check your Temp as needed TREATMENT/EQUIPMENT ORDERS: ADAPTIVE EQUIPMENT NEEDED: None Physical Therapy For: Evalulation/Treatment Occupational Therapy For: Evaluation/Treatment DISCHARGE MEDICATIONS: Home Meds Active Scripts [Pantoprazole] [address] Betancourt Conflict Check, 40 MG PO DAILYAC for 15 Days Prov:HARDY CHAN MD 04/08/18 Hydrocodone Bit/Acetaminophen (HYDROCODONE-APAP 7.5-325 ) 1 Each Tablet, 1 TAB PO PRN Q6HRS PRN for PAIN, #20 TAB Prov:HARDY CHAN MD 12/11/16 Cholecalciferol (Vitamin D3) (VITAMIN D) 1,000 Unit Tablet, 1000 UNIT PO DAILY for 30 Days, #30 TAB Prov:HARDY CHAN MD 12/11/16 Reported Medications Simvastatin (SIMVASTATIN) 80 Mg Tablet, 1 TAB PO QHS for cholsterol, #90 TAB 3 Refills 08/11/18 Exenatide Microspheres (BYDUREON) 2 Mg Vial, 2 MG SQ WEEKLY, #24 MG 3 Refills 12/08/16 Gabapentin (GABAPENTIN ) 100 Mg Capsule, 300 MG PO TID, CAP 12/08/16 Lisinopril (LISINOPRIL) 5 Mg Tablet, 1 TAB PO DAILY, #30 TAB 5 Refills 12/08/16 Glipizide (GLIPIZIDE) 5 Mg Tablet, 1 TAB PO BID, #60 TAB 3 Refills 12/08/16 Tramadol Hcl (TRAMADOL HCL) 50 Mg Tablet, 1 TAB PO PRN Q6HRS, #30 TAB 12/08/16 Nitroglycerin (NITROSTAT) 0.3 Mg Tab.subl, 0.3 MG SL PRN Q5MIN PRN for CHEST PAIN, BOTTLE 10/09/13 Metoprolol Tartrate (METOPROLOL TARTRATE) 50 Mg Tablet, 50 MG PO DAILY for FOR HYPERTENSION, #60 TAB 0 Refills 10/09/13 Lorazepam (LORAZEPAM) 1 Mg Tablet, 1 MG PO TID, TAB 10/09/13 Metformin Hcl (METFORMIN HCL) 1,000 Mg Tablet, 1000 MG PO BID for ANTI-DIABETIC, TAB 0 Refills 10/09/13 Fluoxetine Hcl (PROZAC) 20 Mg Capsule, 20 MG PO BID, CAP 10/09/13 FLY CARSON III DO August 19, 2018 09:28
[2018-08-19] MEDS: cefTRIAXone IV Push 1 GM VIAL. IVP SCH (10:18)
[2018-08-19 10:58] VITALS: BP 157/62
--- NOTE | 2018-08-19 11:01 | PDOC ---
PROGRESS NOTES Chief Complaint Chief Complaint Nausea Vommiting Diarrhea MS change History of Present Illness History of Present Illness Pt seen and examined. She was alert and oriented today, Encephalopathy resolved Apologized for being combative and denies memory of events She agrees that she would like to get out of the hospital as soon as possible ALYSSIA RN Vitals Vitals Vital Signs Date Time Temp Pulse Resp B/P (MAP) Pulse Ox O2 Delivery O2 Flow Rate FiO2 08/19/18 08:32 65 135/58 08/19/18 08:00 Room Air 08/19/18 07:00 98.3 17 94 98.3 Physical Exam General: Alert, Oriented X3, Cooperative, No acute distress Heart: Regular rate, Normal S1, Normal S2 Lungs: Clear Abdomen: Normal bowel sounds, Soft, No tenderness Extremities: No clubbing, No cyanosis, Normal pulses Skin: No breakdown, No significant lesion Labs LABS Laboratory Tests Test 08/18/18 16:39 08/18/18 21:02 08/19/18 04:30 08/19/18 07:22 Glucose (Fingerstick) 116 mg/dL (70-99) 133 mg/dL (70-99) 132 mg/dL (70-99) White Blood Count 6.6 x10^3/uL (4.0-11.0) Red Blood Count 3.51 x10^6/uL (3.50-5.40) Hemoglobin 10.7 g/dL (12.0-15.5) Hematocrit 31.5 % (36.0-47.0) Mean Corpuscular Volume 90 fL (79-100) Mean Corpuscular Hemoglobin 30 pg (25-35) Mean Corpuscular Hemoglobin Concent 34 g/dL (31-37) Red Cell Distribution Width 14.9 % (11.5-14.5) Platelet Count 248 x10^3/uL (140-400) Neutrophils (%) (Auto) 52 % (31-73) Lymphocytes (%) (Auto) 35 % (24-48) Monocytes (%) (Auto) 10 % (0-9) Eosinophils (%) (Auto) 2 % (0-3) Basophils (%) (Auto) 1 % (0-3) Neutrophils # (Auto) 3.4 x10^3uL (1.8-7.7) Lymphocytes # (Auto) 2.3 x10^3/uL (1.0-4.8) Monocytes # (Auto) 0.7 x10^3/uL (0.0-1.1) Eosinophils # (Auto) 0.1 x10^3/uL (0.0-0.7) Basophils # (Auto) 0.1 x10^3/uL (0.0-0.2) Sodium Level 142 mmol/L (136-145) Potassium Level 3.5 mmol/L (3.5-5.1) Chloride Level 108 mmol/L (98-107) Carbon Dioxide Level 26 mmol/L (21-32) Anion Gap 8 (6-14) Blood Urea Nitrogen 9 mg/dL (7-20) Creatinine 1.0 mg/dL (0.6-1.0) Estimated GFR (Cockcroft-Gault) 55.8 Glucose Level 130 mg/dL (70-99) Calcium Level 7.9 mg/dL (8.5-10.1) Review of Systems Review of Systems Patient denies abdominal pain Patient denies head ache Assessment and Plan Assessmemt and Plan Problems Medical Problems: (1) Abdominal pain Status: Acute (2) Acute renal insufficiency Status: Acute (3) Dehydration Status: Acute (4) Nausea vomiting and diarrhea Status: Acute Assessment: Metabolic Encephalopathy w/ Organic Aggressive Behavior Nausea Vommiting Diarrhea MS change Plan: Continue Home meds DVT PPx PT/OT Discharge Dispo: Today to [facility] Comment Review of Relevant I have reviewed the following items bernie (where applicable) has been applied. Labs Laboratory Tests Test 08/17/18 11:15 08/17/18 17:20 08/17/18 20:53 08/18/18 07:00 Glucose (Fingerstick) 100 mg/dL (70-99) 143 mg/dL (70-99) 139 mg/dL (70-99) White Blood Count 6.6 x10^3/uL (4.0-11.0) Red Blood Count 3.64 x10^6/uL (3.50-5.40) Hemoglobin 11.0 g/dL (12.0-15.5) Hematocrit 32.6 % (36.0-47.0) Mean Corpuscular Volume 90 fL (79-100) Mean Corpuscular Hemoglobin 30 pg (25-35) Mean Corpuscular Hemoglobin Concent 34 g/dL (31-37) Red Cell Distribution Width 14.9 % (11.5-14.5) Platelet Count 238 x10^3/uL (140-400) Neutrophils (%) (Auto) 47 % (31-73) Lymphocytes (%) (Auto) 41 % (24-48) Monocytes (%) (Auto) 9 % (0-9) Eosinophils (%) (Auto) 2 % (0-3) Basophils (%) (Auto) 1 % (0-3) Neutrophils # (Auto) 3.1 x10^3uL (1.8-7.7) Lymphocytes # (Auto) 2.7 x10^3/uL (1.0-4.8) Monocytes # (Auto) 0.6 x10^3/uL (0.0-1.1) Eosinophils # (Auto) 0.1 x10^3/uL (0.0-0.7) Basophils # (Auto) 0.1 x10^3/uL (0.0-0.2) Sodium Level 143 mmol/L (136-145) Potassium Level 2.7 mmol/L (3.5-5.1) Chloride Level 107 mmol/L (98-107) Carbon Dioxide Level 26 mmol/L (21-32) Anion Gap 10 (6-14) Blood Urea Nitrogen 8 mg/dL (7-20) Creatinine 0.9 mg/dL (0.6-1.0) Estimated GFR (Cockcroft-Gault) 63.0 Glucose Level 99 mg/dL (70-99) Calcium Level 8.5 mg/dL (8.5-10.1) Test 08/18/18 07:11 08/18/18 16:39 08/18/18 21:02 08/19/18 04:30 Glucose (Fingerstick) 92 mg/dL (70-99) 116 mg/dL (70-99) 133 mg/dL (70-99) White Blood Count 6.6 x10^3/uL (4.0-11.0) Red Blood Count 3.51 x10^6/uL (3.50-5.40) Hemoglobin 10.7 g/dL (12.0-15.5) Hematocrit 31.5 % (36.0-47.0) Mean Corpuscular Volume 90 fL (79-100) Mean Corpuscular Hemoglobin 30 pg (25-35) Mean Corpuscular Hemoglobin Concent 34 g/dL (31-37) Red Cell Distribution Width 14.9 % (11.5-14.5) Platelet Count 248 x10^3/uL (140-400) Neutrophils (%) (Auto) 52 % (31-73) Lymphocytes (%) (Auto) 35 % (24-48) Monocytes (%) (Auto) 10 % (0-9) Eosinophils (%) (Auto) 2 % (0-3) Basophils (%) (Auto) 1 % (0-3) Neutrophils # (Auto) 3.4 x10^3uL (1.8-7.7) Lymphocytes # (Auto) 2.3 x10^3/uL (1.0-4.8) Monocytes # (Auto) 0.7 x10^3/uL (0.0-1.1) Eosinophils # (Auto) 0.1 x10^3/uL (0.0-0.7) Basophils # (Auto) 0.1 x10^3/uL (0.0-0.2) Sodium Level 142 mmol/L (136-145) Potassium Level 3.5 mmol/L (3.5-5.1) Chloride Level 108 mmol/L (98-107) Carbon Dioxide Level 26 mmol/L (21-32) Anion Gap 8 (6-14) Blood Urea Nitrogen 9 mg/dL (7-20) Creatinine 1.0 mg/dL (0.6-1.0) Estimated GFR (Cockcroft-Gault) 55.8 Glucose Level 130 mg/dL (70-99) Calcium Level 7.9 mg/dL (8.5-10.1) Test 08/19/18 07:22 Glucose (Fingerstick) 132 mg/dL (70-99) Laboratory Tests Test 08/18/18 16:39 08/18/18 21:02 08/19/18 04:30 08/19/18 07:22 Glucose (Fingerstick) 116 mg/dL (70-99) 133 mg/dL (70-99) 132 mg/dL (70-99) White Blood Count 6.6 x10^3/uL (4.0-11.0) Red Blood Count 3.51 x10^6/uL (3.50-5.40) Hemoglobin 10.7 g/dL (12.0-15.5) Hematocrit 31.5 % (36.0-47.0) Mean Corpuscular Volume 90 fL (79-100) Mean Corpuscular Hemoglobin 30 pg (25-35) Mean Corpuscular Hemoglobin Concent 34 g/dL (31-37) Red Cell Distribution Width 14.9 % (11.5-14.5) Platelet Count 248 x10^3/uL (140-400) Neutrophils (%) (Auto) 52 % (31-73) Lymphocytes (%) (Auto) 35 % (24-48) Monocytes (%) (Auto) 10 % (0-9) Eosinophils (%) (Auto) 2 % (0-3) Basophils (%) (Auto) 1 % (0-3) Neutrophils # (Auto) 3.4 x10^3uL (1.8-7.7) Lymphocytes # (Auto) 2.3 x10^3/uL (1.0-4.8) Monocytes # (Auto) 0.7 x10^3/uL (0.0-1.1) Eosinophils # (Auto) 0.1 x10^3/uL (0.0-0.7) Basophils # (Auto) 0.1 x10^3/uL (0.0-0.2) Sodium Level 142 mmol/L (136-145) Potassium Level 3.5 mmol/L (3.5-5.1) Chloride Level 108 mmol/L (98-107) Carbon Dioxide Level 26 mmol/L (21-32) Anion Gap 8 (6-14) Blood Urea Nitrogen 9 mg/dL (7-20) Creatinine 1.0 mg/dL (0.6-1.0) Estimated GFR (Cockcroft-Gault) 55.8 Glucose Level 130 mg/dL (70-99) Calcium Level 7.9 mg/dL (8.5-10.1) Medications Current Medications Ondansetron HCl (Zofran) 4 mg 1X ONCE IV Last administered on 08/10/18at 23:25; Start 08/10/18 at 22:30; Stop 08/10/18 at 22:31; Status DC Sodium Chloride 1,000 ml @ 1,000 mls/hr 1X ONCE IV Last administered on 08/10/18 23:25; Start 08/10/18 at 22:30; Stop 08/10/18 at 23:29; Status DC Sodium Chloride 1,000 ml @ 1,000 mls/hr 1X ONCE IV Last administered on 08/10/18 23:25; Start 08/10/18 at 23:30; Stop 08/11/18 at 00:29; Status DC Morphine Sulfate (Morphine Sulfate) 4 mg 1X ONCE IV Last administered on 08/10/18 23:26; Start 08/10/18 at 23:30; Stop 08/10/18 at 23:31; Status DC Ondansetron HCl (Zofran) 4 mg PRN Q8HRS PRN IV NAUSEA/VOMITING 1ST CHOICE Last administered on 08/11/18 04:40; Start 08/10/18 at 23:30; Stop 08/11/18 at 07:58; Status DC Morphine Sulfate (Morphine Sulfate) 2 mg PRN Q2HR PRN IV SEVERE PAIN Last administered on 08/11/18 22:45; Start 08/10/18 at 23:30; Stop 08/11/18 at 23:29; Status DC Ondansetron HCl (Zofran) 8 mg PRN Q8HRS PRN IV NAUSEA/VOMITING 1ST CHOICE Last administered on 08/12/18 01:22; Start 08/11/18 at 08:00 Metoclopramide HCl (Reglan Vial) 10 mg 1X ONCE IV Last administered on 08/11/18 08:09; Start 08/11/18 at 08:00; Stop 08/11/18 at 08:01; Status DC Fluoxetine HCl (PROzac) 20 mg BID PO Last administered on 08/19/18 08:31; Start 08/11/18 at 09:00 Gabapentin (Neurontin) 300 mg TID PO ; Start 08/11/18 at 09:00; Status Cancel Glipizide (Glucotrol) 2.5 mg DAILY PO Last administered on 08/19/18 08:31; Start 08/11/18 at 09:30 Acetaminophen/ Hydrocodone Bitart (Lortab 7.5/325) 1 tab PRN Q6HRS PRN PO MODERATE PAIN Last administered on 08/19/18 00:30; Start 08/11/18 at 09:00 Lorazepam (Ativan) 1 mg TID PO Last administered on 08/19/18 08:31; Start 08/11/18 at 09:30 Metoprolol Tartrate (Lopressor) 50 mg DAILY PO Last administered on 08/19/18 08:32; Start 08/11/18 at 09:30 Nitroglycerin (Nitrostat) 0.4 mg PRN Q5MIN PRN SL CHEST PAIN; Start 08/11/18 at 09:30 Pantoprazole Sodium (Protonix) 40 mg DAILYAC PO Last administered on 08/19/18 07:20; Start 08/11/18 at 11:30 Insulin Human Lispro (HumaLOG) 0-7 UNITS TIDWMEALS SQ ; Start 08/11/18 at 12:00 Dextrose (Dextrose 50%-Water Syringe) 12.5 gm PRN Q15MIN PRN IV SEE COMMENTS; Start 08/11/18 at 09:00 Sodium Chloride 1,000 ml @ 100 mls/hr Q10H IV Last administered on 08/19/18 07:20; Start 08/11/18 at 09:00 Gabapentin (Neurontin) 300 mg TID PO Last administered on 08/19/18 08:31; Start 08/11/18 at 09:30 Lorazepam (Ativan) 2 mg PRN Q6HRS PRN IM/IV MODERATE ANXIETY / AGITATION Last administered on 08/17/18 05:23; Start 08/14/18 at 00:45 Lorazepam (Ativan) 1 mg PRN Q6HRS PRN IM/IV MILD ANXIETY / AGITATION Last administered on 08/14/18 04:01; Start 08/14/18 at 00:45 Haloperidol Lactate (Haldol Inj) 5 mg PRN Q6HRS PRN IM agitation, 2nd choice Last administered on 08/18/18 08:10; Start 08/14/18 at 04:45 Lorazepam (Ativan) 4 mg PRN Q6HRS PRN IM SEVERE ANXIETY / AGITATION Last administered on 08/18/18 07:50; Start 08/14/18 at 04:45 Olanzapine (ZyPREXA IM) 10 mg 1X ONCE IM Last administered on 08/14/18 05:08; Start 08/14/18 at 05:30; Stop 08/14/18 at 05:31; Status DC Fentanyl Citrate (Fentanyl 2ml Vial) 75 mcg 1X ONCE IV Last administered on 08/14/18at 05:26; Start 08/14/18 at 05:30; Stop 08/14/18 at 05:31; Status DC Ziprasidone (Geodon Im) 20 mg 1X PRN PRN IM AGITATION Last administered on 08/14/18at 05:39; Start 08/14/18 at 05:30; Stop 08/15/18 at 05:29; Status DC Ziprasidone (Geodon Im) 10 mg 1X ONCE IM ; Start 08/14/18 at 05:30; Stop 08/14/18 at 05:31; Status UNV Ceftriaxone Sodium (Rocephin) 1 gm Q24H IVP Last administered on 08/19/18at 10:18; Start 08/15/18 at 10:30 Lactobacillus Rhamnosus (Culturelle) 1 cap BID PO Last administered on 08/19/18at 08:31; Start 08/16/18 at 21:00 Potassium Chloride/Water 100 ml @ 100 mls/hr Q1H IV Last administered on 08/19/18at 00:09; Start 08/18/18 at 13:00; Stop 08/18/18 at 17:59; Status DC Active Scripts Active [Pantoprazole] 40 MG Tablet.dr 40 Mg PO DAILYAC 15 Days Hydrocodone-Apap 7.5-325 (Hydrocodone Bit/Acetaminophen) 1 Each Tablet 1 Tab PO PRN Q6HRS PRN Vitamin D (Cholecalciferol (Vitamin D3)) 1,000 Unit Tablet 1,000 Unit PO DAILY 30 Days Reported Simvastatin 80 Mg Tablet 1 Tab PO QHS Bydureon (Exenatide Microspheres) 2 Mg Vial 2 Mg SQ WEEKLY Gabapentin (Gabapentin) 100 Mg Capsule 300 Mg PO TID Lisinopril 5 Mg Tablet 1 Tab PO DAILY Glipizide 5 Mg Tablet 1 Tab PO BID Tramadol Hcl 50 Mg Tablet 1 Tab PO PRN Q6HRS Nitrostat (Nitroglycerin) 0.3 Mg Tab.subl 0.3 Mg SL PRN Q5MIN PRN Metoprolol Tartrate 50 Mg Tablet 50 Mg PO DAILY Lorazepam 1 Mg Tablet 1 Mg PO TID Metformin Hcl 1,000 Mg Tablet 1,000 Mg PO BID Prozac (Fluoxetine Hcl) 20 Mg Capsule 20 Mg PO BID Vitals/I & O Vital Sign - Last 24 Hours 08/18/18 08/18/18 08/18/18 08/18/18 11:12 15:10 19:00 23:00 Temp 97.5 98.7 98.6 97.5 98.7 98.6 Pulse 63 74 79 69 Resp 18 16 20 20 B/P (MAP) 151/72 (98) 147/64 (91) 126/70 (88) 129/75 (93) Pulse Ox 94 93 O2 Delivery Room Air Room Air Room Air Room Air 08/19/18 08/19/18 08/19/18 08/19/18 00:30 01:25 03:00 07:00 Temp 98.3 98.3 98.3 98.3 Pulse 69 65 Resp 15 14 20 17 B/P (MAP) 120/56 (77) 135/58 (83) Pulse Ox 92 94 O2 Delivery Room Air Room Air Room Air Room Air 08/19/18 08/19/18 08:00 08:32 Pulse 65 B/P (MAP) 135/58 O2 Delivery Room Air Intake and Output 08/18/18 08/18/18 08/19/18 15:00 23:00 07:00 Intake Total 300 ml 812 ml Output Total 1050 ml Balance 300 ml -238 ml FLY CARSON III DO August 19, 2018 11:01
--- NOTE | 2018-08-19 11:01 | PDOC ---
PROGRESS NOTES Assessment Problems Medical Problems: (1) Abdominal pain Status: Acute (2) Acute renal insufficiency Status: Acute (3) Dehydration Status: Acute (4) Nausea vomiting and diarrhea Status: Acute No more agitation, psychiatrically related Metabolic encephalopathy due to hypoglycemia in probably some hypoxia as well. Brain MRI negative Post traumatic stress disorder She has seen Dr. Dawson in the past for peripheral neuropathy and essential tremor. Low TSH, treatment per internal medicine Plan This is a psychiatric issue, she needs inpatient psychiatric care. however, geriatric psychiatry has refused. Perhaps she could go to [place]. Plans n oted to go to [facility] in [place] No additional neurological studies needed. Follow-up with neurology as needed. Subjective No complaints Objective Vital Signs Date Time Temp Pulse Resp B/P (MAP) Pulse Ox O2 Delivery O2 Flow Rate FiO2 08/19/18 08:32 65 135/58 08/19/18 08:00 Room Air 08/19/18 07:00 98.3 17 94 98.3 Intake and Output 08/19/18 07:00 Intake Total 1112 ml Output Total 1050 ml Balance 62 ml Intake Oral 890 ml IV Total 222 ml Output Urine Total 1050 ml # Voids 1 PHYSICAL EXAM Alert. Oriented to time, place and person. Has no memory of the slapping incident yesterday PERRL. EOMI. CN: no focal findings. Muscle tone: normal. Muscle strength: Moves all extremities DTR: 1+ Plantar reflex: flexor Gait: normal. Sensory exam: no abnormal findings. No cerebellar signs elicited. Review of Relevant I have reviewed the following items bernie (where applicable) has been applied. Labs Laboratory Tests Test 08/17/18 11:15 08/17/18 17:20 08/17/18 20:53 08/18/18 07:00 Glucose (Fingerstick) 100 mg/dL (70-99) 143 mg/dL (70-99) 139 mg/dL (70-99) White Blood Count 6.6 x10^3/uL (4.0-11.0) Red Blood Count 3.64 x10^6/uL (3.50-5.40) Hemoglobin 11.0 g/dL (12.0-15.5) Hematocrit 32.6 % (36.0-47.0) Mean Corpuscular Volume 90 fL (79-100) Mean Corpuscular Hemoglobin 30 pg (25-35) Mean Corpuscular Hemoglobin Concent 34 g/dL (31-37) Red Cell Distribution Width 14.9 % (11.5-14.5) Platelet Count 238 x10^3/uL (140-400) Neutrophils (%) (Auto) 47 % (31-73) Lymphocytes (%) (Auto) 41 % (24-48) Monocytes (%) (Auto) 9 % (0-9) Eosinophils (%) (Auto) 2 % (0-3) Basophils (%) (Auto) 1 % (0-3) Neutrophils # (Auto) 3.1 x10^3uL (1.8-7.7) Lymphocytes # (Auto) 2.7 x10^3/uL (1.0-4.8) Monocytes # (Auto) 0.6 x10^3/uL (0.0-1.1) Eosinophils # (Auto) 0.1 x10^3/uL (0.0-0.7) Basophils # (Auto) 0.1 x10^3/uL (0.0-0.2) Sodium Level 143 mmol/L (136-145) Potassium Level 2.7 mmol/L (3.5-5.1) Chloride Level 107 mmol/L (98-107) Carbon Dioxide Level 26 mmol/L (21-32) Anion Gap 10 (6-14) Blood Urea Nitrogen 8 mg/dL (7-20) Creatinine 0.9 mg/dL (0.6-1.0) Estimated GFR (Cockcroft-Gault) 63.0 Glucose Level 99 mg/dL (70-99) Calcium Level 8.5 mg/dL (8.5-10.1) Test 08/18/18 07:11 08/18/18 16:39 08/18/18 21:02 08/19/18 04:30 Glucose (Fingerstick) 92 mg/dL (70-99) 116 mg/dL (70-99) 133 mg/dL (70-99) White Blood Count 6.6 x10^3/uL (4.0-11.0) Red Blood Count 3.51 x10^6/uL (3.50-5.40) Hemoglobin 10.7 g/dL (12.0-15.5) Hematocrit 31.5 % (36.0-47.0) Mean Corpuscular Volume 90 fL (79-100) Mean Corpuscular Hemoglobin 30 pg (25-35) Mean Corpuscular Hemoglobin Concent 34 g/dL (31-37) Red Cell Distribution Width 14.9 % (11.5-14.5) Platelet Count 248 x10^3/uL (140-400) Neutrophils (%) (Auto) 52 % (31-73) Lymphocytes (%) (Auto) 35 % (24-48) Monocytes (%) (Auto) 10 % (0-9) Eosinophils (%) (Auto) 2 % (0-3) Basophils (%) (Auto) 1 % (0-3) Neutrophils # (Auto) 3.4 x10^3uL (1.8-7.7) Lymphocytes # (Auto) 2.3 x10^3/uL (1.0-4.8) Monocytes # (Auto) 0.7 x10^3/uL (0.0-1.1) Eosinophils # (Auto) 0.1 x10^3/uL (0.0-0.7) Basophils # (Auto) 0.1 x10^3/uL (0.0-0.2) Sodium Level 142 mmol/L (136-145) Potassium Level 3.5 mmol/L (3.5-5.1) Chloride Level 108 mmol/L (98-107) Carbon Dioxide Level 26 mmol/L (21-32) Anion Gap 8 (6-14) Blood Urea Nitrogen 9 mg/dL (7-20) Creatinine 1.0 mg/dL (0.6-1.0) Estimated GFR (Cockcroft-Gault) 55.8 Glucose Level 130 mg/dL (70-99) Calcium Level 7.9 mg/dL (8.5-10.1) Test 08/19/18 07:22 Glucose (Fingerstick) 132 mg/dL (70-99) Laboratory Tests Test 08/18/18 16:39 08/18/18 21:02 08/19/18 04:30 08/19/18 07:22 Glucose (Fingerstick) 116 mg/dL (70-99) 133 mg/dL (70-99) 132 mg/dL (70-99) White Blood Count 6.6 x10^3/uL (4.0-11.0) Red Blood Count 3.51 x10^6/uL (3.50-5.40) Hemoglobin 10.7 g/dL (12.0-15.5) Hematocrit 31.5 % (36.0-47.0) Mean Corpuscular Volume 90 fL (79-100) Mean Corpuscular Hemoglobin 30 pg (25-35) Mean Corpuscular Hemoglobin Concent 34 g/dL (31-37) Red Cell Distribution Width 14.9 % (11.5-14.5) Platelet Count 248 x10^3/uL (140-400) Neutrophils (%) (Auto) 52 % (31-73) Lymphocytes (%) (Auto) 35 % (24-48) Monocytes (%) (Auto) 10 % (0-9) Eosinophils (%) (Auto) 2 % (0-3) Basophils (%) (Auto) 1 % (0-3) Neutrophils # (Auto) 3.4 x10^3uL (1.8-7.7) Lymphocytes # (Auto) 2.3 x10^3/uL (1.0-4.8) Monocytes # (Auto) 0.7 x10^3/uL (0.0-1.1) Eosinophils # (Auto) 0.1 x10^3/uL (0.0-0.7) Basophils # (Auto) 0.1 x10^3/uL (0.0-0.2) Sodium Level 142 mmol/L (136-145) Potassium Level 3.5 mmol/L (3.5-5.1) Chloride Level 108 mmol/L (98-107) Carbon Dioxide Level 26 mmol/L (21-32) Anion Gap 8 (6-14) Blood Urea Nitrogen 9 mg/dL (7-20) Creatinine 1.0 mg/dL (0.6-1.0) Estimated GFR (Cockcroft-Gault) 55.8 Glucose Level 130 mg/dL (70-99) Calcium Level 7.9 mg/dL (8.5-10.1) Medications Current Medications Ondansetron HCl (Zofran) 4 mg 1X ONCE IV Last administered on 08/10/18at 23:25; Start 08/10/18 at 22:30; Stop 08/10/18 at 22:31; Status DC Sodium Chloride 1,000 ml @ 1,000 mls/hr 1X ONCE IV Last administered on 08/10/18 23:25; Start 08/10/18 at 22:30; Stop 08/10/18 at 23:29; Status DC Sodium Chloride 1,000 ml @ 1,000 mls/hr 1X ONCE IV Last administered on 08/10/18 23:25; Start 08/10/18 at 23:30; Stop 08/11/18 at 00:29; Status DC Morphine Sulfate (Morphine Sulfate) 4 mg 1X ONCE IV Last administered on 08/10/18at 23:26; Start 08/10/18 at 23:30; Stop 08/10/18 at 23:31; Status DC Ondansetron HCl (Zofran) 4 mg PRN Q8HRS PRN IV NAUSEA/VOMITING 1ST CHOICE Last administered on 08/11/18at 04:40; Start 08/10/18 at 23:30; Stop 08/11/18 at 07:58; Status DC Morphine Sulfate (Morphine Sulfate) 2 mg PRN Q2HR PRN IV SEVERE PAIN Last administered on 08/11/18at 22:45; Start 08/10/18 at 23:30; Stop 08/11/18 at 23:29; Status DC Ondansetron HCl (Zofran) 8 mg PRN Q8HRS PRN IV NAUSEA/VOMITING 1ST CHOICE Last administered on 08/12/18 01:22; Start 08/11/18 at 08:00 Metoclopramide HCl (Reglan Vial) 10 mg 1X ONCE IV Last administered on 08/11/18 08:09; Start 08/11/18 at 08:00; Stop 08/11/18 at 08:01; Status DC Fluoxetine HCl (PROzac) 20 mg BID PO Last administered on 08/19/18 08:31; Start 08/11/18 at 09:00 Gabapentin (Neurontin) 300 mg TID PO ; Start 08/11/18 at 09:00; Status Cancel Glipizide (Glucotrol) 2.5 mg DAILY PO Last administered on 08/19/18 08:31; Start 08/11/18 at 09:30 Acetaminophen/ Hydrocodone Bitart (Lortab 7.5/325) 1 tab PRN Q6HRS PRN PO MODERATE PAIN Last administered on 08/19/18 00:30; Start 08/11/18 at 09:00 Lorazepam (Ativan) 1 mg TID PO Last administered on 08/19/18 08:31; Start 08/11/18 at 09:30 Metoprolol Tartrate (Lopressor) 50 mg DAILY PO Last administered on 08/19/18 08:32; Start 08/11/18 at 09:30 Nitroglycerin (Nitrostat) 0.4 mg PRN Q5MIN PRN SL CHEST PAIN; Start 08/11/18 at 09:30 Pantoprazole Sodium (Protonix) 40 mg DAILYAC PO Last administered on 08/19/18 07:20; Start 08/11/18 at 11:30 Insulin Human Lispro (HumaLOG) 0-7 UNITS TIDWMEALS SQ ; Start 08/11/18 at 12:00 Dextrose (Dextrose 50%-Water Syringe) 12.5 gm PRN Q15MIN PRN IV SEE COMMENTS; Start 08/11/18 at 09:00 Sodium Chloride 1,000 ml @ 100 mls/hr Q10H IV Last administered on 08/19/18 07:20; Start 08/11/18 at 09:00 Gabapentin (Neurontin) 300 mg TID PO Last administered on 08/19/18 08:31; Start 08/11/18 at 09:30 Lorazepam (Ativan) 2 mg PRN Q6HRS PRN IM/IV MODERATE ANXIETY / AGITATION Last administered on 08/17/18 05:23; Start 08/14/18 at 00:45 Lorazepam (Ativan) 1 mg PRN Q6HRS PRN IM/IV MILD ANXIETY / AGITATION Last administered on 08/14/18 04:01; Start 08/14/18 at 00:45 Haloperidol Lactate (Haldol Inj) 5 mg PRN Q6HRS PRN IM agitation, 2nd choice L ast administered on 08/18/18 08:10; Start 08/14/18 at 04:45 Lorazepam (Ativan) 4 mg PRN Q6HRS PRN IM SEVERE ANXIETY / AGITATION Last administered on 08/18/18 07:50; Start 08/14/18 at 04:45 Olanzapine (ZyPREXA IM) 10 mg 1X ONCE IM Last administered on 4/28/19at 05:08; Start 08/14/18 at 05:30; Stop 08/14/18 at 05:31; Status DC Fentanyl Citrate (Fentanyl 2ml Vial) 75 mcg 1X ONCE IV Last administered on 08/14/18at 05:26; Start 08/14/18 at 05:30; Stop 08/14/18 at 05:31; Status DC Ziprasidone (Geodon Im) 20 mg 1X PRN PRN IM AGITATION Last administered on 08/14/18at 05:39; Start 08/14/18 at 05:30; Stop 08/15/18 at 05:29; Status DC Ziprasidone (Geodon Im) 10 mg 1X ONCE IM ; Start 08/14/18 at 05:30; Stop 08/14/18 at 05:31; Status UNV Ceftriaxone Sodium (Rocephin) 1 gm Q24H IVP Last administered on 08/19/18at 10:18; Start 08/15/18 at 10:30 Lactobacillus Rhamnosus (Culturelle) 1 cap BID PO Last administered on 08/19/18at 08:31; Start 08/16/18 at 21:00 Potassium Chloride/Water 100 ml @ 100 mls/hr Q1H IV Last administered on 08/19/18at 00:09; Start 08/18/18 at 13:00; Stop 08/18/18 at 17:59; Status DC Active Scripts Active [Pantoprazole] 40 MG Tablet.dr 40 Mg PO DAILYAC 15 Days Hydrocodone-Apap 7.5-325 (Hydrocodone Bit/Acetaminophen) 1 Each Tablet 1 Tab PO PRN Q6HRS PRN Vitamin D (Cholecalciferol (Vitamin D3)) 1,000 Unit Tablet 1,000 Unit PO DAILY 30 Days Reported Simvastatin 80 Mg Tablet 1 Tab PO QHS Bydureon (Exenatide Microspheres) 2 Mg Vial 2 Mg SQ WEEKLY Gabapentin (Gabapentin) 100 Mg Capsule 300 Mg PO TID Lisinopril 5 Mg Tablet 1 Tab PO DAILY Glipizide 5 Mg Tablet 1 Tab PO BID Tramadol Hcl 50 Mg Tablet 1 Tab PO PRN Q6HRS Nitrostat (Nitroglycerin) 0.3 Mg Tab.subl 0.3 Mg SL PRN Q5MIN PRN Metoprolol Tartrate 50 Mg Tablet 50 Mg PO DAILY Lorazepam 1 Mg Tablet 1 Mg PO TID Metformin Hcl 1,000 Mg Tablet 1,000 Mg PO BID Prozac (Fluoxetine Hcl) 20 Mg Capsule 20 Mg PO BID Vitals/I & O Vital Sign - Last 24 Hours 08/18/18 08/18/18 08/18/18 08/18/18 11:12 15:10 19:00 23:00 Temp 97.5 98.7 98.6 97.5 98.7 98.6 Pulse 63 74 79 69 Resp 18 16 20 20 B/P (MAP) 151/72 (98) 147/64 (91) 126/70 (88) 129/75 (93) Pulse Ox 94 93 O2 Delivery Room Air Room Air Room Air Room Air 08/19/18 08/19/18 08/19/18 08/19/18 00:30 01:25 03:00 07:00 Temp 98.3 98.3 98.3 98.3 Pulse 69 65 Resp 15 14 20 17 B/P (MAP) 120/56 (77) 135/58 (83) Pulse Ox 92 94 O2 Delivery Room Air Room Air Room Air Room Air 08/19/18 08/19/18 08:00 08:32 Pulse 65 B/P (MAP) 135/58 O2 Delivery Room Air Intake and Output 08/18/18 08/18/18 08/19/18 15:00 23:00 07:00 Intake Total 300 ml 812 ml Output Total 1050 ml Balance 300 ml -238 ml REY JOHANSEN MD August 19, 2018 11:01
--- NOTE | 2018-08-19 11:45 | NUR ---
JAGDISH following pt. Pt has been accepted at [facility] rehab. JAGDISH phoned and faxed orders to [facility]. Pt's choice and rights forms signed by pt and copies on chart. Pt also completed AD form. Pt provided with original notarized AD and copies to take with her. A copy placed on chart. Pt and pt's brother aware of medicare coverage for SNU and provided with a copy of Medicaid application. 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 Discussed with RN, Physician and pt's brother.
--- NOTE | 2018-08-19 12:17 | NUR ---
Discharge Note: SEVERO MARISCAL [address] Discharge instructions and discharge home medications [facility] and a copy given. All questions have been answered and understanding verbalized. The following instructions and handouts were given: transfer of care Discontinued lines and drains: 20 gauge right hand, tip intact. patient tolerated well. Patient discharged to [facility] via transport.
--- NOTE | 2018-09-14 23:13 | DS ---
DATE OF DISCHARGE: 08/19/2018 ADMISSION DIAGNOSES: Severe metabolic encephalopathy, nausea, vomiting, diarrhea, gastroenteritis, acute renal failure, azotemia, probable urinary tract infection. DISCHARGE DIAGNOSES: History of depression, anxiety, neuropathy, arthritis, hypertension, diabetes, coronary artery disease, gastroesophageal reflux disease and hyperlipidemia. CONSULTS: Nephrology and Neurology. PROCEDURES: None. HOSPITAL COURSE: The patient is a pleasant elderly female who presented in severe metabolic encephalopathy secondary to gastroenteritis and UTI. She was admitted. We gave her aggressive IV fluids and empiric IV antibiotics and consulted Neurology and Nephrology. Over the next few days, she did better. She was combative. At one point, we had to sedate her. We thought she could go home the next morning when she improved, but then that evening, she once again had an episode of recurrent metabolic encephalopathy and was aggressive towards the staff. By the following morning, she was back to her baseline again, was pleasant and cooperative, requesting to go home. We discharged on p.o. antibiotics and encouraged p.o. fluids. DISPOSITION: Home. ACTIVITY: As tolerated. DIET: Low sodium. MEDICATIONS: We resumed her home medications, which included vitamin D, fluoxetine, gabapentin, glipizide, hydrocodone. We held her lisinopril. Lorazepam p.r.n. We held her metformin for a couple more days. Metoprolol, p.r.n. nitro, Protonix, simvastatin and Ultram. Total time 32 minutes. FLY CARSON DO DR: Guadalupe JOB#: [id number] / [id number]
== END 2018-08-19 12:00 | DRG 682 ==
LOC: ER 21:36 → 6 SOUTH 23:29
PROVIDERS: ADMIT Internal Medicine; ATTEND Internal Medicine
DX: N17.0 Acute kidney failure with tubular necrosis (principal); G93.41 Metabolic encephalopathy; A08.4 Viral intestinal infection, unspecified; I10 Essential (primary) hypertension; E86.0 Dehydration; E11.649 Type 2 diabetes mellitus with hypoglycemia without coma; F41.9 Anxiety disorder, unspecified; E78.00 Pure hypercholesterolemia, unspecified; G20 Parkinson's disease; E78.5 Hyperlipidemia, unspecified; M19.90 Unspecified osteoarthritis, unspecified site; N28.1 Cyst of kidney, acquired; E11.42 Type 2 diabetes mellitus with diabetic polyneuropathy; R09.02 Hypoxemia; Z78.1 Physical restraint status; Z90.49 Acquired absence of other specified parts of digestive tract; Z90.710 Acquired absence of both cervix and uterus; Z88.4 Allergy status to anesthetic agent; Z88.8 Allergy status to other drugs, medicaments and biological substances; Z82.49 Family history of ischemic heart disease and other diseases of the circulatory system
CPT/HCPCS: 36415; 70450; 70551; 74176; 76770; 80048; 80053; 81001; 82140; 82436; 82607; 82962; 83036; 83605; 83690; 83735; 84133; 84300; 84443; 84484; 85025; 93005; 96361; 96374; 96375; J0696; J1630; J1815; J2060; J2270; J2405; J2765; J3010; J3480; J3486; J3490; J7030; 97110; 97116; 97530; 97535; 99285-25

== ENCOUNTER 2018-11-01 09:56 | Emergency (ER) | payer MEDICARE ==
[~2018-11-01] VITALS: Ht 167.6 cm; Wt 79.4 kg
[~2018-11-01 09:56] MED LIST changes: +SIMV80TA17 PO
[2018-11-01 10:17] LABS: BILIRUBIN,URINE NEGATIVE (NEG); CLARITY,URINE CLEAR; COLOR,URINE YELLOW; NITRITE,URINE NEGATIVE (NEG); PROTEIN,URINE NEGATIVE (NEG-TRACE); UROBILINOGEN,URINE 0.2 mg/dL (0.2 mg/dL)
[2018-11-01 10:23] LABS: BACTERIA,URINE FEW /HPF (0-FEW); RBC,URINE 0 /HPF (0-2); SQUAMOUS EPITHELIAL CELL,UR MOD /LPF; WBC,URINE OCC /HPF (0-4)
--- NOTE | 2018-11-01 10:53 | PHYS DOC ---
Past Medical History Past Medical History: Anxiety, Diabetes-Type II, High Cholesterol, Hypertension, UTI Additional Past Medical Histor: back pain, [place] Past Surgical History: Cholecystectomy, Hysterectomy Alcohol Use: None Drug Use: None Adult General Chief Complaint Chief Complaint: URINARY FREQUENCY HPI HPI Patient is a 63 year old female with a history of pancreatitis, chronic abdomin al pain and renal failure presents the ED complaining of nausea and vomiting for the last 2 days. States that she's vomited twice. Complains of diffuse abdominal pain and urinary frequency as well. Describes the pain as cramping. Rates the pain as 6 out of 10. Patient states she has her gallbladder out but does not have her appendix out. Denies fever, blood in stools, chest pain, shortness of breath, headache, dizziness, weakness, vaginal discharge/bleeding or dysuria. Review of Systems Review of Systems Constitutional: Denies fever or chills [] Eyes: Denies change in visual acuity, redness, or eye pain [] HENT: Denies nasal congestion or sore throat [] Respiratory: Denies cough or shortness of breath [] Cardiovascular: No additional information not addressed in HPI [] GI: Complains of abdominal pain, nausea/vomiting. Denies bloody stools or diarrhea [] : Denies dysuria or hematuria [] Musculoskeletal: Denies back pain or joint pain [] Integument: Denies rash or skin lesions [] Neurologic: Denies headache, focal weakness or sensory changes [] All other systems were reviewed and found to be within normal limits, except as documented in this note. Current Medications Current Medications Current Medications Medications (Trade) Dose Ordered Sig/[facility] Start Time Stop Time Status Last Admin Dose Admin Acetaminophen (Tylenol) 650 mg 1X ONCE 11/01/18 11:45 11/01/18 11:46 DC 11/01/18 12:16 650 MG Info (CONTRAST GIVEN -- Rx MONITORING) 1 each PRN DAILY PRN 11/01/18 12:00 11/01/18 14:06 DC Iohexol (Omnipaque 300 Mg/ml) 60 ml 1X ONCE 11/01/18 12:00 11/01/18 12:01 DC 11/01/18 12:09 60 ML Ondansetron HCl (Zofran) 4 mg 1X ONCE 11/01/18 11:45 11/01/18 11:46 DC 11/01/18 12:17 4 MG Sodium Chloride 1,000 ml @ 1,000 mls/hr 1X ONCE 11/01/18 12:30 11/01/18 13:29 DC 11/01/18 12:44 1,000 MLS/HR Allergies Allergies Allergies Coded Allergies Type Severity Reaction Last Updated Verified atorvastatin Allergy Intermediate Rash 04/07/18 Yes buprenorphine Allergy Intermediate Rash 10/09/13 Yes cyclobenzaprine Allergy Intermediate Rash 10/21/17 Yes naproxen Allergy Intermediate RASH 09/26/13 Yes Physical Exam Physical Exam Constitutional: Well developed, well nourished, no acute distress, non-toxic appearance. [] HENT: Normocephalic, atraumatic Eyes: PERRLA, EOMI, conjunctiva normal, no discharge. [] Neck: Normal range of motion, no tenderness, supple, no stridor. [] Cardiovascular:Heart rate regular rhythm, no murmur [] Lungs & Thorax: Bilateral breath sounds clear to auscultation [] Abdomen: Bowel sounds normal, soft, Mild diffuse tenderness, no masses, no pulsatile masses. [] Skin: Warm, dry, no erythema, no rash. [] Back: No tenderness, no CVA tenderness. [] Extremities: No tenderness, no cyanosis, no clubbing, ROM intact, no edema. [] Neurologic: Alert and oriented X 3, normal motor function, normal sensory function, no focal deficits noted. [] Psychologic: Affect normal, judgement normal, mood normal. [] Current Patient Data Vital Signs Vital Signs Date Time Temp Pulse Resp B/P (MAP) Pulse Ox O2 Delivery O2 Flow Rate FiO2 11/01/18 13:35 66 16 139/60 (86) 99 Room Air 11/01/18 10:15 98.9 98.9 Lab Values Laboratory Tests Test 11/01/18 10:05 11/01/18 11:15 Urine Collection Type Unknown Urine Color Yellow Urine Clarity Clear Urine pH 5.0 Urine Specific [place] 1.010 Urine Protein Negative mg/dL (NEG-TRACE) Urine Glucose (UA) Negative mg/dL (NEG) Urine Ketones (Stick) Negative mg/dL (NEG) Urine Blood Negative (NEG) Urine Nitrite Negative (NEG) Urine Bilirubin Negative (NEG) Urine Urobilinogen Dipstick 0.2 mg/dL (0.2 mg/dL) Urine Leukocyte Esterase Negative (NEG) Urine RBC 0 /HPF (0-2) Urine WBC Occ /HPF (0-4) Urine Squamous Epithelial Cells Mod /LPF Urine Bacteria Few /HPF (0-FEW) White Blood Count 9.2 x10^3/uL (4.0-11.0) Red Blood Count 4.08 x10^6/uL (3.50-5.40) Hemoglobin 12.2 g/dL (12.0-15.5) Hematocrit 36.8 % (36.0-47.0) Mean Corpuscular Volume 90 fL (79-100) Mean Corpuscular Hemoglobin 30 pg (25-35) Mean Corpuscular Hemoglobin Concent 33 g/dL (31-37) Red Cell Distribution Width 14.7 % (11.5-14.5) H Platelet Count 304 x10^3/uL (140-400) Neutrophils (%) (Auto) 62 % (31-73) Lymphocytes (%) (Auto) 29 % (24-48) Monocytes (%) (Auto) 6 % (0-9) Eosinophils (%) (Auto) 2 % (0-3) Basophils (%) (Auto) 1 % (0-3) Neutrophils # (Auto) 5.7 x10^3/uL (1.8-7.7) Lymphocytes # (Auto) 2.7 x10^3/uL (1.0-4.8) Monocytes # (Auto) 0.6 x10^3/uL (0.0-1.1) Eosinophils # (Auto) 0.1 x10^3/uL (0.0-0.7) Basophils # (Auto) 0.1 x10^3/uL (0.0-0.2) Sodium Level 136 mmol/L (136-145) Potassium Level 4.6 mmol/L (3.5-5.1) Chloride Level 102 mmol/L (98-107) Carbon Dioxide Level 21 mmol/L (21-32) Anion Gap 13 (6-14) Blood Urea Nitrogen 19 mg/dL (7-20) Creatinine 1.2 mg/dL (0.6-1.0) H Estimated GFR (Cockcroft-Gault) 45.2 BUN/Creatinine Ratio 16 (6-20) Glucose Level 168 mg/dL (70-99) H Calcium Level 10.0 mg/dL (8.5-10.1) Total Bilirubin 0.2 mg/dL (0.2-1.0) Aspartate Amino Transferase (AST) 35 U/L (15-37) Alanine Aminotransferase (ALT) 55 U/L (14-59) Alkaline Phosphatase 88 U/L (46-116) Total Protein 7.6 g/dL (6.4-8.2) Albumin 3.6 g/dL (3.4-5.0) Albumin/Globulin Ratio 0.9 (1.0-1.7) L Lipase 358 U/L (73-393) Laboratory Tests 11/01/18 11:15 Laboratory Tests 11/01/18 11:15 EKG EKG [] Radiology/Procedures Radiology/Procedures []CT ABD PELV W/ IV CONTRST ONLY Clinical Indication: Right lower quadrant abdominal tenderness. Comparison: CT abdomen and pelvis without contrast, October 16, 2018. Technique: Helical CT imaging of the abdomen and pelvis is performed after 60 cc of Omnipaque 300 IV contrast. Oral contrast not given. Findings: Soft tissue density nodule in the left breast, incompletely seen on the first image. Cardiac size normal. Lung bases are clear. Cholecystectomy. The liver, spleen, pancreas, and adrenal glands are normal. Atherosclerotic abdominal aorta, no aneurysm. Kidneys enhance symmetrically. No ureteral calculus. Probable right UPJ stenosis. Small cyst lower pole of left kidney. 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 Left caliectasis is stable. Stomach unremarkable. No dilated small bowel. The appendix is normal. No colon wall thickening is identified. No abdominal adenopathy or free fluid. The urinary bladder is normal. Hysterectomy. No pelvic free fluid. Vacuum disc phenomenon L5/S1. Grade 1 anterolisthesis of L4 on L5. IMPRESSION: 1. No acute abdominal or pelvic abnormality. The appendix is normal. 2. Small soft tissue nodule in the left breast. Recommend further evaluation with diagnostic mammogram. 3. Stable renal findings as above. Course & Med Decision Making Course & Med Decision Making Pertinent Labs and Imaging studies reviewed. (See chart for details) []Discussed lab and imaging findings with patient and the ED. Patient had no v omiting episodes. On reexamination, abdomen is soft nontender nondistended. No peritoneal signs. Tolerating by mouth. Chest symptomatic treatment. Patient requesting Tylenol 3 which has taken in the past without complications. Will also prescribed Zofran. Discussed follow-up with PCP this week in one to 2 days. Provided contact information/education. Discussed reasons to return to the ED. Patient understands and agrees with plan. Dragon Disclaimer Dragon Disclaimer This electronic medical record was generated, in whole or in part, using a voice recognition dictation system. Departure Departure Impression: Primary Impression: Nausea and vomiting Disposition: HOME, SELF-CARE Condition: STABLE Referrals: MUNIR CUEVAS MD (PCP) Patient Instructions: Nausea and Vomiting Scripts Acetaminophen With Codeine (TYLENOL WITH CODEINE #3 TABLET) 1 Each Tablet 1 TAB PO PRN Q4HRS PRN for PAIN, #10 TAB Prov: SHAUNA MOFFETT 11/01/18 Ondansetron Hcl (ZOFRAN) 4 Mg Tablet 1 TAB PO Q6HRS, #10 TAB Prov: SHAUNA MOFFETT 11/01/18 SHAUNA MOFFETT Nov 01, 2018 10:52
[2018-11-01 11:31] LABS: BASO # 0.1 x10^3/uL (0.0-0.2); BASO % 1 % (0-3); EOS # 0.1 x10^3/uL (0.0-0.7); EOS % 2 % (0-3); HEMATOCRIT 36.8 % (36.0-47.0); HEMOGLOBIN 12.2 g/dL (12.0-15.5); LYMPH # 2.7 x10^3/uL (1.0-4.8); LYMPH % 29 % (24-48); MEAN CORPUSCULAR HEMOGLOBIN 30 pg (25-35); MEAN CORPUSCULAR HGB CONC 33 g/dL (31-37); MEAN CORPUSCULAR VOLUME 90 fL (79-100); MONO # 0.6 x10^3/uL (0.0-1.1); MONO % 6 % (0-9); NEUT # 5.7 x10^3/uL (1.8-7.7); NEUT % 62 % (31-73); PLATELET COUNT 304 x10^3/uL (140-400); RED BLOOD COUNT 4.08 x10^6/uL (3.50-5.40); RED CELL DISTRIBUTION WIDTH 14.7 % (11.5-14.5); WHITE BLOOD COUNT 9.2 x10^3/uL (4.0-11.0)
[2018-11-01 11:40] LABS: CREATININE 1.2 mg/dL (0.6-1.0); GFR 45.2; POTASSIUM 4.6 mmol/L (3.5-5.1)
[2018-11-01] MEDS ORDERED: ONDANSETRON PF 4 MG/2 ML VIAL. IV ONE (11:45)
[2018-11-01] MEDS ORDERED: ACETAMINOPHEN 325 MG TABLET. PO ONE (11:45)
[2018-11-01 11:46] LABS: ALBUMIN 3.6 g/dL (3.4-5.0); ALBUMIN/GLOBULIN RATIO 0.9 (1.0-1.7); TOTAL BILIRUBIN 0.2 mg/dL (0.2-1.0); TOTAL PROTEIN 7.6 g/dL (6.4-8.2)
[2018-11-01] MEDS ORDERED: CONTRAST GIVEN. MC PRN (12:00)
[2018-11-01] MEDS ORDERED: IOHEXOL 300 MG/ML 100ML VIAL. IV ONE (12:00)
[2018-11-01] MEDS ORDERED: IV NORMAL SALINE 1000ML BAG 1,000 ML IV ONE (12:30)
--- NOTE | 2018-11-01 12:37 | RAD ---
PQRS Compliance Statement: One or more of the following individualized dose reduction techniques were utilized for this examination: 1. Automated exposure control 2. Adjustment of the mA and/or kV according to patient size 3. Use of iterative reconstruction technique CT ABD PELV W/ IV CONTRST ONLY Clinical Indication: Right lower quadrant abdominal tenderness. Comparison: CT abdomen and pelvis without contrast, October 16, 2018. Technique: Helical CT imaging of the abdomen and pelvis is performed after 60 cc of Omnipaque 300 IV contrast. Oral contrast not given. Findings: Soft tissue density nodule in the left breast, incompletely seen on the first image. Cardiac size normal. Lung bases are clear. Cholecystectomy. The liver, spleen, pancreas, and adrenal glands are normal. Atherosclerotic abdominal aorta, no aneurysm. Kidneys enhance symmetrically. No ureteral calculus. Probable right UPJ stenosis. Small cyst lower pole of left kidney. 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 Left caliectasis is stable. Stomach unremarkable. No dilated small bowel. The appendix is normal. No colon wall thickening is identified. No abdominal adenopathy or free fluid. The urinary bladder is normal. Hysterectomy. No pelvic free fluid. Vacuum disc phenomenon L5/S1. Grade 1 anterolisthesis of L4 on L5. IMPRESSION: 1. No acute abdominal or pelvic abnormality. The appendix is normal. 2. Small soft tissue nodule in the left breast. Recommend further evaluation with diagnostic mammogram. 3. Stable renal findings as above. Electronically signed by: Salvador Moses MD (11/01/2018 12:35 PM) [id number]
[2018-11-01 13:35] VITALS: BP 139/60
[2018-11-01] MEDS ORDERED: ONDA4TAB7 PO (13:43)
[2018-11-01] MEDS ORDERED: ACET-704 PO (13:43)
== END 2018-11-01 14:01 | disposition home or self-care (01) ==
LOC: ER 09:56
DX: R11.2 Nausea with vomiting, unspecified (principal); R10.84 Generalized abdominal pain; F41.9 Anxiety disorder, unspecified; E11.9 Type 2 diabetes mellitus without complications; E78.00 Pure hypercholesterolemia, unspecified; I10 Essential (primary) hypertension; G89.29 Other chronic pain; Z90.49 Acquired absence of other specified parts of digestive tract; Z90.710 Acquired absence of both cervix and uterus; Z88.8 Allergy status to other drugs, medicaments and biological substances
CPT/HCPCS: 36415; 74177; 80053; 81001; 83690; 85025; 96361; 96374; 99285; J2405; J7030; Q9967